=== PATIENT | female | born 1945 | race Caucasian/White ===

== ENCOUNTER 2022-09-15 21:44 | Inpatient (IN) | payer OTHER ==
--- OUTSIDE RECORDS SUMMARY | 2022-09-15 21:49 | XMS REPORT | Continuity of Care Document ---
:1945 Author Organization [facility] t Address [address] [place] [address] Care Team Providers Name Role Phone Kristi Watt DO Primary Care Physician Yuliana León Attending Clinician Unavailable Yeni Green Attending Clinician Unavailable Problems Condition Condition Condition Status Onset Resolution Last Treating Co mments Source Name Details Category Date Date Treatment Clinician Date Lupus Lupus Disease Active 2016-03 [facility] anticoagul anticoagul 2-11 st ant ant 00:00: Hospita positive positive 00 l Elevated Elevated Disease Active 2016-03 Metho di partial partial [address] thrombopla thrombopla 00:00: Ho spita stin time stin time 00 l (PTT) (PTT) S/P lumbar S/P lumbar Disease Active 2016-03 M ethodi spinal spinal 0-23 st fusion fusion 00:00: Hospita 00 l Right Right Disease Active 2016-03 [facility] lumbar lumbar 0-23 st radiculopa radiculopa 00:00: Ho spita thy thy 00 l Lumbar Lumbar Disease Active 2016-03 [facility] pseudoarth pseudoarth 0-23 st rosis rosis 00:00: Hospita 00 l Closed Closed Disease Active 2016-03 [facility] fracture fracture 0-23 st of fifth of fifth 00:00: Hospit a lumbar lumbar 00 l vertebra vertebra with with routine routine healing healing 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 00:00: Hosp yoseph 00 l Essential Essential Disease Active Met hodi hypertensi hypertensi 12-04 st on on 00:00: Hospita 00 l 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 10-16 st spine with spine with 00:00: Ho spita radiculopa radiculopa 00 l thy, thy, lumbar lumbar region region Preop Preop Disease Active Methodi cardiovasc cardiovasc 08-07 st ular exam ular exam 00:00: Hosp yoseph 00 l Essential Essential Disease Active Met hodi hypertensi hypertensi 08-07 st on on 00:00: Hospita 00 l HLD HLD Disease Active Methodi (hyperlipi (hyperlipi 08-07 demia) demia) 00:00: Hospita 00 l Smoking Smoking Disease Active Methodi 08-07 st 00:00: Hospita 00 l 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 [id number] Vitamin D Problem Comm on deficiency Spirit - [facility] [id number] PUD Problem Common (peptic Spirit ulcer - [facility] disease) 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 [id number] Mixed Problem Common hyperlipid Spirit emia - [facility] [id number] Chronic Problem Commo n GERD Spirit - [facility] Chronic Chronic Problem Common fatigue fatigue Spirit syndrome - [facility] [id number] Pressure Problem Com mon [id number] [facility] buttock, St stage 1 [facility] Cigarette Cigarette Disease Active Met hodi smoker smoker [facility] Chronic Chronic Disease Active Methodi bronchitis bronchitis [facility] Teeth Teeth Disease Active Methodi missing missing [facility] Wears Wears Disease Active Methodi glasses glasses [facility] History of History of Disease Active M ethodi bronchitis bronchitis [facility] Allergies, Adverse Reactions, Alerts This patient has no known allergies or adverse reactions. Family History Family Member Diagnosis Comments Start Date Stop Date Source Natural father Stroke [facility] Natural mother Cancer [facility] Natural mother Diabetes [facility] Natural mother Heart disease [facility] Social History Social Habit Start Date Stop Date Quantity Comments Source History of Tobacco [facility] Gender identity [facility] Sexual orientation [facility] Hospital History of Social 2018-01-30 2018-01-30 [facility] function 00:00:00 00:00:00 Hospital Alcohol intake 2017-07-04 2017-07-04 Current [facility] 00:00:00 00:00:00 non-drinker of Hospital alcohol (finding) Cigarette 2017-04-09 2017-04-09 [facility] pack-years 00:00:00 00:00:00 Hospital Tobacco use and 2017-04-09 2017-04-09 Former smokeless Met hodist exposure 00:00:00 00:00:00 tobacco user [facility] Tobacco Comment 2017-04-09 2017-04-09 quit then [facility] 00:00:00 00:00:00 restarted to Hospital about 1/2 pack/day Cigarettes smoked 2017-04-09 2017-04-09 [facility] current (pack per 00:00:00 00:00:00 Hospita l day) - Reported Sex Ass[birth year] At [birth year] [facility] 00:00:00 00:00:00 Hospital Smoking Status Start Date Stop Date Source Never Smoker Common [facility] Smokes tobacco daily 2017-04-09 00:00:00 [facility] Medications Ordered Filled Start Stop Current Ordering Indication Dosage Frequency Signature Comments Components Source Medication Medication Date Date Medication? Clinician (SIG) Name Name Keflex 500 Keflex 500 2021- No 1{capsu QID Keflex 500 MG MG 05-15 03-10 le} MG 00:00: 00:00 00 :00 Santyl 250 Santyl 250 2020-03- BID UNIT/GM UNIT/GM 04-05 00:00: 00:00 00 :00 Bactrim DS Bactrim DS 2020-03- No 1{table BID 800-160 MG 800-160 MG 03-26 t} 00:00: 00:00 00 :00 FOLIC Yes 1{tbl} QD Take 1 Methodi ACID/MULTIV 4-[address] IT-MIN/LUTE 14:26: mouth Hospi ta IN (CENTRUM 17 daily. l SILVER Centrum ORAL) Silver 50 + albuterol Yes 4{puff} Q4H Inhale 4 M ethodi sulfate 4-[address] (PROAIR 14:26: every 4 Hospita RESPICLICK) 17 (four) l 90 hours as mcg/actuati needed. on aerosol powdr breath activated UNABLE TO Yes 1{tbl} Q24H Take 1 Meth mandie FIND 4-[address] 14:26: mouth Hospita 17 daily as l needed (leg cramps). [facility] Leg Cramp bisacodyl Yes 10mg Q24H Take 10 mg Me thodi (DULCOLAX) 4-[address] 5 mg EC 14:26: daily as Hospit a tablet 17 needed for l constipati on. naproxen Yes TK 1 T PO Meth mandie (NAPROSYN) 3-[address] 500 MG 00:00: FOOD. Hospita tablet 00 l morPHINE 2016-03 Yes 60mg Q.5D Take 60 mg Met hodi (MS CONTIN) 0-[address] 60 MG 12 hr 00:00: (two) Hospi ta tablet 00 times a l day. traMADol 2016-03 Yes TAKE 2 Methodi (ULTRAM) 50 0-[address] mg tablet 00:00: MOUTH 3 Hospi ta 00 TIMES l DAILY (IN THE MORNING, NOON, AND AT BEDTIME) prn atorvastati Yes 40mg QD Take 40 mg Methodi n (LIPITOR) 4-[address] 40 MG 00:00: daily. Hospita tablet 00 l gabapentin 2017-0 Yes 600mg Q.5D Take 600 Me thodi (NEURONTIN) 4-[address] 300 mg 00:00: mouth 2 Hospita capsule 00 (two) l times a day. Takes 300 mg 2 caps. Orally in the morning, 2 at noon then 4 caps. At bedtime nortriptyli 2017-0 Yes 75mg QD Take 75 mg Methodi ne 4-[address] (PAMELOR) 00:00: nightly. Hosp yoseph 25 MG 00 Takes 25 l capsule mg 3 caps. Orally nightly Pregabalin Pregabalin No 1{capsu Pregabalin 100 MG 100 MG le} 100 MG Alendronate Alendronate No Alendronat Sodium 70 Sodium 70 e Sodium MG MG 70 MG traMADol traMADol No 2{table TID traMADol HCl 50 MG HCl 50 MG ts} HCl 50 MG DULoxetine DULoxetine No 1{capsu QD DULoxetine HCl 30 MG HCl 30 MG le} HCl 30 MG Atorvastati Atorvastati No Atorvastat n Calcium n Calcium in Calcium 20 MG 20 MG 20 MG Gabapentin Gabapentin No Gabapentin 300 MG 300 MG 300 MG Nortriptyli Nortriptyli No 3{capsu Nortriptyl ne HCl 25 ne HCl 25 les} ine HCl 25 MG MG MG Enalapril Enalapril No Enalapril Maleate 20 Maleate 20 Maleate 20 MG MG MG Morphine Morphine No Morphine Sulfate 60 Sulfate 60 Sulfate 60 MG MG MG DULoxetine DULoxetine No DULoxetine HCl 30 MG HCl 30 MG HCl 30 MG tiZANidine tiZANidine No 1{table tiZANidine HCl 4 MG HCl 4 MG t} HCl 4 MG Omeprazole Omeprazole No Omeprazole 40 MG 40 MG 40 MG Gabapentin Gabapentin No Gabapentin 300 MG 300 MG 300 MG Nortriptyli Nortriptyli No 3{capsu Nortriptyl ne HCl 25 ne HCl 25 les} ine HCl 25 MG MG MG traMADol traMADol No 2{table TID traMADol HCl 50 MG HCl 50 MG ts} HCl 50 MG Pregabalin Pregabalin No 1{capsu Pregabalin 100 MG 100 MG le} 100 MG Alendronate Alendronate No Alendronat Sodium 70 Sodium 70 e Sodium MG MG 70 MG DULoxetine DULoxetine No DULoxetine HCl 30 MG HCl 30 MG HCl 30 MG Atorvastati Atorvastati No Atorvastat n Calcium n Calcium in Calcium 20 MG 20 MG 20 MG tiZANidine tiZANidine No 1{table tiZANidine HCl 4 MG HCl 4 MG t} HCl 4 MG Omeprazole Omeprazole No Omeprazole 40 MG 40 MG 40 MG Naproxen Naproxen No BID Naproxen 500 MG 500 MG 500 MG Enalapril Enalapril No Enalapril Maleate 20 Maleate 20 Maleate 20 MG MG MG DULoxetine DULoxetine No 1{capsu QD DULoxetine HCl 30 MG HCl 30 MG le} HCl 30 MG Morphine Morphine No Morphine Sulfate 60 Sulfate 60 Sulfate 60 MG MG MG DULoxetine DULoxetine No DULoxetine HCl 30 MG HCl 30 MG HCl 30 MG Naproxen Naproxen No BID Naproxen 500 MG 500 MG 500 MG Gabapentin Gabapentin No Gabapentin 300 MG 300 MG 300 MG Atorvastati Atorvastati No Atorvastat n Calcium n Calcium in Calcium 20 MG 20 MG 20 MG Nortriptyli Nortriptyli No 3{capsu Nortriptyl ne HCl 25 ne HCl 25 les} ine HCl 25 MG MG MG Pregabalin Pregabalin No 1{capsu Pregabalin 100 MG 100 MG le} 100 MG Morphine Morphine No Morphine Sulfate 60 Sulfate 60 Sulfate 60 MG MG MG traMADol traMADol No 2{table TID traMADol HCl 50 MG HCl 50 MG ts} HCl 50 MG Enalapril Enalapril No Enalapril Maleate 20 Maleate 20 Maleate 20 MG MG MG Alendronate Alendronate No Alendronat Sodium 70 Sodium 70 e Sodium MG MG 70 MG Omeprazole Omeprazole No Omeprazole 40 MG 40 MG 40 MG tiZANidine tiZANidine No 1{table tiZANidine HCl 4 MG HCl 4 MG t} HCl 4 MG DULoxetine DULoxetine No DULoxetine HCl 30 MG HCl 30 MG HCl 30 MG Naproxen Naproxen No BID Naproxen 500 MG 500 MG 500 MG Gabapentin Gabapentin No Gabapentin 300 MG 300 MG 300 MG Atorvastati Atorvastati No Atorvastat n Calcium n Calcium in Calcium 20 MG 20 MG 20 MG Nortriptyli Nortriptyli No 3{capsu Nortriptyl ne HCl 25 ne HCl 25 les} ine HCl 25 MG MG MG Pregabalin Pregabalin No 1{capsu Pregabalin 100 MG 100 MG le} 100 MG Morphine Morphine No Morphine Sulfate 60 Sulfate 60 Sulfate 60 MG MG MG traMADol traMADol No 2{table TID traMADol HCl 50 MG HCl 50 MG ts} HCl 50 MG Enalapril Enalapril No Enalapril Maleate 20 Maleate 20 Maleate 20 MG MG MG Alendronate Alendronate No Alendronat Sodium 70 Sodium 70 e Sodium MG MG 70 MG Omeprazole Omeprazole No Omeprazole 40 MG 40 MG 40 MG tiZANidine tiZANidine No 1{table tiZANidine HCl 4 MG HCl 4 MG t} HCl 4 MG DULoxetine DULoxetine No 1{capsu QD DULoxetine HCl 30 MG HCl 30 MG le} HCl 30 MG DULoxetine DULoxetine No DULoxetine HCl 30 MG HCl 30 MG HCl 30 MG Alendronate Alendronate No Alendronat Sodium 70 Sodium 70 e Sodium MG MG 70 MG Omeprazole Omeprazole No Omeprazole 40 MG 40 MG 40 MG traMADol traMADol No 2{table TID traMADol HCl 50 MG HCl 50 MG ts} HCl 50 MG Atorvastati Atorvastati No 1{table QD Atorvastat n Calcium n Calcium t} in Calcium 20 MG 20 MG 20 MG Gabapentin Gabapentin No Gabapentin 300 MG 300 MG 300 MG Nortriptyli Nortriptyli No 3{capsu Nortriptyl ne HCl 25 ne HCl 25 les} ine HCl 25 MG MG MG Pregabalin Pregabalin No 1{capsu Pregabalin 100 MG 100 MG le} 100 MG Morphine Morphine No Morphine Sulfate 60 Sulfate 60 Sulfate 60 MG MG MG Enalapril Enalapril No 1{table QD Enalapril Maleate 20 Maleate 20 t} Maleate 20 MG MG MG tiZANidine tiZANidine No 1{table tiZANidine HCl 4 MG HCl 4 MG t} HCl 4 MG Enalapril Enalapril No Enalapril Maleate 20 Maleate 20 Maleate 20 MG MG MG Omeprazole Omeprazole No 1{capsu QD Omeprazole 40 MG 40 MG le} 40 MG Naproxen Naproxen No BID Naproxen 500 MG 500 MG 500 MG Atorvastati Atorvastati No Atorvastat n Calcium n Calcium in Calcium 20 MG 20 MG 20 MG Naproxen Naproxen No BID Naproxen 500 MG 500 MG 500 MG Morphine Morphine No Morphine Sulfate 60 Sulfate 60 Sulfate 60 MG MG MG Pregabalin Pregabalin No 1{capsu Pregabalin 100 MG 100 MG le} 100 MG Alendronate Alendronate No Alendronat Sodium 70 Sodium 70 e Sodium MG MG 70 MG Omeprazole Omeprazole No 1{capsu QD Omeprazole 40 MG 40 MG le} 40 MG DULoxetine DULoxetine No DULoxetine HCl 30 MG HCl 30 MG HCl 30 MG Atorvastati Atorvastati No Atorvastat n Calcium n Calcium in Calcium 20 MG 20 MG 20 MG Nortriptyli Nortriptyli No 3{capsu Nortriptyl ne HCl 25 ne HCl 25 les} ine HCl 25 MG MG MG Enalapril Enalapril No 1{table QD Enalapril Maleate 20 Maleate 20 t} Maleate 20 MG MG MG Enalapril Enalapril No Enalapril Maleate 20 Maleate 20 Maleate 20 MG MG MG traMADol traMADol No 2{table TID traMADol HCl 50 MG HCl 50 MG ts} HCl 50 MG Atorvastati Atorvastati No 1{table QD Atorvastat n Calcium n Calcium t} in Calcium 20 MG 20 MG 20 MG Gabapentin Gabapentin No Gabapentin 300 MG 300 MG 300 MG DULoxetine DULoxetine No 1{capsu QD DULoxetine HCl 30 MG HCl 30 MG le} HCl 30 MG tiZANidine tiZANidine No 1{table tiZANidine HCl 4 MG HCl 4 MG t} HCl 4 MG Omeprazole Omeprazole No Omeprazole 40 MG 40 MG 40 MG Atorvastati Atorvastati No n Calcium n Calcium 20 MG 20 MG Gabapentin Gabapentin No 300 MG 300 MG DULoxetine DULoxetine No HCl 30 MG HCl 30 MG Alendronate Alendronate No Sodium 70 Sodium 70 MG MG Omeprazole Omeprazole No 40 MG 40 MG Enalapril Enalapril No 1{table QD Maleate 20 Maleate 20 t} MG MG Atorvastati Atorvastati No 1{table QD n Calcium n Calcium t} 20 MG 20 MG Pregabalin Pregabalin No 1{capsu 100 MG 100 MG le} Omeprazole Omeprazole No 1{capsu QD 40 MG 40 MG le} DULoxetine DULoxetine No 1{capsu QD HCl 30 MG HCl 30 MG le} Nortriptyli Nortriptyli No 3{capsu ne HCl 25 ne HCl 25 les} MG MG traMADol traMADol No 2{table TID HCl 50 MG HCl 50 MG ts} Morphine Morphine No Sulfate 60 Sulfate 60 MG MG Enalapril Enalapril No Maleate 20 Maleate 20 MG MG tiZANidine tiZANidine No 1{table HCl 4 MG HCl 4 MG t} Naproxen Naproxen No BID 500 MG 500 MG DULoxetine DULoxetine No DULoxetine HCl 30 MG HCl 30 MG HCl 30 MG Omeprazole Omeprazole No Omeprazole 40 MG 40 MG 40 MG Omeprazole Omeprazole No 1{capsu QD Omeprazole 40 MG 40 MG le} 40 MG tiZANidine tiZANidine No 1{table tiZANidine HCl 4 MG HCl 4 MG t} HCl 4 MG Enalapril Enalapril No 1{table QD Enalapril Maleate 20 Maleate 20 t} Maleate 20 MG MG MG Nortriptyli Nortriptyli No 3{capsu Nortriptyl ne HCl 25 ne HCl 25 les} ine HCl 25 MG MG MG Pregabalin Pregabalin No 1{capsu Pregabalin 100 MG 100 MG le} 100 MG traMADol traMADol No 2{table TID traMADol HCl 50 MG HCl 50 MG ts} HCl 50 MG Enalapril Enalapril No Enalapril Maleate 20 Maleate 20 Maleate 20 MG MG MG Morphine Morphine No Morphine Sulfate 60 Sulfate 60 Sulfate 60 MG MG MG Gabapentin Gabapentin No Gabapentin 300 MG 300 MG 300 MG DULoxetine DULoxetine No 1{capsu QD DULoxetine HCl 30 MG HCl 30 MG le} HCl 30 MG Naproxen Naproxen No BID Naproxen 500 MG 500 MG 500 MG Atorvastati Atorvastati No 1{table QD Atorvastat n Calcium n Calcium t} in Calcium 20 MG 20 MG 20 MG Alendronate Alendronate No Alendronat Sodium 70 Sodium 70 e Sodium MG MG 70 MG Atorvastati Atorvastati No Atorvastat n Calcium n Calcium in Calcium 20 MG 20 MG 20 MG Tizanidine Tizanidine Yes Na Green 1 tablet Common HCl HCl [facility] Nortriptyli Nortriptyli Yes Na Green 3 capsules Common ne HCl ne HCl [facility] Omeprazole Omeprazole Yes Na Green 1 capsule Common [facility] Atorvastati Atorvastati Yes Na Green 1 tablet Common n Calcium n Calcium [facility] Naproxen Naproxen Yes Na Green 1 tablet Common with food Spirit or milk as - [facility]I needed [facility] Morphine Morphine Yes Na Green as Comm on Sulfate Sulfate directed [facility] Duloxetine Duloxetine Yes Na Green 1 capsule Common HCl HCl [facility] Pregabalin Pregabalin Yes Na Green 1 capsule Common [facility] Enalapril Enalapril Yes Na Green 1 tablet Common Maleate Maleate [facility] Gabapentin Gabapentin Yes Na Green 2 capsules Common in the morning, 2 - [facility] at noon [facility] and 4 at [facility] Tramadol Tramadol Yes Na Green 2 tablets Common HCl HCl [facility] Naproxen Naproxen No BID Naproxen 500 MG 500 MG 500 MG Immunizations Ordered Immunization Filled Immunization Date Status Commen ts Source Name Name FluAD FluAD 2019-12-21 Completed [facility] - 16:29:00 [facility] FluAD FluAD 2019-12-21 Completed [facility] - 16:29:00 [facility] FluAD FluAD 2019-12-21 Completed [facility] - 16:29:00 [facility] FluAD FluAD 2019-12-21 Completed [facility] - 16:29:00 [facility] FluAD FluAD 2019-12-21 Completed [facility] - 16:29:00 [facility] FluAD FluAD 2019-12-21 Completed [facility] - 16:29:00 [facility] FluAD FluAD 2019-12-21 Completed [facility] - 16:29:00 [facility] FluAD FluAD 2019-12-21 Completed [facility] - 16:29:00 [facility] FLUCELVAX QUAD PF 2017-04-[address] 00:00:00 Hospital Pneumococcal 2016-10-19 Completed [facility] Conjugate 13-Valent 00:00:00 Hospi emil Vital Signs Vital Name Observation Time Observation Value Comments Source height 2022-02-26 13:40:00 59.00 [in_i] [facility] 2022-02-26 13:40:00 147.4 [lb_av] Common [facility] temperature 2022-02-26 13:40:00 97.5 [degF] Common S [facility] bmi 2022-02-26 13:40:00 29.77 kg/m2 [facility] 2022-02-26 13:40:00 98 % Common S [facility] respiratory rate 2022-02-26 13:40:00 16 /min Comm on [facility] blood pressure 2022-02-26 13:40:00 120 mm[Hg] [facility] systolic [facility] blood pressure 2022-02-26 13:40:00 80 mm[Hg] Common [facility] - diastolic [facility] height 2021-11-24 15:00:00 59.00 [in_i] Common S [facility] weight 2021-11-24 15:00:00 147.2 [lb_av] [facility] temperature 2021-11-24 15:00:00 97.6 [degF] Common [facility] bmi 2021-11-24 15:00:00 29.73 kg/m2 Common S [facility] oximetry 2021-11-24 15:00:00 98 % Common S [facility] respiratory rate 2021-11-24 15:00:00 16 /min Comm on [facility] blood pressure 2021-11-24 15:00:00 130 mm[Hg] [facility] - systolic [facility] blood pressure 2021-11-24 15:00:00 62 mm[Hg] Common [facility] - diastolic [facility] height 2021-05-15 14:40:00 61.5 [in_i] Common S pirit [facility] weight 2021-05-15 14:40:00 146.2 [lb_av] Common [facility] temperature 2021-05-15 14:40:00 97.6 [degF] [facility] bmi 2021-05-15 14:40:00 27.17 kg/m2 [facility] oximetry 2021-05-15 14:40:00 97 % [facility] respiratory rate 2021-05-15 14:40:00 18 /min Comm on [facility] blood pressure 2021-05-15 14:40:00 138 mm[Hg] [facility] systolic [facility] blood pressure 2021-05-15 14:40:00 65 mm[Hg] [facility] diastolic [facility] Procedures This patient has no known procedures. Plan of Care Planned Activity Planned Date Details Comments Source Future Scheduled 2022-08-31 Screening for [facility] Test 11:57:42 malignant neoplasm of colon (procedure) [code = 110838577] Future Scheduled 2022-08-31 Screening for [facility] Test 11:57:42 malignant neoplasm of colon (procedure) [code = 919065016] Future Scheduled 2022-08-31 Screening for [facility] Test 11:57:42 malignant neoplasm of colon (procedure) [code = 058338169] Future Scheduled 2022-08-31 COVID-19 VACCINE (#1) Me [facility] Test 11:57:42 [code = COVID-19 VACCINE (#1)] Future Scheduled 2022-08-31 BREAST CANCER [facility] Test 11:57:42 SCREENING [code = BREAST CANCER SCREENING] Future Scheduled 2022-08-31 Screening for [facility] Test 11:57:42 malignant neoplasm of colon (procedure) [code = 299063917] Future Scheduled 2022-08-31 Screening for [facility] Test 11:57:42 malignant neoplasm of colon (procedure) [code = 518632397] Future Scheduled 2022-08-31 SHINGLES VACCINES (1 [facility] Test 11:57:42 of 2) [code = SHINGLES VACCINES (1 of 2)] Future Scheduled 2022-08-31 65+ [address] [facility] Test 11:57:42 VACCINE (2 - PPSV23 if available, else PCV20) [code = 65+ PNEUMOCOCCAL VACCINE (2 - PPSV23 if available, else PCV20)] Future Scheduled 2022-08-31 INFLUENZA VACCINE Method [facility] Test 11:57:42 [code = INFLUENZA VACCINE] Encounters Start End Encounter Admission Attending Care Care Encounter Source Date/Time Date/Time Type Type Clinicians Facility Department ID 2022-04-17 Outpatient León, STLMLC STLMLC [id number] Common 13:50:01 Yuliana [id number] [facility] 2022-02-22 Outpatient Green, Na STLMLC STLMLC [id number] 2 Common 10:26:02 [facility] 2021-11-22 Outpatient Green, Na STLMLC STLMLC [id number] 2 Common 09:34:01 [facility] 2021 Outpatient Green, Na STLMLC STLMLC [id number] 2 Common 14:55:01 [facility] 2021-07-26 Outpatient Green, Na STLMLC STLMLC [id number] 2 Common 14:08:01 [facility] 2021-04-12 Outpatient Green, Na STLMLC STLMLC [id number] 2 Common 14:28:54 [id number] [facility] 2021-04-12 Outpatient Green, Na STLMLC STLMLC [id number] 2 Common 13:46:16 [id number] [facility] 2021-04-12 Outpatient Green, Na STLMLC STLMLC [id number] 2 Common 13:42:16 [id number] [facility] 2021-04-12 Outpatient Green, Na STLMLC STLMLC [id number] 2 Common 12:45:34 [id number] [facility] 2021-04-12 Outpatient Green, Na STLMLC STLMLC [id number] 2 Common 12:44:53 [id number] [facility] 2021-04-12 Outpatient Geren, Na STLMLC STLMLC [id number] 2 Common 12:26:53 [id number] [facility] 2021-04-12 Outpatient Green, Na STLMLC STLMLC [id number] 2 Common 12:25:49 [id number] [facility] 2021-04-12 Outpatient Green, Na STLMLC STLMLC [id number] 2 Common 12:18:05 [id number] [facility] 2021-04-12 Outpatient Green, Na STLMLC STLMLC [id number] 2 Common 11:51:33 [id number] [facility] 2021-04-12 Outpatient Green, Na STLMLC STLMLC [id number] 2 Common 11:29:53 [id number] [facility] 2021-04-12 Outpatient Green, Na STLMLC STLMLC [id number] 2 Common 11:29:37 [id number] [facility] 2022-02-26 2022-02-26 OFFICE STLMLC STLMLC [id number] Co mmon 00:00:00 00:00:00 VISIT EST Spir it PT LEVEL 3 [facility] 2021-11-24 2021-11-24 OFFICE STLMLC STLMLC [id number] Co mmon 00:00:00 00:00:00 VISIT [facility] PT - [facility] LEVEL [address] [facility] 2021-09-07 2021-09-07 (TEL) STLMLC STLMLC [id number] Co mmon 00:00:00 00:00:00 [facility] 2021-09-04 2021-09-04 (TEL) STLMLC STLMLC [id number] Co mmon 00:00:00 00:00:00 [facility] 2021-06-12 2021-06-12 (TEL) STLMLC STLMLC [id number] Co mmon 00:00:00 00:00:00 [facility] 2021-05-15 2021-05-15 OFFICE STLMLC STLMLC [id number] Co mmon 00:00:00 00:00:00 VISIT EST Spir it PT LEVEL 3 [facility] 2021-04-18 2021-04-18 (TEL) STLMLC STLMLC [id number] Co mmon 00:00:00 00:00:00 [facility] 2021-03-16 2021-03-16 OL DIG E/M STLMLC STLMLC [id number] Common 00:00:00 00:00:00 [facility] 11-20 Spir it MIN [facility] 2020-11-08 2020-11-08 Outpatient STLMLC STLMLC [id number] Common 00:00:00 00:00:00 [facility] 2020-06-13 2020-06-13 Outpatient STLMLC STLMLC [id number] Common 00:00:00 00:00:00 [facility] 2020-06-13 2020-06-13 Outpatient [facility]LMLC STL[facility]C [id number] Common 00:00:00 00:00:00 [facility] 2020-05-25 2020-05-25 Outpatient STLMLC STLMLC [id number] Common 00:00:00 00:00:00 [facility] 2020-05-16 2020-05-16 Outpatient STLMLC STLMLC [id number] Common 00:00:00 00:00:00 [facility] 2020-04-15 2020-04-15 Outpatient STLMLC STLMLC [id number] Common 00:00:00 00:00:00 [facility] 2019-12-21 2019-12-21 Outpatient STLMLC STLMLC [id number] Common 00:00:00 00:00:00 [facility] 2019-10-04 2019-10-04 [facility] [id number] Common 21:56:00 21:56:[address] [facility] 2019-09-22 2019-09-22 [facility] [id number] Common 14:40:00 14:40:[address] [facility] 2019-09-21 2019-09-21 [facility] [id number] Common 13:40:00 13:40:00 t [facility] Results This patient has no known results.
[2022-09-15 22:37] LABS: Absolute Lymphocytes (CBC) 1.5 K/uL (0.7-4.9); Hematocrit 35.9 % (36.0-45.0); Lymphocytes % 7.1 % (15.3-44.8); MCV 84.8 fL (80-100); MPV 8.2 fL (7.6-11.3); RBC Red Blood Cell Count 4.23 M/uL (3.86-4.86)
[2022-09-15 23:04] LABS: SARS-CoV-2 Antigen Rapid Res Negative (Negative)
[2022-09-15 23:08] LABS: Albumin 2.7 g/dL (3.4-5.0); Bilirubin Total 0.4 mg/dL (0.2-1.0); Protein, Total 6.6 g/dL (6.4-8.2); Troponin High Sensitivity 14.1 pg/mL (<58.9)
[2022-09-15 23:17] LABS: Blood Morphology Comment NOT SEEN (NOT SEEN); Platelet Estimate ADEQ; White Blood Cell Scan OK (OK)
[2022-09-15] MEDS ORDERED: NA CHLORIDE 0.9% 1,000 ML ONE (23:22)
[2022-09-15] MEDS ORDERED: ONDANSETRON 4 MG/2 ML VIAL ONE (23:22)
[2022-09-15 23:23] LABS: Specific Gravity 1.021 (1.005-1.030); Urine Bacteria 20-50 /HPF (<20); Urine Bilirubin NEGATIVE (Negative); Urine Blood 3+ (OVER) (Negative); Urine Clarity Extremely Turbid (Clear); Urine Color Yellow (Yellow); Urine Glucose NEGATIVE (Negative); Urine Mucus 1+ /HPF (None Seen); Urine Protein 2+ (Negative); Urine Urobilinogen Normal (Normal); Urine WBC Clump Few /HPF (None Seen)
[2022-09-15 23:37] LABS: Barbiturates NEGATIVE (NEGATIVE); Benzodiazepines NEGATIVE (NEGATIVE); Cocaine NEGATIVE (NEGATIVE); METHAMPHETAM NEGATIVE (NEGATIVE); Methadone NEGATIVE (NEGATIVE); Opiates POSITIVE (NEGATIVE); Phencyclidine NEGATIVE (NEGATIVE); THC Cannibis NEGATIVE (NEGATIVE)
[2022-09-16] MEDS ORDERED: VANCOMYCIN 1 GM/VIAL ONE (00:18)
[2022-09-16] MEDS ORDERED: NS KCL 20MEQ 1,000 ML IV ONE (00:18)
[2022-09-16] MEDS ORDERED: NA CHLORIDE 0.9% 250 ML ONE (00:18)
[2022-09-16] MEDS ORDERED: NA CHLORIDE 0.9% 100 ML ONE (00:18)
[2022-09-16] MEDS ORDERED: PIPERACIL/TAZO 3.375 GM VIAL IV ONE (00:18)
--- NOTE | 2022-09-16 01:25 | ER ---
Nurse's Notes [facility] Name: Azalea Rdz Age: 76 yrs Sex: Female : 1945 Arrival Date: 09/15/2022 Time: 21:44 Bed 6 Private MD: Diagnosis: Metabolic encephalopathy;Acute renal failure, hyponatremia, hypokalemia, acute hypoactive delirium, opiate dependence, acute sepsis, altered mental status with somnolence, acute infectious colitis Presentation: 09/15 21:52 Chief complaint: EMS states: We were toned out by the patient's daughters who state kd3 that she has had N/V/D for 3 days but she also has a history of abusing oxy. She was taken off of OXY but her home medication list says that she has morphine 60 mg. The patient reported taking her medications around 6 pm and does not know how much she took. Pt arouses easily but falls back asleep quickly. Coronavirus screen: Vaccine status: unknown. Ebola Screen: No symptoms or risks identified at this time. Initial Sepsis Screen: Does the patient meet any 2 criteria? No. Patient's initial sepsis screen is negative. Does the patient have a suspected source of infection? No. Patient's initial sepsis screen is negative. Risk Assessment: Do you want to hurt yourself or someone else? Patient reports no desire to harm self or others. Onset of symptoms was September 15, 2022. 21:52 Method Of Arrival: [facility] 3 21:52 Acuity: ROSIO 2 kd3 Triage Assessment: 21:56 General: Appears in no apparent distress. Behavior is drowsy. Pain: Denies pain. GI: kd3 Reports diarrhea, nausea, vomiting. Historical: - Allergies: 21:56 No Known Allergies; kd3 - Immunization history:: Adult Immunizations up to date. - Social history:: Smoking status: unknown. - Family history:: not pertinent. Screenin:56 [facility] ED Fall Risk Assessment (Adult) History of falling in the last 3 months, kd3 including since admission No falls in past 3 months (0 pts) Confusion or Disorientation Yes (5 pts) Intoxicated or Sedated No (0 pts) Impaired Gait Yes (1 pt) Mobility Assist Device Used No (0 pt) Altered Elimination No (0 pt) Score/Fall Risk Level 3 or more points = High Risk Maintained a safe environment. Abuse screen: Denies threats or abuse. Denies injuries from another. Nutritional screening: No deficits noted. Tuberculosis screening: No symptoms or risk factors identified. Assessment: 22:09 General: Appears in no apparent distress. comfortable, Behavior is calm, cooperative. jb4 Pain: Unable to use pain scale. FLACC scale score is 0 out of 10. Neuro: Level of Consciousness is awake, lethargic, Oriented to person, time. Cardiovascular: Patient's skin is warm and dry. Respiratory: Airway is patent Respiratory effort is even, unlabored, Respiratory pattern is regular, symmetrical. GI: Abdomen is flat, non-distended. : No signs and/or symptoms were reported regarding the genitourinary system. EENT: No signs and/or symptoms were reported regarding the EENT system. Derm: Skin is intact, Skin is pink, warm \T\ dry. Musculoskeletal: Circulation, motion, and sensation intact. Range of motion: intact in all extremities. 23:00 Reassessment: Patient appears in no apparent distress at this time. No changes from jb4 previously documented assessment. Patient and/or family updated on plan of care and expected duration. Pain level reassessed. 09/16 00:00 Reassessment: Respirations remain even and unlabored, pt is now oriented to self. jb4 Remains lethargic. 01:34 Reassessment: Patient appears in no apparent distress at this time. No changes from jb4 previously documented assessment. Patient and/or family updated on plan of care and expected duration. Pain level reassessed. Lungs are CTA RODRIGUEZ. 02:45 Reassessment: Pt resting in bed with eyes closed, respirations remain even and jb4 unlabored. no s/s of pain or distress noted, family remains at bedside. Vital Signs: 09/15 21:52 BP 142 / 110; Pulse 99; Resp 15; Temp 98.2(O); Pulse Ox 96% on R/A; Weight 51.5 kg; kd3 22:52 BP 124 / 78 (man/); Pulse 111; Resp 20; Pulse Ox 98% on R/A; jb4 23:18 BP 126 / 66; Pulse 102; Resp 18; Pulse Ox 96% on R/A; kd3 09/16 00:00 BP 100 / 76; Pulse 106; Resp 19; Pulse Ox 96% on R/A; jb4 01:15 BP 122 / 86; Pulse 108; Resp 19; Pulse Ox 95% on R/A; jb4 02:00 BP 123 / 47; Pulse 114; Resp 23; Temp 98.1(TE); Pulse Ox 95% on R/A; jb4 02:26 BP 112 / 53; Pulse 112; Resp 19; Pulse Ox 96% on R/A; kd3 02:45 Temp 98.2(TE); jb4 ED Course: 09/15 21:51 Patient arrived in ED. ja2 21:52 Haylee Pelaez, RN is Primary Nurse. kd3 21:56 Triage completed. kd3 21:56 Arm band placed on right wrist. kd3 21:57 Patient has correct armband on for positive identification. kd3 21:58 Walter Peña MD is Attending Physician. sp4 22:43 CMP Sent. jb4 22:43 CBC with Diff Sent. jb4 22:43 Lipase Sent. jb4 22:43 Troponin HS Sent. jb4 22:43 Alcohol Level Sent. jb4 22:43 SARS RAPID Sent. jb4 22:43 Influenza Screen (a \T\ B) Sent. jb4 22:43 AMMONIA Sent. jb4 22:43 Acetaminophen Sent. jb4 22:43 Salicylate Sent. jb4 22:43 TSH Sent. jb4 22:43 T4 Free Sent. jb4 09/16 00:16 CT Head Brain wo Cont In Process Unspecified. EDMS 00:16 Chest Abd Pelvis Wo Con In Process Unspecified. EDMS 01:23 Cally Schneider MD is Hospitalizing Provider. sp4 02:00 Renner cath inserted, using sterile technique, 16 Fr., by ny, balloon inflated, to jb4 gravity drainage, returned clear yellow urine. Patient tolerated well. 02:09 No provider procedures requiring assistance completed. Patient admitted, IV remains in jb4 place. Administered Medications: 09/15 23:10 Drug: NS 0.9% IV 1000 ml Route: IV; Rate: 1 bolus; Site: right antecubital; jb4 23:10 Drug: Ondansetron IVP 4 mg Route: IVP; Site: right antecubital; jb4 09/16 00:25 Drug: NS 0.9% with KCl IV 20 mEq/L 1000 ml Route: IV; Rate: 125 ml/hr; Site: right jb4 antecubital; 00:27 Drug: Piperacillin-Tazobactam IVPB 3.375 grams Route: IVPB; Infused Over: 60 mins; jb4 Site: right hand; 01:30 Drug: vancoMYCIN IVPB 1 grams Route: IVPB; Infused Over: 2 hrs; Site: right hand; jb4 Medication: 09/15 21:57 VIS not applicable for this client. kd3 Outcome: 09/16 01:24 Decision to Hospitalize by Provider. sp4 02:50 Admitted to ICU accompanied by nurse, via stretcher, on monitor. kd3 02:50 Condition: stable 02:50 Discharge instructions given to patient, family, Instructed on the need for admit, Demonstrated understanding of instructions. 02:50 Patient left the ED. kd3 Signatures: Dispatcher [employer] EDMS Nir Ratliff RN RN jb4 Nica Varela Kyli, RN RN kd3 Walter Peña MD MD sp4 Corrections: (The following items were deleted from the chart) 09/15 22:53 22:52 BP 124 / 78; Pulse 111bpm; Resp 20bpm; Pulse Ox 98% RA; jb4 jb4 09/16 02:34 02:00 BP 123 / 47; Pulse 114bpm; Resp 23bpm; Pulse Ox 95% RA; jb4 jb4 03:17 01:34 Reassessment: Patient appears in no apparent distress at this time. No changes jb4 from previously documented assessment. Patient and/or family updated on plan of care and expected duration. Pain level reassessed. jb4
--- NOTE | 2022-09-16 01:25 | EDPHYS ---
Physician Documentation [facility] Name: Azalea Rdz Age: 76 yrs Sex: Female : 1945 Arrival Date: 09/15/2022 Time: 21:44 Bed 6 Private MD: ED Physician Walter Peña HPI: 09/15 21:59 This 76 yrs old White Female presents to ER via EMS with complaints of sp4 Nausea/Vomiting/Diarrhea. 22:12 Very pleasant 76-year-old female who generally goes to [facility], with sp4 persistent nausea vomiting diarrhea at home for the past several days, also somnolence, patient at home takes morphine sulfate for chronic pain and patient's relative suspect that she took too much for medicine at 6 PM. Patient on arrival is somnolent, confused, not able to provide any significant medical history or review of systems. Patient is able to say that she has persistent somnolence and she cannot manage to wake up. Patient is unsure how long she has been feeling unwell. Patient's medications include enalapril 20 mg daily, omeprazole 40 mg daily, duloxetine unknown dose daily, patient also takes nortriptyline daily morphine 60 mg as needed for of the list and also fish oil and vitamin D based on her list of medications. Historical: - Allergies: 21:56 No Known Allergies; kd3 - Immunization history:: Adult Immunizations up to date. - Social history:: Smoking status: unknown. - Family history:: not pertinent. ROS: 22:12 Constitutional: Negative for fever, chills, and weight loss, positive for excess sp4 somnolence, nausea vomiting and diarrhea 22:12 All other systems are negative. 22:12 All other systems are negative. 22:12 Unable to obtain ROS due to obtunded state, . Exam: 22:12 Constitutional: This is a well developed, well nourished patient, patient is somnolent sp4 appears intoxicated on sedating substance. Not able to wake up sufficiently to provide HPI or review of systems. Appears physically deconditioned Head/Face: Normocephalic, atraumatic. Eyes: Pupils equal round and reactive to light, extra-ocular motions intact. Lids and lashes normal. Conjunctiva and sclera are not injected. Cornea within normal limits. Periorbital areas with no swelling, redness, or edema. ENT: Nares patent. No nasal discharge, no septal abnormalities noted. Tympanic membranes are normal and external auditory canals are clear. Oropharynx with no redness, swelling, or masses, exudates, or evidence of obstruction, uvula midline. Mucous membranes moist. Neck: Trachea midline, no thyromegaly or masses palpated, and no cervical lymphadenopathy. Supple, full range of motion without nuchal rigidity, or vertebral point tenderness. Chest/axilla: Normal chest wall appearance and motion. Nontender with no deformity. No lesions are appreciated. Cardiovascular: Regular rate and rhythm with a normal S1 and S2. No gallops, murmurs, or rubs. Normal PMI, no JVD. No pulse deficits. Respiratory: Lungs have equal breath sounds bilaterally, clear to auscultation and percussion. No rales, rhonchi or wheezes noted. No increased work of breathing, no retractions or nasal flaring. Abdomen/GI: Soft, non-tender, with normal bowel sounds. No distension or tympany. No guarding or rebound. No evidence of tenderness throughout. Back: No spinal tenderness. No costovertebral tenderness. Skin: Warm, dry with normal turgor. Normal color with no rashes, no lesions, and no evidence of cellulitis. MS/ Extremity: Pulses equal, no cyanosis. Neurovascular intact. Full, normal range of motion. Neuro: Cranial nerves II-XII grossly intact. Motor strength 5/5 in all extremities. Sensory grossly intact. Patient is somnolent alert and oriented to self and others, nonambulatory. 09/16 00:57 ECG was reviewed by the Attending Physician. EKG time 2240, there is normal sinus sp4 rhythm at a rate of 97, no ST elevation or depression, no ectopy, normal EKG Vital Signs: 09/15 21:52 BP 142 / 110; Pulse 99; Resp 15; Temp 98.2(O); Pulse Ox 96% on R/A; Weight 51.5 kg; kd3 22:52 BP 124 / 78 (man/); Pulse 111; Resp 20; Pulse Ox 98% on R/A; jb4 23:18 BP 126 / 66; Pulse 102; Resp 18; Pulse Ox 96% on R/A; kd3 09/16 00:00 BP 100 / 76; Pulse 106; Resp 19; Pulse Ox 96% on R/A; jb4 01:15 BP 122 / 86; Pulse 108; Resp 19; Pulse Ox 95% on R/A; jb4 02:00 BP 123 / 47; Pulse 114; Resp 23; Temp 98.1(TE); Pulse Ox 95% on R/A; jb4 02:26 BP 112 / 53; Pulse 112; Resp 19; Pulse Ox 96% on R/A; kd3 02:45 Temp 98.2(TE); jb4 MDM: 09/15 22:11 Patient medically screened. sp4 09/16 00:51 ED course: EXAM DESCRIPTION: Head Brain Wo Cont CLINICAL HISTORY: 76 years Female sp4 CONFUSED TECHNIQUE: Axial noncontrast CT head with coronal and sagittal reformats. All CT scans at this facility use dose modulation, iterative reconstruction, and/or weight based dosing when appropriate to reduce radiation dose to as low as reasonably achievable. COMPARISON: None. FINDINGS: Brain: No intracranial hemorrhage, midline shift, mass or mass effect. Bilateral white matter hypodensities which are nonspecific. No obvious large acute territorial infarction. Ventricles: No hydrocephalus. Orbits: Unremarkable. Sinuses: Visualized portions are clear. Mastoid: Clear. Osseous: Unremarkable. Soft tissues: Unremarkable. IMPRESSION: 1. No acute CT abnormality. 2. Bilateral white matter hypodensities which are nonspecific but probably related to chronic small vessel disease. 3. Consider further evaluation with MRI as clinically warranted. . 00:53 ED course: A EXAM DESCRIPTION: Chest Abd Pelvis Wo Con CLINICAL HISTORY: 76 years sp4 Female persistent vomiting , diarrhea TECHNIQUE: Noncontrast CT chest, abdomen and pelvis with coronal and sagittal reformats. All CT scans at this facility use dose modulation, iterative reconstruction, and/or weight based dosing when appropriate to reduce radiation dose to as low as reasonably achievable. COMPARISON: None. FINDINGS: Chest: Lungs: Minimal dependent atelectasis in the left lung base. No consolidation. Pleura: No pneumothorax. No pleural effusion. Mediastinum: No mediastinal mass or adenopathy. No pericardial effusion. Mild distention of the esophagus containing ingested material. Vascular: Normal contour. Atherosclerosis of the aorta. Bones: Unremarkable. Soft tissues: Unremarkable. Abdomen/Pelvis: Liver: No focal lesion. Gallbladder: No calcified stone. Pancreas: Within normal limits. Spleen: Within normal limits. Kidney: No stone or hydronephrosis. Adrenal glands: Within normal limits. Vascular structures: Atherosclerosis of the aorta and its major branches. Bowel: Segmental bowel wall thickening of the ascending colon, transverse colon, descending colon and sigmoid. No bowel distention. Diverticulosis without inflammatory changes. Appendix: Normal. Peritoneum: No free fluid or free air. Lymph Nodes: No lymphadenopathy. Reproductive: Status post hysterectomy. Urinary bladder: Unremarkable. Osseous structures: Multilevel degenerative and postsurgical changes of the lumbar spine. Postsurgical changes in the pelvis also noted. Chronic deformity of the right femoral head and neck with severe degenerative changes of the hip joint. Soft tissues: Unremarkable. IMPRESSION: 1. Mild distention of the esophagus containing ingested material. 2. Segmental bowel wall thickening of the ascending colon, transverse colon, descending colon and sigmoid which could be due to under distention versus colitis. 3. Chronic findings as above. . 01:24 Differential diagnosis: Nonspecific abd pain, gastritis, cholecystitis, pancreatitis, sp4 appendicitis, diverticulitis, viral gastroenteritis, gastroenteritis. Data reviewed: vital signs, nurses notes, EMS record, lab test result(s), amylase and lipase, cardiac enzymes, CBC, electrolytes, hepatic panel, urinalysis, urine drug screen, EKG, radiologic studies, CT scan. Consideration of Admission/Observation Patient was admitted/placed on observation. Escalation of care including admission/observation considered. Management of patient was discussed with the following: Hospitalist: Discussed with admitting team,. Lithographed Plate Inspector: Discussed with binder cutter hand Dr. America Galindo . ED course: Patient is in acute renal failure and a is also having leukocytosis with WBC 20,000. Patient warrants admission for evaluation and management of acute renal failure, hypoactive delirium, metabolic encephalopathy, nephrology consult was obtained at this time binder cutter hand does not want emergent dialysis but will reevaluate patient in the morning. Patient warrants admission to ICU. Patient may warrant opiate replacement such as fentanyl patch or as needed morphine. 09/15 22:09 Order name: CBC with Diff; Complete Time: 23:23 sp4 09/15 22:09 Order name: CMP; Complete Time: 23:23 sp4 09/15 22:09 Order name: Lipase; Complete Time: 23:23 sp4 09/15 22:09 Order name: Urinalysis w/ reflexes; Complete Time: 00:57 sp4 09/15 22:09 Order name: Troponin HS; Complete Time: 23:23 sp4 09/15 22:10 Order name: Alcohol Level; Complete Time: 23:23 sp4 09/15 22:10 Order name: Urine Drug Screen; Complete Time: 00:57 sp4 09/15 22:10 Order name: SARS RAPID; Complete Time: 23:23 sp4 09/15 22:10 Order name: Influenza Screen (a \T\ B); Complete Time: 23:23 sp4 09/15 22:11 Order name: AMMONIA; Complete Time: 23:23 sp4 09/15 22:11 Order name: Acetaminophen; Complete Time: 23:23 sp4 09/15 22:11 Order name: Salicylate; Complete Time: 23:23 sp4 09/15 22:11 Order name: TSH; Complete Time: 23:23 sp4 09/15 22:11 Order name: T4 Free; Complete Time: 23:23 sp4 09/15 22:51 Order name: CBC Smear Scan; Complete Time: 23:23 EDMS 09/15 23:22 Order name: Lactate w/ 2H reflex if indic.; Complete Time: 00:57 sp4 09/15 23:22 Order name: Blood Culture Adult (2) 4 09/15 23:27 Order name: Urine Culture EDMS 09/16 01:22 Order name: CBC with Automated Diff EDMS / 01:22 Order name: CBC with Automated Diff EDMS / 01:22 Order name: CBC with Automated Diff EDMS / 01:22 Order name: CBC with Automated Diff EDMS 07/ 01:22 Order name: Comprehensive Metabolic Panel EDMS 07/ 01:22 Order name: Comprehensive Metabolic Panel EDMS 07/ 01:22 Order name: Comprehensive Metabolic Panel EDMS 07/ 01:22 Order name: Comprehensive Metabolic Panel EDMS 07/ 01:22 Order name: Magnesium EDMS 07/02 01:22 Order name: Magnesium EDMS 07/02 01:22 Order name: Magnesium EDMS 07/02 01:22 Order name: Magnesium EDMS 07/02 01:22 Order name: Phosphorus EDMS 07/02 01:22 Order name: Phosphorus EDMS 07/02 01:22 Order name: Phosphorus EDMS 07/02 01:22 Order name: Phosphorus EDMS 09/15 22:10 Order name: CT Head Brain wo Cont sp4 09/15 23:31 Order name: Chest Abd Pelvis Wo Con EDOR 09/15 22:09 Order name: EKG; Complete Time: 22:10 sp4 09/16 01:22 Order name: NPO EDOR 09/15 22:09 Order name: IV Saline Lock; Complete Time: 22:43 sp4 09/15 22:09 Order name: Labs collected and sent; Complete Time: 22:43 sp4 09/15 22:09 Order name: Cardiac monitoring; Complete Time: 22:43 sp4 09/15 22:09 Order name: EKG - Nurse/Tech; Complete Time: 22:43 sp4 09/16 01:23 Order name: Renner; Complete Time: 02:07 [facility] EC:57 Rate is 97 beats/min. Rhythm is regular, Normal Sinus Rhythm. QRS [place] is Normal. MO sp4 interval is normal. QRS interval is normal. QT interval is normal. T waves are Normal. Clinical impression: No evidence of ischemia. Interpreted by me. Administered Medications: 09/15 23:10 Drug: NS 0.9% IV 1000 ml Route: IV; Rate: 1 bolus; Site: right antecubital; [facility] 23:10 Drug: Ondansetron IVP 4 mg Route: IVP; Site: right antecubital; [facility] 09/16 00:25 Drug: NS 0.9% with KCl IV 20 mEq/L 1000 ml Route: IV; Rate: 125 ml/hr; Site: right jb4 antecubital; 00:27 Drug: Piperacillin-Tazobactam IVPB 3.375 grams Route: IVPB; Infused Over: 60 mins; 4 Site: right hand; 01:30 Drug: vancoMYCIN IVPB 1 grams Route: IVPB; Infused Over: 2 hrs; Site: right hand; jb4 Disposition Summary: 09/16/22 01:24 Hospitalization Ordered Hospitalization Status: Inpatient Admission sp4 Provider: Cally Schneider Location: Intensive Care Unit sp4 Condition: Serious sp4 Problem: new sp4 Symptoms: have improved sp4 Bed/Room Type: Standard sp4 Room Assignment: 3-(09/16/22 02:09) mw Diagnosis - Metabolic encephalopathy sp4 - Acute renal failure, hyponatremia, hypokalemia, acute hypoactive delirium, opiate sp4 dependence, acute sepsis, altered mental status with somnolence, acute infectious colitis Forms: - Medication Reconciliation Form sp4 - SBAR form sp4 Critical care time excluding procedures: 01:23 Critical care time: Bedside Care: 36 minutes, Consultation: 12 minutes, Family sp4 Intervention: 12 minutes. Total time: 60 minutes Signatures: Dispatcher [employer] EDOR Meena Villalta RN RN mw Nir Ratliff RN RN jb4 Haylee Pelaez RN RN kd3 Walter Peña MD MD sp4 Corrections: (The following items were deleted from the chart) 09/15 23:31 22:11 Chest Abdomen Pelvis W Con+CT.RAD.BRZ ordered. [facility] 09/16 02:09 01:24 sp4 danica
[2022-09-16] MEDS: NA CHLORIDE 0.9% 1,000 ML IV SCH ×4 (02:00→23:25)
--- NOTE | 2022-09-16 02:05 | P.HP ---
Certification for Inpatient With expected LOS: >2 Midnights Patient will require the following post-hospital care: Rehabilitation Practitioner: I am a practitioner with admitting privileges, knowledge of patient current condition, hospital course, and medical plan of care. Services: Services provided to patient in accordance with Admission requirements found in Title 42 Section 412.3 of the Code of Federal Regulations <Angelica Peralta - Last Filed: 09/16/22 06:37> Patient History Date of Service: 09/16/22 Reason for admission: acute renal failure History of Present Illness: 76 year old female with a past medical history of chronic pain, opioid dependance, DJD, Gerd, HTN, tobacco use presents to emergency room via EMS after falling at home. Daughter is at bedside is primary historian reports her mom has been more confused today and fall off of the commode this evening. She reports history of chronic pain is on oxycontin twice daily, and reports her mom will go into withdraws without her pain medication. She reports patient has had flu like symptoms over the past few days. Patient is somnolent, responds to verbal, but nods off to sleep. Patient does not answer any questions. Daughter has denied any recent chest pain, shortness of breath. Home medications list reviewed: Yes (family with provide ) - Past Medical/Surgical History Diabetic: No -: Chronic pain on Oxycontin BID -: DJD -: GERD -: HTN -: Lumbar back surg - Social History Smoking Status: Current every day smoker Alcohol use: No <Angelica Peralta - Last Filed: 09/16/22 06:37> Date of Service: 09/16/22 <Cally Schneider - Last Filed: 09/16/22 23:33> Allergies No Known Allergies Allergy (Unverified 09/16/22 02:21) Review of Systems is unable to be obtained General: As per HPI <Angelica Peralta - Last Filed: 09/16/22 06:37> Physical Examination - Physical Exam General: Confused, Other (responds to verbal) HEENT: Atraumatic Neck: Supple, JVD not distended Respiratory: Other (diminished in bases) Cardiovascular: Normal pulses, Regular rate/rhythm Capillary refill: <2 Seconds Gastrointestinal: Normal bowel sounds Musculoskeletal: No clubbing, No swelling Integumentary: No rashes Neurological: Other (Confused) Urinary: Renner catheter - Studies Laboratory Data (last 24 hrs) 09/15/22 22:22: Sodium 125 L, Potassium 3.0 L, BUN 44 H, Creatinine 6.10 H, Glucose 131 H, Total Bilirubin 0.4, AST 300 H, ALT 56, Alkaline Phosphatase 92, Lipase 68 09/15/22 22:22: WBC 20.90 H, Hgb 11.7 L, Hct 35.9 L, Plt Count 232 Microbiology Data (last 24 hrs): 09/15/22 22:29 Nasopharnyx Influenza Type A Antigen Screen - Final 09/15/22 22:29 Nasopharnyx Influenza Type B Antigen Screen - Final <Angelica Peralta - Last Filed: 09/16/22 06:37> - Studies Microbiology Data (last 24 hrs): 09/15/22 23:51 Blood - Blood Anaerobic Blood Culture - Final 09/15/22 23:38 Blood - Blood Anaerobic Blood Culture - Final 09/15/22 22:29 Nasopharnyx Influenza Type A Antigen Screen - Final 09/15/22 22:29 Nasopharnyx Influenza Type B Antigen Screen - Final <Cally Schneider - Last Filed: 09/16/22 23:33> Assessment and Plan - Problems (Diagnosis) (1) SIRS due to infectious process with acute organ dysfunction Current Visit: Yes Status: Acute Plan: cultures, IVF, IV ABX Qualifiers: Severe sepsis acute organ dysfunction type: encephalopathy (2) Metabolic encephalopathy Current Visit: Yes Status: Acute Plan: fall precautions, Trend electrolytes, replace PRN (3) Acute renal failure Current Visit: Yes Status: Acute Plan: Renal consult eval for dialysis in am Renal dose medications IVF for acute kidney failure (4) Hyponatremia Current Visit: Yes Status: Acute Plan: IVF trend electrolytes, replace prn (5) Chronic pain Current Visit: Yes Status: Chronic Plan: Resume opioids to prevent withdraw sx (6) Opioid dependence Current Visit: Yes Status: Chronic (7) Hypertension Current Visit: Yes Status: Chronic Plan: Monitor VS PRN antihypertensives (8) Hypokalemia Current Visit: Yes Status: Acute Plan: trend electrolytes, replace prn (9) Hypocalcemia Current Visit: Yes Status: Acute (10) Colitis Current Visit: Yes Status: Acute Plan: IV ABX stool sample - Advance Directives Does patient have a Living Will: No Does patient have a Durable POA for Healthcare: No - Code Status/Comfort Care Code Status Assessed: Yes (Full Code) Code Status: Full Code Critical Care: Yes (75 min) <Angelica Peralta - Last Filed: 09/16/22 06:37> Date of Service: 09/16/22 Continue monitoring renal function. Also evaluating CPK level as ALT and AST are elevated. Mental status improved we will engage with PT <Cally Schneider - Last Filed: 09/16/22 23:33>
[2022-09-16] MEDS: MORPHINE 2 MG/ML SYR IV SCH ×2 (06:08→12:00)
[2022-09-16] MEDS: HEPARIN 5000 UNIT/ML 1 ML VIAL SQ SCH ×2 (08:53→17:12)
[2022-09-16 09:32] LABS: Absolute Lymphocytes (CBC) 0.9 K/uL (0.7-4.9); Hematocrit 37.3 % (36.0-45.0); Lymphocytes % 4.6 % (15.3-44.8); MCV 85.5 fL (80-100); RBC Red Blood Cell Count 4.36 M/uL (3.86-4.86)
[2022-09-16 09:45] LABS: Albumin 2.4 g/dL (3.4-5.0); Bilirubin Total 0.5 mg/dL (0.2-1.0); Potassium 3.5 mEq/L (3.5-5.1); Protein, Total 5.7 g/dL (6.4-8.2)
--- NOTE | 2022-09-16 11:17 | EKG ---
Test Date: 2022-09-15 Test Time: 22:40:13 Flanging Machine Operator: LUCINDA MEASUREMENT RESULTS: Intervals: Rate: 97 NH: 202 QRSD: 104 QT: 368 QTc: 467 [place]: P: 81 NH: 202 QRS: -21 T: 66 INTERPRETIVE STATEMENTS: Normal sinus rhythm Indeterminate axis Borderline ECG No previous ECG available for comparison Electronically Signed On 09-16-22 11:16:19 CDT by Michael Tapia
[2022-09-16 12:11] LABS: Blood Morphology Comment NOT SEEN (NOT SEEN); Platelet Estimate ADEQ
[2022-09-16] MEDS: PIPER TAZO 3.375 GM in NA CHLORIDE 0.9% 100 ML IV SCH (13:10)
--- NOTE | 2022-09-16 14:21 | CON ---
Date of Consultation: 09/16/2022 Reason For Consultation: Acute renal failure. History Of Present Illness: Ms. Rdz is a 76-year-old female with past medical history significa nt for severe chronic pain from spinal neuropathy, on multiple pain medications including morphine kothari lfate 60 mg b.i.d., duloxetine, gabapentin and nortriptyline, presented to the emergency room last [facility] because of altered mental status and lethargy along with falls and hypotension. Her daughter bro ught her in along with her other family members. She was noted to have severe renal insufficiency, a cute renal failure with a creatinine of 6.1, sodium of 125 and potassium of 3, and has been admitted to the ICU. She has gotten a dose of vancomycin and Zosyn in the emergency room and started on IV fl uids with normal saline at 75 cc an hour. She is able to wake up and having some myoclonic jerks, bu t she is completely altered at this time. Past Medical History: Significant for history of chronic pain, hypertension, multiple medications wi th polypharmacy. Social History: She lives with her family. No history of smoking or alcohol use currently at this t [facility]. Family History: Noncontributory. Physical Examination: Vital Signs: At this time are showing temperature of 98.5, pulse rate of 115, blood pressure of 96/5 9, O2 saturation of 99% on room air. General: She appears lethargic, but is able to wake up and is able to verbalize, but she is confused and unable to give much history. HEENT: Shows atraumatic head. Lungs: Auscultation of lungs revealed bilateral equal air entry. Heart: Auscultation of the heart revealed regular rate and rhythm. Abdomen: Soft and nontender. Extremities: Showed no evidence of edema. Renner catheter in place with turbid urine noted. Laboratory Data: At this time showing sodium of 133, potassium of 3.5, chloride of 105, bicarb of 20 , BUN of 45, creatinine of 4.7, calcium was 7.3. LFTs showing AST of 267 and ALT of 61. Ammonia lev el was normal and albumin was 2.4. CBC showing leukocytosis with stable hemoglobin, hematocrit, and platelet count. WBC count was 19.5. Urinalysis is consistent with urinary tract infection with prot einuria, hematuria, and multiple bacteria as well as hyaline casts. U-tox was positive for opiates. She has had a CT abdomen and pelvis and head CT that is scheduled at this time. Current Medications: Have been reviewed. Impression: 1.Acute renal failure, likely secondary to multifactorial etiology including acute tubular necrosis and hypotension with hypovolemia. The patient is nonoliguric and creatinine is trending down. We wi ll continue with IV hydration and monitor closely. 2.Polypharmacy with altered mental status. The patient is on multiple medications including tizanid ine, duloxetine, nortriptyline, and morphine, which have been currently stopped. She possibly may ne ed consultation for maintenance for withdrawal treatment and cautious use of sedatives given altered mental status and acute renal failure. 3.Hyponatremia and hypokalemia, likely secondary to dehydration. Continue to correct with IV fluids and monitor closely. 4.Sepsis with possible urinary tract infection. The patient will be started on Zosyn. Dose adjuste d for renal function and urine cultures will be followed through and monitored. 5.Increased LFTs, likely secondary to hypotension and sepsis. Continue hydration and avoid hepatoto xic medications. Plan: Overall the patient's condition is guarded. Continue with IV hydration withholding all her ho me pain medications, monitoring her for withdrawal symptoms, and treating her for urinary tract infec tion. All questions have been answered and family has been updated. Spent about 45 minutes updating family. DIANA/JF Voice ID: [id number] Report ID: [id number]
[2022-09-16] MEDS: TIZANIDINE 4 MG TABLET PO SCH ×2 (16:00→21:00)
[2022-09-16 19:17] LABS: Potassium 3.3 mEq/L (3.5-5.1)
[2022-09-16] MEDS: FISH OIL PO SCH (21:00)
[2022-09-16] MEDS: ATORVASTATIN 20 MG TAB PO SCH (21:00)
[2022-09-16] MEDS: OMEGA PO SCH (21:00)
[2022-09-16] MEDS: DHA PO SCH (21:00)
[2022-09-16] MEDS: D3 PO SCH (21:00)
[2022-09-16] MEDS: EPA PO SCH (21:00)
--- NOTE | 2022-09-16 21:21 | RAD REPORT ---
EXAM DESCRIPTION: CT - Chest Abd Pelvis Wo Con - 09/16/2022 6:48 am CLINICAL HISTORY: 76 years Female persistent vomiting , diarrhea TECHNIQUE: Noncontrast CT chest, abdomen and pelvis with coronal and sagittal reformats. All CT scan s at this facility use dose modulation, iterative reconstruction, and/or weight based dosing when saima ropriate to reduce radiation dose to as low as reasonably achievable. COMPARISON: None. FINDINGS: Chest: Lungs: Minimal dependent atelectasis in the left lung base. No consolidation. Pleura: No pneumothorax. No pleural effusion. Mediastinum: No mediastinal mass or adenopathy. No pericardial effusion. Mild distention of the esoph sharmin containing ingested material. Vascular: Normal contour. Atherosclerosis of the aorta. Bones: Unremarkable. Soft tissues: Unremarkable. Abdomen/Pelvis: Liver: No focal lesion. Gallbladder: No calcified stone. Pancreas: Within normal limits. Spleen: Within normal limits. Kidney: No stone or hydronephrosis. Adrenal glands: Within normal limits. Vascular structures: Atherosclerosis of the aorta and its major branches. Bowel: Segmental bowel wall thickening of the ascending colon, transverse colon, descending colon and sigmoid. No bowel distention. Diverticulosis without inflammatory changes. Appendix: Normal. Peritoneum: No free fluid or free air. Lymph Nodes: No lymphadenopathy. Reproductive: Status post hysterectomy. Urinary bladder: Unremarkable. Osseous structures: Multilevel degenerative and postsurgical changes of the lumbar spine. Postsurgica l changes in the pelvis also noted. Chronic deformity of the right femoral head and neck with severe degenerative changes of the hip joint. Soft tissues: Unremarkable. IMPRESSION: 1. Mild distention of the esophagus containing ingested material. 2. Segmental bowel wall thickening of the ascending colon, transverse colon, descending colon and sig moid which could be due to under distention versus colitis. 3. Chronic findings as above. Electronically signed by: Red Justice MD 09/16/2022 12:46 AM CDT Due to temporary technical issues with the PACS/Fluency reporting system, reports are being signed by the in house radiologists without review as a courtesy to insure prompt reporting. The interpreting radiologist is fully responsible for the content of the report.
--- NOTE | 2022-09-16 21:23 | RAD REPORT ---
EXAM DESCRIPTION: CT - Head Brain Wo Cont - 09/16/2022 6:49 am CLINICAL HISTORY: 76 years Female CONFUSED TECHNIQUE: Axial noncontrast CT head with coronal and sagittal reformats. All CT scans at this [facility] use dose modulation, iterative reconstruction, and/or weight based dosing when appropriate to red uce radiation dose to as low as reasonably achievable. COMPARISON: None. FINDINGS: Brain: No intracranial hemorrhage, midline shift, mass or mass effect. Bilateral white mat ter hypodensities which are nonspecific. No obvious large acute territorial infarction. Ventricles: No hydrocephalus. Orbits: Unremarkable. Sinuses: Visualized portions are clear. Mastoid: Clear. Osseous: Unremarkable. Soft tissues: Unremarkable. IMPRESSION: 1. No acute CT abnormality. 2. Bilateral white matter hypodensities which are nonspecific but probably related to chronic small v essel disease. 3. Consider further evaluation with MRI as clinically warranted. Electronically signed by: Red Justice MD 09/16/2022 12:37 AM CDT Due to temporary technical issues with the PACS/Fluency reporting system, reports are being signed by the in house radiologists without review as a courtesy to insure prompt reporting. The interpreting radiologist is fully responsible for the content of the report.
[2022-09-16] MEDS ORDERED: METOPROLOL TARTRATE 5 MG/5 ML INJ IV STA (23:35)
[2022-09-17] MEDS: HEPARIN 5000 UNIT/ML 1 ML VIAL SQ SCH ×3 (00:06→17:12)
[2022-09-17] MEDS: PIPER TAZO 3.375 GM in NA CHLORIDE 0.9% 100 ML IV SCH (00:07)
[2022-09-17] MEDS: PANTOPRAZOLE 40MG TABLET PO SCH (00:19)
[2022-09-17 01:32] LABS: Albumin 2.2 g/dL (3.4-5.0); Bilirubin Direct 0.2 mg/dL (0-0.2); Bilirubin Indirect, Calculated 0.3 mg/dL (0.2-0.8); Bilirubin Total 0.5 mg/dL (0.2-1.0); Potassium 3.3 mEq/L (3.5-5.1); Protein, Total 5.6 g/dL (6.4-8.2)
[2022-09-17 04:56] LABS: Absolute Lymphocytes (CBC) 0.7 K/uL (0.7-4.9); Hematocrit 34.9 % (36.0-45.0); Lymphocytes % 2.8 % (15.3-44.8); MCV 85.1 fL (80-100); MPV 7.9 fL (7.6-11.3)
[2022-09-17 05:05] LABS: C.diff Antigen/Toxin Ag pos : Tox pos (NEG : NEG)
[2022-09-17] MEDS: MORPHINE 2 MG/ML SYR IV PRN ×3 (05:09→19:30)
[2022-09-17 05:41] LABS: Blood Morphology Comment NOT SEEN (NOT SEEN); Platelet Estimate ADEQ
[2022-09-17 06:14] LABS: Bilirubin Total 0.7 mg/dL (0.2-1.0); Magnesium 1.7 mg/dL (1.6-2.4); Phosphorus 2.4 mg/dL (2.5-4.9); Protein, Total 5.3 g/dL (6.4-8.2)
[2022-09-17] MEDS ORDERED: POTASSIUM PHOS IN 0.9 % NACL 15 MMOL/250 ML BAG IV ONE ×2 (08:28→23:28)
[2022-09-17] MEDS ORDERED: MAGNESIUM SULFATE 1 gm IVPB 1 GM/100 ML BAG IV ONE ×2 (08:29→23:27)
--- NOTE | 2022-09-17 08:29 | RAD REPORT ---
EXAM DESCRIPTION: RADChest Single View09/17/2022 6:58 am CLINICAL HISTORY: pneumonia COMPARISON: Chest Abd Pelvis Wo Con dated 09/16/2022 TECHNIQUE: Portable AP view of the chest. FINDINGS: The lungs are clear. Mild central interstitial prominence. No pneumothorax or effusion. Th e cardiomediastinal contours are unremarkable. IMPRESSION: Mild central interstitial prominence, may relate to mild central congestion.
[2022-09-17] MEDS: FISH OIL PO SCH ×2 (09:00→19:27)
[2022-09-17] MEDS: D3 PO SCH ×2 (09:00→19:27)
[2022-09-17] MEDS: EPA PO SCH ×2 (09:00→19:27)
[2022-09-17] MEDS ORDERED: KCL 20 MEQ/100 mL IVPB 20 MEQ/100 ML BAG IV SCH ×2 (09:00→23:45)
[2022-09-17] MEDS: DHA PO SCH ×2 (09:00→19:27)
[2022-09-17] MEDS: OMEGA PO SCH ×2 (09:00→19:27)
[2022-09-17] MEDS: VITAMIN D 1000 UNIT TAB PO SCH (09:14)
[2022-09-17] MEDS: DULOXETINE 30 MG CAP PO SCH (09:14)
--- NOTE | 2022-09-17 09:18 | P.CNS ---
Date of Consult: 09/17/22 Reason for Consult: C.difficile Chief Complaint: acute renal failure History of Present Illness: Patient is a 76 yo female with a history of chornic pain, opioid dependence, GERD and hypertension who presented to the ED via EMS after falling at home. Patient does not know how she ended up in the hospital. Information obtained via chart per patient's daughter. It is reported that the patient was having flu- like symptoms over the past few days prior to admission. ID consulted for c.difficile infection. Patient is seen and examined in the ICU. Allergies No Known Allergies Allergy (Unverified 09/16/22 02:21) Home medications list reviewed: Yes Home Medications: Atorvastatin Calcium [Lipitor*] 20 mg PO BEDTIME 09/16/22 Cholecalciferol (Vitamin D3) [Vitamin D3] 50 mcg PO DAILY 09/16/22 Duloxetine HCl 30 mg PO DAILY 09/16/22 Enalapril Maleate [Vasotec] 20 mg PO DAILY 09/16/22 Gabapentin 1,200 mg PO BEDTIME 09/16/22 Gabapentin 600 mg PO DAILY AT SUPPER 09/16/22 Gabapentin 900 mg PO DAILY WITH BREAKFAST 09/16/22 Morphine *Extended Release* [MS Contin] 60 mg PO BID 09/16/22 Nortriptyline HCl 75 mg PO BEDTIME 09/16/22 [place]ier-3S/Dha/Epa/Fish Oil/D3 [Fish Oil Gummies] 1 gum PO BID 09/16/22 Omeprazole [Prilosec] 40 mg PO DAILY 09/16/22 Tizanidine [Zanaflex*] 4 mg PO TID 09/16/22 Tizanidine [Zanaflex*] 12 mg PO BEDTIME 09/16/22 - Past Medical/Surgical History Diabetic: No -: Chronic pain on Oxycontin BID -: DJD -: GERD -: HTN -: Tobacco abuse -: Lumbar back surg -: skin cancer removal left elbow - Family History Mother Medical History: Heart disease - Social History Smoking Status: Unknown if ever smoked Alcohol use: No CD- Drugs: Yes Caffeine use: Yes Place of Residence: Home Review of Systems General: Weakness Gastrointestinal: Diarrhea Musculoskeletal: Back Pain Physical Examination Temp Pulse Resp BP Pulse Ox 98 F 113 H 16 120/55 L 96 09/17/22 04:00 09/17/22 06:00 09/17/22 06:00 09/17/22 06:00 09/17/22 06:00 General: In no apparent distress, Oriented x2 HEENT: Atraumatic, Normocephalic Neck: Supple, JVD not distended Respiratory: Clear to auscultation bilaterally, Normal air movement Cardiovascular: No edema, Normal pulses Gastrointestinal: Normal bowel sounds, Soft and benign Musculoskeletal: No clubbing, No swelling Integumentary: No rashes, No breakdown Neurological: Normal speech, Normal strength at 5/5 x4 extr Laboratory Data - Reviewed Microbiology Data - Reviewed Imagings Data: - CT Abdomen/Pelvis wo contrast 09/16: "IMPRESSION: 1. Mild distention of the esophagus containing ingested material. 2. Segmental bowel wall thickening of the ascending colon, transverse colon, descending colon and sigmoid which could be due to under distention versus colitis. 3. Chronic findings as above." Conclusions/Impression: Problem List Severe Sepsis C.difficile Infection DRISS III Chronic Pain Syndrome Hypertension Severe PCM Hypocalcemia Severe Sepsis C. difficile Infection - C.diff Ag and toxin positive - On Vancomycin PO (started 09/17) - Urine culture 09/15: no growth - Blood culture 09/15: No growth to date - Leukocytosis (WBC 24). Afebrile. DRISS: Nephrology on case Recommendations - Continue Vancomycin PO x 10 days. Day 1 of 10. - Will start on probiotic as well - Discontinue Zosyn - Monitor WBC and fever trends - Nutritional supplementation as tolerated ID will continue to follow patient as needed. Case discussed with Monique Ibanez
--- NOTE | 2022-09-17 09:22 | P.PN ---
Subjective Date of Service: 09/17/22 Chief Complaint: acute renal failure She reports persistent watery diarrhea. This was associated with abdominal pain. She denies any fevers, chills, chest pain, or shortness of breath. Review of Systems 10-point ROS is otherwise unremarkable Gastrointestinal: Abdominal Pain, Diarrhea Physical Examination - Vital Signs Temperature: 98 F Blood Pressure: 120/55 Pulse: 113 Respirations: 16 Pulse Ox (%): 96 - Physical Exam General: Alert, In no apparent distress, Oriented x3 HEENT: Atraumatic, Mucous membr. moist/pink, Sclerae nonicteric Neck: JVD not distended Respiratory: Clear to auscultation bilaterally, Normal air movement Cardiovascular: No edema, Regular rate/rhythm, Normal S1 S2, No gallops, No rubs, No murmurs Gastrointestinal: Normal bowel sounds, Soft and benign, Non-distended, No rebound, No guarding, Tenderness (generalized) Musculoskeletal: No clubbing Integumentary: No rashes Neurological: Normal speech, Normal affect - Studies Microbiology Data (last 24 hrs): 09/15/22 23:00 Clean Catch Urine [place] Count - Final No growth. 09/15/22 23:00 Clean Catch Urine - Final No growth. 09/15/22 23:51 Blood - Blood Anaerobic Blood Culture - Final 09/15/22 23:38 Blood - Blood Anaerobic Blood Culture - Final Assessment And Plan - Plan # Severe Sepsis secondary to Clostridioides Difficile Colitis # Acute Toxic Metabolic Encephalopathy suspect due to above with question of Unintentional Opioid Overdose - resolved She met SIRS criteria based on HR > 90 bpm and WBC > 12,000, and the suspected source is C. Difficile colitis. Severe sepsis is suspected due to concern for tissue hypoperfusion/organ dysfunction based on creatinine >2.0 mg/dL (without ESRD). - Consulted Infectious Diseases and spoke with SALES & SERVICE ASSOCIATE Sgarbi - recommendations appreciated - Sepsis order set was initiated - Initial Lactate was 1.0 - Blood cultures drawn x 2 - Broad spectrum antibiotics started: Piperacillin-Tazobactam. Added PO vancomycin on 09/17/2022 - In regards to fluids: - 30 mL/kg of IV fluids was not administered given SBP > 90, MAP > 65, lactic acid < 4 - Radiology: - Chest x-ray = "mild central interstitial prominence, may relate to mild central congestion." - CT chest/abdomen/pelvis = "1. Mild distention of the esophagus containing ingested material. 2. Segmental bowel wall thickening of the ascending colon, transverse colon, descending colon and sigmoid which could be due to under distention versus colitis. 3. Chronic findings as above." - CT head = "1. No acute CT abnormality. 2. Bilateral white matter hypodensities which are nonspecific but probably related to chronic small vessel disease." # KDIGO Stage III Acute Kidney Injury due to above # Mild Rhabdomyloysis # Microscopic Hematuria - Nephrology consulted and spoke with Dr. Hendrickson - recommendations appreciated - Creatinine = 6.10 -> 4.77 -> 3.38 -> 2.84 -> 2.23 (creatinine was 0.91 in November 2021) - Urinalysis = 5-10 RBCs, 10-20 WBCs, 20-50 bacteruria, >20 hyaline casts, 2+ p rotein - IV fluids per Nephrology - Monitor creatinine and urine output - If worsening, obtain renal ultrasound - Renally dose medications # Hypovolemic Hyponatremia - resolved - Sodium: 125 -> 133 -> 134 -> 135 -> 138 - IV fluids per Nephrology # Chronic Pain Syndrome - Continue home medications # Hypertension - Hold home anti-hypertensives # Hypocalcemia - When corrected for albumin, her calcium level is 8.4. - Monitor calcium/albumin levels Larry Martínez M.D.
[2022-09-17] MEDS: Ringers Lactate 1,000 ML IV SCH ×2 (10:04→19:29)
[2022-09-17] MEDS: TIZANIDINE 4 MG TABLET PO SCH ×3 (11:09→19:29)
[2022-09-17] MEDS: VANCOMYCIN ORAL SOLN 250 MG/5 ML OSYR PO SCH ×3 (12:00→23:58)
--- NOTE | 2022-09-17 13:55 | P.PN ---
(S) Pt remains in the ICU, renal function improving, positive for C diff, has had 3 BM since last night. Remains on IVF (O) Vitals reviewed in the EMR Gen: NAD HEENT: Head atraumatic, sclera anicteric, LFNC RespL b/l air entry, no rhonchi CVS: Mildly tachy, regular Abd: Soft, ND, NT, varela present Ext: No sig LE edema Neuro: Lethargic, but awake, responds briefly but appropriately 1. Stage III ARF 2nd to pre-renal azotemia, other -recovering post hydration, cont to trend. Unremarkable renal imaging on CT. 2. Can maintain varela until pt is more ambulatory. 3. Cont hydration as CPK sig elevated and > 1000, trend daily 4. Switched IVF to LR as more physiologically balanced 5. Cont to replete lytes with potassium, magnesium and other. Hypocalcemia 2nd to hypoalbuminemia, illness, possibly rhabdo, other. Phos is not elevated, corrected Ca higher, can check ionized Ca to guide any potential repletion. Yasir Hendrickson MD, JENNIFER
[2022-09-17] MEDS: ATORVASTATIN 20 MG TAB PO SCH (19:29)
[2022-09-17 21:35] LABS: Albumin 1.8 g/dL (3.4-5.0); Bilirubin Total 0.4 mg/dL (0.2-1.0); Magnesium 1.8 mg/dL (1.6-2.4); Potassium 3.1 mEq/L (3.5-5.1); Protein, Total 4.9 g/dL (6.4-8.2)
[2022-09-17 21:36] LABS: Phosphorus 1.2 mg/dL (2.5-4.9)
[2022-09-18] MEDS: HEPARIN 5000 UNIT/ML 1 ML VIAL SQ SCH ×3 (01:08→17:02)
[2022-09-18] MEDS: MORPHINE 2 MG/ML SYR IV PRN ×3 (02:43→17:26)
[2022-09-18] MEDS: VANCOMYCIN ORAL SOLN 250 MG/5 ML OSYR PO SCH ×3 (05:34→17:02)
[2022-09-18 05:38] LABS: Absolute Lymphocytes (CBC) 0.9 K/uL (0.7-4.9); Hematocrit 37.9 % (36.0-45.0); Lymphocytes % 2.9 % (15.3-44.8); MCV 84.8 fL (80-100); MPV 8.2 fL (7.6-11.3); RBC Red Blood Cell Count 4.46 M/uL (3.86-4.86)
[2022-09-18 05:48] LABS: Albumin 2.2 g/dL (3.4-5.0); Bilirubin Total 0.5 mg/dL (0.2-1.0); Magnesium 2.1 mg/dL (1.6-2.4); Phosphorus 1.7 mg/dL (2.5-4.9); Potassium 3.5 mEq/L (3.5-5.1); Protein, Total 5.8 g/dL (6.4-8.2)
[2022-09-18] MEDS ORDERED: POTASSIUM PHOS IN 0.9 % NACL 15 MMOL/250 ML BAG IV ONE (06:23)
[2022-09-18] MEDS: PANTOPRAZOLE 40MG TABLET PO SCH (06:30)
[2022-09-18] MEDS: Ringers Lactate 1,000 ML IV SCH (08:34)
[2022-09-18] MEDS: LACTOBACILLUS/ACIDOPHILUS TAB PO SCH (08:35)
[2022-09-18] MEDS: VITAMIN D 1000 UNIT TAB PO SCH (08:35)
[2022-09-18] MEDS: DULOXETINE 30 MG CAP PO SCH (08:35)
[2022-09-18] MEDS: TIZANIDINE 4 MG TABLET PO SCH ×3 (08:35→20:56)
[2022-09-18] MEDS: FISH OIL PO SCH ×2 (08:36→20:56)
[2022-09-18] MEDS: D3 PO SCH ×2 (08:36→20:56)
[2022-09-18] MEDS: OMEGA PO SCH ×2 (08:36→20:56)
[2022-09-18] MEDS: DHA PO SCH ×2 (08:36→20:56)
[2022-09-18] MEDS: EPA PO SCH ×2 (08:36→20:56)
--- NOTE | 2022-09-18 08:51 | P.PN ---
Subjective Date of Service: 09/18/22 Chief Complaint: acute renal failure No acute events overnight. She continues to have diarrhea, reporting about 3 bowel movements over the last 24 hours. She reports associated abdominal cramping. She denies any fevers, chills, chest pain, or shortness of breath. Review of Systems 10-point ROS is otherwise unremarkable Gastrointestinal: Abdominal Pain, Diarrhea Physical Examination - Vital Signs Temperature: 98.4 F Blood Pressure: 139/62 Pulse: 89 Respirations: 24 Pulse Ox (%): 97 - Studies Microbiology Data (last 24 hrs): 09/15/22 23:00 Clean Catch Urine [place] Count - Final No growth. 09/15/22 23:00 Clean Catch Urine - Final No growth. Assessment And Plan - Plan - Physical Exam General: Alert, In no apparent distress, Oriented x3 HEENT: Atraumatic, Mucous membr. moist/pink, Sclerae nonicteric Respiratory: Clear to auscultation bilaterally, Normal air movement Cardiovascular: No edema, Regular rate/rhythm, No murmurs Gastrointestinal: Normal bowel sounds, Soft, Non-distended, No rebound, No guarding, Tenderness (generalized) Musculoskeletal: No clubbing Integumentary: No rashes Neurological: Normal speech, Normal affect # Severe Sepsis secondary to Clostridioides Difficile Colitis - POA # Acute Toxic Metabolic Encephalopathy suspect due to above with question of Unintentional Opioid Overdose - resolved She met SIRS criteria based on HR > 90 bpm and WBC > 12,000, and the suspected source is C. Difficile colitis. Severe sepsis is suspected due to concern for tissue hypoperfusion/organ dysfunction based on creatinine >2.0 mg/dL (without ESRD). - Consulted Infectious Diseases and spoke with YARN MERCERIZER OPERATOR HELPER Sgarbi - recommendations appreciated - Sepsis order set was initiated - Initial Lactate was 1.0 - Blood cultures drawn x 2 - Broad spectrum antibiotics started: Piperacillin-Tazobactam (discontinued on 09/17/2022). - Continue PO vancomycin - day 2 of 10 - In regards to fluids: - 30 mL/kg of IV fluids was not administered given SBP > 90, MAP > 65, lactic acid < 4 - Radiology: - Chest x-ray = "mild central interstitial prominence, may relate to mild central congestion." - CT chest/abdomen/pelvis = "1. Mild distention of the esophagus containing ingested material. 2. Segmental bowel wall thickening of the ascending colon, transverse colon, descending colon and sigmoid which could be due to under distention versus colitis. 3. Chronic findings as above." - CT head = "1. No acute CT abnormality. 2. Bilateral white matter hypodensities which are nonspecific but probably related to chronic small vessel disease." # KDIGO Stage III Acute Kidney Injury due to above - resolved # Mild Rhabdomyloysis # Microscopic Hematuria - Nephrology consulted - recommendations appreciated - Creatinine = 6.10 -> 4.77 -> 3.38 -> 2.84 -> 2.23 -> 1.05 -> 0.88 (creatinine was 0.91 in November 2021) - Urinalysis = 5-10 RBCs, 10-20 WBCs, 20-50 bacteruria, >20 hyaline casts, 2+ protein - IV fluids per Nephrology - Monitor creatinine and urine output - If worsening, obtain renal ultrasound - Renally dose medications # Hypovolemic Hyponatremia - resolved - Sodium: 125 -> 133 -> 134 -> 135 -> 138 - IV fluids per Nephrology # Chronic Pain Syndrome - Continue home medications # Hypertension - Hold home anti-hypertensives # Hypocalcemia - When corrected for albumin, her calcium level is only slightly below reference range. - Monitor calcium/albumin levels Larry Martínez M.D.
--- NOTE | 2022-09-18 09:04 | P.PN ---
Date of Service: 09/18/22 Chief Complaint: acute renal failure Subjective: Improving. No acute events reported overnight. No new changes. Patient is in bed, not in distress, oriented x3. Reports abdominal pain, diarrhea and nausea. Physical Examination Temp Pulse Resp BP Pulse Ox 98.4 F 89 24 H 139/62 97 09/18/22 09:05 09/18/22 09:05 09/18/22 09:05 09/18/22 09:05 09/18/22 09:05 General: In no apparent distress, Oriented x3 HEENT: Atraumatic, Normocephalic Neck: Supple, JVD not distended Respiratory: Clear to auscultation bilaterally, Normal air movement Cardiovascular: No edema, Normal pulses Gastrointestinal: Normal bowel sounds, Soft and benign Musculoskeletal: No clubbing, No swelling Integumentary: No rashes, No breakdown Neurological: Normal speech, Normal strength at 5/5 x4 extr Laboratory Data - Reviewed Microbiology Data - Reviewed Imagings Data: - CT Abdomen/Pelvis wo contrast 09/16: "IMPRESSION: 1. Mild distention of the esophagus containing ingested material. 2. Segmental bowel wall thickening of the ascending colon, transverse colon, descending colon and sigmoid which could be due to under distention versus colitis. 3. Chronic findings as above." Medication List: Reviewed Assessment and Plan Problem List Severe Sepsis C.difficile Infection DRISS III Chronic Pain Syndrome Hypertension Severe PCM Hypocalcemia Severe Sepsis C. difficile Infection - C.difficile Ag and toxin positive - On Vancomycin PO (started 09/17) - On probiotic - Urine culture 09/15: no growth - Blood culture 09/15: No growth to date - Zosyn discontinued 09/17. - Leukocytosis (WBC 30.6) Afebrile. Diarrhea slightly improving, however still having multiple episodes of diarrhea per day. DRISS: Nephrology on case Recommendations - Continue Vancomycin PO x 10 days. Currently day 2 of 10. - Monitor WBC and fever trends - Nutritional supplementation as tolerated ID will continue to follow patient as needed. Case discussed with Monique Ibanez
[2022-09-18] MEDS: ONDANSETRON 4 MG/2 ML VIAL IV PRN ×2 (09:49→19:45)
[2022-09-18] MEDS ORDERED: Ringers Lactate 1,000 ML IV SCH (11:11)
--- NOTE | 2022-09-18 11:39 | P.PN ---
(S) Pt cont to have diarrhea, loose watery BM. Appetite low. (O) Vitals reviewed in the EMR Gen: NAD HEENT: Head atraumatic, sclera anicteric, LFNC RespL b/l air entry, no rhonchi CVS: Mildly tachy, regular Abd: Soft, ND, NT, varela present Ext: No sig LE edema Neuro: Lethargic, but awake, responds briefly but appropriately 1. Stage III ARF 2nd to pre-renal azotemia, other -resolved post hydration. Unremarkable renal imaging on CT. 2. D/c varela 3. F/u CPK levels, if level remains > 1000, will cont IVF at higher rate, otherwise will lower but cont while having profuse diarrhea and intake low 4. Switched IVF to LR as more physiologically balanced 5. Cont to replete lytes with potassium, magnesium and phosphorus. Hypocalcemia 2nd to hypoalbuminemia, illness, possibly rhabdo, other. Phos being repleted, corrected Ca higher, can check ionized Ca to guide any potential repletion. Yasir Hendrickson MD, JENNIFER
[2022-09-18] MEDS: ATORVASTATIN 20 MG TAB PO SCH (20:55)
[2022-09-19] MEDS: Ringers Lactate 1,000 ML IV SCH ×4 (00:24→20:42)
[2022-09-19] MEDS: VANCOMYCIN ORAL SOLN 250 MG/5 ML OSYR PO SCH ×5 (00:24→23:47)
[2022-09-19] MEDS: MORPHINE 2 MG/ML SYR IV PRN ×6 (00:25→23:48)
[2022-09-19] MEDS: HEPARIN 5000 UNIT/ML 1 ML VIAL SQ SCH ×3 (00:25→16:02)
[2022-09-19] MEDS: ACETAMINOPHEN 325 MG TABLET PO PRN ×2 (03:34→09:15)
[2022-09-19 03:36] LABS: Absolute Lymphocytes (CBC) 0.8 K/uL (0.7-4.9); MCV 84.5 fL (80-100); MPV 8.2 fL (7.6-11.3); RBC Red Blood Cell Count 4.14 M/uL (3.86-4.86)
[2022-09-19 03:57] LABS: Albumin 2.2 g/dL (3.4-5.0); Bilirubin Total 0.6 mg/dL (0.2-1.0); Magnesium 1.8 mg/dL (1.6-2.4); Potassium 3.1 mEq/L (3.5-5.1); Protein, Total 5.3 g/dL (6.4-8.2)
[2022-09-19] MEDS ORDERED: POTASSIUM PHOS IN 0.9 % NACL 15 MMOL/250 ML BAG IV ONE ×2 (04:05→08:00)
[2022-09-19] MEDS ORDERED: POTASSIUM 25 MEQ EFFERV TAB PO ONE (05:41)
[2022-09-19] MEDS ORDERED: MAGNESIUM SULFATE 1 gm IVPB 1 GM/100 ML BAG IV ONE (05:43)
[2022-09-19] MEDS: ONDANSETRON 4 MG/2 ML VIAL IV PRN (07:18)
[2022-09-19] MEDS: FISH OIL PO SCH ×2 (09:00→20:44)
[2022-09-19] MEDS: OMEGA PO SCH ×2 (09:00→20:44)
[2022-09-19] MEDS: EPA PO SCH ×2 (09:00→20:44)
[2022-09-19] MEDS: LACTOBACILLUS/ACIDOPHILUS TAB PO SCH (09:00)
[2022-09-19] MEDS: D3 PO SCH ×2 (09:00→20:44)
[2022-09-19] MEDS: DHA PO SCH ×2 (09:00→20:44)
[2022-09-19] MEDS: VITAMIN D 1000 UNIT TAB PO SCH (09:08)
[2022-09-19] MEDS: DULOXETINE 30 MG CAP PO SCH (09:09)
[2022-09-19] MEDS: TIZANIDINE 4 MG TABLET PO SCH ×3 (09:09→20:43)
--- NOTE | 2022-09-19 09:45 | P.PN ---
Date of Service: 09/19/22 Chief Complaint: acute renal failure Subjective: Diarrhea improving. Denies any new or worsening complaints at this time. No nausea vomiting or abdominal pain. No chest pain or shortness of breath. No acute events reported overnight. Physical Examination Temp Pulse Resp BP Pulse Ox 97 F 87 20 170/75 H 96 09/19/22 10:56 09/19/22 10:56 09/19/22 10:56 09/19/22 10:56 09/19/22 10:56 General: In no apparent distress, Oriented x3 HEENT: Atraumatic, Normocephalic Neck: Supple, JVD not distended Respiratory: Clear to auscultation bilaterally, Normal air movement Cardiovascular: No edema, Normal pulses Gastrointestinal: Normal bowel sounds, Soft and benign Musculoskeletal: No clubbing, No swelling Integumentary: No rashes, No breakdown Neurological: Normal speech. No focal deficits Laboratory Data - Reviewed Microbiology Data - Reviewed Imagings Data: - CT Abdomen/Pelvis wo contrast 09/16: "IMPRESSION: 1. Mild distention of the esophagus containing ingested material. 2. Segmental bowel wall thickening of the ascending colon, transverse colon, descending colon and sigmoid which could be due to under distention versus colitis. 3. Chronic findings as above." Medication List: Reviewed Assessment and Plan Problem List Severe Sepsis C.difficile Infection DRISS III Chronic Pain Syndrome Hypertension Severe PCM Hypocalcemia Severe Sepsis C. difficile Infection - C.difficile Ag and toxin positive - On Vancomycin PO (started 09/17) - On probiotic - Urine culture 09/15: no growth - Blood culture 09/15: No growth to date - Zosyn discontinued 09/17. - Leukocytosis slightly improving (WBC 30.6 -> 26.9 -on 09/19) Afebrile. DRISS: Nephrology on case Recommendations - Continue Vancomycin PO x 10 days. Currently day 3 of 10. - Monitor WBC and fever trends - Nutritional supplementation as tolerated ID will continue to follow patient as needed. Case discussed with Monique Ibanez
--- NOTE | 2022-09-19 10:57 | P.PN ---
Subjective Date of Service: 09/19/22 Chief Complaint: acute renal failure No acute events overnight. She states that her diarrhea is improving compared to yesterday. She states that her stools are more formed. She denies any abdominal cramping this morning. She denies any fevers, chills, chest pain, or shortness of breath. Review of Systems 10-point ROS is otherwise unremarkable Gastrointestinal: Diarrhea Physical Examination - Vital Signs Temperature: 97 F Blood Pressure: 170/75 Pulse: 87 Respirations: 20 Pulse Ox (%): 96 Assessment And Plan - Plan - Physical Exam General: Alert, In no apparent distress, Oriented x3 HEENT: Atraumatic, Mucous membr. moist/pink, Sclerae nonicteric Respiratory: Clear to auscultation bilaterally, Normal air movement Cardiovascular: No edema, Regular rate/rhythm, No murmurs Gastrointestinal: Normal bowel sounds, Soft, Non-distended, No rebound, No guarding, Tenderness (minimal generalized) Musculoskeletal: No clubbing Integumentary: No rashes Neurological: Normal speech, Normal affect # Severe Sepsis secondary to Clostridioides Difficile Colitis - POA # Acute Toxic Metabolic Encephalopathy suspect due to above with question of Unintentional Opioid Overdose - resolved She met SIRS criteria based on HR > 90 bpm and WBC > 12,000, and the suspected source is C. Difficile colitis. Severe sepsis is suspected due to concern for tissue hypoperfusion/organ dysfunction based on creatinine >2.0 mg/dL (without ESRD). - Consulted Infectious Diseases and spoke with MACHINE SETTER Sgarbi - recommendations appreciated - Sepsis order set was initiated - Initial Lactate was 1.0 - Blood cultures drawn x 2 - Broad spectrum antibiotics started: Piperacillin-Tazobactam (discontinued on 09/17/2022). - Continue PO vancomycin - day 3 of 10 - In regards to fluids: - 30 mL/kg of IV fluids was not administered given SBP > 90, MAP > 65, lactic acid < 4 - Radiology: - Chest x-ray = "mild central interstitial prominence, may relate to mild central congestion." - CT chest/abdomen/pelvis = "1. Mild distention of the esophagus containing ingested material. 2. Segmental bowel wall thickening of the ascending colon, transverse colon, descending colon and sigmoid which could be due to under distention versus colitis. 3. Chronic findings as above." - CT head = "1. No acute CT abnormality. 2. Bilateral white matter hypodens ities which are nonspecific but probably related to chronic small vessel disease." # KDIGO Stage III Acute Kidney Injury due to above - resolved # Mild Rhabdomyloysis - improving # Microscopic Hematuria - Nephrology consulted - recommendations appreciated - Creatinine = 6.10 -> 4.77 -> 3.38 -> 2.84 -> 2.23 -> 1.05 -> 0.88 (creatinine was 0.91 in November 2021) - Urinalysis = 5-10 RBCs, 10-20 WBCs, 20-50 bacteruria, >20 hyaline casts, 2+ protein - IV fluids per Nephrology - Monitor creatinine and urine output - If worsening, obtain renal ultrasound - Renally dose medications # Hypophosphatemia - Replace electrolytes as needed # Hypovolemic Hyponatremia - resolved - Sodium: 125 -> 133 -> 134 -> 135 -> 138 - IV fluids per Nephrology # Chronic Pain Syndrome - Continue home medications # Hypertension - Hold home anti-hypertensives # Hypocalcemia - When corrected for albumin, her calcium level is only slightly below reference range. - Monitor calcium/albumin levels Larry Martínez M.D.
--- NOTE | 2022-09-19 11:40 | P.PN ---
(S) Pt cont to have diarrhea, loose watery BM. Appetite low. Getting KPhos, remains on LR IVF (O) Vitals reviewed in the EMR Gen: NAD HEENT: Head atraumatic, sclera anicteric, LFNC RespL b/l air entry, no rhonchi CVS: Mildly tachy, regular Abd: Soft, ND, NT, varela present Ext: No sig LE edema Neuro: Lethargic, but awake, responds briefly but appropriately 1. Stage III ARF 2nd to pre-renal azotemia, other -resolved post hydration. Unremarkable renal imaging on CT. 2. D/c'ed varela 3. F/u CPK levels, since level yesterday remained > 1000, did cont IVF in addition pt still having diarrhea and intake low 4. Switched IVF to LR prev as more physiologically balanced 5. Cont to replete lytes with potassium, magnesium and phosphorus. Hypocalcemia 2nd to hypoalbuminemia, illness, possibly rhabdo, other. Phos being repleted, will place on neutraphos as well for a few days, corrected Ca higher. Yasir Hendrickson MD, JENNIFER
[2022-09-19] MEDS: ATORVASTATIN 20 MG TAB PO SCH (20:43)
[2022-09-20] MEDS: ONDANSETRON 4 MG/2 ML VIAL IV PRN (00:34)
[2022-09-20] MEDS: HEPARIN 5000 UNIT/ML 1 ML VIAL SQ SCH ×3 (00:40→16:57)
[2022-09-20] MEDS: VANCOMYCIN ORAL SOLN 250 MG/5 ML OSYR PO SCH ×3 (05:26→16:56)
[2022-09-20 06:06] LABS: Absolute Lymphocytes (CBC) 1.1 K/uL (0.7-4.9); Lymphocytes % 5.5 % (15.3-44.8); MCV 85.6 fL (80-100); MPV 8.4 fL (7.6-11.3); RBC Red Blood Cell Count 4.55 M/uL (3.86-4.86)
[2022-09-20 06:10] LABS: Albumin 2.7 g/dL (3.4-5.0); Bilirubin Total 0.9 mg/dL (0.2-1.0); Potassium 3.3 mEq/L (3.5-5.1)
[2022-09-20 06:12] LABS: Phosphorus 1.4 mg/dL (2.5-4.9)
[2022-09-20] MEDS: D3 PO SCH ×2 (09:00→21:00)
[2022-09-20] MEDS: DHA PO SCH ×2 (09:00→21:00)
[2022-09-20] MEDS: LACTOBACILLUS/ACIDOPHILUS TAB PO SCH (09:00)
[2022-09-20] MEDS: FISH OIL PO SCH ×2 (09:00→21:00)
[2022-09-20] MEDS: OMEGA PO SCH ×2 (09:00→21:00)
[2022-09-20] MEDS: EPA PO SCH ×2 (09:00→21:00)
[2022-09-20] MEDS: POTASS/SODIUM PHOSPHATE 1 PKT POWD.PACK PO SCH ×2 (10:17→11:22)
[2022-09-20] MEDS: DULOXETINE 30 MG CAP PO SCH (10:18)
[2022-09-20] MEDS: TIZANIDINE 4 MG TABLET PO SCH ×3 (10:19→20:23)
[2022-09-20] MEDS: VITAMIN D 1000 UNIT TAB PO SCH (10:19)
[2022-09-20] MEDS: MORPHINE 2 MG/ML SYR IV PRN ×2 (10:22→20:24)
--- NOTE | 2022-09-20 15:25 | P.PN ---
Date of Service: 09/20/22 Chief Complaint: acute renal failure Subjective: Patient seen and examined at bedside. Sitting on side of bed breathing comfortably on room air. Oriented x2. NAD. + abdominal pain, +nausea, + decreased appetite No acute events reported overnight. Physical Examination Temp Pulse Resp BP Pulse Ox 97.5 F 85 16 167/74 H 98 09/20/22 08:00 09/20/22 08:00 09/20/22 08:00 09/20/22 08:00 09/20/22 08:00 General: In no apparent distress, Oriented x2 HEENT: Atraumatic, Normocephalic Neck: Supple, JVD not distended Respiratory: Clear to auscultation bilaterally, Normal air movement Cardiovascular: No edema, Normal pulses Gastrointestinal: Normal bowel sounds, Soft and benign Musculoskeletal: No clubbing, No swelling Integumentary: No rashes, No breakdown Neurological: Normal speech. No focal deficits Laboratory Data - Reviewed Microbiology Data - Reviewed Imagings Data: - CT Abdomen/Pelvis wo contrast 09/16: "IMPRESSION: 1. Mild distention of the esophagus containing ingested material. 2. Segmental bowel wall thickening of the ascending colon, transverse colon, descending colon and sigmoid which could be due to under distention versus colitis. 3. Chronic findings as above." Medication List: Reviewed Assessment and Plan Problem List Severe Sepsis C.difficile Infection DRISS III Chronic Pain Syndrome Hypertension Severe PCM Hypocalcemia Severe Sepsis C. difficile Infection - C.difficile Ag and toxin positive - On Vancomycin PO (started 09/17) - On probiotic - Urine culture 09/15: no growth - Blood culture 09/15: No growth to date - Zosyn discontinued 09/17. - Leukocytosis slightly improving (WBC 26.9 -> 19.6 -on 09/20) Afebrile. DRISS: Nephrology on case Recommendations - Continue Vancomycin PO x 10 days. Currently day 4 of 10. - Monitor WBC and fever trends - Nutritional supplementation as tolerated ID will continue to follow patient as needed. Case discussed with Monique Ibanez
--- NOTE | 2022-09-20 18:58 | P.PN ---
Subjective Date of Service: 09/20/22 Chief Complaint: acute renal failure No acute events overnight. She reports that her diarrhea is improving in frequency, reporting 2 bowel movements in the last 24 hours. She states that her abdominal cramping has returned, and is mild. She denies any fevers, chills, chest pain, or shortness of breath. Review of Systems 10-point ROS is otherwise unremarkable Gastrointestinal: Abdominal Pain, Diarrhea Physical Examination - Vital Signs Temperature: 97.9 F Blood Pressure: 157/70 Pulse: 92 Respirations: 16 Pulse Ox (%): 97 Assessment And Plan - Plan - Physical Exam General: Alert, In no apparent distress, Oriented x3 HEENT: Atraumatic, Mucous membr. moist/pink, Sclerae nonicteric Respiratory: Clear to auscultation bilaterally, Normal air movement Cardiovascular: No edema, Regular rate/rhythm, No murmurs Gastrointestinal: Normal bowel sounds, Soft, Non-distended, No rebound, No guarding, Tenderness (minimal generalized) Musculoskeletal: No clubbing Integumentary: No rashes Neurological: Normal speech, Normal affect # Severe Sepsis secondary to Clostridioides Difficile Colitis - POA # Acute Toxic Metabolic Encephalopathy suspect due to above with question of Unintentional Opioid Overdose - resolved She met SIRS criteria based on HR > 90 bpm and WBC > 12,000, and the suspected source is C. Difficile colitis. Severe sepsis is suspected due to concern for tissue hypoperfusion/organ dysfunction based on creatinine >2.0 mg/dL (without ESRD). - Consulted Infectious Diseases and spoke with DOG DAYCARE PROVIDER Sgarbi - recommendations appreciated - Sepsis order set was initiated - Initial Lactate was 1.0 - Blood cultures drawn x 2 - Broad spectrum antibiotics started: Piperacillin-Tazobactam (discontinued on 09/17/2022). - Continue PO vancomycin - day 4 of 10 - In regards to fluids: - 30 mL/kg of IV fluids was not administered given SBP > 90, MAP > 65, lactic acid < 4 - Radiology: - Chest x-ray = "mild central interstitial prominence, may relate to mild central congestion." - CT chest/abdomen/pelvis = "1. Mild distention of the esophagus containing ingested material. 2. Segmental bowel wall thickening of the ascending colon, transverse colon, descending colon and sigmoid which could be due to under distention versus colitis. 3. Chronic findings as above." - CT head = "1. No acute CT abnormality. 2. Bilateral white matter hypodensities which are nonspecific but probably related to chronic small vessel disease." # KDIGO Stage III Acute Kidney Injury due to above - resolved # Mild Rhabdomyloysis - improving # Microscopic Hematuria - Nephrology consulted - recommendations appreciated - Creatinine = 6.10 -> 4.77 -> 3.38 -> 2.84 -> 2.23 -> 1.05 -> 0.88 (creatinine was 0.91 in November 2021) - Urinalysis = 5-10 RBCs, 10-20 WBCs, 20-50 bacteruria, >20 hyaline casts, 2+ protein - IV fluids per Nephrology - Monitor creatinine and urine output - If worsening, obtain renal ultrasound - Renally dose medications # Hypophosphatemia - Replace electrolytes as needed # Hypovolemic Hyponatremia - resolved - Sodium: 125 -> 133 -> 134 -> 135 -> 138 - IV fluids per Nephrology # Chronic Pain Syndrome - Continue home medications # Hypertension - Hold home anti-hypertensives # Hypocalcemia - When corrected for albumin, her calcium level is only slightly below reference range. - Monitor calcium/albumin levels # Deconditioning - PT consulted - CM consulted for possible SNF placement Larry Martínez M.D.
[2022-09-20] MEDS: ATORVASTATIN 20 MG TAB PO SCH (20:23)
--- NOTE | 2022-09-20 21:14 | P.PN ---
Date of Service: 09/20/22 Vital Signs Temp Pulse Resp BP Pulse Ox 97.3 F 91 H 17 184/90 H 98 09/20/22 20:00 09/20/22 20:00 09/20/22 20:24 09/20/22 20:00 09/20/22 20:24 Medications Acetaminophen (Acetaminophen 325 Mg Tablet) 650 mg PO Q4H PRN PRN Reason: Pain scale 2-4 (Mild) Last Admin: 09/19/22 09:15 Dose: 650 mg Atorvastatin Calcium (Atorvastatin 20 Mg Tab) 20 mg PO BEDTIME [facility] Last Admin: 09/20/22 20:23 Dose: 20 mg Cholecalciferol (Vitamin D 1000 Unit Tab) 2,000 unit PO DAILY [facility] Last Admin: 09/20/22 10:19 Dose: 2,000 unit Duloxetine HCl (Duloxetine 30 Mg Cap) 30 mg PO DAILY [facility] Last Admin: 09/20/22 10:18 Dose: 30 mg Heparin Sodium (Porcine) (Heparin 5000 Unit/Ml 1 Ml Vial) 5,000 unit SQ Q8HR [facility] Last Admin: 09/20/22 16:57 Dose: 5,000 unit Home Med ([place]-3s/Dha/Epa/Fish Oil/D3 [Fish Oil Gummies]) 1 gum PO BID [facility] Last Admin: 09/20/22 09:00 Dose: Not Given Lactobacillus Acidoph/[place]icus (Lactobacillus/Acidophilus Tab) 1 tab PO DAILY [facility] Last Admin: 09/20/22 09:00 Dose: 1 tab Morphine Sulfate (Morphine 2 Mg/Ml Syr) 1 mg IV Q4H PRN PRN Reason: Pain scale 8-10 (Severe) Last Admin: 09/20/22 20:24 Dose: 1 mg Ondansetron HCl (Ondansetron 4 Mg/2 Ml Vial) 4 mg IV Q6HP PRN PRN Reason: NAUSEA / VOMITING Last Admin: 09/20/22 00:34 Dose: 4 mg Potassium Phos/Sodium Phos (Potass/Sodium Phosphate 1 Pkt Powd.Pack) 1 pkt PO 0900,1100 [facility] Last Admin: 09/20/22 11:22 Dose: 1 pkt Sodium Chloride (Flush Normal Saline 10 Ml) 10 ml IV BID [facility] Last Admin: 09/20/22 10:19 Dose: 10 ml Tizanidine HCl (Tizanidine 4 Mg Tablet) 4 mg PO TID ANUSHA Last Admin: 09/20/22 20:23 Dose: 4 mg Vancomycin HCl (Vancomycin Oral Soln 250 Mg/5 Ml [place]) 125 mg PO Q6HR [facility]; Protocol Last Admin: 09/20/22 16:56 Dose: 125 mg Microbiology Results 09/15/22 23:00 Clean Catch Urine [place] Count - Final No growth. 09/15/22 23:00 Clean Catch Urine - Final No growth. 09/15/22 23:51 Blood - Blood Aerobic Blood Culture - Preliminary No growth in 24 hours. 09/15/22 23:51 Blood - Blood Anaerobic Blood Culture - Final 09/15/22 23:38 Blood - Blood Aerobic Blood Culture - Preliminary No growth in 24 hours. 09/15/22 23:38 Blood - Blood Anaerobic Blood Culture - Final 09/15/22 22:29 Nasopharnyx Influenza Type A Antigen Screen - Final 09/15/22 22:29 Nasopharnyx Influenza Type B Antigen Screen - Final Assessment/ Plan: Nephrology No dyspnea No chest pain Weakness and fatigue No acute events overnight Vitals, medications, blood work and imaging reviewed in the chart. NAD. NCAT. MMM. Neck supple. Normal respiratory effort. RRR. Abd ND. No C/C. LE Edema 1+. No rash. AAO. Normal speech. Stage III DRISS resolved with IVF -DC IVF today due to swelling Hyponatremia, resolved Hypokalemia -Replete as ordered Hypophosphatemia -Replete as ordered HTN -Start Metoprolol BID Severe protein malnutrition in the setting of C.diff colitis Hypoalbuminemia Decreased functional ability -Recommend protein supplementation -PT as tolerated
[2022-09-21] MEDS: ONDANSETRON 4 MG/2 ML VIAL IV PRN (00:26)
[2022-09-21] MEDS: MORPHINE 2 MG/ML SYR IV PRN (00:26)
[2022-09-21] MEDS: VANCOMYCIN ORAL SOLN 250 MG/5 ML OSYR PO SCH ×4 (00:26→17:23)
[2022-09-21 00:31] VITALS: O2SAT 98
[2022-09-21] MEDS: METOPROLOL TAR 25 MG TAB PO SCH ×2 (00:40→07:56)
[2022-09-21] MEDS: HEPARIN 5000 UNIT/ML 1 ML VIAL SQ SCH ×3 (00:50→17:23)
[2022-09-21 05:20] LABS: Absolute Lymphocytes (CBC) 1.2 K/uL (0.7-4.9); Hematocrit 34.6 % (36.0-45.0); Lymphocytes % 10.1 % (15.3-44.8); MCV 84.9 fL (80-100); MPV 8.2 fL (7.6-11.3); RBC Red Blood Cell Count 4.08 M/uL (3.86-4.86)
[2022-09-21 05:48] LABS: Magnesium 1.4 mg/dL (1.6-2.4); Phosphorus 1.7 mg/dL (2.5-4.9); Potassium 3.1 mEq/L (3.5-5.1)
[2022-09-21 06:04] VITALS: BMI 17.9
[2022-09-21 07:55] VITALS: TEMP 97.2
[2022-09-21] MEDS: VITAMIN D 1000 UNIT TAB PO SCH (07:55)
[2022-09-21] MEDS: LACTOBACILLUS/ACIDOPHILUS TAB PO SCH (07:56)
[2022-09-21] MEDS: POTASS/SODIUM PHOSPHATE 1 PKT POWD.PACK PO SCH ×2 (07:56→11:28)
[2022-09-21] MEDS: FISH OIL PO SCH (07:56)
[2022-09-21] MEDS: DHA PO SCH (07:56)
[2022-09-21] MEDS: EPA PO SCH (07:56)
[2022-09-21] MEDS: DULOXETINE 30 MG CAP PO SCH (07:56)
[2022-09-21] MEDS: TIZANIDINE 4 MG TABLET PO SCH ×2 (07:56→14:21)
[2022-09-21] MEDS: D3 PO SCH (07:56)
[2022-09-21] MEDS: OMEGA PO SCH (07:56)
--- NOTE | 2022-09-21 08:56 | P.PN ---
Date of Service: 09/21/22 Chief Complaint: acute renal failure Subjective: Patient sitting in chair. A&Ox3. NAD. Reports improvement in diarrhea. Decreased appetite. No acute events reported overnight. Physical Examination Temp Pulse Resp BP Pulse Ox 97.2 F 70 17 169/77 H 100 09/21/22 07:54 09/21/22 07:54 09/21/22 07:54 09/21/22 07:54 09/21/22 07:54 General: In no apparent distress, Oriented x3 HEENT: Atraumatic, Normocephalic Neck: Supple, JVD not distended Respiratory: Clear to auscultation bilaterally, Normal air movement Cardiovascular: No edema, Normal pulses Gastrointestinal: Normal bowel sounds, Soft and benign Musculoskeletal: No clubbing, No swelling Integumentary: No rashes, No breakdown Neurological: Normal speech. No focal deficits Laboratory Data - Reviewed Microbiology Data - Reviewed Imagings Data: - CT Abdomen/Pelvis wo contrast 09/16: "IMPRESSION: 1. Mild distention of the esophagus containing ingested material. 2. Segmental bowel wall thickening of the ascending colon, transverse colon, descending colon and sigmoid which could be due to under distention versus colitis. 3. Chronic findings as above." Medication List: Reviewed Assessment and Plan Problem List Severe Sepsis C.difficile Infection DRISS III Chronic Pain Syndrome Hypertension Severe PCM Hypocalcemia Severe Sepsis C. difficile Infection - C.difficile Ag and toxin positive - On Vancomycin PO (started 09/17) - On probiotic - Urine culture 09/15: no growth - Blood culture 09/15: No growth to date - Zosyn discontinued 09/17. - Leukocytosis slightly improving (WBC 19.6 -> 12.3 on 09/21) - Afebrile. DRISS: Nephrology on case Recommendations - C.diff: Continue Vancomycin PO x 10 days - Currently day 5 of 10. - Monitor WBC and fever trends - Nutritional supplementation as needed ID will continue to follow patient as needed. Case discussed with Monique Ibanez
[2022-09-21] MEDS ORDERED: Magnesium Sulfate 2gm IVPB 2 G/50 ML BAG IV ONE (10:42)
[2022-09-21] MEDS ORDERED: POTASSIUM PHOS 20 MM in NA CHLORIDE 0.9% 500 ML IV ONE (10:42)
[2022-09-21] MEDS ORDERED: CALCIUM GLUCONATE 1 GM IVPB 1 GM/50 ML BAG IV ONE (10:52)
[2022-09-21] MEDS ORDERED: CALCIUM CARBONATE 500 MG TAB PO SCH (11:00)
[2022-09-21] MEDS ORDERED: POTASSIUM 25 MEQ EFFERV TAB PO SCH ×2 (11:00)
[2022-09-21] MEDS ORDERED: POTASS/SODIUM PHOSPHATE 1 PKT POWD.PACK PO SCH (11:00)
[2022-09-21] MEDS ORDERED: MAGNESIUM OXIDE 400 MG TAB PO SCH (11:00)
[2022-09-21 11:56] LABS: Albumin 2.5 g/dL (3.4-5.0); Bilirubin Direct 0.3 mg/dL (0-0.2); Bilirubin Indirect, Calculated 0.6 mg/dL (0.2-0.8); Bilirubin Total 0.9 mg/dL (0.2-1.0); Protein, Total 5.5 g/dL (6.4-8.2)
[2022-09-21 13:56] LABS: SARS-CoV-2 Antigen Rapid Res Negative (Negative)
[2022-09-21 13:59] LABS: Magnesium 2.3 mg/dL (1.6-2.4); Phosphorus 1.8 mg/dL (2.5-4.9); Potassium 3.3 mEq/L (3.5-5.1)
[2022-09-21] MEDS ORDERED: POTASSIUM PHOS 10 MM in NA CHLORIDE 0.9% 250 ML IV ONE (15:00)
[2022-09-21] MEDS ORDERED: NICOTINE 7 MG/PAT TD ONE (15:31)
--- NOTE | 2022-09-21 16:17 | P.DS ---
Admission Date: 09/16/22 Discharge Date: 09/21/22 Disposition: TRANSFER TO [facility] Discharge Condition: GOOD Reason for Admission: acute renal failure Consultations: 1. Nephrology 2. Infectious Diseases Hospital Course: DIAGNOSES: # Severe Sepsis secondary to Clostridioides Difficile Colitis - POA # Acute Toxic Metabolic Encephalopathy suspect due to above with question of Unintentional Opioid Overdose - resolved # KDIGO Stage III Acute Kidney Injury due to above - resolved # Mild Rhabdomyloysis - improving # Elevated Liver Enzymes - suspect due to Rhabdomyolysis # Microscopic Hematuria # Hypophosphatemia # Hypovolemic Hyponatremia - resolved # Chronic Pain Syndrome # Hypertension # Hypocalcemia # Deconditioning HOSPITAL COURSE: Ms. Azalea Rdz is a pleasant 76 year old female with a past medical history significant for chronic pain syndrome and hypertension who was admitted to the [facility] on 09/16/2022 for altered mental status and diarrhea. She was admitted to the Medicine service. Upon further evaluation, she was found to have a stage III acute kidney injury due to severe diarrhea. Further infectious evaluation would reveal that she was positive for Clostridioides Difficile Colitis. Nephrology was consulted for her severe acute kidney injury and she was evaluated by Dr. Hendrickson. She was treated with aggressive IV hydration and, over the course of her hospitalization, her renal function returned to normal. In regards to her colitis, Infectious Diseases was consulted and she was evaluated by Dr. Dickey. She was started on oral vancomycin, with improvement in her symptoms. PT was consulted due to her generalized weakness and it was thought that she would benefit from continued PT services. With the assistance of case management, she was accepted to [facility]. On 09/21/2022, she was seen on rounds and deemed medically stable for discharge. She was discharged with instructions to schedule follow-up appointments with her PCP and with Nephrology (Dr. Hendrickson). She and her family members were given the opportunity to ask questions and reported no further questions. Furthermore, all questions were answered to the best of my ability. A copy of this discharge summary will be sent to the above providers to facilitate continuity of care. Today, I personally spent 35 minutes on her case, of which greater than 50% of the time was spent in patient education, counseling, and coordination of care as described above. - Physical Exam General: Alert, In no apparent distress, Oriented x3 HEENT: Atraumatic, Mucous membr. moist/pink, Sclerae nonicteric Respiratory: Clear to auscultation bilaterally, Normal air movement Cardiovascular: No edema, Regular rate/rhythm, No murmurs Gastrointestinal: Normal bowel sounds, Soft, Non-distended, No tenderness Musculoskeletal: No clubbing Integumentary: No rashes Neurological: Normal speech, Normal affect Vital Signs/Physical Exam: Temp Pulse Resp BP Pulse Ox 97.2 F 70 16 168/75 H 99 09/21/22 16:00 09/21/22 18:20 09/21/22 16:00 09/21/22 18:20 09/21/22 16:00 Laboratory Data at Discharge: WBC 12.30 thou/uL (4.3-10.9) H 09/21/22 04:00 Hgb 11.4 g/dL (12.0-15.0) L D 09/21/22 04:00 Hct 34.6 % (36.0-45.0) L 09/21/22 04:00 Plt Count 195 thou/uL (152-406) 09/21/22 04:00 Sodium 139 mEq/L (136-145) 09/21/22 04:00 Potassium Cancelled 09/21/22 15:00 BUN 12 mg/dL (7-18) 09/21/22 04:00 Creatinine 0.44 mg/dL (0.55-1.02) L 09/21/22 04:00 Glucose 100 mg/dL (74-106) 09/21/22 04:00 Phosphorus Cancelled 09/21/22 15:00 Magnesium Cancelled 09/21/22 15:00 Total Bilirubin 0.9 mg/dL (0.2-1.0) 09/21/22 11:26 AST 92 U/L (15-37) H 09/21/22 11:26 ALT 73 U/L (13-56) H 09/21/22 11:26 Alkaline Phosphatase 80 U/L (45-117) 09/21/22 11:26 Lipase 68 U/L (13-75) 09/15/22 22:22 Home Medications: Atorvastatin Calcium [Lipitor*] 20 mg PO BEDTIME 09/16/22 Cholecalciferol (Vitamin D3) [Vitamin D3] 50 mcg PO DAILY 09/16/22 Duloxetine HCl 30 mg PO DAILY 09/16/22 Enalapril Maleate [Vasotec] 20 mg PO DAILY 09/16/22 Gabapentin 1,200 mg PO BEDTIME 09/16/22 Gabapentin 600 mg PO DAILY AT SUPPER 09/16/22 Gabapentin 900 mg PO DAILY WITH BREAKFAST 09/16/22 Morphine *Extended Release* [MS Contin*] 60 mg PO BID 09/16/22 Nortriptyline HCl 75 mg PO BEDTIME 09/16/22 [place]-3S/Dha/Epa/Fish Oil/D3 [Fish Oil Gummies] 1 gum PO BID 09/16/22 Omeprazole [Prilosec] 40 mg PO DAILY 09/16/22 Tizanidine [Zanaflex*] 4 mg PO TID 09/16/22 Metoprolol Tartrate [Lopressor*] 25 mg PO BID tab 09/21/22 Vancomycin Oral Soln [Vancocin HCl*] 2.5 ml PO Q6HR 5 Days osyr 09/21/22 Physician Discharge Instructions: - Continue care at [place] - Please have them repeat your potassium and phosphorus levels in 2-3 days - There was a small amount of blood in your urine, and bladder/kidney cancer must be excluded. Please have your PCP further evaluate this Diet: AHA Activity: Fall precautions Followup: Unknown,U [Primary Care Provider] - Yasir Hendrickson [ACTIVE - CAN ADMIT] - Time spent managing pt's care (in minutes): 35
[2022-09-21] MEDS ORDERED: HYDRALAZINE HCL 20 MG/ML VIAL IV ONE (16:20)
[2022-09-21 18:21] VITALS: BP 168/75
[2022-09-21] MEDS ORDERED: ENSURE HIGH PROTEIN 237 ML CAN PO SCH (21:00)
[2022-09-21] MEDS ORDERED: Banana Flakes/T-Galactooligos 1 Dose Packet PO SCH (21:00)
[2022-09-22] MEDS ORDERED: MAGNESIUM OXIDE 400 MG TAB PO SCH (11:00)
[2022-09-22] MEDS ORDERED: NICOTINE 7 MG/PAT TD ONE (15:22)
== END 2022-09-21 18:39 | DRG 871 ==
LOC: ER 21:44 → ERHOLD 09-16 01:13 → 3RD-ICU 09-16 02:14 → 2ND 09-18 20:05
PROVIDERS: ADMIT Hospitalist; ATTEND Internal Medicine
DX: A41.9 Sepsis, unspecified organism (principal); E43 Unspecified severe protein-calorie malnutrition; G92.8 Other toxic encephalopathy; N17.9 Acute kidney failure, unspecified; E87.1 Hypo-osmolality and hyponatremia; F05 Delirium due to known physiological condition; F11.20 Opioid dependence, uncomplicated; A04.72 Enterocolitis due to Clostridium difficile, not specified as recurrent; M62.82 Rhabdomyolysis; T40.2X1A Poisoning by other opioids, accidental (unintentional), initial encounter; R65.20 Severe sepsis without septic shock; E87.6 Hypokalemia; E83.51 Hypocalcemia; K21.9 Gastro-esophageal reflux disease without esophagitis; G89.4 Chronic pain syndrome; G62.9 Polyneuropathy, unspecified; I12.9 Hypertensive chronic kidney disease with stage 1 through stage 4 chronic kidney disease, or unspecified chronic kidney disease; N18.30 Chronic kidney disease, stage 3 unspecified; E78.9 Disorder of lipoprotein metabolism, unspecified; E88.09 Other disorders of plasma-protein metabolism, not elsewhere classified; E83.39 Other disorders of phosphorus metabolism; F17.200 Nicotine dependence, unspecified, uncomplicated; R31.29 Other microscopic hematuria; T42.8X5A Adverse effect of antiparkinsonism drugs and other central muscle-tone depressants, initial encounter; T43.215A Adverse effect of selective serotonin and norepinephrine reuptake inhibitors, initial encounter; T43.015A Adverse effect of tricyclic antidepressants, initial encounter; T40.2X5A Adverse effect of other opioids, initial encounter; Z79.899 Other long term (current) drug therapy; Z85.828 Personal history of other malignant neoplasm of skin; W18.11XA Fall from or off toilet without subsequent striking against object, initial encounter; Y92.019 Unspecified place in single-family (private) house as the place of occurrence of the external cause; Y93.9 Activity, unspecified
CPT/HCPCS: 36415; 51702; 70450; 71045; 71250; 74176; 80048; 80053; 80076; 80143; 80179; 80307; 81001; 82077; 82140; 82310; 82330; 82550; 82947; 83605; 83690; 83735; 84100; 84132; 84439; 84443; 84484; 85025; 87040; 87086; 87088; 87324; 87804; 87811; 92526; 92610; 93005; 97110; 97116; 97161; 97530; 99285; J0360; J0612; J1644; J2270; J2405; J2543; J3475; J3480; J7030; J7040; J7050; J7120

== ENCOUNTER 2022-10-21 23:53 | Inpatient (IN) | payer OTHER ==
--- OUTSIDE RECORDS SUMMARY | 2022-10-21 23:57 | XMS REPORT | Continuity of Care Document ---
:1945 Author Organization [facility] t Address [address] [place] [address] Care Team Providers Name Role Phone Kristi [...] Disease Active 2016-03 Metho di plane plane 023 st imbalance imbalance 00:00: Hosp yoseph 00 l Essential Essential Disease Active Met hodi hypertensi hypertensi 12-04 st on on 00:00: Hospita 00 l Osteoarthr Osteoarthr Disease Active 2017 M ethodi itis of itis of 10-16 [...] HLD Disease Active Methodi (hyperlipi (hyperlipi 08-07 st demia) demia) 00:00: Hospita 00 l Smoking [...] L5-S1 00:00: Hospita level level 00 l [id number] Acute Problem Common hearing Spirit loss of - CHI right ear [facility] [id number] Vitamin D Problem Comm on deficiency Spirit - [facility] [id number] PUD Problem Common (peptic [facility] ulcer - [facility] disease) [facility] [id number] Age-relate Problem Com mon d Spirit osteoporos - [facility] is without [facility] pathologic [facility] Center fracture [id number] Unsteady Problem Commo n gait Spirit - [facility] [id number] Mixed Problem Common hyperlipid Spirit emia - CHI [facility] [id number] Chronic Problem Commo n GERD Spirit - [facility] Chronic Chronic Problem Common fatigue fatigue Spirit syndrome - [facility] [id number] Pressure Problem Com mon [id number] injury of [facility] left - [facility] buttock, St stage 1 [facility] Cigarette Cigarette Disease Active Met hodi smoker smoker [facility] Chronic Chronic Disease Active Method[facility] bronchitis bronchitis [facility] Teeth Teeth Disease Active Methodi missing missing [facility] Wears Wears Disease Active Method[facility] glasses glasses [facility] History of History of Disease Active M ethodi bronchitis bronchitis [facility] Allergies, Adverse Reactions, Alerts This patient has no known allergies or adverse reactions. Family History Family Member Diagnosis Comments Start Date Stop Date Source Natural father Stroke [facility] Natural mother Cancer [facility] Natural mother Diabetes [facility] Natural mother Heart disease [facility] Social History Social Habit Start Date Stop Date Quantity Comments Source History of Tobacco Common [facility] - Use [facility] Gender identity [facility] Sexual orientation [facility] History of Social 2018-01-30 2018-01-30 [facility] function 00:00:00 00:00:00 Hospital Alcohol intake 2017-07-04 2017-07-04 Current [facility] 00:00:00 00:00:00 non-drinker of Hospital alcohol (finding) Cigarette 2017-04-09 2017-04-09 [facility] pack-years 00:00:00 00:00:00 Hospital Tobacco Comment 2017-04-09 2017-04-09 quit then Church 00:00:00 00:00:00 restarted to Hospital about 1/2 pack/day Cigarettes smoked 2017-04-09 2017-04-09 [facility] current (pack per 00:00:00 00:00:00 Hospita l day) - Reported Tobacco use and 2017-04-09 2017-04-09 Former smokeless [facility] exposure 00:00:00 00:00:00 tobacco user Hospital Sex Assigned At [birth year] [facility] 00:00:00 00:00:00 Hospital Smoking Status Start Date Stop Date Source Never Smoker Common [facility] Smokes tobacco daily 2017-04-09 00:00:00 [facility] Medications Ordered Filled Start Stop Current Ordering Indication Dosage Frequency Signature Comments Components Source Medication Medication Date Date Medication? Clinician (SIG) Name Name Keflex 500 Keflex 500 2021- No 1{capsu QID Keflex 500 MG MG 05-15 03-10 le} MG 00:00: 00:00 00 :00 Santyl 250 Santyl 250 2020-03- No BID UNIT/GM UNIT/GM 04-05 00:00: 00:00 00 [...] 17 daily as l needed (leg cramps). [facility] Leg Cramp bisacodyl Yes 10mg Q24H Take 10 mg Me thodi (DULCOLAX) 4-[address] 5 mg EC 14:26: daily as Hospit a tablet 17 needed for l constipati on. FOLIC Yes 1{tbl} QD Take 1 Methodi [...] 17 daily as l needed (leg cramps). [facility] Leg Cramp bisacodyl Yes 10mg Q24H Take 10 mg [facility] (DULCOLAX) 4-[address] 5 mg EC 14:26: daily as Hospit a tablet 17 needed for l constipati on. naproxen Yes TK 1 T PO Meth mandie (NAPROSYN) 3-[address] 500 MG 00:00: FOOD. Hospita tablet 00 l naproxen Yes TK 1 T PO Meth mandie (NAPROSYN) 3-[address] 500 MG 00:00: FOOD. Hospita tablet 00 l morPHINE 2016-03 Yes 60mg Q.5D Take 60 mg Met hodi (MS CONTIN) 0-[address] 60 MG 12 hr 00:00: (two) Hospi ta tablet 00 times a l day. morPHINE 2016-03 Yes 60mg Q.5D Take 60 mg Met hodi (MS CONTIN) 0-[address] 60 MG 12 hr 00:00: (two) Hospi ta tablet 00 times a l day. traMADol 2016-03 Yes TAKE 2 Methodi (ULTRAM) 50 0-[address] mg tablet 00:00: MOUTH 3 Hospi ta 00 TIMES l DAILY (IN THE MORNING, NOON, AND AT BEDTIME) prn traMADol 2016-03 Yes TAKE 2 Methodi (ULTRAM) 50 0-[address] mg tablet 00:00: MOUTH 3 Hospi ta 00 TIMES l DAILY (IN THE MORNING, NOON, AND AT BEDTIME) prn atorvastati Yes 40mg QD Take 40 mg Methodi n (LIPITOR) 4-[address] 40 MG 00:00: daily. Hospita tablet 00 l atorvastati Yes 40mg QD Take 40 mg Methodi n (LIPITOR) 4-[address] 40 MG 00:00: daily. Hospita tablet 00 l gabapentin Yes 600mg Q.5D Take 600 [facility] (NEURONTIN) 4-[address] 300 mg 00:00: mouth 2 Hospita capsule 00 (two) l times a day. Takes 300 mg 2 caps. Orally in the morning, 2 at noon then 4 caps. At bedtime nortriptyli Yes 75mg QD Take 75 mg Methodi ne 4-[address] (PAMELOR) 00:00: nightly. Hosp yoseph 25 MG 00 Takes 25 l capsule mg 3 caps. Orally nightly gabapentin 2016-0 Yes 600mg Q.5D Take 600 [facility] (NEURONTIN) 4-[address] 300 mg 00:00: mouth 2 Hospita capsule 00 (two) l times a day. Takes 300 mg 2 caps. Orally in the morning, 2 at noon then 4 caps. At bedtime nortriptyli Yes 75mg QD Take 75 mg Methodi ne 4-[address] (PAMELOR) 00:00: nightly. Hosp yoseph 25 MG 00 Takes 25 l capsule mg 3 caps. Orally nightly Tizanidine Tizanidine Yes Na Green 1 tablet Common HCl HCl [facility] Nortriptyli Nortriptyli Yes Na Green 3 capsules Common ne HCl ne HCl [facility] Omeprazole Omeprazole Yes Na Green 1 capsule Common [facility] Atorvastati Atorvastati Yes Na Green 1 tablet Common n Calcium n Calcium [facility] Naproxen Naproxen Yes Na Green 1 tablet Common with food Spirit or milk as - CHI needed [facility] Morphine Morphine Yes Na Green as Comm on Sulfate Sulfate directed [facility] Duloxetine Duloxetine Yes Na Green 1 capsule Common HCl HCl [facility] Pregabalin Pregabalin Yes Na Green 1 capsule Common [facility] Enalapril Enalapril Yes Na Green 1 tablet Common Maleate Maleate [facility] Gabapentin Gabapentin Yes Na Green 2 capsules Common in the [facility] morning, 2 - CHI at noon St and 4 at [facility] bedtime [facility] Tramadol Tramadol Yes Na Green 2 tablets Common HCl HCl [facility] Naproxen Naproxen No BID Naproxen 500 MG 500 MG 500 MG Pregabalin Pregabalin No 1{capsu Pregabalin 100 [...] Calcium 20 MG 20 MG 20 MG Immunizations Ordered Immunization Filled Immunization Date Status Commen ts Source Name Name FluAD FluAD 2019-12-21 Completed [facility] - 16:29:00 [facility] FluAD FluAD 2019-12-21 Completed [facility] - 16:29:00 [facility] FluAD FluAD 2019-12-21 Completed [facility] - 16:29:00 [facility] FluAD FluAD 2019-12-21 Completed [facility] - 16:29:00 [facility] FluAD FluAD 2019-12-21 Completed [facility] - 16:29:00 [facility] FluAD FluAD 2019-12-21 Completed [facility] - 16:29:00 [facility] FluAD FluAD 2019-12-21 Completed [facility] - 16:29:00 [facility] FluAD FluAD 2019-12-21 Completed [facility] - 16:29:00 [facility] FLUCELVAX QUAD PF 2017-04-[address] 00:00:00 Hospital FLUCELVAX QUAD PF 2017-04-[address] 00:00:00 Hospital Pneumococcal 2016-10-19 Completed [facility] Conjugate [facility] 00:00:00 Hospi emil Pneumococcal 2016-10-19 Completed [facility] Conjugate [facility] 00:00:00 Romi stein Vital Signs Vital Name Observation Time Observation Value Comments Source height 2022-02-26 13:40:00 59.00 [in_i] [facility] weight 2022-02-26 13:40:00 147.4 [lb_av] [facility] temperature 2022-02-26 13:40:00 97.5 [degF] [facility] bmi 2022-02-26 13:40:00 29.77 kg/m2 [facility] oximetry 2022-02-26 13:40:00 98 % [facility] respiratory rate 2022-02-26 13:40:00 16 /min Comm on [facility] blood pressure 2022-02-26 13:40:00 120 mm[Hg] Common [facility] - systolic [facility] blood pressure 2022-02-26 13:40:00 80 mm[Hg] Common [facility] - diastolic [facility] height 2021-11-24 15:00:00 59.00 [in_i] [facility] weight 2021-11-24 15:00:00 147.2 [lb_av] [facility] temperature 2021-11-24 15:00:00 97.6 [degF] [facility] bmi 2021-11-24 15:00:00 29.73 kg/m2 [facility] oximetry 2021-11-24 15:00:00 98 % [facility] respiratory rate 2021-11-24 15:00:00 16 /min Comm on [facility] blood pressure 2021-11-24 15:00:00 130 mm[Hg] Common [facility] - systolic [facility] blood pressure 2021-11-24 15:00:00 62 mm[Hg] Common [facility] diastolic [facility] height 2021-05-15 14:40:00 61.5 [in_i] [facility] weight 2021-05-15 14:40:00 146.2 [lb_av] [facility] temperature 2021-05-15 14:40:00 97.6 [degF] [facility] bmi 2021-05-15 14:40:00 27.17 kg/m2 [facility] oximetry 2021-05-15 14:40:00 97 % [facility] respiratory rate 2021-05-15 14:40:00 18 /min Comm on [facility] blood pressure 2021-05-15 14:40:00 138 mm[Hg] [facility] - systolic [facility] blood pressure 2021-05-15 14:40:00 65 mm[Hg] [facility] diastolic [facility] Procedures This patient has no known procedures. Plan of Care Planned Activity Planned Date Details Comments Source Future Scheduled 2022-10-19 COVID-19 VACCINE (#1) [facility] Test 10:20:37 [code = COVID-19 VACCINE (#1)] Future Scheduled 2022-10-19 SHINGLES VACCINES (1 Met [facility] Test 10:20:37 of 2) [code = SHINGLES VACCINES (1 of 2)] Future Scheduled 2022-10-19 65+ PNEUMOCOCCAL [facility] Test 10:20:37 VACCINE (2 - PPSV23 if available, else PCV20) [code = 65+ PNEUMOCOCCAL VACCINE (2 - PPSV23 if available, else PCV20)] Future Scheduled 2022-10-19 INFLUENZA VACCINE [facility] Test 10:20:37 [code = INFLUENZA VACCINE] Future Scheduled 2022-08-31 [facility] 11:57:42 malignant neoplasm of colon (procedure) [code = 704925585] Future Scheduled 2022-08-31 [facility] Test 11:57:42 malignant neoplasm of colon (procedure) [code = 162584525] Future Scheduled 2022-08-31 [facility] Test 11:57:42 malignant neoplasm of colon (procedure) [code = 492704918] Future Scheduled 2022-08-31 COVID-19 VACCINE (#1) [facility] Test 11:57:42 [code = COVID-19 VACCINE (#1)] Future Scheduled 2022-08-31 BREAST CANCER [facility] Test 11:57:42 SCREENING [code = BREAST CANCER SCREENING] Future Scheduled 2022-08-31 Screening for [facility] Test 11:57:42 malignant neoplasm of colon (procedure) [code = 840527537] Future Scheduled 2022-08-31 Screening for [facility] Test 11:57:42 malignant neoplasm of colon (procedure) [code = 261301317] Future Scheduled 2022-08-31 SHINGLES VACCINES ([facility] Test 11:57:42 of 2) [code = SHINGLES VACCINES (1 of 2)] Future Scheduled 2022-08-31 65+ PNEUMOCOCCAL [facility] Test 11:57:42 VACCINE (2 - PPSV23 if available, else PCV20) [code = 65+ PNEUMOCOCCAL VACCINE (2 - PPSV23 if available, else PCV20)] Future Scheduled 2022-08-31 INFLUENZA VACCINE [facility] Test 11:57:42 [code = INFLUENZA VACCINE] Encounters Start End Encounter Admission Attending Care Care Encounter Source Date/Time Date/Time Type Type Clinicians Facility Department ID 2022-10-18 Outpatient León, [facility] [id number] Common 14:27:00 Yuliana [id number] [facility] 2022-10-09 Outpatient León, [facility] [id number] Common 09:33:00 Yuliana [id number] [facility] 2022-04-17 Outpatient Le[facility], [facility] [id number] Common 13:50:01 Yuliana [id number] [facility] 2022-02-22 Outpatient Yeni Green [facility] [id number] 2 Common 10:26:02 [facility] 2021-11-22 Outpatient Yeni Green [facility] [id number] 2 Common 09:34:01 [facility] 2021 Outpatient Green, Na STLMLC ST[facility] [id number] 2 Common 14:55:01 [facility] 2021-07-26 Outpatient Green, Na STLMLC STLMLC [id number] 2 Common 14:08:01 [facility] 2021-04-12 Outpatient Green, Na STLMLC STLMLC [id number] 2 Common 14:28:54 [id number] [facility] 2021-04-12 Outpatient Green, Na STLMLC STLMLC [id number] 2 Common 13:46:16 [id number] [facility] 2021-04-12 Outpatient Green, Na STLMLC STLMLC [id number] 2 Common 13:42:16 [id number] [facility] 2021-04-12 Outpatient Green, Na STLMLC STLMLC [id number] 2 Common 12:45:34 [id number] [facility] 2021-04-12 Outpatient Green, Na STLMLC STLMLC [id number] 2 Common 12:44:53 [id number] [facility] 2021-04-12 Outpatient Green, Na STLMLC STLMLC [id number] 2 Common 12:26:53 [id number] [facility] 2021-04-12 Outpatient Green, Na STLMLC STLMLC [id number] 2 Common 12:25:49 [id number] [facility] 2021-04-12 Outpatient Green, Na STLMLC STLMLC [id number] 2 Common 12:18:05 [id number] [facility] 2021-04-12 Outpatient Green, Na STLMLC STLMLC [id number] 2 Common 11:51:33 [id number] [facility] 2021-04-12 Outpatient Green, Na STLMLC STLMLC [id number] 2 Common 11:29:53 [id number] [facility] 2021-04-12 Outpatient Green, Na STLMLC STLMLC [id number] 2 Common 11:29:37 [id number] [facility] 2022-02-26 2022-02-26 OFFICE STLMLC STLMLC [id number] Co mmon 00:00:00 00:00:00 VISIT EST Spir it PT LEVEL 3 [facility] 2021-11-24 2021-11-24 OFFICE STLMLC STLMLC [id number] Co mmon 00:00:00 00:00:00 VISIT [facility] ESTAB PT - [facility] LEVEL 4 [facility] 2021-09-07 2021-09-07 (TEL) STLMLC STLMLC [id number] Co mmon 00:00:00 00:00:00 [facility] 2021-09-04 2021-09-04 (TEL) STLMLC STLMLC [id number] Co mmon 00:00:00 00:00:00 [facility] 2021-06-12 2021-06-12 (TEL) STLMLC STLMLC [id number] Co mmon 00:00:00 00:00:00 [facility] 2021-05-15 2021-05-15 OFFICE STLMLC STLMLC [id number] Co mmon 00:00:00 00:00:00 VISIT EST Spir it PT LEVEL 3 [facility] 2021-04-18 2021-04-18 (TEL) STLMLC STLMLC [id number] Co mmon 00:00:00 00:00:00 [facility] 2021-03-16 2021-03-16 OL DIG E/M STLMLC STLMLC [id number] Common 00:00:00 00:00:00 [facility] 11-20 Spir it MIN [facility] 2020-11-08 2020-11-08 Outpatient STLMLC STLMLC [id number] Common 00:00:00 00:00:00 [facility] 2020-06-13 2020-06-13 Outpatient STLMLC STLMLC [id number] Common 00:00:00 00:00:00 [facility] 2020-06-13 2020-06-13 Outpatient STLMLC STLMLC [id number] Common 00:00:00 00:00:00 [facility] 2020-05-25 2020-05-25 Outpatient STLMLC STLMLC [id number] Common 00:00:00 00:00:00 [facility] 2020-05-16 2020-05-16 Outpatient STLMLC STLMLC [id number] Common 00:00:00 00:00:00 [facility] 2020-04-15 2020-04-15 Outpatient STLMLC STLMLC [id number] Common 00:00:00 00:00:00 [facility] 2019-12-21 2019-12-21 Outpatient STLMLC STLMLC [id number] Common 00:00:00 00:00:00 [facility] 2019-10-04 2019-10-04 [facility] [id number] Common 21:56:00 21:56:[address] [facility] 2019-09-22 2019-09-22 [facility] [id number] Common 14:40:00 14:40:[address] [facility] 2019-09-21 2019-09-21 [facility] [id number] Common 13:40:00 13:40:[address] [facility] Results This patient has no known results.
[2022-10-22 01:32] LABS: Absolute Lymphocytes (CBC) 0.8 K/uL (0.7-4.9); Hematocrit 33.3 % (36.0-45.0); Lymphocytes % 3.4 % (15.3-44.8); MCV 84.9 fL (80-100); MPV 8.1 fL (7.6-11.3); Platelets 358 thou/uL (152-406); RBC Red Blood Cell Count 3.92 M/uL (3.86-4.86)
[2022-10-22 01:38] LABS: Protime INR 1.15
[2022-10-22] MEDS ORDERED: NA CHLORIDE 0.9% 100 ML ONE (01:41)
[2022-10-22] MEDS ORDERED: NA CHLORIDE 0.9% 250 ML ONE (01:41)
[2022-10-22] MEDS ORDERED: VANCOMYCIN 1 GM/VIAL ONE (01:41)
[2022-10-22] MEDS ORDERED: PIPERACIL/TAZO 3.375 GM VIAL IV ONE (01:42)
[2022-10-22] MEDS ORDERED: NA CHLORIDE 0.9% 1,000 ML ONE ×3 (01:42→05:40)
[2022-10-22 01:47] LABS: SARS-CoV-2 Antigen Rapid Res Negative (Negative)
[2022-10-22 01:54] LABS: Albumin 2.4 g/dL (3.4-5.0); Bilirubin Direct 0.2 mg/dL (0-0.2); Bilirubin Indirect, Calculated 0.3 mg/dL (0.2-0.8); Bilirubin Total 0.5 mg/dL (0.2-1.0); Magnesium 2.1 mg/dL (1.6-2.4); Potassium 2.9 mEq/L (3.5-5.1); Troponin High Sensitivity 11.2 pg/mL (<58.9)
[2022-10-22 02:29] LABS: Specific Gravity 1.016 (1.005-1.030); Urine Bacteria <20 /HPF (<20); Urine Bilirubin NEGATIVE (Negative); Urine Blood 2+ (Negative); Urine Clarity Extremely Turbid (Clear); Urine Color Yellow (Yellow); Urine Glucose NEGATIVE (Negative); Urine Granular Casts 0-5 /LPF (None Seen); Urine Mucus Slight /HPF (None Seen); Urine Protein 1+ (Negative); Urine RBC <5 /HPF (None Seen); Urine Urobilinogen Normal (Normal)
[2022-10-22] MEDS ORDERED: D5 0.9 NS 1,000 ML IV ONE (02:47)
[2022-10-22 02:51] LABS: Anisocytosis 1+; Blood Morphology Comment NOTED (NOT SEEN); Hypochromasia 1+; Platelet Estimate ADEQ; White Blood Cell Scan OK (OK)
[2022-10-22] MEDS ORDERED: METRONIDAZOLE 500mg IVPB 500 MG/100 ML BAG IV ONE (03:59)
[2022-10-22] MEDS ORDERED: KCL 20 MEQ/100 mL IVPB 200 ML IV ONE (03:59)
--- NOTE | 2022-10-22 04:36 | P.HP ---
Certification for Inpatient Patient admitted to: Inpatient With expected LOS: >2 Midnights Patient will require the following post-hospital care: None Practitioner: I am a practitioner with admitting privileges, knowledge of patient current condition, hospital course, and medical plan of care. Services: Services provided to patient in accordance with Admission requirements found in Title 42 Section 412.3 of the Code of Federal Regulations <Emil Barros - Last Filed: 10/22/22 04:31> Patient History Date of Service: 10/22/22 Reason for admission: Severe sepsis, acute renal failure History of Present Illness: 77-year-old female with history of CHF, hypertension, chronic pain syndrome presents emergency department with chief complaint of confusion, diarrhea. She was seen and admitted here on 09/16/2022 with diagnosis of acute renal failure, metabolic encephalopathy, C. difficile infection. She was treated with advice including oral vancomycin and subsequently discharged to senior living facility would like on 09/21/2022. She was discharged on either 10/12 or 10/13 back home where she lives alone, her family frequently checks on her. She has had persistent diarrhea ever since she left the hospital, family reports negative C. difficile test approximately a week ago at [facility]. She was evaluated in the emergency department today and found to have acute renal failure, rhabdomyolysis, hyponatremia, hypokalemia, marked leukocytosis and a CT scan showing patchy infiltrate of the right lung and nonspecific colitis pattern. She was given broad-spectrum antibiotics in the emergency department, will need to be admitted for severe sepsis, acute renal failure. - Past Medical/Surgical History Diabetic: No -: Chronic pain on Oxycontin BID -: DJD -: GERD -: HTN -: Tobacco abuse -: C. difficile -: Lumbar back surg -: skin cancer removal left elbow Psychosocial/ Personal History: Patient currently lives at home, alone. - Family History Mother -: Heart disease - Social History Smoking Status: Former smoker Alcohol use: No CD- Drugs: Yes Caffeine use: Yes Place of Residence: Home <Emil Barros - Last Filed: 10/22/22 04:31> Date of Service: 10/22/22 <Larry Martínez - Last Filed: 10/22/22 16:52> Allergies No Known Allergies Allergy (Unverified 09/16/22 02:21) Home Medications: Atorvastatin Calcium [Lipitor*] 20 mg PO BEDTIME 09/16/22 Duloxetine HCl 30 mg PO DAILY 09/16/22 Enalapril Maleate [Vasotec] 20 mg PO DAILY 09/16/22 Gabapentin 1,200 mg PO BEDTIME 09/16/22 Gabapentin 600 mg PO DAILY AT SUPPER 09/16/22 Gabapentin 900 mg PO DAILY WITH BREAKFAST 09/16/22 Morphine *Extended Release* [MS Contin*] 60 mg PO BID 09/16/22 Nortriptyline HCl 25 mg PO BEDTIME 09/16/22 Tizanidine [Zanaflex*] 4 mg PO TID 09/16/22 Tizanidine [Zanaflex] 12 mg PO BEDTIME 10/22/22 Review of Systems 10-point ROS is otherwise unremarkable General: Chills, Weakness, Malaise Gastrointestinal: Nausea, Diarrhea Neurological: Confusion <Emil Barros - Last Filed: 10/22/22 04:31> Physical Examination - Physical Exam General: Alert, In no apparent distress, Oriented x3 HEENT: Atraumatic, PERRLA, Other (Mucous membranes dry), EOMI, Sclerae nonicteric Neck: Supple, 2+ carotid pulse no bruit, No LAD, Without JVD or thyroid abnormality Respiratory: Clear to auscultation bilaterally, Normal air movement Cardiovascular: Regular rate/rhythm, Normal S1 S2 Capillary refill: <2 Seconds Gastrointestinal: Normal bowel sounds, No tenderness Musculoskeletal: No tenderness Integumentary: No rashes Neurological: Normal speech, Normal strength at 5/5 x4 extr, Normal tone, Normal affect Lymphatics: No axilla or inguinal lymphadenopathy - Studies Laboratory Data (last 24 hrs) 10/22/22 10/22/22 10/22/22 00:35 00:35 00:35 WBC 22.80 H Hgb 10.9 L Hct 33.3 L Plt Count 358 PT 12.6 H INR 1.15 Sodium 126 L Potassium 2.9 L BUN 40 H Creatinine 2.74 H Glucose 65 L Magnesium 2.1 Total Bilirubin 0.5 AST 146 H ALT 43 Alkaline Phosphatase 144 H Microbiology Data (last 24 hrs): 10/22/22 01:00 Nasopharnyx Influenza Type A Antigen Screen - Final 10/22/22 01:00 Nasopharnyx Influenza Type B Antigen Screen - Final <Emil Barros - Last Filed: 10/22/22 04:31> - Studies Laboratory Data (last 24 hrs) 10/22/22 10/22/22 10/22/22 00:35 00:35 00:35 WBC 22.80 H Hgb 10.9 L Hct 33.3 L Plt Count 358 PT 12.6 H INR 1.15 Sodium 126 L Potassium 2.9 L BUN 40 H Creatinine 2.74 H Glucose 65 L Magnesium 2.1 Total Bilirubin 0.5 AST 146 H ALT 43 Alkaline Phosphatase 144 H Microbiology Data (last 24 hrs): 10/21/22 23:58 Stool Fecal Leukocyte Stain - Final 10/21/22 23:58 Stool Rotavirus Antigen - Final 10/22/22 01:00 Nasopharnyx Influenza Type A Antigen Screen - Final 10/22/22 01:00 Nasopharnyx Influenza Type B Antigen Screen - Final <Larry Martínez - Last Filed: 10/22/22 16:52> Assessment and Plan - Plan Assessment: Severe sepsis secondary to pneumonia, colitis-recent history of C. difficile Acute renal failure Rhabdomyolysis Hyponatremia, hypokalemia Metabolic encephalopathy Hypertension Chronic pain Plan: Severe sepsis secondary to pneumonia, colitis-recent history of C. difficile SIRS criteria present including leukocytosis, tachycardia. Source of infection confirmed on CT with pneumonia, colitis. Lactate less than 2 but acute renal failure present. No septic shock currently. Continue broad-spectrum antibiotics with Flagyl, Levaquin. Infectious disease consult in place. Blood cultures obtained as well as stool studies including C. difficile. Acute renal failure Rhabdomyolysis Hyponatremia, hypokalemia Likely multifactorial from sepsis, persistent diarrhea. Continue aggressive IV fluids, nephrology consult, electrolyte monitoring. Urine studies ordered. Metabolic encephalopathy Improving, continue supportive care. Hypertension Hold oral antihypertensive medications in setting of sepsis, continue appropriate. Chronic pain Obtaining continue medications as appropriate to avoid withdrawal symptoms. DVT PPX: Heparin subcu Code status: Full Discharge Plan: Home Plan to discharge in: Greater than 2 days - Advance Directives Does patient have a Living Will: No Does patient have a Durable POA for Healthcare: No - Code Status/Comfort Care Code Status Assessed: Yes (Full code) Critical Care: No Time Spent Managing Pts Care (In Minutes): 70 <Emil Barros - Last Filed: 10/22/22 04:31> Physician Review: Patient Assessed, Agree with Above Assessment and Plan Physician Review Additional Text: She is fairly somnolent on rounds. She was seen alongside the Infectious Diseases team. Per Dr. Dickey, discontinue vancomycin and metronidazole. He recommends continuing levofloxacin for the potential pulmonary infection. He recommends starting fidoxamicin for Clostridioides Difficile colitis. Renal function seems to be improving with hydration - appreciate Nephrology recom mendations. She is in critical condition at this time. Will continue to monitor closely in the intensive care unit. Larry Martínez M.D. <Larry Martínez - Last Filed: 10/22/22 16:52>
--- NOTE | 2022-10-22 04:42 | ER ---
Nurse's Notes [facility] Name: Azalea Rdz Age: 77 yrs Sex: Female : 1945 Arrival Date: 10/21/2022 Time: 23:53 Bed 5 Private MD: Diagnosis: Severe sepsis without septic shock;Enterocolitis due to Clostridium difficile;Hyponatremia, hypokalemia, moderate dehydration, acute renal failure, Presentation: 10/22 00:18 Chief complaint: EMS states: Pt family called due to pt being more confused. Family is jb4 worried her kidney failure is getting worse and that her C-Diff has returned. Coronavirus screen: At this time, the client does not indicate any symptoms associated with coronavirus-19. Ebola Screen: No symptoms or risks identified at this time. Initial Sepsis Screen: Does the patient meet any 2 criteria? Altered Mental Status. HR > 90 bpm. Yes Does the patient have a suspected source of infection? No. Patient's initial sepsis screen is negative. Risk Assessment: Do you want to hurt yourself or someone else? Patient reports no desire to harm self or others. Onset of symptoms was October 22, 2022. Transition of care: patient was not received from another setting of care. 00:18 Method Of Arrival: [facility] jb4 00:18 Acuity: ROSIO 3 jb4 Historical: - Allergies: 03:47 No Known Allergies; jb4 - PMHx: 03:47 Kidney failure; jb4 - Immunization history:: Adult Immunizations up to date. - Social history:: Smoking status: Patient denies any tobacco usage or history of. - Family history:: not pertinent. Screenin:51 [facility] ED Fall Risk Assessment (Adult) History of falling in the last 3 months, jb4 including since admission No falls in past 3 months (0 pts) Confusion or Disorientation Yes (5 pts) Score/Fall Risk Level 3 or more points = High Risk Oriented to surroundings, Maintained a safe environment. Abuse screen: Denies threats or abuse. Nutritional screening: No deficits noted. Tuberculosis screening: No symptoms or risk factors identified. Assessment: 00:25 General: Appears in no apparent distress. comfortable, ill, Behavior is calm, jb4 cooperative. Pain: Denies pain. Neuro: Level of Consciousness is awake, alert, obeys commands, Oriented to person. Cardiovascular: Patient's skin is warm and dry. Respiratory: Airway is patent Respiratory effort is even, unlabored, Respiratory pattern is regular, symmetrical. GI: No signs and/or symptoms were reported involving the gastrointestinal system. : No signs and/or symptoms were reported regarding the genitourinary system. EENT: No signs and/or symptoms were reported regarding the EENT system. Derm: Skin is intact, Skin is pink, warm \T\ dry. Reddened area noted to the sacrum. is still blanchable. Musculoskeletal: Circulation, motion, and sensation intact. 01:30 Reassessment: Patient appears in no apparent distress at this time. No changes from jb4 previously documented assessment. Patient and/or family updated on plan of care and expected duration. Pain level reassessed. 02:30 Reassessment: Patient appears in no apparent distress at this time. No changes from jb4 previously documented assessment. Patient and/or family updated on plan of care and expected duration. Pain level reassessed. 03:30 Reassessment: Pt resting in bed with family at the bedside. Respirations are even and jb4 unlabored with no s/s of pain or distress noted. 04:30 Reassessment: Patient appears in no apparent distress at this time. No changes from jb4 previously documented assessment. Patient and/or family updated on plan of care and expected duration. Pain level reassessed. 04:30 Reassessment: Patient appears in no apparent distress at this time. Patient and/or jb4 family updated on plan of care and expected duration. Pain level reassessed. Pt now A\T\Ox2 to person and place. Respirations remain even and unlabored with no s/s of pain or distress noted. 05:25 Reassessment: ER physician notified of drop in pressure, set up for central line jb4 placement. 06:30 Reassessment: Patient appears in no apparent distress at this time. No changes from jb4 previously documented assessment. Patient and/or family updated on plan of care and expected duration. Pain level reassessed. 07:30 General: Appears comfortable, Behavior is calm, cooperative, Right jugular central line aa5 noted, 20G R AC noted, 20G L AC noted. . Pain: Denies pain. Neuro: Level of Consciousness is awake, alert, obeys commands, Oriented to person, place, time. Cardiovascular: Heart tones S1 S2 present Rhythm is sinus tachycardia. Respiratory: Airway is patent Respiratory effort is even, unlabored, Respiratory pattern is regular, symmetrical. GI: Abdomen is round non-distended, Abd is soft and non tender X 4 quads. : Renner in place to gravity drainage Urine is angel colored. EENT: No signs and/or symptoms were reported regarding the EENT system. Derm: Skin is pink, warm \T\ dry. 07:41 Reassessment: Report given to STEPHEN Churchill (ICU nurse), awaiting Dr. Martínez to round on aa5 patient before transfer to ICU. . 08:10 Reassessment: Dr. Martínez rounded on patient. aa5 08:15 Reassessment: Pt cleaned of stool, diarrhea noted, clean brief applied, buttocks is aa5 red. . Vital Signs: 00:18 BP 98 / 47; Pulse 111; Resp 18 S; Temp 98.7(O); Pulse Ox 93% on R/A; Weight 61.5 kg (M);jb4 01:15 BP 91 / 77; Pulse 103; Resp 20; Pulse Ox 97% on R/A; jb4 02:14 BP 120 / 50; Pulse 104; Resp 20; Pulse Ox 98% on 2 lpm NC; jb4 03:00 BP 102 / 47; Pulse 98; Resp 18; Pulse Ox 99% on 2 lpm NC; jb4 04:15 BP 94 / 69; Pulse 87; Resp 19; Pulse Ox 99% on 2 lpm NC; jb4 05:15 BP 85 / 50; Pulse 103; Resp 12; Pulse Ox 99% on 2 lpm NC; jb4 05:53 BP 106 / 63; Pulse 96; Resp 16; Pulse Ox 98% on 2 lpm NC; jb4 06:45 BP 128 / 58; Pulse 110; Resp 15; Pulse Ox 96% on 2 lpm NC; jb4 07:30 BP 113 / 54; Pulse 107; Resp 18; Temp 98.6(O); Pulse Ox 97% on 2 lpm NC; aa5 08:10 BP 115 / 62; Pulse 110; Resp 18 S; Pulse Ox 97% on 2 lpm NC; aa5 ED Course: 10/21 23:56 Patient arrived in ED. sb4 23:56 Walter Peña MD is Attending Physician. sp4 10/22 00:18 Nir Ratliff, RN is Primary Nurse. jb4 00:18 Arm band placed on right wrist. jb4 00:20 Patient has correct armband on for positive identification. Bed in low position. Call jb4 light in reach. Side rails up X 1. Client placed on continuous cardiac and pulse oximetry monitoring. NIBP monitoring applied. revenue cycle manager on. 00:21 Triage completed. jb4 00:22 XRAY Chest (1 view) In Process Unspecified. EDMS 00:35 Initial lab(s) drawn, by me, sent to lab. Inserted saline lock: 20 gauge in right jb4 antecubital area, using aseptic technique. Blood collected. 03:37 CT Chest Abdomen Pelvis W/O Contrast In Process Unspecified. EDMS 04:41 Larry Martínez MD is Hospitalizing Provider. sp4 05:52 Assisted provider with central line placement. Set up central line tray. Triple lumen jb4 line placed in right internal jugular. Line placed by Walter Peña MD Placement verified by blood return, Dressed with Tegaderm, Patient tolerated well. Before procedure, did Practitioner(s) obtain informed consent? Yes. Patient \T\ family education about procedure, CLABSI prevention and S/S of infection? Yes. 08:20 Patient admitted, IV remains in place. aa5 Administered Medications: 05:18 Discontinued: NS 0.9% IV 1000 ml IV at 125 ml/hr continuous jb4 02:14 Drug: NS 0.9% IV 1000 ml Route: IV; Rate: 125 ml/hr; Site: right antecubital; jb4 02:37 Follow up: IV Status: Order to discontinue infusion jb4 02:14 Drug: vancoMYCIN IVPB 1 grams Route: IVPB; Infused Over: 2 hrs; Site: right antecubital;jb4 02:14 Drug: Piperacillin-Tazobactam IVPB 3.375 grams Route: IVPB; Infused Over: 60 mins; jb4 Site: left antecubital; 02:37 Drug: D5-NS IV 1000 ml Route: IV; Rate: 125 ml/hr; Site: right antecubital; jb4 07:54 Follow up: IV Status: Infusion continued upon admission aa5 04:26 Drug: metroNIDAZOLE IVPB 500 mg Volume: 100 ml; Route: IVPB; Rate: 200 ml/hr; Infused jb4 Over: 30 mins; Site: left antecubital; 04:53 Drug: Potassium Chloride IV 20 mEq {Note: Going over 4 hours with second bag piggy jb4 backed in..} Route: IV; Rate: calculated rate; Site: right antecubital; 07:54 Follow up: IV Status: Infusion continued upon admission aa5 08:20 Follow up: IV Status: Completed infusion aa5 04:53 Drug: Potassium Chloride IV 20 mEq {Note: Piggy backed to other IV potassium bag, jb4 Infusion going over 4 hours..} Route: IV; Rate: calculated rate; Site: right antecubital; 07:54 Follow up: IV Status: Infusion continued upon admission aa5 08:20 Follow up: IV Status: Completed infusion aa5 05:15 Drug: Calcium Gluconate IVPB 1 grams Route: IVPB; Infused Over: 60 mins; Site: left jb4 antecubital; 05:26 Drug: NS 0.9% IV 1000 ml Route: IV; Rate: 1 bolus; Site: left antecubital; jb4 07:30 Follow up: IV Status: Completed infusion aa5 05:50 Drug: NS 0.9% IV (30 ml/kg) 30 ml/kg {Note: Finished from initial bolus.} Route: IV; jb4 Rate: bolus; Site: right jugular; 07:30 Follow up: IV Status: Completed infusion aa5 05:51 Drug: Norepinephrine IV 0.1 mcg/kg/min Route: IV; Rate: calculated rate; Site: right jb4 jugular; 07:53 Follow up: IV Status: Infusion continued upon admission aa5 06:39 Drug: Albumin IVPB 25 grams Volume: 100 ml; Route: IVPB; Site: right jugular; jb4 07:30 Follow up: IV Status: Completed infusion aa5 07:30 Drug: Albumin IVPB 12.5 grams Volume: 50 ml; Route: IVPB; Site: right jugular; aa5 08:00 Follow up: IV Status: Completed infusion aa5 Medication: 08:15 VIS not applicable for this client. aa5 Point of Care Testing: Blood Glucose: 07:30 Blood Glucose: 137 mg/dL; aa5 Ranges: Output: 07:30 Urine: 800ml (Renner); Total: 800ml. aa5 Outcome: 04:41 Decision to Hospitalize by Provider. sp4 08:15 Admitted to ICU accompanied by nurse, via stretcher, with oxygen, on monitor, with aa5 chart, Report called to STEPHEN Churchill 08:15 Condition: stable 08:15 Instructed on the need for admit, Demonstrated understanding of instructions. 08:20 Patient left the ED. aa5 Signatures: Dispatcher [employer] EDKaycee Loza RN RN aa5 Nir Ratliff RN RN jb4 Blank Hensley PA-C PARoberto [email or web address] Walter Peña MD MD sp4 Corrections: (The following items were deleted from the chart) 05:54 02:14 BP 120 / 50; Pulse 104bpm; Resp 20bpm; Pulse Ox 98%; jb4 jb4 05:54 03:00 BP 102 / 47; Pulse 98bpm; Resp 18bpm; Pulse Ox 99% RA; jb4 jb4 05:54 04:15 BP 94 / 69; Pulse 87bpm; Resp 19bpm; Pulse Ox 99% RA; jb4 jb4 05:54 05:15 BP 85 / 50; Pulse 103bpm; Resp 12bpm; Pulse Ox 99% RA; jb4 jb4 08:46 08:43 Patient left the ED. aa5 aa5
--- NOTE | 2022-10-22 04:42 | EDPHYS ---
Physician Documentation [facility] Name: Azalea Rdz Age: 77 yrs Sex: Female : 1945 Arrival Date: 10/21/2022 Time: 23:53 Bed 5 Private MD: ED Physician Walter Peña HPI: 10/21 23:59 This 77 yrs old Female presents to ER via Unassigned with complaints of sp4 altered mental status, dehydration . 10/22 03:17 This very pleasant 77-year-old female presents from home with a worsening dehydration sp4 and mental status changes decreased alertness. Patient herself is not able to provide any history. But she states that she is feeling unwell. Patient appears dehydrated with dry mouth. Patient has history of recent admission here on 09/16/2022 with discharge at 09/21/2022. Patient was admitted for severe sepsis secondary to C. difficile colitis, acute toxic metabolic encephalopathy suspected unintentional opiate overdose, stage III acute kidney injury, rhabdomyolysis, elevated liver enzymes, microscopic hematuria, hypophosphatemia, hypovolemic hyponatremia, chronic pain syndrome, hypertension, hypocalcemia, and deconditioning. Patient was managed for C. difficile colitis. Nephrology managed acute kidney injury, patient was treated with aggressive hydration and there was improvement in renal function. Patient was evaluated by Dr. Rosenberg with infectious disease and was started on p.o. vancomycin. Generalized weakness was managed with physical therapy. Patient's last creatinine was measured at 0.44.. Medications include atorvastatin, cholecalciferol, duloxetine, enalapril, gabapentin, extended release morphine MS Contin 60 mg p.o. twice daily, nortriptyline 75 mg at bedtime omeprazole 40 mg p.o. daily tizanidine 4 mg 3 times daily, metoprolol tartrate 25 mg p.o. twice daily and vancomycin 2.5 mL every 6 hours. Patient was then discharged to [facility].. Historical: - Allergies: 03:47 No Known Allergies; jb4 - PMHx: 03:47 Kidney failure; jb4 - Immunization history:: Adult Immunizations up to date. - Social history:: Smoking status: Patient denies any tobacco usage or history of. - Family history:: not pertinent. ROS: 03:17 Constitutional: Negative for fever, chills, and weight loss, positive generalized sp4 weakness, positive dehydration, positive mental status changes, full ROS not available secondary to acute illness 03:17 All other systems are negative. 03:17 Unable to obtain ROS due to altered mental status. sp4 Exam: 03:17 Constitutional: This is a well developed, patient presents with somnolence, sp4 generalized weakness, diffuse pallor, not ambulatory on arrival, ill-appearing, toxic appearing, with signs of significant dehydration dry mucous membranes Head/Face: Normocephalic, atraumatic. Eyes: Pupils equal round and reactive to light, extra-ocular motions intact. Lids and lashes normal. Conjunctiva and sclera are not injected. Cornea within normal limits. Periorbital areas with no swelling, redness, or edema. ENT: Nares patent. No nasal discharge, no septal abnormalities noted. Tympanic membranes are normal and external auditory canals are clear. Oropharynx with no redness, swelling, or masses, exudates, or evidence of obstruction, uvula midline. Positive for poor dentition and dry mucous membranes Neck: Trachea midline, no thyromegaly or masses palpated, and no cervical lymphadenopathy. Supple, full range of motion without nuchal rigidity, or vertebral point tenderness. Chest/axilla: Normal chest wall appearance and motion. Nontender with no deformity. No lesions are appreciated. Cardiovascular: Positive regular tachycardia with a normal S1 and S2. No gallops, murmurs, or rubs. Normal PMI, no JVD. No pulse deficits. Respiratory: Lungs have equal breath sounds bilaterally, clear to auscultation and percussion. No rales, rhonchi or wheezes noted. No increased work of breathing, no retractions or nasal flaring. Abdomen/GI: Soft, non-tender, with normal bowel sounds. No distension or tympany. No guarding or rebound. No evidence of tenderness throughout. Back: No spinal tenderness. No costovertebral tenderness. Female : Normal external genitalia. Skin: Warm, dry with normal turgor. Normal color with no rashes, no lesions, and no evidence of cellulitis. MS/ Extremity: Pulses equal, no cyanosis. Neurovascular intact. Full, normal range of motion. Neuro: Awake and alert, GCS 14, oriented to person, place, patient appears to be mildly confused, is arousable and cooperative 03:39 ECG was reviewed by the Attending Physician. EKG revealed sinus tachycardia at 113, EKG sp4 time 0038, otherwise normal Vital Signs: 00:18 BP 98 / 47; Pulse 111; Resp 18 S; Temp 98.7(O); Pulse Ox 93% on R/A; Weight 61.5 kg (M);jb4 01:15 BP 91 / 77; Pulse 103; Resp 20; Pulse Ox 97% on R/A; jb4 02:14 BP 120 / 50; Pulse 104; Resp 20; Pulse Ox 98% on 2 lpm NC; jb4 03:00 BP 102 / 47; Pulse 98; Resp 18; Pulse Ox 99% on 2 lpm NC; jb4 04:15 BP 94 / 69; Pulse 87; Resp 19; Pulse Ox 99% on 2 lpm NC; jb4 05:15 BP 85 / 50; Pulse 103; Resp 12; Pulse Ox 99% on 2 lpm NC; jb4 05:53 BP 106 / 63; Pulse 96; Resp 16; Pulse Ox 98% on 2 lpm NC; jb4 06:45 BP 128 / 58; Pulse 110; Resp 15; Pulse Ox 96% on 2 lpm NC; jb4 07:30 BP 113 / 54; Pulse 107; Resp 18; Temp 98.6(O); Pulse Ox 97% on 2 lpm NC; aa5 08:10 BP 115 / 62; Pulse 110; Resp 18 S; Pulse Ox 97% on 2 lpm NC; aa5 Procedures: 05:48 Central Line: the site was prepped with Betadine, in sterile fashion, a triple lumen sp4 catheter was inserted, in the right internal jugular vein, in 1 attempts. placement was verified, by CXR, by blood return, Ultrasound-guided central line, the site was dressed with Tegaderm, using sterile technique, the patient tolerated the procedure, well, Right internal jugular triple-lumen central line was placed with IV ultrasound guidance. MDM: 10/21 23:59 Patient medically screened. sp4 10/22 02:04 ED course: EXAM DESCRIPTION: Chest Single View 10/22/2022 12:36 AM CDT CLINICAL HISTORY: sp4 77 years, Female, ABDOMINAL DISTENTION COMPARISON: None. FINDINGS: Single view of the chest was obtained portable. No prior films are available for comparison. The cardiomediastinal silhouette demonstrate to be unremarkable. The heart is in the upper normal size. The thoracic aorta is demonstrate intimal aortic arch calcification. The pulmonary vasculature is normal distribution. Costophrenic angles are sharp. No areas of consolidation or masses are seen. The rest of the soft tissue and bony structures demonstrate to be unremarkable. IMPRESSION: No acute cardiopulmonary disease seen.. 03:39 Differential Diagnosis altered mental status, sepsis, flu. Data reviewed: vital signs, sp4 nurses notes, EMS record, old medical records, lab test result(s), EKG, radiologic studies, CT scan. Consideration of Admission/Observation Patient was admitted/placed on observation. Escalation of care including admission/observation considered. Management of patient was discussed with the following: Hospitalist: Discussed with admission team. 04:40 ED course: COMPARISON: CT Chest Abdomen Pelvis dated 09/16/2022 FINDINGS: CHEST: Lungs: sp4 Patchy groundglass opacities within the right lung. Right basilar subsegmental atelectasis/pleural parenchymal scar. Pleural space: Unremarkable. No significant effusion. No pneumothorax. Heart: Coronary artery calcification. No significant pericardial effusion. ABDOMEN: Liver: Unremarkable. Gallbladder and bile ducts: Unremarkable. No calcified stones. No ductal dilation. Pancreas: Moderate pancreatic parenchymal atrophy. No ductal dilation. Spleen: Unremarkable. No splenomegaly. Adrenals: Unremarkable. No mass. Kidneys and ureters: Unremarkable. No obstructing stones. No hydronephrosis. Stomach and bowel: The large bowel is diffusely thickened. Mild infiltrative changes in the pericolonic fat. No obstruction. PELVIS: Appendix: Normal caliber appendix. No findings to suggest acute appendicitis. Bladder: The urinary bladder is decompressed around a Renner. No stones. Reproductive: There has been a hysterectomy. No adnexal cysts or masses are identified. CHEST, ABDOMEN and PELVIS: Intraperitoneal space: Small amount of free fluid in the abdomen and pelvis. No free air. Bones/joints: Remote right-sided rib fractures. Multilevel spondylosis. Prior bilateral posterior fusion and decompression extending from L3 through S1. Remote deformity of the right femoral head and neck which may in part be posttraumatic. Severe degenerative changes at the right hip articulation. No dislocation. Soft tissues: Unremarkable. Vasculature: Moderate to severe atherosclerotic disease. Lymph nodes: Unremarkable. No enlarged lymph nodes. IMPRESSION: 1. Patchy infiltrates within the right lung. 2. Findings compatible with nonspecific colitis. 3. Other findings as above.. 10/21 23:56 Order name: Basic Metabolic Panel; Complete Time: 02:01 sp4 10/21 23:56 Order name: CBC with Diff; Complete Time: 03:06 sp4 10/21 23:56 Order name: LFT's; Complete Time: 02:01 sp4 10/21 23:56 Order name: Magnesium; Complete Time: 02:01 sp4 10/21 23:56 Order name: NT PRO-BNP; Complete Time: 02:01 sp4 10/21 23:56 Order name: PT-INR; Complete Time: 02:01 sp4 10/21 23:56 Order name: Troponin HS; Complete Time: 02:01 sp4 10/21 23:56 Order name: Blood Culture Adult (2) 4 10/21 23:56 Order name: Lactate w/ 2H reflex if indic.; Complete Time: 02:01 sp4 10/21 23:56 Order name: Procalcitonin; Complete Time: 02:32 sp4 10/21 23:57 Order name: Urinalysis W/Microscopic; Complete Time: 02:32 sp4 10/21 23:57 Order name: SARS RAPID; Complete Time: 02:01 sp4 10/21 23:57 Order name: Influenza Screen (a \T\ B); Complete Time: 02:01 sp4 10/21 23:58 Order name: Fecal Leukocyte Stain 4 10/21 23:58 Order name: Ova And Parasites 4 10/21 23:58 Order name: Rotavirus Antigen; Complete Time: 06:57 sp4 10/21 23:58 Order name: Stool Culture 4 10/22 00:05 Order name: CPK; Complete Time: 02:31 la1 10/22 01:36 Order name: CBC Smear Scan; Complete Time: 03:06 EDMS 10/22 02:33 Order name: Urine Culture EDMS 10/22 03:40 Order name: CDIFF la1 10/22 07:42 Order name: Glucose, Ancillary Testing EDNJ 10/21 23:56 Order name: XRAY Chest (1 view) sp4 10/22 02:03 Order name: CT Chest Abdomen Pelvis W/O Contrast sp4 10/22 05:41 Order name: Chest Single View XRAY kd3 10/21 23:56 Order name: EKG; Complete Time: 23:57 sp4 10/21 23:56 Order name: Cardiac monitoring; Complete Time: : sp4 10/21 23:56 Order name: EKG - Nurse/Tech; Complete Time: : sp4 10/21 23:56 Order name: IV Saline Lock; Complete Time: : sp4 10/21 23:56 Order name: Labs collected and sent; Complete Time: : sp4 10/21 23:56 Order name: O2 Per Protocol; Complete Time: : sp4 10/21 23:56 Order name: O2 Sat Monitoring; Complete Time: : sp4 10/21 23:57 Order name: Renner; Complete Time: : sp4 10/22 05:18 Order name: Central Line Kit; Complete Time: 05:26 sp4 EC:39 Rate is 113 beats/min. Rhythm is regular, Sinus tachycardia. QRS [place] is Normal. DC sp4 interval is normal. QRS interval is normal. T waves are Normal. No ST changes noted. Clinical impression: No evidence of ischemia. Interpreted by me. Administered Medications: 05:18 Discontinued: NS 0.9% IV 1000 ml IV at 125 ml/hr continuous jb4 02:14 Drug: NS 0.9% IV 1000 ml Route: IV; Rate: 125 ml/hr; Site: right antecubital; jb4 02:37 Follow up: IV Status: Order to discontinue infusion jb4 02:14 Drug: vancoMYCIN IVPB 1 grams Route: IVPB; Infused Over: 2 hrs; Site: right antecubital;jb4 02:14 Drug: Piperacillin-Tazobactam IVPB 3.375 grams Route: IVPB; Infused Over: 60 mins; jb4 Site: left antecubital; 02:37 Drug: D5-NS IV 1000 ml Route: IV; Rate: 125 ml/hr; Site: right antecubital; jb4 07:54 Follow up: IV Status: Infusion continued upon admission aa5 04:26 Drug: metroNIDAZOLE IVPB 500 mg Volume: 100 ml; Route: IVPB; Rate: 200 ml/hr; Infused jb4 Over: 30 mins; Site: left antecubital; 04:53 Drug: Potassium Chloride IV 20 mEq {Note: Going over 4 hours with second bag piggy jb4 backed in..} Route: IV; Rate: calculated rate; Site: right antecubital; 07:54 Follow up: IV Status: Infusion continued upon admission aa5 08:20 Follow up: IV Status: Completed infusion aa5 04:53 Drug: Potassium Chloride IV 20 mEq {Note: Piggy backed to other IV potassium bag, jb4 Infusion going over 4 hours..} Route: IV; Rate: calculated rate; Site: right antecubital; 07:54 Follow up: IV Status: Infusion continued upon admission aa5 08:20 Follow up: IV Status: Completed infusion aa5 05:15 Drug: Calcium Gluconate IVPB 1 grams Route: IVPB; Infused Over: 60 mins; Site: left jb4 antecubital; 05:26 Drug: NS 0.9% IV 1000 ml Route: IV; Rate: 1 bolus; Site: left antecubital; 4 07:30 Follow up: IV Status: Completed infusion aa5 05:50 Drug: NS 0.9% IV (30 ml/kg) 30 ml/kg {Note: Finished from initial bolus.} Route: IV; 4 Rate: bolus; Site: right jugular; 07:30 Follow up: IV Status: Completed infusion aa5 05:51 Drug: Norepinephrine IV 0.1 mcg/kg/min Route: IV; Rate: calculated rate; Site: right jb4 jugular; 07:53 Follow up: IV Status: Infusion continued upon admission aa5 06:39 Drug: Albumin IVPB 25 grams Volume: 100 ml; Route: IVPB; Site: right jugular; 4 07:30 Follow up: IV Status: Completed infusion aa5 07:30 Drug: Albumin IVPB 12.5 grams Volume: 50 ml; Route: IVPB; Site: right jugular; aa5 08:00 Follow up: IV Status: Completed infusion aa5 Point of Care Testing: Blood Glucose: 07:30 Blood Glucose: 137 mg/dL; aa5 Ranges: Critical Glucose Levels:Adult <50 mg/dl or >400 mg/dl <40 mg/dl or >180 mg/dl Disposition Summary: 10/22/22 04:41 Hospitalization Ordered Hospitalization Status: Inpatient Admission sp4 Provider: Larry Martínez Condition: Stable sp4 Problem: new sp4 Symptoms: have improved sp4 Bed/Room Type: Standard sp4 Location: Intensive Care Unit(10/22/22 05:20) la1 Room Assignment: 3-(10/22/22 05:29) cg Diagnosis - Severe sepsis without septic shock sp4 - Enterocolitis due to Clostridium difficile sp4 - Hyponatremia, hypokalemia, moderate dehydration, acute renal failure, sp4 Forms: - Medication Reconciliation Form sp4 - SBAR form sp4 Critical care time excluding procedures: 05:48 Critical care time: Bedside Care: 36 minutes, Consultation: 12 minutes, Family sp4 Intervention: 12 minutes. Total time: 60 minutes Signatures: Dispatcher [employer] EDMS Kaycee Suárez RN RN aa5 Emil Barros, BRYCE-C LIAISON ENGINEER-Cla1 Renetta Humphrey RN RN cg Bryson, James, RN RN jb4 Walter Peña MD MD sp4 Corrections: (The following items were deleted from the chart) 03:40 03:17 Constitutional: This is a well developed, patient presents with somnolence, sp4 generalized weakness, diffuse pallor, not ambulatory on arrival, ill-appearing, toxic appearing, with signs of significant dehydration dry mucous membranes Head/Face: Normocephalic, atraumatic. Eyes: Pupils equal round and reactive to light, extra-ocular motions intact. Lids and lashes normal. Conjunctiva and sclera are not injected. Cornea within normal limits. Periorbital areas with no swelling, redness, or edema. ENT: Nares patent. No nasal discharge, no septal abnormalities noted. Tympanic membranes are normal and external auditory canals are clear. Oropharynx with no redness, swelling, or masses, exudates, or evidence of obstruction, uvula midline. Positive for poor dentition and dry mucous membranes Neck: Trachea midline, no thyromegaly or masses palpated, and no cervical lymphadenopathy. Supple, full range of motion without nuchal rigidity, or vertebral point tenderness. Chest/axilla: Normal chest wall appearance and motion. Nontender with no deformity. No lesions are appreciated. Cardiovascular: Positive regular tachycardia with a normal S1 and S2. No gallops, murmurs, or rubs. Normal PMI, no JVD. No pulse deficits. Respiratory: Lungs have equal breath sounds bilaterally, clear to auscultation and percussion. No rales, rhonchi or wheezes noted. No increased work of breathing, no retractions or nasal flaring. Abdomen/GI: Soft, non-tender, with normal bowel sounds. No distension or tympany. No guarding or rebound. No evidence of tenderness throughout. Back: No spinal tenderness. No costovertebral tenderness. Female : Normal external genitalia. Skin: Warm, dry with normal turgor. Normal color with no rashes, no lesions, and no evidence of cellulitis. sp4 04:47 04:41 sp4 cg 05:20 04:41 Telemetry/MedSurg (observation) sp4 la1 05:20 04:47 216 cg la1 05:29 05:20 la1 cg
[2022-10-22] MEDS ORDERED: CALCIUM GLUCONATE 1 GM IVPB 1 GM/50 ML BAG IV ONE (05:07)
--- NOTE | 2022-10-22 05:23 | P.PN ---
Date of Service: 10/22/22 Patient has now had two BP less than 90 systolic meeting criteria for septic shock. Will repeat lactate level. Patient to receive 30cc/kg IVF bolus and ED attending planning on assisting with central access. Patient may require pressors if BP is refractory to IVF bolus. Upgrade to ICU level of care.
[2022-10-22] MEDS ORDERED: NOREPINEPHRINE BITARTRATE/D5W 4 MG/250 ML BAG IV ONE (05:30)
[2022-10-22] MEDS ORDERED: ALBUMIN HUMAN 25% 150 ML IV ONE (06:33)
[2022-10-22 06:59] LABS: C.diff Antigen/Toxin Ag pos : Tox pos (NEG : NEG)
[2022-10-22] MEDS ORDERED: ONDANSETRON 4 MG/2 ML VIAL IV PRN (08:42)
[2022-10-22] MEDS ORDERED: VANCOMYCIN 1.25 GM in NA CHLORIDE 0.9% 250 ML IVPB ONE (09:00)
[2022-10-22] MEDS ORDERED: Levofloxacin 750mg IV 750 MG/150 ML BAG IV ONE (09:00)
[2022-10-22] MEDS ORDERED: METRONIDAZOLE 500mg IVPB 500 MG/100 ML BAG IV SCH (09:00)
[2022-10-22] MEDS ORDERED: POTASSIUM PHOS 10 MM in NA CHLORIDE 0.9% 250 ML IV ONE (09:09)
--- NOTE | 2022-10-22 10:10 | P.CNS ---
Date of Consult: 10/22/22 Chief Complaint: Severe sepsis, acute renal failure History of Present Illness: Patient is a 77 yo female with a medical history of hypertension, GERD and chronic pain who presented to the ED with complaints of altered mental status and diarrhea. Of note, patient was recently hospitalized 09/16 for c.difficile infection for which she was treated with oral Vancomycin for 10 days. She was discharged to a SNF where she reportedly tested negative for c.diff about 1 week ago. C.diff antigen and toxin positive, ID consulted. Allergies No Known Allergies Allergy (Unverified 09/16/22 02:21) Home medications list reviewed: Yes Home Medications: Atorvastatin Calcium [Lipitor*] 20 mg PO BEDTIME 09/16/22 Duloxetine HCl 30 mg PO DAILY 09/16/22 Enalapril Maleate [Vasotec] 20 mg PO DAILY 09/16/22 Gabapentin 1,200 mg PO BEDTIME 09/16/22 Gabapentin 600 mg PO DAILY AT SUPPER 09/16/22 Gabapentin 900 mg PO DAILY WITH BREAKFAST 09/16/22 Morphine *Extended Release* [MS Contin*] 60 mg PO BID 09/16/22 Nortriptyline HCl 25 mg PO BEDTIME 09/16/22 Tizanidine [Zanaflex*] 4 mg PO TID 09/16/22 Tizanidine [Zanaflex] 12 mg PO BEDTIME 10/22/22 - Past Medical/Surgical History Diabetic: No -: Chronic pain on Oxycontin BID -: DJD -: GERD -: HTN -: Tobacco abuse -: C. difficile -: Lumbar back surg -: skin cancer removal left elbow Psychosocial/ Personal History: Patient currently lives at home, alone. - Family History Mother Medical History: Heart disease - Social History Smoking Status: Unknown if ever smoked Alcohol use: No CD- Drugs: Yes Caffeine use: Yes Place of Residence: Home Review of Systems is unable to be obtained (altered mental status) Physical Examination Temp Pulse Resp BP Pulse Ox 98.6 F 107 H 18 113/54 L 10/22/22 07:30 10/22/22 07:30 10/22/22 07:30 10/22/22 07:30 General: In no apparent distress, Oriented x1, Confused HEENT: Atraumatic, Normocephalic Neck: JVD not distended Respiratory: Normal air movement, Diminished, Other (on 2L NC) Cardiovascular: Irregular heart rate/rhythm Gastrointestinal: Hyperactive Musculoskeletal: No clubbing Integumentary: No rashes, No tenderness/swelling Laboratory Data - Reviewed Microbiology Data - Reviewed Imagings Data: - CT Chest abdomen pelvis 10/22: "1. Patchy infiltrates within the right lung. 2. Findings compatible with nonspecific colitis. " - Renal ultrasound 10/22: "Unremarkable renal ultrasound. " Conclusions/Impression: Problem List Severe Sepsis Pneumonia, unspecified organism C.diff Colitis, Recurrent Episode Severe PCM Acute Renal Failure Hyponatremia Chronic pain Severe Sepsis secondary to Pneumonia / C.diff Colitis - CT Chest abdomen pelvis 10/22: "1. Patchy infiltrates within the right lung. 2. Findings compatible with nonspecific colitis. " - Fecal leukocyte stain 10/21: Many WBC - Stool culture 10/22: Pending - C.diff antigen & toxin = positive - Influenza A and B: Negative - Blood cultures 10/22: Pending - Leukocytosis (WBC 22.8). Afebrile. Patient was started on empiric antibiotics Flagyl, Vancomycin and Levofloxacin for findings of pneumonia and colitis. Flagyl and Vancomycin IV discontinued 10/22 and started on Fidaxomicin PO. Acute renal failure: nephrology consulted Recommendations - C.diff, recurrent episode: Started on Fidaxomicin 200mg PO BID x 10 days. Discontinue Flagyl and Vancomycin. - Pneumonia: Continue Levaquin for now. - Follow up with blood culture results. - Monitor WBC and fever trends - Supplemental nutrition and hydration as needed Case discussed with Monique Ibanez
[2022-10-22] MEDS: HEPARIN 5000 UNIT/ML 1 ML VIAL SQ SCH ×2 (10:33→20:51)
[2022-10-22] MEDS: NA CHLORIDE 0.9% 1,000 ML IV SCH ×2 (10:33→20:58)
--- NOTE | 2022-10-22 13:00 | EKG ---
Test Date: 2022-10-22 Test Time: 00:38:05 [employer] Driver: YOEL MEASUREMENT RESULTS: Intervals: Rate: 113 MA: 184 QRSD: 78 QT: 344 QTc: 471 [place]: P: 93 MA: 184 QRS: -23 T: 66 INTERPRETIVE STATEMENTS: Sinus tachycardia Cannot rule out Anterior infarct, age undetermined Abnormal ECG Compared to ECG 09/15/2022 22:40:13 Myocardial infarct finding now present Sinus rhythm no longer present Indeterminate axis no longer present Electronically Signed On 10-22-22 12:58:39 CDT by Michael Tapia
--- NOTE | 2022-10-22 13:05 | RAD REPORT ---
EXAM DESCRIPTION: RAD - Chest Single View - 10/22/2022 12:20 am CLINICAL HISTORY: 77 years, Female, ABDOMINAL DISTENTION COMPARISON: None. FINDINGS: Single view of the chest was obtained portable. No prior films are available for compariso n. The cardiomediastinal silhouette demonstrate to be unremarkable. The heart is in the upper normal size. The thoracic aorta is demonstrate intimal aortic arch calcification. The pulmonary vasculature is normal distribution. Costophrenic angles are sharp. No areas of consolidation or masses are seen . The rest of the soft tissue and bony structures demonstrate to be unremarkable. IMPRESSION: No acute cardiopulmonary disease seen. Electronically signed by: Romario Scott MD 10/22/2022 12:36 AM CDT Due to temporary technical issues with the PACS/Fluency reporting system, reports are being signed by the in house radiologist without review as a courtesy to ensure prompt reporting. The interpreting r adiologist is fully responsible for the content of the report.
--- NOTE | 2022-10-22 13:16 | RAD REPORT ---
EXAM DESCRIPTION: RAD - Chest Single View - 10/22/2022 5:58 am CLINICAL HISTORY: Central line placement TECHNIQUE: AP chest COMPARISON: October 22 FINDINGS: CHEST: Right IJ line with the distal tip in the SVC. No pneumothorax. No new airspace consolidation or pleural effusions. Patient rotated to the left. IMPRESSION: Right IJ line with the distal tip in the SVC. No pneumothorax. Electronically signed by: Jhonathan Winchester MD 10/22/2022 6:21 AM CDT Due to temporary technical issues with the PACS/Fluency reporting system, reports are being signed by the in house radiologist without review as a courtesy to ensure prompt reporting. The interpreting r adiologist is fully responsible for the content of the report.
--- NOTE | 2022-10-22 13:18 | RAD REPORT ---
EXAM DESCRIPTION: CT - Chest Abd Pelvis Wo Con - 10/22/2022 3:35 am CLINICAL HISTORY: ABDOMINAL DISTENTION TECHNIQUE: Axial computed tomography images of the chest, abdomen and pelvis without intravenous con trast. Sagittal and coronal reformatted images were created and reviewed. This CT exam was perfor med using one or more of the following dose reduction techniques: automated exposure control, adjus tment of the mA and/or kV according to patient size, and/or use of iterative reconstruction technique . COMPARISON: CT Chest Abdomen Pelvis dated 09/16/2022 FINDINGS: CHEST: Lungs: Patchy groundglass opacities within the right lung. Right basilar subsegmental atelectasis /pleural parenchymal scar. Pleural space: Unremarkable. No significant effusion. No pneumothorax. Heart: Coronary artery calcification. No significant pericardial effusion. ABDOMEN: Liver: Unremarkable. Gallbladder and bile ducts: Unremarkable. No calcified stones. No ductal dilation. Pancreas: Moderate pancreatic parenchymal atrophy. No ductal dilation. Spleen: Unremarkable. No splenomegaly. Adrenals: Unremarkable. No mass. Kidneys and ureters: Unremarkable. No obstructing stones. No hydronephrosis. Stomach and bowel: The large bowel is diffusely thickened. Mild infiltrative changes in the peric olonic fat. No obstruction. PELVIS: Appendix: Normal caliber appendix. No findings to suggest acute appendicitis. Bladder: The urinary bladder is decompressed around a Renner. No stones. Reproductive: There has been a hysterectomy. No adnexal cysts or masses are identified. CHEST, ABDOMEN and PELVIS: Intraperitoneal space: Small amount of free fluid in the abdomen and pelvis. No free air. Bones/joints: Remote right-sided rib fractures. Multilevel spondylosis. Prior bilateral posteri or fusion and decompression extending from L3 through S1. Remote deformity of the right femoral hea d and neck which may in part be posttraumatic. Severe degenerative changes at the right hip articul ation. No dislocation. Soft tissues: Unremarkable. Vasculature: Moderate to severe atherosclerotic disease. Lymph nodes: Unremarkable. No enlarged lymph nodes. IMPRESSION: 1. Patchy infiltrates within the right lung. 2. Findings compatible with nonspecific colitis. 3. Other findings as above. Electronically signed by: Tamela Pitts MD 10/22/2022 4:06 AM CDT Due to temporary technical issues with the PACS/Fluency reporting system, reports are being signed by the in house radiologist without review as a courtesy to ensure prompt reporting. The interpreting r adiologist is fully responsible for the content of the report.
--- NOTE | 2022-10-22 13:42 | P.CNS ---
Date of Consult: 10/22/22 Reason for Consult: DRISS Requesting Physician: Larry Martínez Chief Complaint: Severe sepsis, acute renal failure History of Present Illness: 77-year-old female with history of CHF, hypertension, chronic pain syndrome presents emergency department with chief complaint of confusion, diarrhea. She was seen and admitted here on 09/16/2022 with diagnosis of acute renal failure, metabolic encephalopathy, C. difficile infection. She was treated with advice including oral vancomycin and subsequently discharged to [facility] facility would like on 09/21/2022. She was discharged on either 10/12 or 10/13 back home where she lives alone, her family frequently checks on her. She has had persistent diarrhea ever since she left the hospital, family reports negative C. difficile test approximately a week ago at [facility]. She was evaluated in the emergency department today and found to have acute renal failure, rhabdomyolysis, hyponatremia, hypokalemia, marked leukocytosis and a CT scan showing patchy infiltrate of the right lung and nonspecific colitis pattern. She was given broad-spectrum antibiotics in the emergency department, will need to be admitted for severe sepsis, acute renal failure. 23:59 This 77 yrs old Female presents to ER via Unassigned with complaints of sp4 altered mental status, dehydration . 10/22 03:17 This very pleasant 77-year-old female presents from home with a worsening dehydration sp4 and mental status changes decreased alertness. Patient herself is not able to provide any history. But she states that she is feeling unwell. Patient appears dehydrated with dry mouth. Patient has history of recent admission here on 09/16/2022 with discharge at 09/21/2022. Patient was admitted for severe sepsis secondary to C. difficile colitis, acute toxic metabolic encephalopathy suspected unintentional opiate overdose, stage III acute kidney injury, rhabdomyolysis, elevated liver enzymes, microscopic hematuria, hypophosphatemia, hypovolemic hyponatremia, chronic pain syndrome, hypertension, hypocalcemia, and deconditioning. Patient was managed for C. difficile colitis. Nephrology managed acute kidney injury, patient was treated with aggressive hydration and there was improvement in renal function. Patient was evaluated by Dr. Rosenberg with infectious disease and was started on p.o. vancomycin. Generalized weakness was managed with physical therapy. Patient's last creatinine was measured at 0.44.. Medications include atorvastatin, cholecalciferol, duloxetine, enalapril, gabapentin, extended release morphine MS Contin 60 mg p.o. twice daily, nortriptyline 75 mg at bedtime omeprazole 40 mg p.o. daily tizanidine 4 mg 3 times daily, metoprolol tartrate 25 mg p.o. twice daily and vancomycin 2.5 mL every 6 hours. Patient was then discha rged to [facility]. Limited IH/ ROS due to AMS Allergies No Known Allergies Allergy (Unverified 09/16/22 02:21) Home medications list reviewed: Yes Home Medications: Atorvastatin Calcium [Lipitor*] 20 mg PO BEDTIME 09/16/22 Duloxetine HCl 30 mg PO DAILY 09/16/22 Enalapril Maleate [Vasotec] 20 mg PO DAILY 09/16/22 Gabapentin 1,200 mg PO BEDTIME 09/16/22 Gabapentin 600 mg PO DAILY AT SUPPER 09/16/22 Gabapentin 900 mg PO DAILY WITH BREAKFAST 09/16/22 Morphine *Extended Release* [MS Contin*] 60 mg PO BID 09/16/22 Nortriptyline HCl 25 mg PO BEDTIME 09/16/22 Tizanidine [Zanaflex*] 4 mg PO TID 09/16/22 Tizanidine [Zanaflex] 12 mg PO BEDTIME 10/22/22 - Past Medical/Surgical History Diabetic: No -: Chronic pain on Oxycontin BID -: DJD -: GERD -: HTN -: Tobacco abuse -: C. difficile -: Lumbar back surg -: skin cancer removal left elbow Psychosocial/ Personal History: Patient currently lives at home, alone. - Family History Mother Medical History: Heart disease - Social History Smoking Status: Unknown if ever smoked Alcohol use: No CD- Drugs: Yes Caffeine use: Yes Place of Residence: Home Review of Systems 10-point ROS is otherwise unremarkable Neurological: Confusion Physical Examination Temp Pulse Resp BP Pulse Ox 98.3 F 109 H 20 120/52 L 100 10/22/22 12:00 10/22/22 12:30 10/22/22 12:30 10/22/22 12:30 10/22/22 11:00 General: In no apparent distress, Cooperative, Confused HEENT: Atraumatic Neck: Supple Respiratory: Normal air movement Cardiovascular: Regular rate/rhythm, Edema Gastrointestinal: Soft and benign, Non-distended Musculoskeletal: No clubbing, No contractures Integumentary: No rashes, No cyanosis Neurological: Normal speech Laboratory Data (last 24 hrs) 10/22/22 10/22/22 10/22/22 00:35 00:35 00:35 WBC 22.80 H Hgb 10.9 L Hct 33.3 L Plt Count 358 PT 12.6 H INR 1.15 Sodium 126 L Potassium 2.9 L BUN 40 H Creatinine 2.74 H Glucose 65 L Magnesium 2.1 Total Bilirubin 0.5 AST 146 H ALT 43 Alkaline Phosphatase 144 H Imagings Data: EXAM DESCRIPTION: RAD - Chest Single View - 10/22/2022 5:58 am CLINICAL HISTORY: Central line placement TECHNIQUE: AP chest COMPARISON: October 22 FINDINGS: CHEST: Right IJ line with the distal tip in the SVC. No pneumothorax. No new airspace consolidation or pleural effusions. Patient rotated to the left. IMPRESSION: Right IJ line with the distal tip in the SVC. No pneumothorax. EXAM DESCRIPTION: CT - Chest Abd Pelvis Wo Con - 10/22/2022 3:35 am CLINICAL HISTORY: ABDOMINAL DISTENTION TECHNIQUE: Axial computed tomography images of the chest, abdomen and pelvis without intravenous contrast. Sagittal and coronal reformatted images were created and reviewed. This CT exam was performed using one or more of the following dose reduction techniques: automated exposure control, adjustment of the mA and/or kV according to patient size, and/or use of iterative reconstruction technique. COMPARISON: CT Chest Abdomen Pelvis dated 09/16/2022 FINDINGS: CHEST: Lungs: Patchy groundglass opacities within the right lung. Right basilar subsegmental atelectasis/pleural parenchymal scar. Pleural space: Unremarkable. No significant effusion. No pneumothorax. Heart: Coronary artery calcification. No significant pericardial effusion. ABDOMEN: Liver: Unremarkable. Gallbladder and bile ducts: Unremarkable. No calcified stones. No ductal dilation. Pancreas: Moderate pancreatic parenchymal atrophy. No ductal dilation. Spleen: Unremarkable. No splenomegaly. Adrenals: Unremarkable. No mass. Kidneys and ureters: Unremarkable. No obstructing stones. No hydronephrosis. Stomach and bowel: The large bowel is diffusely thickened. Mild infiltrative changes in the pericolonic fat. No obstruction. PELVIS: Appendix: Normal caliber appendix. No findings to suggest acute appendicitis. Bladder: The urinary bladder is decompressed around a Renner. No stones. Reproductive: There has been a hysterectomy. No adnexal cysts or masses are identified. CHEST, ABDOMEN and PELVIS: Intraperitoneal space: Small amount of free fluid in the abdomen and pelvis. No free air. Bones/joints: Remote right-sided rib fractures. Multilevel spondylosis. Prior bilateral posterior fusion and decompression extending from L3 through S1. Remote deformity of the right femoral head and neck which may in part be posttraumatic. Severe degenerative changes at the right hip articulation. No dislocation. Soft tissues: Unremarkable. Vasculature: Moderate to severe atherosclerotic disease. Lymph nodes: Unremarkable. No enlarged lymph nodes. IMPRESSION: 1. Patchy infiltrates within the right lung. 2. Findings compatible with nonspecific colitis. 3. Other findings as above. EXAM DESCRIPTION: RAD - Chest Single View - 10/22/2022 12:20 am CLINICAL HISTORY: 77 years, Female, ABDOMINAL DISTENTION COMPARISON: None. FINDINGS: Single view of the chest was obtained portable. No prior films are available for comparison. The cardiomediastinal silhouette demonstrate to be unremarkable. The heart is in the upper normal size. The thoracic aorta is demonstrate intimal aortic arch calcification. The pulmonary vasculature is normal distribution. Costophrenic angles are sharp. No areas of consolidation or masses are seen. The rest of the soft tissue and bony structures demonstrate to be unremarkable. IMPRESSION: No acute cardiopulmonary disease seen Conclusions/Impression: Stage III DRISS likely due to hypovolemia -No NSAIDs -Continue IVF Hyponatremia -Repeat CMP today -Continue IVF with NS Hypokalemia -Replete potassium as ordered Rhabdomyolysis, mild -Continue IVF HTN complicated by hypotension -Hold antihypertensives at this time Anemia in chronic illness -Monitor H&H Case reviewed with Dr. Martínez; note reviewed Thank you kindly for the consultation
--- NOTE | 2022-10-22 14:02 | P.PN ---
Date of Service: 10/23/22 Subjective: Continues to have some pain and weakness. We will start working with physical therapy. Diarrhea is still continuing. We will go ahead and give her antidiarrheal medicine x1 dose only. She may need anti-inflammatories. Need to get her strength improved. ROS: 10 point ROS as noted above, otherwise negative Physical Exam: GEN: Alert, oriented, NAD, HEENT: Normal conjunctiva, sclera anicteric CV: Regular rate & rhythm, no edema Pulm: Nonlabored respiraitons on 2L NC, diminished at bases b/l ABD: Soft, nontender, nondistended MSK: Muscle tenderness Integumentary: No rashes Neuro: No focal deficits; patient with generalized weakness vitals reviewed Problem List: 1. Septic shock secondary to pneumonia, C. difficile colitis 2. DRISS 3. Rhabdomyolysis 4. Hyponatremia, Hypokalemia 5. Metabolic Encephalopathy 6. Hypertension 7. Chronic pain PLAN 1. Continue with Dificid 2. Continue with IV fluids 3. Monitor muscle enzymes 4. Physical therapy evaluation 5. Out of bed and ambulate in out of bed to a chair 6. Monitor electrolytes 7. Pain control 8. GI DVT prophylaxis
--- NOTE | 2022-10-22 14:34 | RAD REPORT ---
EXAM DESCRIPTION: US - Renal Ultrasound-Complete - 10/22/2022 1:27 pm CLINICAL HISTORY: Acute renal insufficiency COMPARISON: None FINDINGS: The right kidney measures 9 cm with a normal echotexture. The left kidney measures 9 cm with a normal echotexture. Hydronephrosis is not seen. A Renner catheter is present within a collapsed bladder IMPRESSION: Unremarkable renal ultrasound.
[2022-10-22] MEDS: NOREPINEPHRINE BITARTRATE/D5W 4 MG/250 ML BAG IV SCH (15:54)
[2022-10-22 16:09] LABS: Albumin 2.2 g/dL (3.4-5.0); Bilirubin Total 0.5 mg/dL (0.2-1.0); Potassium 2.7 mEq/L (3.5-5.1)
[2022-10-22] MEDS ORDERED: KCL 20 MEQ/100 mL IVPB 20 MEQ/100 ML BAG IV SCH ×2 (17:00→23:00)
[2022-10-22] MEDS ORDERED: POTASSIUM CL SA 10 MEQ TAB PO ONE ×2 (17:11→17:23)
[2022-10-22] MEDS: FIDAXOMICIN 200 MG TABLET PO SCH (20:53)
[2022-10-23] MEDS: NOREPINEPHRINE BITARTRATE/D5W 4 MG/250 ML BAG IV SCH (02:14)
[2022-10-23 05:05] LABS: Absolute Lymphocytes (CBC) 0.7 K/uL (0.7-4.9); Hematocrit 33.5 % (36.0-45.0); Lymphocytes % 3.2 % (15.3-44.8); MCV 84.7 fL (80-100); MPV 7.8 fL (7.6-11.3); Platelets 328 thou/uL (152-406); RBC Red Blood Cell Count 3.95 M/uL (3.86-4.86)
[2022-10-23 05:43] LABS: Magnesium 1.6 mg/dL (1.6-2.4); Phosphorus 1.6 mg/dL (2.5-4.9); Potassium 4.2 mEq/L (3.5-5.1); Thyroid Stimulating Hormone 0.673 uIU/mL (0.358-3.740)
[2022-10-23] MEDS: NA CHLORIDE 0.9% 1,000 ML IV SCH ×2 (05:48→16:56)
[2022-10-23] MEDS ORDERED: MAGNESIUM SULFATE 1 gm IVPB 1 GM/100 ML BAG IV ONE (06:38)
[2022-10-23] MEDS: POTASS/SODIUM PHOSPHATE 1 PKT POWD.PACK PO SCH ×3 (08:08→09:20)
[2022-10-23] MEDS: LACTOBACILLUS/ACIDOPHILUS TAB PO SCH (08:09)
[2022-10-23] MEDS: FIDAXOMICIN 200 MG TABLET PO SCH ×2 (08:09→20:29)
[2022-10-23] MEDS: HEPARIN 5000 UNIT/ML 1 ML VIAL SQ SCH ×2 (08:09→20:29)
[2022-10-23] MEDS ORDERED: DOCUSATE NA 100 MG CAP PO SCH (09:00)
[2022-10-23] MEDS ORDERED: DRISDOL (VITAMIN D=ERGOCALCIFEROL) 50000 UNIT CAP PO SCH (09:00)
--- NOTE | 2022-10-23 09:29 | P.PN ---
Date of Service: 10/23/22 Chief Complaint: Severe sepsis, acute renal failure Subjective: Patient seen and examined at bedside. More alert and responsive today. She reports liquid diarrhea and decreased appetite. No acute events reported overnight. Physical Examination Temp Pulse Resp BP Pulse Ox 97.7 F 105 H 14 130/51 L 100 10/23/22 04:00 10/23/22 05:45 10/23/22 05:45 10/23/22 05:45 10/23/22 05:45 General: In no apparent distress, Oriented x3 HEENT: Atraumatic, Normocephalic Neck: JVD not distended Respiratory: Normal air movement. on 2L nasal cannula. Cardiovascular: Irregular heart rate/rhythm. normal pulses. Gastrointestinal: Hyperactive. non-distended. Musculoskeletal: No clubbing Integumentary: No rashes, No tenderness/swelling Laboratory Data - Reviewed Microbiology Data - Reviewed Imagings Data: - CT Chest abdomen pelvis 10/22: "1. Patchy infiltrates within the right lung. 2. Findings compatible with nonspecific colitis. " - Renal ultrasound 10/22: "Unremarkable renal ultrasound. " Medication List: Reviewed Assessment and Plan Problem List Severe Sepsis Pneumonia, unspecified organism C.diff Colitis, Recurrent Episode Severe PCM Acute Renal Failure Hyponatremia Chronic pain Severe Sepsis secondary to Pneumonia / C.diff Colitis - CT Chest abdomen pelvis 10/22: "1. Patchy infiltrates within the right lung. 2. Findings compatible with nonspecific colitis. " - Fecal leukocyte stain 10/21: Many WBC - Stool culture 10/22: Pending - C.diff antigen & toxin = positive - Influenza A and B: Negative - Blood cultures 10/22: Pending - Leukocytosis. Afebrile. Patient was started on empiric antibiotics Flagyl, Vancomycin and Levofloxacin for findings of pneumonia and colitis. Flagyl and Vancomycin IV discontinued 10/22 and started on Fidaxomicin PO. Acute renal failure: nephrology consulted Recommendations - C.diff, recurrent episode: Continue Fidaxomicin 200mg PO BID x 10 days (started 10/22) - Pneumonia: Continue Levaquin for now. - Follow up with blood culture results. - Monitor WBC and fever trends - Supplemental nutrition and hydration as needed Case discussed with Monique Ibanez
[2022-10-23] MEDS ORDERED: Magnesium Sulfate 2gm IVPB 2 G/50 ML BAG IV ONE ×2 (12:41→12:43)
[2022-10-23] MEDS ORDERED: MAGNES/ALUMIN/SIMET 30ML UCUP PO PRN (20:05)
[2022-10-23] MEDS ORDERED: SODIUM CHLORIDE 0.9% 10ML INJ IV PRN (20:05)
[2022-10-23] MEDS: PANTOPRAZOLE 40 MG INJ IVP SCH (20:29)
--- NOTE | 2022-10-23 20:47 | P.PN ---
Date of Service: 10/23/22 Vital Signs Temp Pulse Resp BP Pulse Ox 97.1 F 99 H 15 124/46 L 100 10/23/22 19:00 10/23/22 20:00 10/23/22 20:00 10/23/22 20:00 10/23/22 20:00 Medications Al Hydrox/Mg Hydrox/Simethicone (Magnes/Alumin/Simet 30ml Ucup) 30 ml PO Q6H PRN PRN Reason: INDIGESTION Last Admin: 10/23/22 20:29 Dose: 30 ml Ergocalciferol (Drisdol (Vitamin D=Ergocalciferol) 96676 Unit Cap) 50,000 unit PO Q7D ANUSHA Last Admin: 10/23/22 08:09 Dose: 50,000 unit Heparin Sodium (Porcine) (Heparin 5000 Unit/Ml 1 Ml Vial) 5,000 unit SQ Q12HR ANUSHA Last Admin: 10/23/22 20:29 Dose: 5,000 unit Sodium Chloride (Ns 1000 Ml Ivbag) 1,000 mls @ 100 mls/hr IV .Q10H ANUSHA Last Admin: 10/23/22 16:56 Dose: 1,000 mls Levofloxacin/Dextrose (Levaquin 500 Mg/100 Ml Ivpb) 500 mg in 100 mls @ 100 mls/hr IV Q48H ANUSHA; Protocol Norepinephrine/Dextrose (Levophed 4 Mg/250 Ml-D5w) 4 mg in 250 mls @ 23.063 mls/hr IV TITR ANUSHA; Protocol Last Titration: 10/23/22 09:18 Dose: 0.05 mcg/kg/min, 11.5 mls/hr Lactobacillus Acidoph/Bulgaricus (Lactobacillus/Acidophilus Tab) 1 tab PO DAILY WITH BREAKFAST [facility] Last Admin: 10/23/22 08:09 Dose: 1 tab Ondansetron HCl (Ondansetron 4 Mg/2 Ml Vial) 4 mg IV Q6HP PRN PRN Reason: NAUSEA / VOMITING Pantoprazole Sodium (Pantoprazole 40 Mg Inj) 40 mg IVP Q12HR ANUSHA; Protocol Last Admin: 10/23/22 20:29 Dose: 40 mg Sodium Chloride (Flush Normal Saline 10 Ml) 10 ml IV BID ANUSHA Last Admin: 10/23/22 20:29 Dose: 10 ml Sodium Chloride (Sodium Chloride 0.9% 10ml Inj) 10 ml IV UD PRN PRN Reason: Diluant Microbiology Results 10/22/22 00:35 Stool Culture & Sensitivity - Preliminary 10/22/22 01:58 Clean Catch Urine Blanchard Count - Preliminary No growth. 10/22/22 01:58 Clean Catch Urine - Preliminary No growth. 10/22/22 00:50 Blood - Blood Aerobic Blood Culture - Preliminary No growth in 24 hours. 10/22/22 00:50 Blood - Blood Anaerobic Blood Culture - Preliminary No growth in 24 hours. 10/22/22 00:35 Blood - Blood Aerobic Blood Culture - Preliminary No growth in 24 hours. 10/22/22 00:35 Blood - Blood Anaerobic Blood Culture - Preliminary No growth in 24 hours. 10/21/22 23:58 Stool Fecal Leukocyte Stain - Final 10/21/22 23:58 Stool Rotavirus Antigen - Final 10/22/22 01:00 Nasopharnyx Influenza Type A Antigen Screen - Final 10/22/22 01:00 Nasopharnyx Influenza Type B Antigen Screen - Final Assessment/ Plan: Nephrology No dyspnea No chest pain Mental status improving Improving appetite No acute events overnight Vitals, medications, blood work and imaging reviewed in the chart. General: In no apparent distress, Cooperative, Confused HEENT: Atraumatic Neck: Supple Respiratory: Normal air movement Cardiovascular: Regular rate/rhythm, Edema Gastrointestinal: Soft and benign, Non-distended Musculoskeletal: No clubbing, No contractures Integumentary: No rashes, No cyanosis Neurological: Normal speech Renner [facility] Laboratory Data (last 24 hrs) 10/22/22 10/22/22 10/22/22 00:35 00:35 00:35 WBC 22.80 H Hgb 10.9 L Hct 33.3 L Plt Count 358 PT 12.6 H INR 1.15 Sodium 126 L Potassium 2.9 L BUN 40 H Creatinine 2.74 H Glucose 65 L Magnesium 2.1 Total Bilirubin 0.5 AST 146 H ALT 43 Alkaline Phosphatase 144 H Imagings Data: EXAM DESCRIPTION: RAD - Chest Single View - 10/22/2022 5:58 am CLINICAL HISTORY: Central line placement TECHNIQUE: AP chest COMPARISON: October 22 FINDINGS: CHEST: Right IJ line with the distal tip in the SVC. No pneumothorax. No new airspace consolidation or pleural effusions. Patient rotated to the left. IMPRESSION: Right IJ line with the distal tip in the SVC. No pneumothorax. EXAM DESCRIPTION: CT - Chest Abd Pelvis Wo Con - 10/22/2022 3:35 am CLINICAL HISTORY: ABDOMINAL DISTENTION TECHNIQUE: Axial computed tomography images of the chest, abdomen and pelvis without intravenous contrast. Sagittal and coronal reformatted images were created and reviewed. This CT exam was performed using one or more of the following dose reduction techniques: automated exposure control, adjustment of the mA and/or kV according to patient size, and/or use of iterative reconstruction technique. COMPARISON: CT Chest Abdomen Pelvis dated 09/16/2022 FINDINGS: CHEST: Lungs: Patchy groundglass opacities within the right lung. Right basilar subsegmental atelectasis/pleural parenchymal scar. Pleural space: Unremarkable. No significant effusion. No pneumothorax. Heart: Coronary artery calcification. No significant pericardial effusion. ABDOMEN: Liver: Unremarkable. Gallbladder and bile ducts: Unremarkable. No calcified stones. No ductal dilation. Pancreas: Moderate pancreatic parenchymal atrophy. No ductal dilation. Spleen: Unremarkable. No splenomegaly. Adrenals: Unremarkable. No mass. Kidneys and ureters: Unremarkable. No obstructing stones. No hydronephrosis. Stomach and bowel: The large bowel is diffusely thickened. Mild infiltrative changes in the pericolonic fat. No obstruction. PELVIS: Appendix: Normal caliber appendix. No findings to suggest acute appendicitis. Bladder: The urinary bladder is decompressed around a Renner. No stones. Reproductive: There has been a hysterectomy. No adnexal cysts or masses are identified. CHEST, ABDOMEN and PELVIS: Intraperitoneal space: Small amount of free fluid in the abdomen and pelvis. No free air. Bones/joints: Remote right-sided rib fractures. Multilevel spondylosis. Prior bilateral posterior fusion and decompression extending from L3 through S1. Remote deformity of the right femoral head and neck which may in part be posttraumatic. Severe degenerative changes at the right hip articulation. No dislocation. Soft tissues: Unremarkable. Vasculature: Moderate to severe atherosclerotic disease. Lymph nodes: Unremarkable. No enlarged lymph nodes. IMPRESSION: 1. Patchy infiltrates within the right lung. 2. Findings compatible with nonspecific colitis. 3. Other findings as above. EXAM DESCRIPTION: RAD - Chest Single View - 10/22/2022 12:20 am CLINICAL HISTORY: 77 years, Female, ABDOMINAL DISTENTION COMPARISON: None. FINDINGS: Single view of the chest was obtained portable. No prior films are available for comparison. The cardiomediastinal silhouette demonstrate to be unremarkable. The heart is in the upper normal size. The thoracic aorta is demonstrate intimal aortic arch calcification. The pulmonary vasculature is normal distribution. Costophrenic angles are sharp. No areas of consolidation or masses are seen. The rest of the soft tissue and bony structures demonstrate to be unremarkable. IMPRESSION: No acute cardiopulmonary disease seen Conclusions/Impression: Stage III DRISS likely due to hypovolemia -No NSAIDs -Continue IVF Rhabdomyolysis, mild -Continue IVF Hyponatremia -Continue IVF with NS Hypokalemia -Replete potassium as ordered Hypophosphatemia -Replete as ordered HTN complicated by hypotension -Hold antihypertensives at this time Anemia in chronic illness -Monitor H&H Hospitalist note reviewed
[2022-10-23] MEDS ORDERED: VANCOMYCIN 750 MG in NA CHLORIDE 0.9% 150 ML IVPB SCH (21:00)
[2022-10-24] MEDS: TIZANIDINE 4 MG TABLET PO SCH ×2 (01:07→21:41)
[2022-10-24] MEDS: NA CHLORIDE 0.9% 1,000 ML IV SCH ×3 (03:02→23:28)
[2022-10-24 06:01] VITALS: BMI 23.9
[2022-10-24 06:25] LABS: Absolute Lymphocytes (CBC) 0.7 K/uL (0.7-4.9); Hematocrit 27.7 % (36.0-45.0); Lymphocytes % 7.9 % (15.3-44.8); MCV 83.5 fL (80-100); MPV 7.1 fL (7.6-11.3); Platelets 261 thou/uL (152-406); RBC Red Blood Cell Count 3.32 M/uL (3.86-4.86)
[2022-10-24 07:30] LABS: Albumin 1.6 g/dL (3.4-5.0); Bilirubin Total 0.4 mg/dL (0.2-1.0); Magnesium 1.4 mg/dL (1.6-2.4); Potassium 2.9 mEq/L (3.5-5.1); Protein, Total 4.2 g/dL (6.4-8.2); Thyroid Stimulating Hormone 2.16 uIU/mL (0.358-3.740)
[2022-10-24] MEDS: DULOXETINE 30 MG CAP PO SCH (08:48)
[2022-10-24] MEDS: LACTOBACILLUS/ACIDOPHILUS TAB PO SCH (08:48)
[2022-10-24] MEDS: Levofloxacin500mg IV 500 MG/100 ML BAG IV SCH (08:48)
[2022-10-24] MEDS: HEPARIN 5000 UNIT/ML 1 ML VIAL SQ SCH ×2 (08:48→21:39)
[2022-10-24] MEDS: PANTOPRAZOLE 40 MG INJ IVP SCH ×2 (08:49→21:39)
--- NOTE | 2022-10-24 08:58 | P.PN ---
Date of Service: 10/24/22 Chief Complaint: Severe sepsis, acute renal failure Subjective: Patient seen and examined at bedside. Nonlabored respirations on room air. + diarrhea. No acute events reported overnight. Physical Examination Temp Pulse Resp BP Pulse Ox 97.8 F 87 18 90/49 L 100 10/24/22 04:00 10/24/22 06:00 10/24/22 06:00 10/24/22 06:00 10/24/22 06:00 General: In no apparent distress, Oriented x3 HEENT: Atraumatic, Normocephalic Neck: JVD not distended Respiratory: Normal air movement. On room air. Cardiovascular: Irregular heart rate/rhythm. normal pulses. Gastrointestinal: Hyperactive. non-distended. Musculoskeletal: No clubbing Integumentary: No rashes, No tenderness/swelling Laboratory Data - Reviewed Microbiology Data - Reviewed Imagings Data: - CT Chest abdomen pelvis 10/22: "1. Patchy infiltrates within the right lung. 2. Findings compatible with nonspecific colitis. " - Renal ultrasound 10/22: "Unremarkable renal ultrasound. " Medication List: Reviewed Assessment and Plan Problem List Severe Sepsis Pneumonia, unspecified organism C.diff Colitis, Recurrent Episode Severe PCM Acute Renal Failure Hyponatremia Chronic pain Severe Sepsis secondary to Pneumonia / C.diff Colitis - CT Chest abdomen pelvis 10/22: "1. Patchy infiltrates within the right lung. 2. Findings compatible with nonspecific colitis. " - Fecal leukocyte stain 10/21: Many WBC - Stool culture 10/22: Pending - C.diff antigen & toxin = positive - Influenza A and B: Negative - Blood cultures 10/22: no growth to date - Leukocytosis resolved. Afebrile. Patient was started on empiric antibiotics Flagyl, Vancomycin and Levofloxacin for findings of pneumonia and colitis. Flagyl and Vancomycin IV discontinued 10/22 and started on Fidaxomicin PO. Acute renal failure: nephrology consulted Recommendations - C.diff, recurrent episode: Continue Fidaxomicin 200mg PO BID x 10 days (started 10/22) - Pneumonia: Continue Levaquin for 5 days (started 10/22). - Monitor WBC and fever trends - Supplemental nutrition and hydration as needed - Give other PO medications 1 hour before or 4 hours after Questran administration. Case discussed with Monique Ibanez
[2022-10-24] MEDS ORDERED: MORPHINE *EXTENDED RELEASE* 15 MG TAB PO SCH (09:00)
[2022-10-24] MEDS ORDERED: TIZANIDINE 4 MG TABLET PO SCH (09:00)
[2022-10-24] MEDS ORDERED: POTASSIUM CL SA 10 MEQ TAB PO ONE ×2 (09:14→15:49)
[2022-10-24] MEDS: FIDAXOMICIN 200 MG TABLET PO SCH ×2 (09:34→21:00)
[2022-10-24] MEDS ORDERED: dexAMETHasone 4 MG/ML VIAL IV ONE (09:56)
[2022-10-24] MEDS ORDERED: ALBUMIN HUMAN 25% 100 ML IV ONE (09:56)
[2022-10-24] MEDS ORDERED: GABAPENTIN 300 MG CAP PO SCH (10:00)
[2022-10-24] MEDS: POTASSIUM CL 40 MEQ in NA CHLORIDE 0.9% 500 ML IV SCH (10:00)
[2022-10-24] MEDS: Magnesium Sulfate 2gm IVPB 2 G/50 ML BAG IV SCH ×2 (10:20→11:00)
[2022-10-24 13:34] LABS: Magnesium 2.8 mg/dL (1.6-2.4); Potassium 3.5 mEq/L (3.5-5.1)
[2022-10-24] MEDS: ENSURE HIGH PROTEIN 237 ML CAN PO SCH ×2 (14:00→21:41)
[2022-10-24] MEDS: CHOLESTYRAMINE/ASP 4 GM/PKT PO SCH (16:35)
[2022-10-24] MEDS: MORPHINE *EXTENDED RELEASE* 60 MG TAB PO SCH (19:13)
[2022-10-24] MEDS: NORTRIPTYLINE HCL 25 MG CAP PO SCH (21:40)
[2022-10-24] MEDS: GABAPENTIN 400 MG CAP PO SCH (21:40)
--- NOTE | 2022-10-24 21:43 | P.PN ---
Date of Service: 10/24/22 Vital Signs Temp Pulse Resp BP Pulse Ox 98.4 F 109 H 14 140/67 98 10/24/22 20:00 10/24/22 21:00 10/24/22 21:00 10/24/22 21:00 10/24/22 21:00 Medications Al Hydrox/Mg Hydrox/Simethicone (Magnes/Alumin/Simet 30ml Ucup) 30 ml PO Q6H PRN PRN Reason: INDIGESTION Last Admin: 10/23/22 20:29 Dose: 30 ml Cholestyramine Resin (Cholestyramine/Asp 4 Gm/Pkt) 4 gm PO BIDWM [facility] Last Admin: 10/24/22 16:35 Dose: 4 gm Duloxetine HCl (Duloxetine 30 Mg Cap) 30 mg PO DAILY [facility] Last Admin: 10/24/22 08:48 Dose: 30 mg Ergocalciferol (Drisdol (Vitamin D=Ergocalciferol) 53307 Unit Cap) 50,000 unit PO Q7D [facility] Gabapentin (Gabapentin 400 Mg Cap) 1,200 mg PO BEDTIME [facility] Gabapentin (Gabapentin 300 Mg Cap) 600 mg PO 0800 [facility] Gabapentin (Gabapentin 300 Mg Cap) 600 mg PO 1200 [facility] Heparin Sodium (Porcine) (Heparin 5000 Unit/Ml 1 Ml Vial) 5,000 unit SQ Q12HR [facility] Last Admin: 10/24/22 08:48 Dose: 5,000 unit Sodium Chloride (Ns 1000 Ml Ivbag) 1,000 mls @ 100 mls/hr IV .Q10H [facility] Last Admin: 10/24/22 10:22 Dose: 1,000 mls Levofloxacin/Dextrose (Levaquin 500 Mg/100 Ml Ivpb) 500 mg in 100 mls @ 100 mls/hr IV Q48H [facility]; Protocol Last Admin: 10/24/22 08:48 Dose: 100 mls Norepinephrine/Dextrose (Levophed 4 Mg/250 Ml-D5w) 4 mg in 250 mls @ 23.063 mls/hr IV TITR [facility]; Protocol Last Titration: 10/23/22 09:18 Dose: 0.05 mcg/kg/min, 11.5 mls/hr Potassium Chloride 40 meq/ (Sodium Chloride) 500 mls @ 125 mls/hr IV 1X [facility]; Protocol Stop: 10/25/22 13:59 Last Admin: 10/24/22 10:00 Dose: Not Given Lactobacillus Acidoph/Bulgaricus (Lactobacillus/Acidophilus Tab) 1 tab PO DAILY WITH BREAKFAST [facility] Last Admin: 10/24/22 08:48 Dose: 1 tab Morphine Sulfate (Morphine *Extended Release* 60 Mg Tab) 60 mg PO BID [facility] Last Admin: 10/24/22 19:13 Dose: 60 mg Nortriptyline HCl (Nortriptyline Hcl 25 Mg Cap) 25 mg PO BEDTIME [facility] Nutritional Formula (Ensure High Protein 237 Ml Can) 273 ml PO TID [facility] Last Admin: 10/24/22 14:00 Dose: 273 ml Ondansetron HCl (Ondansetron 4 Mg/2 Ml Vial) 4 mg IV Q6HP PRN PRN Reason: NAUSEA / VOMITING Pantoprazole Sodium (Pantoprazole 40 Mg Inj) 40 mg IVP Q12HR [facility]; Protocol Last Admin: 10/24/22 08:49 Dose: 40 mg Sodium Chloride (Flush Normal Saline 10 Ml) 10 ml IV BID [facility] Last Admin: 10/24/22 08:49 Dose: 10 ml Sodium Chloride (Sodium Chloride 0.9% 10ml Inj) 10 ml IV UD PRN PRN Reason: Diluant Tizanidine HCl (Tizanidine 4 Mg Tablet) 12 mg PO BEDTIME [facility] Last Admin: 10/24/22 01:07 Dose: 12 mg Microbiology Results 10/22/22 00:35 Stool Culture & Sensitivity - Final 10/22/22 01:58 Clean Catch Urine [place] Count - Final No growth. 10/22/22 01:58 Clean Catch Urine - Final No growth. 10/22/22 00:50 Blood - Blood Aerobic Blood Culture - Preliminary No growth in 24 hours. 10/22/22 00:50 Blood - Blood Anaerobic Blood Culture - Preliminary No growth in 24 hours. 10/22/22 00:35 Blood - Blood Aerobic Blood Culture - Preliminary No growth in 24 hours. 10/22/22 00:35 Blood - Blood Anaerobic Blood Culture - Preliminary No growth in 24 hours. 10/21/22 23:58 Stool Fecal Leukocyte Stain - Final 10/21/22 23:58 Stool Rotavirus Antigen - Final 10/22/22 01:00 Nasopharnyx Influenza Type A Antigen Screen - Final 10/22/22 01:00 Nasopharnyx Influenza Type B Antigen Screen - Final Assessment/ Plan: Nephrology No dyspnea No chest pain No acute events overnight Vitals, medications, blood work and imaging reviewed in the chart. General: In no apparent distress, Cooperative, Confused HEENT: Atraumatic Neck: Supple Respiratory: Normal air movement Cardiovascular: Regular rate/rhythm, Edema Gastrointestinal: Soft and benign, Non-distended Musculoskeletal: No clubbing, No contractures Integumentary: No rashes, No cyanosis Neurological: Normal speech [facility] Laboratory Data (last 24 hrs) 10/22/22 10/22/22 10/22/22 00:35 00:35 00:35 WBC 22.80 H Hgb 10.9 L Hct 33.3 L Plt Count 358 PT 12.6 H INR 1.15 Sodium 126 L Potassium 2.9 L BUN 40 H Creatinine 2.74 H Glucose 65 L Magnesium 2.1 Total Bilirubin 0.5 AST 146 H ALT 43 Alkaline Phosphatase 144 H Imagings Data: EXAM DESCRIPTION: RAD - Chest Single View - 10/22/2022 5:58 am CLINICAL HISTORY: Central line placement TECHNIQUE: AP chest COMPARISON: October 22 FINDINGS: CHEST: Right IJ line with the distal tip in the SVC. No pneumothorax. No new airspace consolidation or pleural effusions. Patient rotated to the left. IMPRESSION: Right IJ line with the distal tip in the SVC. No pneumothorax. EXAM DESCRIPTION: CT - Chest Abd Pelvis Wo Con - 10/22/2022 3:35 am CLINICAL HISTORY: ABDOMINAL DISTENTION TECHNIQUE: Axial computed tomography images of the chest, abdomen and pelvis without intravenous contrast. Sagittal and coronal reformatted images were created and reviewed. This CT exam was performed using one or more of the following dose reduction techniques: automated exposure control, adjustment of the mA and/or kV according to patient size, and/or use of iterative reconstruction technique. COMPARISON: CT Chest Abdomen Pelvis dated 09/16/2022 FINDINGS: CHEST: Lungs: Patchy groundglass opacities within the right lung. Right basilar subsegmental atelectasis/pleural parenchymal scar. Pleural space: Unremarkable. No significant effusion. No pneumothorax. Heart: Coronary artery calcification. No significant pericardial effusion. ABDOMEN: Liver: Unremarkable. Gallbladder and bile ducts: Unremarkable. No calcified stones. No ductal dilation. Pancreas: Moderate pancreatic parenchymal atrophy. No ductal dilation. Spleen: Unremarkable. No splenomegaly. Adrenals: Unremarkable. No mass. Kidneys and ureters: Unremarkable. No obstructing stones. No hydronephrosis. Stomach and bowel: The large bowel is diffusely thickened. Mild infiltrative changes in the pericolonic fat. No obstruction. PELVIS: Appendix: Normal caliber appendix. No findings to suggest acute appendicitis. Bladder: The urinary bladder is decompressed around a Renner. No stones. Reproductive: There has been a hysterectomy. No adnexal cysts or masses are identified. CHEST, ABDOMEN and PELVIS: Intraperitoneal space: Small amount of free fluid in the abdomen and pelvis. No free air. Bones/joints: Remote right-sided rib fractures. Multilevel spondylosis. Prior bilateral posterior fusion and decompression extending from L3 through S1. Remote deformity of the right femoral head and neck which may in part be posttraumatic. Severe degenerative changes at the right hip articulation. No dislocation. Soft tissues: Unremarkable. Vasculature: Moderate to severe atherosclerotic disease. Lymph nodes: Unremarkable. No enlarged lymph nodes. IMPRESSION: 1. Patchy infiltrates within the right lung. 2. Findings compatible with nonspecific colitis. 3. Other findings as above. EXAM DESCRIPTION: RAD - Chest Single View - 10/22/2022 12:20 am CLINICAL HISTORY: 77 years, Female, ABDOMINAL DISTENTION COMPARISON: None. FINDINGS: Single view of the chest was obtained portable. No prior films are available for comparison. The cardiomediastinal silhouette demonstrate to be unremarkable. The heart is in the upper normal size. The thoracic aorta is demonstrate intimal aortic arch calcification. The pulmonary vasculature is normal distribution. Costophrenic angles are sharp. No areas of consolidation or masses are seen. The rest of the soft tissue and bony structures demonstrate to be unremarkable. IMPRESSION: No acute cardiopulmonary disease seen Conclusions/Impression: Stage III DRISS likely due to hypovolemia -No NSAIDs -Continue IVF Rhabdomyolysis, mild -Continue IVF Hyponatremia -Continue IVF with NS Hypokalemia -Replete potassium as ordered Hypophosphatemia -Replete as ordered HTN complicated by hypotension -Hold antihypertensives at this time Anemia in chronic illness -Monitor H&H Hospitalist note reviewed
[2022-10-25 05:15] LABS: Absolute Lymphocytes (CBC) 0.8 K/uL (0.7-4.9); Hematocrit 28.5 % (36.0-45.0); Lymphocytes % 12.5 % (15.3-44.8); MPV 7.1 fL (7.6-11.3); Platelets 277 thou/uL (152-406); RBC Red Blood Cell Count 3.39 M/uL (3.86-4.86)
[2022-10-25 05:46] LABS: Magnesium 1.7 mg/dL (1.6-2.4); Potassium 3.8 mEq/L (3.5-5.1)
[2022-10-25 05:48] LABS: Phosphorus 1.4 mg/dL (2.5-4.9)
[2022-10-25] MEDS ORDERED: MAGNESIUM SULFATE 1 gm IVPB 1 GM/100 ML BAG IV ONE (05:56)
[2022-10-25] MEDS ORDERED: POTASSIUM PHOS IN 0.9 % NACL 15 MMOL/250 ML BAG IV ONE (05:59)
[2022-10-25] MEDS ORDERED: KCL 20 MEQ/100 mL IVPB 20 MEQ/100 ML BAG IV ONE (06:00)
[2022-10-25] MEDS ORDERED: HYDROMORPHONE HCL 0.5 MG/0.5 ML INJ IV ONE (06:10)
[2022-10-25] MEDS: LACTOBACILLUS/ACIDOPHILUS TAB PO SCH (08:00)
[2022-10-25] MEDS: CHOLESTYRAMINE/ASP 4 GM/PKT PO SCH ×2 (08:00→17:17)
--- NOTE | 2022-10-25 08:04 | ECHO ---
HEIGHT: 5 ft 4 in WEIGHT: 139 lb 9.6 oz DATE OF STUDY: 10/24/[address]: Cally Schneider MD 2-DIMENSIONAL: YES M.MODE: YES DOPPLER: YES COLOR FLOW: YES TDS: PORTABLE: YES DEFINITY: BUBBLE STUDY: DIAGNOSIS: CONGESTIVE HEART FAILURE CARDIAC HISTORY: CATHERIZATION: NO SURGERY: NO PROSTHETIC VALVE: NO PACEMAKER: NO MEASUREMENTS (cm) DIASTOLIC (NORMALS) SYSTOLIC (NORMALS) IVSd 0.7 (0.6-1.2) LA Diam 2.6 (1.9-4.0) LVEF GREATER THAN 60% LVIDd 4.5 (3.5-5.7) LVIDs 3.1 (2.0-3.5) %FS 31% LVPWd 0.8 (0.6-1.2) Ao Diam 2.8 (2.0-3.7) 2 DIMENSIONAL ASSESSMENT: RIGHT ATRIUM: NORMAL LEFT ATRIUM: NORMAL RIGHT VENTRICLE: NORMAL LEFT VENTRICLE: HYPERDYNAMIC TRICUSPID VALVE: MILD TRICUSPID REGURGITATION MITRAL VALVE: MILD MITRAL REGURGITATION PULMONIC VALVE: NORMAL AORTIC VALVE: NORMAL PERICARDIAL EFFUSION: NONE AORTIC ROOT: NORMAL LEFT VENTRICULAR WALL MOTION: NORMAL DOPPLER/COLOR FLOW: 1. MILD TRICUSPID REGURGITATION 2. MILD MITRAL REGURGITATION 3. MILD AORTIC INSUFFICIENCY COMMENTS: 1. NORMAL LEFT VENTRICULAR EJECTION FRACTION GREATER THAN 60% (HYPERDYNAMIC) 2. GRADE I DIASTOLIC DYSFUNCTION (MILD) 3. MILD TRICUSPID REGURGITATION 4. MILD MITRAL REGURGITATION 5. MILD AORTIC INSUFFICIENCY 6. RIGHT VENTRICULAR SYSTOLIC PRESSURE IS 40-45 mmHg TECHNOLOGIST: CHUY MENJIVAR
--- NOTE | 2022-10-25 08:45 | P.PN ---
Date of Service: 10/25/22 Chief Complaint: Severe sepsis, acute renal failure Subjective: Patient remains in ICU. Nonlabored respirations on room air. +abdominal pain +diarrhea Physical Examination Temp Pulse Resp BP Pulse Ox 98.4 F 99 H 11 L 139/59 L 97 10/25/22 04:00 10/25/22 06:00 10/25/22 06:46 10/25/22 06:00 10/25/22 06:46 General: In no apparent distress, Oriented x3 HEENT: Atraumatic, Normocephalic Neck: JVD not distended Respiratory: Normal air movement. On room air. Diminished at bases. Cardiovascular: RRR. Weak DP and PT pulses Gastrointestinal: Hyperactive. non-distended. Musculoskeletal: No clubbing Integumentary: No rashes, No tenderness/swelling Laboratory Data - Reviewed Microbiology Data - Reviewed Imagings Data: - CT Chest abdomen pelvis 10/22: "1. Patchy infiltrates within the right lung. 2. Findings compatible with nonspecific colitis. " - Renal ultrasound 10/22: "Unremarkable renal ultrasound. " Medication List: Reviewed Assessment and Plan Problem List Severe Sepsis Pneumonia, unspecified organism C.diff Colitis, Recurrent Episode Severe PCM Acute Renal Failure Hyponatremia Chronic pain Severe Sepsis secondary to Pneumonia / C.diff Colitis - CT Chest abdomen pelvis 10/22: "1. Patchy infiltrates within the right lung. 2. Findings compatible with nonspecific colitis. " - Fecal leukocyte stain 10/21: Many WBC - Stool culture 10/22: Pending - C.diff antigen & toxin = positive - Influenza A and B: Negative - Blood cultures 10/22: no growth to date - Leukocytosis resolved. Afebrile. - Patient was started on empiric antibiotics Flagyl, Vancomycin and Levofloxacin for findings of pneumonia and colitis. Flagyl and Vancomycin IV discontinued 10/22 and started on Fidaxomicin PO. - Questran added 10/24 - XR Chest 10/25: Pending Recommendations - C.diff, recurrent episode: Continue Fidaxomicin 200mg PO BID x 10 days (started 10/22) - Pneumonia: Continue Levaquin for 5 days (started 10/22). currently day 4 of 5 - Supplemental nutrition and hydration as needed - Give other PO medications 1 hour before or 4 hours after Questran administration. Case discussed with Monique Ibanez
[2022-10-25] MEDS: FIDAXOMICIN 200 MG TABLET PO SCH ×2 (09:00→21:53)
[2022-10-25] MEDS: ENSURE HIGH PROTEIN 237 ML CAN PO SCH ×3 (09:00→21:53)
[2022-10-25] MEDS: POTASSIUM CL 40 MEQ in NA CHLORIDE 0.9% 500 ML IV SCH (10:00)
[2022-10-25] MEDS: PANTOPRAZOLE 40 MG INJ IVP SCH ×2 (11:53→21:58)
[2022-10-25] MEDS: NA CHLORIDE 0.9% 1,000 ML IV SCH ×2 (11:53→21:58)
[2022-10-25] MEDS: MORPHINE *EXTENDED RELEASE* 60 MG TAB PO SCH ×2 (11:54→21:54)
[2022-10-25] MEDS: GABAPENTIN 300 MG CAP PO SCH ×2 (11:54→12:00)
[2022-10-25] MEDS: HEPARIN 5000 UNIT/ML 1 ML VIAL SQ SCH ×2 (11:55→21:53)
[2022-10-25] MEDS: DULOXETINE 30 MG CAP PO SCH (11:55)
--- NOTE | 2022-10-25 17:02 | RAD REPORT ---
EXAM DESCRIPTION: RADChest Single View10/25/2022 4:31 pm CLINICAL HISTORY: pneumonia COMPARISON: Chest Single View dated 10/22/2022; Chest Single View dated 10/22/2022; Chest Single View da roxy 09/17/2022 TECHNIQUE: Portable AP view of the chest. FINDINGS: Right IJ CVC again in satisfactory position. The lungs are clear. No pneumothorax or effus ion. The cardiomediastinal contours are unremarkable. IMPRESSION: No acute cardiopulmonary process.
[2022-10-25] MEDS ORDERED: POTASS/SODIUM PHOSPHATE 1 PKT POWD.PACK PO ONE (21:00)
--- NOTE | 2022-10-25 21:05 | P.PN ---
Date of Service: 10/25/22 Vital Signs Temp Pulse Resp BP Pulse Ox 97.4 F 95 H 12 129/43 L 98 10/25/22 16:00 10/25/22 20:00 10/25/22 20:00 10/25/22 20:00 10/25/22 20:00 Medications Al Hydrox/Mg Hydrox/Simethicone (Magnes/Alumin/Simet 30ml Ucup) 30 ml PO Q6H PRN PRN Reason: INDIGESTION Last Admin: 10/23/22 20:29 Dose: 30 ml Cholestyramine Resin (Cholestyramine/Asp 4 Gm/Pkt) 4 gm PO BIDWM [facility] Last Admin: 10/25/22 17:17 Dose: 4 gm Duloxetine HCl (Duloxetine 30 Mg Cap) 30 mg PO DAILY [facility] Last Admin: 10/25/22 11:55 Dose: 30 mg Ergocalciferol (Drisdol (Vitamin D=Ergocalciferol) 77727 Unit Cap) 50,000 unit PO Q7D [facility] Gabapentin (Gabapentin 400 Mg Cap) 1,200 mg PO BEDTIME [facility] Last Admin: 10/24/22 21:40 Dose: 1,200 mg Gabapentin (Gabapentin 300 Mg Cap) 600 mg PO 0800 [facility] Last Admin: 10/25/22 11:54 Dose: 600 mg Gabapentin (Gabapentin 300 Mg Cap) 600 mg PO 1200 [facility] Last Admin: 10/25/22 12:00 Dose: Not Given Heparin Sodium (Porcine) (Heparin 5000 Unit/Ml 1 Ml Vial) 5,000 unit SQ Q12HR [facility] Last Admin: 10/25/22 11:55 Dose: 5,000 unit Sodium Chloride (Ns 1000 Ml Ivbag) 1,000 mls @ 100 mls/hr IV .Q10H [facility] Last Admin: 10/25/22 11:53 Dose: 1,000 mls Levofloxacin/Dextrose (Levaquin 500 Mg/100 Ml Ivpb) 500 mg in 100 mls @ 100 mls/hr IV Q48H [facility]; Protocol Last Admin: 10/24/22 08:48 Dose: 100 mls Norepinephrine/Dextrose (Levophed 4 Mg/250 Ml-D5w) 4 mg in 250 mls @ 23.063 mls/hr IV TITR [facility]; Protocol Last Titration: 10/23/22 09:18 Dose: 0.05 mcg/kg/min, 11.5 mls/hr Lactobacillus Acidoph/Bulgaricus (Lactobacillus/Acidophilus Tab) 1 tab PO DAILY WITH BREAKFAST [facility] Last Admin: 10/25/22 08:00 Dose: 1 tab Morphine Sulfate (Morphine *Extended Release* 60 Mg Tab) 60 mg PO BID [facility] Last Admin: 10/25/22 11:54 Dose: 60 mg Nortriptyline HCl (Nortriptyline Hcl 25 Mg Cap) 25 mg PO BEDTIME [facility] Last Admin: 10/24/22 21:40 Dose: 25 mg Nutritional Formula (Ensure High Protein 237 Ml Can) 273 ml PO TID [facility] Last Admin: 10/25/22 14:00 Dose: Not Given Ondansetron HCl (Ondansetron 4 Mg/2 Ml Vial) 4 mg IV Q6HP PRN PRN Reason: NAUSEA / VOMITING Pantoprazole Sodium (Pantoprazole 40 Mg Inj) 40 mg IVP Q12HR [facility]; Protocol Last Admin: 10/25/22 11:53 Dose: 40 mg Sodium Chloride (Flush Normal Saline 10 Ml) 10 ml IV BID [facility] Last Admin: 10/25/22 12:01 Dose: 10 ml Sodium Chloride (Sodium Chloride 0.9% 10ml Inj) 10 ml IV UD PRN PRN Reason: Diluant Tizanidine HCl (Tizanidine 4 Mg Tablet) 12 mg PO BEDTIME [facility] Last Admin: 10/24/22 21:41 Dose: 12 mg Microbiology Results 10/22/22 00:35 Stool Culture & Sensitivity - Final 10/22/22 01:58 Clean Catch Urine [place] Count - Final No growth. 10/22/22 01:58 Clean Catch Urine - Final No growth. 10/22/22 00:50 Blood - Blood Aerobic Blood Culture - Preliminary No growth in 24 hours. 10/22/22 00:50 Blood - Blood Anaerobic Blood Culture - Preliminary No growth in 24 hours. 10/22/22 00:35 Blood - Blood Aerobic Blood Culture - Preliminary No growth in 24 hours. 10/22/22 00:35 Blood - Blood Anaerobic Blood Culture - Preliminary No growth in 24 hours. 10/21/22 23:58 Stool Fecal Leukocyte Stain - Final 10/21/22 23:58 Stool Rotavirus Antigen - Final 10/22/22 01:00 Nasopharnyx Influenza Type A Antigen Screen - Final 10/22/22 01:00 Nasopharnyx Influenza Type B Antigen Screen - Final Assessment/ Plan: Nephrology No dyspnea No chest pain No acute events overnight Vitals, medications, blood work and imaging reviewed in the chart. General: In no apparent distress, Cooperative HEENT: Atraumatic Neck: Supple Respiratory: Normal air movement Cardiovascular: Regular rate/rhythm, Edema Gastrointestinal: Soft and benign, Non-distended Musculoskeletal: No clubbing, No contractures Integumentary: No rashes, No cyanosis Neurological: Normal speech Laboratory Data (last 24 hrs) 10/22/22 10/22/22 10/22/22 00:35 00:35 00:35 WBC 22.80 H Hgb 10.9 L Hct 33.3 L Plt Count 358 PT 12.6 H INR 1.15 Sodium 126 L Potassium 2.9 L BUN 40 H Creatinine 2.74 H Glucose 65 L Magnesium 2.1 Total Bilirubin 0.5 AST 146 H ALT 43 Alkaline Phosphatase 144 H Imagings Data: EXAM DESCRIPTION: RAD - Chest Single View - 10/22/2022 5:58 am CLINICAL HISTORY: Central line placement TECHNIQUE: AP chest COMPARISON: October 22 FINDINGS: CHEST: Right IJ line with the distal tip in the SVC. No pneumothorax. No new airspace consolidation or pleural effusions. Patient rotated to the left. IMPRESSION: Right IJ line with the distal tip in the SVC. No pneumothorax. EXAM DESCRIPTION: CT - Chest Abd Pelvis Wo Con - 10/22/2022 3:35 am CLINICAL HISTORY: ABDOMINAL DISTENTION TECHNIQUE: Axial computed tomography images of the chest, abdomen and pelvis without intravenous contrast. Sagittal and coronal reformatted images were created and reviewed. This CT exam was performed using one or more of the following dose reduction techniques: automated exposure control, adjustment of the mA and/or kV according to patient size, and/or use of iterative reconstruction technique. COMPARISON: CT Chest Abdomen Pelvis dated 09/16/2022 FINDINGS: CHEST: Lungs: Patchy groundglass opacities within the right lung. Right basilar subsegmental atelectasis/pleural parenchymal scar. Pleural space: Unremarkable. No significant effusion. No pneumothorax. Heart: Coronary artery calcification. No significant pericardial effusion. ABDOMEN: Liver: Unremarkable. Gallbladder and bile ducts: Unremarkable. No calcified stones. No ductal dilation. Pancreas: Moderate pancreatic parenchymal atrophy. No ductal dilation. Spleen: Unremarkable. No splenomegaly. Adrenals: Unremarkable. No mass. Kidneys and ureters: Unremarkable. No obstructing stones. No hydronephrosis. Stomach and bowel: The large bowel is diffusely thickened. Mild infiltrative changes in the pericolonic fat. No obstruction. PELVIS: Appendix: Normal caliber appendix. No findings to suggest acute appendicitis. Bladder: The urinary bladder is decompressed around a Renner. No stones. Reproductive: There has been a hysterectomy. No adnexal cysts or masses are identified. CHEST, ABDOMEN and PELVIS: Intraperitoneal space: Small amount of free fluid in the abdomen and pelvis. No free air. Bones/joints: Remote right-sided rib fractures. Multilevel spondylosis. Prior bilateral posterior fusion and decompression extending from L3 through S1. Remote deformity of the right femoral head and neck which may in part be posttraumatic. Severe degenerative changes at the right hip articulation. No dislocation. Soft tissues: Unremarkable. Vasculature: Moderate to severe atherosclerotic disease. Lymph nodes: Unremarkable. No enlarged lymph nodes. IMPRESSION: 1. Patchy infiltrates within the right lung. 2. Findings compatible with nonspecific colitis. 3. Other findings as above. EXAM DESCRIPTION: RAD - Chest Single View - 10/22/2022 12:20 am CLINICAL HISTORY: 77 years, Female, ABDOMINAL DISTENTION COMPARISON: None. FINDINGS: Single view of the chest was obtained portable. No prior films are available for comparison. The cardiomediastinal silhouette demonstrate to be unremarkable. The heart is in the upper normal size. The thoracic aorta is demonstrate intimal aortic arch calcification. The pulmonary vasculature is normal distribution. Costophrenic angles are sharp. No areas of consolidation or masses are seen. The rest of the soft tissue and bony structures demonstrate to be unremarkable. IMPRESSION: No acute cardiopulmonary disease seen Conclusions/Impression: Stage III DRISS likely due to hypovolemia -No NSAIDs -Continue IVF Rhabdomyolysis, mild -Continue IVF Hyponatremia -Continue IVF with NS Hypokalemia -Replete potassium as ordered Primary HyperParathyroidism Hypophosphatemia -Replete as ordered -Will need ENT follow up HTN complicated by hypotension -Hold antihypertensives at this time Anemia in chronic illness -Monitor H&H Hospitalist & ID note reviewed
[2022-10-25] MEDS: GABAPENTIN 400 MG CAP PO SCH (21:56)
[2022-10-25] MEDS: NORTRIPTYLINE HCL 25 MG CAP PO SCH (21:58)
[2022-10-25] MEDS: TIZANIDINE 4 MG TABLET PO SCH (21:58)
[2022-10-26 05:23] LABS: Albumin 2.1 g/dL (3.4-5.0); Bilirubin Total 0.5 mg/dL (0.2-1.0); Phosphorus 2.1 mg/dL (2.5-4.9); Protein, Total 4.8 g/dL (6.4-8.2); Uric Acid 2.8 mg/dL (2.6-6.0)
[2022-10-26] MEDS ORDERED: CALCIUM GLUCONATE 1 GM IVPB 1 GM/50 ML BAG IV ONE (08:34)
[2022-10-26] MEDS: CHOLESTYRAMINE/ASP 4 GM/PKT PO SCH ×2 (08:45→17:16)
[2022-10-26] MEDS: NA CHLORIDE 0.9% 1,000 ML IV SCH (08:45)
[2022-10-26] MEDS: LACTOBACILLUS/ACIDOPHILUS TAB PO SCH (08:45)
[2022-10-26] MEDS: MORPHINE *EXTENDED RELEASE* 60 MG TAB PO SCH ×2 (08:45→21:13)
[2022-10-26] MEDS: FIDAXOMICIN 200 MG TABLET PO SCH ×2 (08:45→21:14)
[2022-10-26] MEDS: GABAPENTIN 300 MG CAP PO SCH ×2 (08:46→12:39)
[2022-10-26] MEDS: DULOXETINE 30 MG CAP PO SCH (08:46)
[2022-10-26] MEDS: ENSURE HIGH PROTEIN 237 ML CAN PO SCH ×3 (08:47→21:14)
[2022-10-26] MEDS: HEPARIN 5000 UNIT/ML 1 ML VIAL SQ SCH ×2 (08:47→21:14)
[2022-10-26] MEDS: PANTOPRAZOLE 40 MG INJ IVP SCH ×2 (08:48→21:15)
[2022-10-26] MEDS: Levofloxacin500mg IV 500 MG/100 ML BAG IV SCH (08:58)
[2022-10-26] MEDS ORDERED: DRISDOL (VITAMIN D=ERGOCALCIFEROL) 50000 UNIT CAP PO SCH (09:00)
--- NOTE | 2022-10-26 09:10 | P.PN ---
Date of Service: 10/26/22 Chief Complaint: Severe sepsis, acute renal failure Subjective: Continues to improve. No acute events reported overnight. No new or worsening complaints. Physical Examination Temp Pulse Resp BP Pulse Ox 97.9 F 96 H 18 126/65 98 10/26/22 04:00 10/26/22 06:00 10/26/22 06:00 10/26/22 06:00 10/26/22 06:00 General: In no apparent distress, Oriented x3 HEENT: Atraumatic, Normocephalic Neck: JVD not distended Respiratory: Normal air movement. On room air. Cardiovascular: RRR. Weak DP and PT pulses Gastrointestinal: Hyperactive. non-distended. Musculoskeletal: No clubbing Integumentary: No rashes, No tenderness/swelling Laboratory Data - Reviewed Microbiology Data - Reviewed Imagings Data: - CT Chest abdomen pelvis 10/22: "1. Patchy infiltrates within the right lung. 2. Findings compatible with nonspecific colitis. " - Renal ultrasound 10/22: "Unremarkable renal ultrasound. " Medication List: Reviewed Assessment and Plan Problem List Severe Sepsis Pneumonia, unspecified organism C.diff Colitis, Recurrent Episode Severe PCM Acute Renal Failure Hyponatremia Chronic pain Severe Sepsis secondary to Pneumonia / C.diff Colitis - CT Chest abdomen pelvis 10/22: "1. Patchy infiltrates within the right lung. 2. Findings compatible with nonspecific colitis. " - Fecal leukocyte stain 10/21: Many WBC - Stool culture 10/22: Pending - C.diff antigen & toxin = positive - Influenza A and B: Negative - Blood cultures 10/22: no growth to date - Leukocytosis resolved. Afebrile. - Patient was started on empiric antibiotics Flagyl, Vancomycin and Levofloxacin for findings of pneumonia and colitis. Flagyl and Vancomycin IV discontinued 10/22 and started on Fidaxomicin PO. - Questran added 10/24 - XR Chest 10/25: ": No acute cardiopulmonary process." Recommendations - C.diff, recurrent episode: Continue Fidaxomicin 200mg PO BID x 10 days (started 10/22) - Pneumonia: On day 5 of 5 on Levaquin (10/22-). Discontinue - Supplemental nutrition and hydration as needed Case discussed with Monique Ibanez
[2022-10-26] MEDS ORDERED: POTASS/SODIUM PHOSPHATE 1 PKT POWD.PACK PO ONE (10:30)
[2022-10-26] MEDS: MAGNESIUM OXIDE 400 MG TAB PO SCH (12:39)
[2022-10-26] MEDS: CALCIUM CARBONATE 500 MG TAB PO SCH ×2 (12:39→21:15)
--- NOTE | 2022-10-26 12:52 | P.PN ---
Date of Service: 10/24/22 Subjective: Pt is having some pain but otherwise she states that her diarrhea has improved. We will continue with working with physical therapy. ROS: 10 point ROS as noted above, otherwise negative Physical Exam: GEN: Alert, oriented, NAD, CV: Regular rate & rhythm, no edema Pulm: Nonlabored respiraitons on 2L NC, diminished at bases b/l ABD: Soft, nontender, nondistended MSK: Muscle tenderness Integumentary: No rashes Neuro: No focal deficits; patient with generalized weakness vitals reviewed Problem List: 1. Septic shock secondary to pneumonia, C. difficile colitis 2. DRISS 3. Rhabdomyolysis 4. Hyponatremia, Hypokalemia 5. Metabolic Encephalopathy 6. Hypertension 7. Chronic pain PLAN Continue with plan of care as mentioned below: 1. Continue with Dificid 2. Continue with IV fluids; advance diet as tolerated 3. CPK has trended downward 4. Physical therapy evaluation 5. Out of bed and ambulate in out of bed to a chair; continue with improving strength 6. Monitor electrolytes 7. Pain control; IV medicines as needed 8. GI DVT prophylaxis
--- NOTE | 2022-10-26 12:54 | P.PN ---
Date of Service: 10/25/22 Subjective: Continues to improve. Clinical symptoms are much better. She states her pain is improved as well. Continue with physical therapy and try to work on shelter facility placement [place] ROS: 10 point ROS as noted above, otherwise negative Physical Exam: Vitals: Reviewed GEN: Alert, oriented, NAD, CV: Regular rate & rhythm, no edema Pulm: Nonlabored respiraitons on 2L NC, diminished at bases b/l ABD: Soft, nontender, nondistended MSK: Muscle tenderness Neuro: No focal deficits; patient with generalized weakness Problem List: 1. Septic shock secondary to pneumonia, C. difficile colitis 2. DRISS 3. Rhabdomyolysis 4. Hyponatremia, Hypokalemia 5. Metabolic Encephalopathy 6. Hypertension 7. Chronic pain PLAN Continue with plan of care as mentioned below: 1. Continue with Dificid and diarrhea has improved. Continue with hydration and monitor electrolytes 2. Hep-Lock IV 3. Strict blood pressure control 4. Physical therapy appreciated 5. Out of bed and ambulate in out of bed to a chair; continue with improving strength 6. Monitor electrolytes 7. Pain control; IV medicines as needed 8. GI DVT prophylaxis
--- NOTE | 2022-10-26 12:54 | P.PN ---
Date of Service: 10/26/22 Subjective: Patient is doing well no new complaints. Patient states she is feeling better throughout the day. Heart rate had improved last night and we will add a beta- karen to her regimen. ROS: 10 point ROS as noted above, otherwise negative Physical Exam: Vitals: Reviewed GEN: Alert, oriented, NAD, CV: Regular rate & rhythm, no edema Pulm: Clear bilaterally ABD: Soft, nontender, nondistended MSK: Muscle tenderness Neuro: Generalized weakness but no apparent distress Problem List: 1. Septic shock secondary to pneumonia, C. difficile colitis 2. DRISS 3. Rhabdomyolysis 4. Hyponatremia, Hypokalemia 5. Metabolic Encephalopathy 6. Hypertension 7. Chronic pain PLAN Continue with plan of care as mentioned below: 1. Continue with Dificid and diarrhea has improved. Continue with hydration and monitor electrolytes 2. Hep-Lock IV 3. Strict blood pressure control 4. Physical therapy appreciated 5. Out of bed and ambulate in out of bed to a chair; continue with improving strength 6. Monitor electrolytes 7. Pain control; IV medicines as needed 8. GI DVT prophylaxis
[2022-10-26] MEDS ORDERED: HYDROMORPHONE HCL 1 MG/ML INJ IV ONE (15:25)
--- NOTE | 2022-10-26 16:58 | P.PN ---
Nephrology note (S) Delayed entry note, pt seen this AM, reports diarrhea better, no abd pain, renal function better, discussed stopping IVF and removing varela (O) Vitals, medications, blood work and imaging reviewed in the chart. General: In no apparent distress HEENT: Atraumatic, sclera anicteric Neck: Supple Respiratory: Normal air movement Cardiovascular: Regular rate/rhythm, Mild Rt > Lt distal edema Gastrointestinal: Soft and benign, Non-distended Musculoskeletal: No clubbing, No contractures Integumentary: No rashes, No cyanosis Neurological: Normal speech, awake, alert, oriented Labs reviewed in the EMR Conclusions/Impression: Stage II DRISS 2nd to pre-renal azotemia, other -resolved, Cr level has normalized, d/c IVF Hyponatremia, hypovolemia -Resolved Hypokalemia -Replete as needed, ordered scheduled MgOx supplementation Hypocalcemia 2nd to hypoalbuminemia, illness, other. 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 Hyposphatemia -Corrected Ca higher, placed on calcium supplementation and Vitamin D2, f/u on PTH levels in a few weeks Yasir Hendrickson MD, JENNIFER
[2022-10-26] MEDS: GABAPENTIN 400 MG CAP PO SCH (21:14)
[2022-10-26] MEDS: NORTRIPTYLINE HCL 25 MG CAP PO SCH (21:17)
[2022-10-26] MEDS: TIZANIDINE 4 MG TABLET PO SCH (21:17)
[2022-10-27] MEDS: LACTOBACILLUS/ACIDOPHILUS TAB PO SCH (08:00)
[2022-10-27] MEDS: POTASS/SODIUM PHOSPHATE 1 PKT POWD.PACK PO SCH ×3 (08:00→10:03)
[2022-10-27] MEDS ORDERED: CALCIUM GLUCONATE 1 GM IVPB 1 GM/50 ML BAG IV ONE (08:13)
[2022-10-27] MEDS: PANTOPRAZOLE 40 MG INJ IVP SCH ×2 (08:29→21:18)
[2022-10-27] MEDS: FIDAXOMICIN 200 MG TABLET PO SCH ×2 (08:29→21:17)
[2022-10-27] MEDS: DULOXETINE 30 MG CAP PO SCH (08:29)
[2022-10-27] MEDS: GABAPENTIN 300 MG CAP PO SCH ×2 (08:29→12:14)
[2022-10-27] MEDS: HEPARIN 5000 UNIT/ML 1 ML VIAL SQ SCH ×2 (08:29→21:17)
[2022-10-27] MEDS: CALCIUM CARBONATE 500 MG TAB PO SCH ×2 (08:29→21:18)
[2022-10-27] MEDS: ENSURE HIGH PROTEIN 237 ML CAN PO SCH ×4 (08:30→21:17)
[2022-10-27] MEDS: MAGNESIUM OXIDE 400 MG TAB PO SCH (08:30)
[2022-10-27] MEDS: MORPHINE *EXTENDED RELEASE* 60 MG TAB PO SCH ×2 (08:31→21:17)
[2022-10-27] MEDS: CHOLESTYRAMINE/ASP 4 GM/PKT PO SCH ×2 (08:31→16:53)
[2022-10-27] MEDS: CALCITROL 0.25 MCG CAP PO SCH (08:55)
[2022-10-27 12:28] LABS: Absolute Lymphocytes (CBC) 1.3 K/uL (0.7-4.9); Hematocrit 31.3 % (36.0-45.0); Lymphocytes % 21.4 % (15.3-44.8); MCV 84.9 fL (80-100); MPV 6.8 fL (7.6-11.3); Platelets 186 thou/uL (152-406); RBC Red Blood Cell Count 3.68 M/uL (3.86-4.86)
[2022-10-27 12:46] LABS: Albumin 2.3 g/dL (3.4-5.0); Bilirubin Total 0.5 mg/dL (0.2-1.0)
[2022-10-27] MEDS ORDERED: METOPROLOL TAR 25 MG TAB PO ONE (15:19)
--- NOTE | 2022-10-27 16:17 | P.PN ---
Date of Service: 10/27/22 Subjective: Continues to do well. Patient denies any new complaints. She is sitting up in a chair. Patient's heart rate is elevated while she is up in a chair. She states she is feeling better every day. Plan to get patient out of bed to ambulate. ROS: 10 point ROS as noted above, otherwise negative Physical Exam: Vitals: Reviewed GEN: Alert, oriented, NAD, CV: Regular rate & rhythm, no edema Pulm: Clear bilaterally ABD: Soft, nontender, nondistended MSK: Muscle tenderness Neuro: Generalized weakness but no apparent distress Problem List: 1. Septic shock secondary to pneumonia, C. difficile colitis 2. DRISS 3. Rhabdomyolysis 4. Hyponatremia, Hypokalemia 5. Metabolic Encephalopathy 6. Hypertension 7. Chronic pain PLAN Continue with plan of care as mentioned below: 1. Continue with Dificid; continue with hydration and monitor electrolytes 2. Hep-Lock IV 3. Strict blood pressure control 4. Physical therapy appreciated 5. Low-dose beta-karen therapy 6. Monitor electrolytes 7. Pain control; IV medicines as needed 8. GI DVT prophylaxis Working on [facility] facility placement at this time.
[2022-10-27] MEDS: METOPROLOL TAR 25 MG TAB PO SCH (16:53)
--- NOTE | 2022-10-27 21:04 | P.PN ---
Date of Service: 10/27/22 Vital Signs Temp Pulse Resp BP Pulse Ox 97.7 F 104 H 14 130/76 96 10/27/22 20:00 10/27/22 20:00 10/27/22 20:00 10/27/22 20:00 10/27/22 20:00 Medications Al Hydrox/Mg Hydrox/Simethicone (Magnes/Alumin/Simet 30ml Ucup) 30 ml PO Q6H PRN PRN Reason: INDIGESTION Last Admin: 10/23/22 20:29 Dose: 30 ml Calcitriol (Calcitrol 0.25 Mcg Cap) 0.5 mcg PO DAILY [facility] Last Admin: 10/27/22 08:55 Dose: 0.5 mcg Calcium Carbonate/Glycine (Calcium Carbonate 500 Mg Tab) 500 mg PO BID [facility] Last Admin: 10/27/22 08:29 Dose: 500 mg Cholestyramine Resin (Cholestyramine/Asp 4 Gm/Pkt) 4 gm PO BIDWM [facility] Last Admin: 10/27/22 16:53 Dose: 4 gm Duloxetine HCl (Duloxetine 30 Mg Cap) 30 mg PO DAILY [facility] Last Admin: 10/27/22 08:29 Dose: 30 mg Ergocalciferol (Drisdol (Vitamin D=Ergocalciferol) 21165 Unit Cap) 50,000 unit PO Q7D [facility] Last Admin: 10/26/22 08:46 Dose: 50,000 unit Gabapentin (Gabapentin 400 Mg Cap) 1,200 mg PO BEDTIME [facility] Last Admin: 10/26/22 21:14 Dose: 1,200 mg Gabapentin (Gabapentin 300 Mg Cap) 600 mg PO 0800 [facility] Last Admin: 10/27/22 08:29 Dose: 600 mg Gabapentin (Gabapentin 300 Mg Cap) 600 mg PO 1200 [facility] Last Admin: 10/27/22 12:14 Dose: 600 mg Heparin Sodium (Porcine) (Heparin 5000 Unit/Ml 1 Ml Vial) 5,000 unit SQ Q12HR S Last Admin: 10/27/22 08:29 Dose: 5,000 unit Norepinephrine/Dextrose (Levophed 4 Mg/250 Ml-D5w) 4 mg in 250 mls @ 23.063 mls/hr IV TITR [facility]; Protocol Last Titration: 10/23/22 09:18 Dose: 0.05 mcg/kg/min, 11.5 mls/hr Lactobacillus Acidoph/Bulgaricus (Lactobacillus/Acidophilus Tab) 1 tab PO DAILY WITH BREAKFAST [facility] Last Admin: 10/27/22 08:00 Dose: 1 tab Magnesium Oxide (Magnesium Oxide 400 Mg Tab) 400 mg PO DAILY [facility] Last Admin: 10/27/22 08:30 Dose: 400 mg Metoprolol Tartrate (Metoprolol Tar 25 Mg Tab) 25 mg PO BID 6AM 6PM [facility] Last Admin: 10/27/22 16:53 Dose: 25 mg Morphine Sulfate (Morphine *Extended Release* 60 Mg Tab) 60 mg PO BID [facility] Last Admin: 10/27/22 08:31 Dose: 60 mg Nortriptyline HCl (Nortriptyline Hcl 25 Mg Cap) 25 mg PO BEDTIME [facility] Last Admin: 10/26/22 21:17 Dose: 25 mg Nutritional Formula (Ensure High Protein 237 Ml Can) 273 ml PO TID [facility] Last Admin: 10/27/22 12:14 Dose: 273 ml Ondansetron HCl (Ondansetron 4 Mg/2 Ml Vial) 4 mg IV Q6HP PRN PRN Reason: NAUSEA / VOMITING Pantoprazole Sodium (Pantoprazole 40 Mg Inj) 40 mg IVP Q12HR [facility]; Protocol Last Admin: 10/27/22 08:29 Dose: 40 mg Sodium Chloride (Flush Normal Saline 10 Ml) 10 ml IV BID [facility] Last Admin: 10/27/22 08:31 Dose: 10 ml Sodium Chloride (Sodium Chloride 0.9% 10ml Inj) 10 ml IV UD PRN PRN Reason: Diluant Tizanidine HCl (Tizanidine 4 Mg Tablet) 12 mg PO BEDTIME [facility] Last Admin: 10/26/22 21:17 Dose: 12 mg Microbiology Results 10/22/22 00:50 Blood - Blood Aerobic Blood Culture - Final No growth in 5 days. 10/22/22 00:50 Blood - Blood Anaerobic Blood Culture - Final No growth in 5 days. 10/22/22 00:35 Blood - Blood Aerobic Blood Culture - Final No growth in 5 days. 10/22/22 00:35 Blood - Blood Anaerobic Blood Culture - Final No growth in 5 days. 10/22/22 00:35 Stool Culture & Sensitivity - Final 10/22/22 01:58 Clean Catch Urine [place] Count - Final No growth. 10/22/22 01:58 Clean Catch Urine - Final No growth. 10/21/22 23:58 Stool Fecal Leukocyte Stain - Final 10/21/22 23:58 Stool Rotavirus Antigen - Final 10/22/22 01:00 Nasopharnyx Influenza Type A Antigen Screen - Final 10/22/22 01:00 Nasopharnyx Influenza Type B Antigen Screen - Final Assessment/ Plan: Nephrology No dyspnea No chest pain Feeling better with improved appetite No acute events overnight Vitals, medications, blood work and imaging reviewed in the chart. General: In no apparent distress, Cooperative HEENT: Atraumatic Neck: Supple Respiratory: Normal air movement Cardiovascular: Regular rate/rhythm, Edema Gastrointestinal: Soft and benign, Non-distended Musculoskeletal: No clubbing, No contractures Integumentary: No rashes, No cyanosis Neurological: Normal speech Laboratory Data (last 24 hrs) 10/22/22 10/22/22 10/22/22 00:35 00:35 00:35 WBC 22.80 H Hgb 10.9 L Hct 33.3 L Plt Count 358 PT 12.6 H INR 1.15 Sodium 126 L Potassium 2.9 L BUN 40 H Creatinine 2.74 H Glucose 65 L Magnesium 2.1 Total Bilirubin 0.5 AST 146 H ALT 43 Alkaline Phosphatase 144 H Imagings Data: EXAM DESCRIPTION: RAD - Chest Single View - 10/22/2022 5:58 am CLINICAL HISTORY: Central line placement TECHNIQUE: AP chest COMPARISON: October 22 FINDINGS: CHEST: Right IJ line with the distal tip in the SVC. No pneumothorax. No new airspace consolidation or pleural effusions. Patient rotated to the left. IMPRESSION: Right IJ line with the distal tip in the SVC. No pneumothorax. EXAM DESCRIPTION: CT - Chest Abd Pelvis Wo Con - 10/22/2022 3:35 am CLINICAL HISTORY: ABDOMINAL DISTENTION TECHNIQUE: Axial computed tomography images of the chest, abdomen and pelvis without intravenous contrast. Sagittal and coronal reformatted images were created and reviewed. This CT exam was performed using one or more of the following dose reduction techniques: automated exposure control, adjustment of the mA and/or kV according to patient size, and/or use of iterative reconstruction technique. COMPARISON: CT Chest Abdomen Pelvis dated 09/16/2022 FINDINGS: CHEST: Lungs: Patchy groundglass opacities within the right lung. Right basilar subsegmental atelectasis/pleural parenchymal scar. Pleural space: Unremarkable. No significant effusion. No pneumothorax. Heart: Coronary artery calcification. No significant pericardial effusion. ABDOMEN: Liver: Unremarkable. Gallbladder and bile ducts: Unremarkable. No calcified stones. No ductal dilation. Pancreas: Moderate pancreatic parenchymal atrophy. No ductal dilation. Spleen: Unremarkable. No splenomegaly. Adrenals: Unremarkable. No mass. Kidneys and ureters: Unremarkable. No obstructing stones. No hydronephrosis. Stomach and bowel: The large bowel is diffusely thickened. Mild infiltrative changes in the pericolonic fat. No obstruction. PELVIS: Appendix: Normal caliber appendix. No findings to suggest acute appendicitis. Bladder: The urinary bladder is decompressed around a Renner. No stones. Reproductive: There has been a hysterectomy. No adnexal cysts or masses are identified. CHEST, ABDOMEN and PELVIS: Intraperitoneal space: Small amount of free fluid in the abdomen and pelvis. No free air. Bones/joints: Remote right-sided rib fractures. Multilevel spondylosis. Prior bilateral posterior fusion and decompression extending from L3 through S1. Remote deformity of the right femoral head and neck which may in part be posttraumatic. Severe degenerative changes at the right hip articulation. No dislocation. Soft tissues: Unremarkable. Vasculature: Moderate to severe atherosclerotic disease. Lymph nodes: Unremarkable. No enlarged lymph nodes. IMPRESSION: 1. Patchy infiltrates within the right lung. 2. Findings compatible with nonspecific colitis. 3. Other findings as above. EXAM DESCRIPTION: RAD - Chest Single View - 10/22/2022 12:20 am CLINICAL HISTORY: 77 years, Female, ABDOMINAL DISTENTION COMPARISON: None. FINDINGS: Single view of the chest was obtained portable. No prior films are available for comparison. The cardiomediastinal silhouette demonstrate to be unremarkable. The heart is in the upper normal size. The thoracic aorta is demonstrate intimal aortic arch calcification. The pulmonary vasculature is normal distribution. Costophrenic angles are sharp. No areas of consolidation or masses are seen. The rest of the soft tissue and bony structures demonstrate to be unremarkable. IMPRESSION: No acute cardiopulmonary disease seen Conclusions/Impression: Stage III DRISS likely due to hypovolemia -No NSAIDs -Continue IVF Rhabdomyolysis, mild -Continue IVF Hyponatremia -Continue IVF with NS Hypokalemia -Replete potassium as ordered Primary HyperParathyroidism Hypophosphatemia -Replete as ordered -Start Calcitriol -Will need ENT follow up HTN complicated by hypotension -Hold antihypertensives at this time Anemia in chronic illness -Monitor H&H Hospitalist note reviewed
[2022-10-27] MEDS: NORTRIPTYLINE HCL 25 MG CAP PO SCH (21:18)
[2022-10-27] MEDS: GABAPENTIN 400 MG CAP PO SCH (21:18)
[2022-10-27] MEDS: TIZANIDINE 4 MG TABLET PO SCH (21:19)
[2022-10-28] MEDS: METOPROLOL TAR 25 MG TAB PO SCH ×2 (06:57→17:45)
[2022-10-28] MEDS: CHOLESTYRAMINE/ASP 4 GM/PKT PO SCH ×2 (07:31→10:56)
[2022-10-28] MEDS: MORPHINE *EXTENDED RELEASE* 60 MG TAB PO SCH ×2 (08:33→20:18)
[2022-10-28] MEDS: FIDAXOMICIN 200 MG TABLET PO SCH ×2 (08:33→20:18)
[2022-10-28] MEDS: CALCIUM CARBONATE 500 MG TAB PO SCH ×2 (08:33→20:19)
[2022-10-28] MEDS: LACTOBACILLUS/ACIDOPHILUS TAB PO SCH (08:33)
[2022-10-28] MEDS: GABAPENTIN 300 MG CAP PO SCH ×2 (08:34→11:49)
[2022-10-28] MEDS: MAGNESIUM OXIDE 400 MG TAB PO SCH (08:34)
[2022-10-28] MEDS: ENSURE HIGH PROTEIN 237 ML CAN PO SCH ×3 (08:34→20:20)
[2022-10-28] MEDS: PANTOPRAZOLE 40 MG INJ IVP SCH ×2 (08:34→20:18)
[2022-10-28] MEDS: HEPARIN 5000 UNIT/ML 1 ML VIAL SQ SCH ×2 (08:34→20:29)
[2022-10-28] MEDS: CALCITROL 0.25 MCG CAP PO SCH (08:34)
[2022-10-28] MEDS: DULOXETINE 30 MG CAP PO SCH (08:35)
[2022-10-28 09:16] LABS: Absolute Lymphocytes (CBC) 1.4 K/uL (0.7-4.9); Hematocrit 28.4 % (36.0-45.0); Lymphocytes % 22.2 % (15.3-44.8); MCV 84.7 fL (80-100); MPV 7.2 fL (7.6-11.3); Platelets 151 thou/uL (152-406); RBC Red Blood Cell Count 3.35 M/uL (3.86-4.86)
[2022-10-28 09:37] LABS: Bilirubin Total 0.4 mg/dL (0.2-1.0); Magnesium 1.1 mg/dL (1.6-2.4); Phosphorus 4.2 mg/dL (2.5-4.9); Potassium 3.9 mEq/L (3.5-5.1); Protein, Total 4.6 g/dL (6.4-8.2)
[2022-10-28] MEDS ORDERED: Magnesium Sulfate 2gm IVPB 2 G/50 ML BAG IV ONE ×2 (11:11→14:04)
--- NOTE | 2022-10-28 13:50 | P.PN ---
Date of Service: 10/28/22 Subjective: Pt doing well; no new complaints; transfer to floor. Awaiting for acceptance to SNF. Some lower extremity edema. Patient strength is improving. Physical Exam: Vitals: Reviewed GEN: Alert, oriented, NAD, CV: Regular rate & rhythm, no edema Pulm: Clear bilaterally ABD: Soft, nontender, nondistended MSK: lower extremity edema Neuro: Generalized weakness Problem List: 1. Septic shock secondary to pneumonia, C. difficile colitis 2. DRISS; resolved 3. Rhabdomyolysis; stable 4. Hyponatremia, Hypokalemia; stable 5. Metabolic Encephalopathy; improved 6. Hypertension 7. Chronic pain PLAN Continue with plan of care as mentioned below: 1. Continue with Dificid-day 08/25; continue with hydration and monitor electrolytes 2. Hep-Lock IV 3. Monitor hemodynamics; added beta-karen therapy 4. Physical therapy appreciated; improved. 5. Monitor electrolytes 6. Pain control; IV medicines as needed 7. GI DVT prophylaxis Working on [facility] facility placement at this time.
[2022-10-28] MEDS ORDERED: ALBUMIN HUMAN 25% 100 ML IV ONE (14:05)
[2022-10-28] MEDS ORDERED: FUROSEMIDE 20 MG/ 2ML VIAL IV ONE (15:15)
[2022-10-28] MEDS: GABAPENTIN 400 MG CAP PO SCH (20:19)
[2022-10-28] MEDS: TIZANIDINE 4 MG TABLET PO SCH (20:19)
[2022-10-28] MEDS: NORTRIPTYLINE HCL 25 MG CAP PO SCH (20:20)
[2022-10-29] MEDS: CHOLESTYRAMINE/ASP 4 GM/PKT PO SCH ×2 (06:23→11:11)
[2022-10-29] MEDS: METOPROLOL TAR 25 MG TAB PO SCH ×2 (06:23→17:02)
[2022-10-29] MEDS: CALCIUM CARBONATE 500 MG TAB PO SCH ×2 (08:20→21:41)
[2022-10-29] MEDS: HEPARIN 5000 UNIT/ML 1 ML VIAL SQ SCH ×2 (08:20→21:41)
[2022-10-29] MEDS: CALCITROL 0.25 MCG CAP PO SCH (08:20)
[2022-10-29] MEDS: DULOXETINE 30 MG CAP PO SCH (08:21)
[2022-10-29] MEDS: MAGNESIUM OXIDE 400 MG TAB PO SCH (08:21)
[2022-10-29] MEDS: GABAPENTIN 300 MG CAP PO SCH ×2 (08:21→11:11)
[2022-10-29] MEDS: LACTOBACILLUS/ACIDOPHILUS TAB PO SCH (08:21)
[2022-10-29] MEDS: PANTOPRAZOLE 40 MG INJ IVP SCH ×2 (08:22→21:41)
[2022-10-29] MEDS: MORPHINE *EXTENDED RELEASE* 60 MG TAB PO SCH ×2 (08:22→21:42)
[2022-10-29] MEDS: ENSURE HIGH PROTEIN 237 ML CAN PO SCH ×3 (08:23→21:39)
[2022-10-29] MEDS: FIDAXOMICIN 200 MG TABLET PO SCH ×2 (09:32→21:40)
--- NOTE | 2022-10-29 09:53 | P.PN ---
Date of Service: 10/29/22 Chief Complaint: Severe sepsis, acute renal failure Subjective: Diarrhea improving. Patient denies any new or worsening complaints. No acute events reported overnight. Physical Examination Temp Pulse Resp BP Pulse Ox 98.1 F 87 18 136/68 93 10/29/22 08:00 10/29/22 08:00 10/29/22 08:22 10/29/22 08:00 10/29/22 08:22 General: In no apparent distress, Oriented x3 HEENT: Atraumatic, Normocephalic Neck: JVD not distended Respiratory: Normal air movement. On room air. Cardiovascular: RRR. Weak DP and PT pulses Gastrointestinal: Hyperactive. non-distended. Musculoskeletal: No clubbing Integumentary: No rashes, No tenderness/swelling Laboratory Data - Reviewed Microbiology Data - Reviewed Imagings Data: - CT Chest abdomen pelvis 10/22: "1. Patchy infiltrates within the right lung. 2. Findings compatible with nonspecific colitis. " - Renal ultrasound 10/22: "Unremarkable renal ultrasound. " Medication List: Reviewed Assessment and Plan Problem List Severe Sepsis Pneumonia, unspecified organism C.diff Colitis, Recurrent Episode Severe PCM Acute Renal Failure Hyponatremia Chronic pain Severe Sepsis secondary to Pneumonia / C.diff Colitis - CT Chest abdomen pelvis 10/22: "1. Patchy infiltrates within the right lung. 2. Findings compatible with nonspecific colitis. " - Fecal leukocyte stain 10/21: Many WBC - Stool culture 10/22: Pending - C.diff antigen & toxin = positive - Influenza A and B: Negative - Blood cultures 10/22: no growth to date - Leukocytosis resolved. Afebrile. - Patient was started on empiric antibiotics Flagyl, Vancomycin and Levofloxacin for findings of pneumonia and colitis. Flagyl and Vancomycin IV discontinued 10/22 and started on Fidaxomicin PO. - XR Chest 10/25: ": No acute cardiopulmonary process." - Completed 5 day course of Levaquin for pneumonia (10/22-10/26) Recommendations - C.diff: Continue Fidaxomicin 200mg PO BID x 10 days (started 10/22) - Supplemental nutrition and hydration as needed Case discussed with Monique Ibanez
--- NOTE | 2022-10-29 11:31 | P.PN ---
Date of Service: 10/29/22 Vital Signs Temp Pulse Resp BP Pulse Ox 98.1 F 87 18 136/68 93 10/29/22 08:00 10/29/22 08:00 10/29/22 08:22 10/29/22 08:00 10/29/22 08:22 Medications Al Hydrox/Mg Hydrox/Simethicone (Magnes/Alumin/Simet 30ml Ucup) 30 ml PO Q6H PRN PRN Reason: INDIGESTION Last Admin: 10/23/22 20:29 Dose: 30 ml Calcitriol (Calcitrol 0.25 Mcg Cap) 0.5 mcg PO DAILY [facility] Last Admin: 10/29/22 08:20 Dose: 0.5 mcg Calcium Carbonate/Glycine (Calcium Carbonate 500 Mg Tab) 500 mg PO BID [facility] Last Admin: 10/29/22 08:20 Dose: 500 mg Cholestyramine Resin (Cholestyramine/Asp 4 Gm/Pkt) 4 gm PO 0700,1100 [facility] Last Admin: 10/29/22 11:11 Dose: 4 gm Duloxetine HCl (Duloxetine 30 Mg Cap) 30 mg PO DAILY [facility] Last Admin: 10/29/22 08:21 Dose: 30 mg Ergocalciferol (Drisdol (Vitamin D=Ergocalciferol) 98027 Unit Cap) 50,000 unit PO Q7D [facility] Last Admin: 10/26/22 08:46 Dose: 50,000 unit Gabapentin (Gabapentin 400 Mg Cap) 1,200 mg PO BEDTIME [facility] Last Admin: 10/28/22 20:19 Dose: 1,200 mg Gabapentin (Gabapentin 300 Mg Cap) 600 mg PO 0800 [facility] Last Admin: 10/29/22 08:21 Dose: 600 mg Gabapentin (Gabapentin 300 Mg Cap) 600 mg PO 1200 [facility] Last Admin: 10/29/22 11:11 Dose: 600 mg Heparin Sodium (Porcine) (Heparin 5000 Unit/Ml 1 Ml Vial) 5,000 unit SQ Q12HR [facility] Last Admin: 10/29/22 08:20 Dose: 5,000 unit Norepinephrine/Dextrose (Levophed 4 Mg/250 Ml-D5w) 4 mg in 250 mls @ 23.063 mls/hr IV TITR [facility]; Protocol Last Titration: 10/23/22 09:18 Dose: 0.05 mcg/kg/min, 11.5 mls/hr Lactobacillus Acidoph/Bulgaricus (Lactobacillus/Acidophilus Tab) 1 tab PO DAILY WITH BREAKFAST [facility] Last Admin: 10/29/22 08:21 Dose: 1 tab Magnesium Chloride (Magnesium Chloride 64 Mg Tab) 64 mg PO BID [facility] Metoprolol Tartrate (Metoprolol Tar 25 Mg Tab) 25 mg PO BID 6AM 6PM [facility] Last Admin: 10/29/22 06:23 Dose: 25 mg Morphine Sulfate (Morphine *Extended Release* 60 Mg Tab) 60 mg PO BID [facility] Last Admin: 10/29/22 08:22 Dose: 60 mg Nortriptyline HCl (Nortriptyline Hcl 25 Mg Cap) 25 mg PO BEDTIME [facility] Last Admin: 10/28/22 20:20 Dose: 25 mg Nutritional Formula (Ensure High Protein 237 Ml Can) 273 ml PO TID [facility] Last Admin: 10/29/22 08:23 Dose: 273 ml Ondansetron HCl (Ondansetron 4 Mg/2 Ml Vial) 4 mg IV Q6HP PRN PRN Reason: NAUSEA / VOMITING Pantoprazole Sodium (Pantoprazole 40 Mg Inj) 40 mg IVP Q12HR [facility]; Protocol Last Admin: 10/29/22 08:22 Dose: 40 mg Sodium Chloride (Flush Normal Saline 10 Ml) 10 ml IV BID [facility] Last Admin: 10/29/22 08:22 Dose: 10 ml Sodium Chloride (Sodium Chloride 0.9% 10ml Inj) 10 ml IV UD PRN PRN Reason: Diluant Tizanidine HCl (Tizanidine 4 Mg Tablet) 12 mg PO BEDTIME [facility] Last Admin: 10/28/22 20:19 Dose: 12 mg Microbiology Results 10/22/22 00:50 Blood - Blood Aerobic Blood Culture - Final No growth in 5 days. 10/22/22 00:50 Blood - Blood Anaerobic Blood Culture - Final No growth in 5 days. 10/22/22 00:35 Blood - Blood Aerobic Blood Culture - Final No growth in 5 days. 10/22/22 00:35 Blood - Blood Anaerobic Blood Culture - Final No growth in 5 days. 10/22/22 00:35 Stool Culture & Sensitivity - Final 10/22/22 01:58 Clean Catch Urine Malo Count - Final No growth. 10/22/22 01:58 Clean Catch Urine - Final No growth. 10/21/22 23:58 Stool Fecal Leukocyte Stain - Final 10/21/22 23:58 Stool Rotavirus Antigen - Final 10/22/22 01:00 Nasopharnyx Influenza Type A Antigen Screen - Final 10/22/22 01:00 Nasopharnyx Influenza Type B Antigen Screen - Final Assessment/ Plan: Nephrology No dyspnea No chest pain Feeling better with improved appetite No acute events overnight Vitals, medications, blood work and imaging reviewed in the chart. General: In no apparent distress, Cooperative HEENT: Atraumatic Neck: Supple Respiratory: Normal air movement Cardiovascular: Regular rate/rhythm, Edema Gastrointestinal: Soft and benign, Non-distended Musculoskeletal: No clubbing, No contractures Integumentary: No rashes, No cyanosis Neurological: Normal speech Laboratory Data (last 24 hrs) 10/22/22 10/22/22 10/22/22 00:35 00:35 00:35 WBC 22.80 H Hgb 10.9 L Hct 33.3 L Plt Count 358 PT 12.6 H INR 1.15 Sodium 126 L Potassium 2.9 L BUN 40 H Creatinine 2.74 H Glucose 65 L Magnesium 2.1 Total Bilirubin 0.5 AST 146 H ALT 43 Alkaline Phosphatase 144 H Imagings Data: EXAM DESCRIPTION: RAD - Chest Single View - 10/22/2022 5:58 am CLINICAL HISTORY: Central line placement TECHNIQUE: AP chest COMPARISON: October 22 FINDINGS: CHEST: Right IJ line with the distal tip in the SVC. No pneumothorax. No new airspace consolidation or pleural effusions. Patient rotated to the left. IMPRESSION: Right IJ line with the distal tip in the SVC. No pneumothorax. EXAM DESCRIPTION: CT - Chest Abd Pelvis Wo Con - 10/22/2022 3:35 am CLINICAL HISTORY: ABDOMINAL DISTENTION TECHNIQUE: Axial computed tomography images of the chest, abdomen and pelvis without intravenous contrast. Sagittal and coronal reformatted images were created and reviewed. This CT exam was performed using one or more of the following dose reduction techniques: automated exposure control, adjustment of the mA and/or kV according to patient size, and/or use of iterative reconstruction technique. COMPARISON: CT Chest Abdomen Pelvis dated 09/16/2022 FINDINGS: CHEST: Lungs: Patchy groundglass opacities within the right lung. Right basilar subsegmental atelectasis/pleural parenchymal scar. Pleural space: Unremarkable. No significant effusion. No pneumothorax. Heart: Coronary artery calcification. No significant pericardial effusion. ABDOMEN: Liver: Unremarkable. Gallbladder and bile ducts: Unremarkable. No calcified stones. No ductal dilation. Pancreas: Moderate pancreatic parenchymal atrophy. No ductal dilation. Spleen: Unremarkable. No splenomegaly. Adrenals: Unremarkable. No mass. Kidneys and ureters: Unremarkable. No obstructing stones. No hydronephrosis. Stomach and bowel: The large bowel is diffusely thickened. Mild infiltrative changes in the pericolonic fat. No obstruction. PELVIS: Appendix: Normal caliber appendix. No findings to suggest acute appendicitis. Bladder: The urinary bladder is decompressed around a Renner. No stones. Reproductive: There has been a hysterectomy. No adnexal cysts or masses are identified. CHEST, ABDOMEN and PELVIS: Intraperitoneal space: Small amount of free fluid in the abdomen and pelvis. No free air. Bones/joints: Remote right-sided rib fractures. Multilevel spondylosis. Prior bilateral posterior fusion and decompression extending from L3 through S1. Remote deformity of the right femoral head and neck which may in part be posttraumatic. Severe degenerative changes at the right hip articulation. No dislocation. Soft tissues: Unremarkable. Vasculature: Moderate to severe atherosclerotic disease. Lymph nodes: Unremarkable. No enlarged lymph nodes. IMPRESSION: 1. Patchy infiltrates within the right lung. 2. Findings compatible with nonspecific colitis. 3. Other findings as above. EXAM DESCRIPTION: RAD - Chest Single View - 10/22/2022 12:20 am CLINICAL HISTORY: 77 years, Female, ABDOMINAL DISTENTION COMPARISON: None. FINDINGS: Single view of the chest was obtained portable. No prior films are available for comparison. The cardiomediastinal silhouette demonstrate to be unremarkable. The heart is in the upper normal size. The thoracic aorta is demonstrate intimal aortic arch calcification. The pulmonary vasculature is normal distribution. Costophrenic angles are sharp. No areas of consolidation or masses are seen. The rest of the soft tissue and bony structures demonstrate to be unremarkable. IMPRESSION: No acute cardiopulmonary disease seen Conclusions/Impression: Stage III RDISS likely due to hypovolemia -No NSAIDs Rhabdomyolysis, mild Hyponatremia -Encourage nutrition Hypokalemia -Replete potassium prn Hypomagnesemia -DC MagOx -Start SloMag BID Primary HyperParathyroidism Hypophosphatemia -Replete as ordered -Continue Calcitriol -Will need ENT follow up HTN complicated by hypotension -Hold antihypertensives at this time Anemia in chronic illness -Monitor H&H Hospitalist note reviewed
--- NOTE | 2022-10-29 15:07 | P.PN ---
Subjective Date of Service: 10/29/22 Chief Complaint: Severe sepsis, acute renal failure No acute events overnight. She has improved significantly since I saw her last week. She denies any concerns this morning. She is pending placement to SNF. Review of Systems 10-point ROS is otherwise unremarkable General: Weakness (generalized) Physical Examination - Vital Signs Temperature: 97.7 F Blood Pressure: 127/59 Pulse: 84 Respirations: 18 Pulse Ox (%): 95 - Physical Exam General: Alert, In no apparent distress, Oriented x3 HEENT: Atraumatic, Mucous membr. moist/pink, Sclerae nonicteric Neck: JVD not distended Respiratory: Clear to auscultation bilaterally, Normal air movement Cardiovascular: No edema, Regular rate/rhythm, Normal S1 S2, No gallops, No rubs, No murmurs Gastrointestinal: Normal bowel sounds, Soft and benign, Non-distended, No tenderness, No rebound, No guarding Musculoskeletal: No clubbing Integumentary: No rashes Neurological: Normal speech, Normal affect Assessment And Plan - Plan # Septic Shock secondary to Pneumonia and Clostridioides Difficile Colitis - POA # Acute Toxic Metabolic Encephalopathy suspect due to above - resolved She met SIRS criteria based on HR > 90 bpm and WBC > 12,000, and the suspected source is C. Difficile colitis. Severe sepsis is suspected due to concern for tissue hypoperfusion/organ dysfunction based on creatinine >2.0 mg/dL (without ESRD). Septic shock was suspected due to systolic blood pressures < 90 mmHg. - Consulted Infectious Diseases - recommendations appreciated - Sepsis order set was initiated - Initial Lactate was 0.9 -> 1.3 -> 0.6 - Blood cultures drawn x 2 - Antibiotics started: - Continue PO fidoxamicin - day 7 of 10 - In regards to fluids: - 30 mL/kg of IV fluids was administered - Radiology: - CT chest/abdomen/pelvis = "1. Patchy infiltrates within the right lung. 2. Findings compatible with nonspecific colitis." # KDIGO Stage III Acute Kidney Injury due to above - resolved # Mild Rhabdomyloysis - resolved - Nephrology consulted and spoke with Dr. Davidson - recommendations appreciated - Creatinine = 2.74 -> 1.83 -> 1.33 -> 0.62 -> 0.53 -> 0.47 -> 0.54 -> 0.59 - Urinalysis = 10-20 WBCs, 5-10 hyaline casts, 1+ protein - IV fluids per Nephrology - Renally dose medications # Hypovolemic Hyponatremia - resolved - Sodium: 126 -> 135 - IV fluids per Nephrology # Chronic Pain Syndrome - Continue home medications # Hypertension - Hold home anti-hypertensives # Deconditioning - PT consulted - CM consulted for assistance with SNF placement Larry Martínez M.D.
[2022-10-29] MEDS: Banana Flakes/T-Galactooligos 1 Dose Packet PO SCH (21:38)
[2022-10-29] MEDS: NORTRIPTYLINE HCL 25 MG CAP PO SCH (21:42)
[2022-10-29] MEDS: TIZANIDINE 4 MG TABLET PO SCH (21:42)
[2022-10-29] MEDS: GABAPENTIN 400 MG CAP PO SCH (21:42)
[2022-10-29] MEDS: MAGNESIUM CHLORIDE 64 MG TAB PO SCH (21:42)
[2022-10-30] MEDS: METOPROLOL TAR 25 MG TAB PO SCH (05:37)
[2022-10-30 06:03] LABS: Absolute Lymphocytes (CBC) 1.6 K/uL (0.7-4.9); Hematocrit 26.8 % (36.0-45.0); Lymphocytes % 30.3 % (15.3-44.8); MPV 8.5 fL (7.6-11.3); Platelets 157 thou/uL (152-406)
[2022-10-30 06:17] LABS: Albumin 2.3 g/dL (3.4-5.0); Bilirubin Total 0.3 mg/dL (0.2-1.0); Magnesium 1.7 mg/dL (1.6-2.4); Phosphorus 4.8 mg/dL (2.5-4.9); Protein, Total 4.9 g/dL (6.4-8.2)
[2022-10-30] MEDS: LACTOBACILLUS/ACIDOPHILUS TAB PO SCH (08:00)
[2022-10-30] MEDS: Banana Flakes/T-Galactooligos 1 Dose Packet PO SCH (08:48)
[2022-10-30] MEDS: ENSURE HIGH PROTEIN 237 ML CAN PO SCH ×2 (08:48→13:15)
[2022-10-30] MEDS: DULOXETINE 30 MG CAP PO SCH (08:49)
[2022-10-30] MEDS: CALCITROL 0.25 MCG CAP PO SCH (08:49)
[2022-10-30] MEDS: CALCIUM CARBONATE 500 MG TAB PO SCH (08:49)
[2022-10-30] MEDS: CHOLESTYRAMINE/ASP 4 GM/PKT PO SCH ×2 (08:49→11:50)
[2022-10-30] MEDS: MORPHINE *EXTENDED RELEASE* 60 MG TAB PO SCH (08:49)
[2022-10-30] MEDS: GABAPENTIN 300 MG CAP PO SCH ×2 (08:50→11:50)
[2022-10-30] MEDS: MAGNESIUM CHLORIDE 64 MG TAB PO SCH (08:50)
[2022-10-30] MEDS: FIDAXOMICIN 200 MG TABLET PO SCH (08:51)
[2022-10-30] MEDS: HEPARIN 5000 UNIT/ML 1 ML VIAL SQ SCH (08:51)
[2022-10-30] MEDS: PANTOPRAZOLE 40 MG INJ IVP SCH (08:51)
[2022-10-30] MEDS ORDERED: MAGNESIUM SULFATE 1 gm IVPB 1 GM/100 ML BAG IV ONE (09:00)
[2022-10-30] MEDS ORDERED: DRISDOL (VITAMIN D=ERGOCALCIFEROL) 50000 UNIT CAP PO SCH (09:00)
[2022-10-30 09:43] VITALS: O2SAT 94
--- NOTE | 2022-10-30 09:56 | P.PN ---
Date of Service: 10/30/22 Chief Complaint: Severe sepsis, acute renal failure Subjective: Patient seen and examined at bedside. Clinically improving. Denies any new or worsening complaints. Physical Examination Temp Pulse Resp BP Pulse Ox 97.6 F 74 16 123/57 L 94 10/30/22 08:00 10/30/22 08:00 10/30/22 08:49 10/30/22 08:00 10/30/22 08:49 General: In no apparent distress, Oriented x3 HEENT: Atraumatic, Normocephalic Neck: JVD not distended Respiratory: Normal air movement. On room air. Cardiovascular: Regular rate and rhythm. Weak DP and PT pulses Gastrointestinal: Normoactive bowel sounds. non-distended. non-tender Musculoskeletal: No clubbing Integumentary: No rashes, No tenderness/swelling Laboratory Data - Reviewed Microbiology Data - Reviewed Imagings Data: - CT Chest abdomen pelvis 10/22: "1. Patchy infiltrates within the right lung. 2. Findings compatible with nonspecific colitis. " - Renal ultrasound 10/22: "Unremarkable renal ultrasound. " Medication List: Reviewed Assessment and Plan Problem List Severe Sepsis Pneumonia, unspecified organism C.diff Colitis, Recurrent Episode Severe PCM Acute Renal Failure, resolved Chronic pain Severe Sepsis secondary to Pneumonia / C.diff Colitis - CT Chest abdomen pelvis 10/22: "1. Patchy infiltrates within the right lung. 2. Findings compatible with nonspecific colitis. " - Fecal leukocyte stain 10/21: Many WBC - Stool culture 10/22: Pending - C.diff antigen & toxin = positive - Influenza A and B: Negative - Blood cultures 10/22: no growth to date - Leukocytosis resolved. Afebrile. - Patient was started on empiric antibiotics Flagyl, Vancomycin and Levofloxacin for findings of pneumonia and colitis. Flagyl and Vancomycin IV discontinued 10/22 and started on Fidaxomicin PO. - XR Chest 10/25: ": No acute cardiopulmonary process." - Completed 5 day course of Levaquin for pneumonia (10/22-10/26) Recommendations Continue current plan of care. - C.diff: Continue Fidaxomicin 200mg PO BID x 10 days (start 10/22 ; end 11/01) - Supplemental nutrition and hydration as needed - Follow up with PCP 1-2 weeks after discharge Case discussed with Monique Ibanez
--- NOTE | 2022-10-30 12:33 | P.DS ---
Admission Date: 10/22/22 Discharge Date: 10/30/22 Primary Care Provider: Dr. León Disposition: DC HOME/HOME HEALTH CARE Reason for Admission: Severe sepsis, acute renal failure Consultations: 1. Infectious Diseases 2. Nephrology Hospital Course: DIAGNOSES: # Septic Shock secondary to Pneumonia and Clostridioides Difficile Colitis - POA # Acute Toxic Metabolic Encephalopathy suspect due to above - resolved # KDIGO Stage III Acute Kidney Injury due to above - resolved # Mild Rhabdomyloysis - resolved # Hypovolemic Hyponatremia - resolved # Chronic Pain Syndrome # Hypertension # Deconditioning HOSPITAL COURSE: Ms. Azalea Rdz is a pleasant 77 year old female with a past medical history significant for chronic pain syndrome and hypertension who was admitted to the [facility] on 10/22/2022 for altered mental status and diarrhea. She was admitted to the Medicine service. Upon further evaluation, she was found to have a stage III acute kidney injury due to severe diarrhea. Further infectious evaluation would reveal that she was positive for Clostridioides Difficile colitis. Additionally, her radiographic findings were suggestive for pneumonia. Nephrology was consulted for her severe acute kidney injury and she was evaluated by Dr. Davidson. She was treated with aggressive IV hydration and, over the course of her hospitalization, her renal function returned to normal. In regards to her colitis, Infectious Diseases was consulted and she was evaluated by Dr. Dickey. She was started on oral fidoxamicin, with improvement in her symptoms. PT was consulted due to her generalized weakness and it was thought that she would benefit from continued PT services. Initially, case management was waiting for insurance authorization for fci facility placement. However, over the course of her hospitalization, her symptoms improved significantly and she was able to be discharged home with home health services. Incidentally, she was noted to have primary hyperparathyroidism. She was advised to follow-up with Otorhinolaryngology as an outpatient. On 10/30/2022, she was seen on rounds and deemed medically stable for discharge. She was discharged with instructions to schedule follow-up appointments with her PCP (Dr. León), with Otorhinolaryngology (Dr. Velasquez), and with Nephrology (Dr. Davidson). She was given a prescription for fidoxamicin. She was given the opportunity to ask questions and reported no further questions. Furthermore, all questions were answered to the best of my ability. A copy of this discharge summary will be sent to the above providers to facilitate continuity of care. Today, I personally spent 25 minutes on her case, of which greater than 50% of the time was spent in patient education, counseling, and coordination of care as described above. - Physical Exam General: Alert, In no apparent distress, Oriented x3 HEENT: Atraumatic, Mucous membr. moist/pink, Sclerae nonicteric Respiratory: Clear to auscultation bilaterally, Normal air movement Cardiovascular: No edema, Regular rate/rhythm, No murmurs Gastrointestinal: Normal bowel sounds, Soft, Non-distended, No tenderness Musculoskeletal: No clubbing Integumentary: No rashes Neurological: Normal speech, Normal affect Vital Signs/Physical Exam: Temp Pulse Resp BP Pulse Ox 97.6 F 74 16 123/57 L 94 10/30/22 08:00 10/30/22 08:00 10/30/22 08:49 10/30/22 08:00 10/30/22 08:49 Laboratory Data at Discharge: WBC 5.10 thou/uL (4.3-10.9) 10/30/22 05:20 Hgb 8.8 g/dL (12.0-15.0) L 10/30/22 05:20 Hct 26.8 % (36.0-45.0) L 10/30/22 05:20 Plt Count 157 thou/uL (152-406) 10/30/22 05:20 PT 12.6 SECONDS (9.5-12.5) H 10/22/22 00:35 INR 1.15 10/22/22 00:35 Sodium 135 mEq/L (136-145) L 10/30/22 05:20 Potassium 4.0 mEq/L (3.5-5.1) 10/30/22 05:20 BUN 8 mg/dL (7-18) 10/30/22 05:20 Creatinine 0.68 mg/dL (0.55-1.02) 10/30/22 05:20 Glucose 99 mg/dL (74-106) 10/30/22 05:20 Uric Acid 2.8 mg/dL (2.6-6.0) 10/26/22 04:30 Phosphorus 4.8 mg/dL (2.5-4.9) 10/30/22 05:20 Magnesium 1.7 mg/dL (1.6-2.4) 10/30/22 05:20 Total Bilirubin 0.3 mg/dL (0.2-1.0) 10/30/22 05:20 AST 28 U/L (15-37) 10/30/22 05:20 ALT 25 U/L (13-56) 10/30/22 05:20 Alkaline Phosphatase 78 U/L (45-117) 10/30/22 05:20 Home Medications: Atorvastatin Calcium [Lipitor*] 20 mg PO BEDTIME 09/16/22 Duloxetine HCl 30 mg PO DAILY 09/16/22 Enalapril Maleate [Vasotec] 20 mg PO DAILY 09/16/22 Gabapentin 1,200 mg PO BEDTIME 09/16/22 Gabapentin 600 mg PO DAILY AT SUPPER 09/16/22 Gabapentin 900 mg PO DAILY WITH BREAKFAST 09/16/22 Morphine *Extended Release* [MS Contin*] 60 mg PO BID 09/16/22 Nortriptyline HCl 25 mg PO BEDTIME 09/16/22 Tizanidine [Zanaflex*] 4 mg PO TID 09/16/22 Tizanidine [Zanaflex*] 12 mg PO BEDTIME 10/22/22 Fidaxomicin [Dificid] 200 mg PO BID 2 Days #4 tab 10/30/22 New Medications: Fidaxomicin [Dificid] 200 mg PO BID 2 Days #4 tab Physician Discharge Instructions: 1. Please call and schedule a follow-up appointment with your PCP (Dr. León) in 3-5 days - Your blood work showed a mild anemia. Please discuss with your PCP for further evaluation - you may need to schedule a colonoscopy to further evaluate this. - Please have your PCP repeat a chest x-ray in 2-3 weeks to make sure your pneumonia has fully healed 2. Please call and schedule a follow-up appointment with ENT (Dr. Velasquez) in 5-7 days - Your parathyroid levels were elevated. Please discuss this with ENT. 3. Please call and schedule a follow-up appointment with Nephrology (Dr. Davidson) in 5-7 days Diet: AHA Activity: Ad jahaira Followup: Yuliana León MD [Primary Care Provider] - Krystal Velasquez DO [ACTIVE - CAN ADMIT] - Damion Davidson DO [ACTIVE - CAN ADMIT] - Time spent managing pt's care (in minutes): 25
[2022-10-30 12:53] VITALS: BP 155/61; TEMP 97
--- NOTE | 2022-10-30 21:15 | P.PN ---
Date of Service: 10/30/22 Vital Signs Temp Pulse Resp BP Pulse Ox 97 F 77 18 155/61 H 96 10/30/22 12:00 10/30/22 12:00 10/30/22 12:00 10/30/22 12:00 10/30/22 12:00 Microbiology Results 10/22/22 00:50 Blood - Blood Aerobic Blood Culture - Final No growth in 5 days. 10/22/22 00:50 Blood - Blood Anaerobic Blood Culture - Final No growth in 5 days. 10/22/22 00:35 Blood - Blood Aerobic Blood Culture - Final No growth in 5 days. 10/22/22 00:35 Blood - Blood Anaerobic Blood Culture - Final No growth in 5 days. 10/22/22 00:35 Stool Culture & Sensitivity - Final 10/22/22 01:58 Clean Catch Urine [place] Count - Final No growth. 10/22/22 01:58 Clean Catch Urine - Final No growth. 10/21/22 23:58 Stool Fecal Leukocyte Stain - Final 10/21/22 23:58 Stool Rotavirus Antigen - Final 10/22/22 01:00 Nasopharnyx Influenza Type A Antigen Screen - Final 10/22/22 01:00 Nasopharnyx Influenza Type B Antigen Screen - Final Assessment/ Plan: Nephrology No dyspnea No chest pain Feeling better with improved appetite. Soft stool. No acute events overnight Vitals, medications, blood work and imaging reviewed in the chart. General: In no apparent distress, Cooperative HEENT: Atraumatic Neck: Supple Respiratory: Normal air movement Cardiovascular: Regular rate/rhythm, Edema Gastrointestinal: Soft and benign, Non-distended Musculoskeletal: No clubbing, No contractures Integumentary: No rashes, No cyanosis Neurological: Normal speech Laboratory Data (last 24 hrs) 10/22/22 10/22/22 10/22/22 00:35 00:35 00:35 WBC 22.80 H Hgb 10.9 L Hct 33.3 L Plt Count 358 PT 12.6 H INR 1.15 Sodium 126 L Potassium 2.9 L BUN 40 H Creatinine 2.74 H Glucose 65 L Magnesium 2.1 Total Bilirubin 0.5 AST 146 H ALT 43 Alkaline Phosphatase 144 H Imagings Data: EXAM DESCRIPTION: RAD - Chest Single View - 10/22/2022 5:58 am CLINICAL HISTORY: Central line placement TECHNIQUE: AP chest COMPARISON: October 22 FINDINGS: CHEST: Right IJ line with the distal tip in the SVC. No pneumothorax. No new airspace consolidation or pleural effusions. Patient rotated to the left. IMPRESSION: Right IJ line with the distal tip in the SVC. No pneumothorax. EXAM DESCRIPTION: CT - Chest Abd Pelvis Wo Con - 10/22/2022 3:35 am CLINICAL HISTORY: ABDOMINAL DISTENTION TECHNIQUE: Axial computed tomography images of the chest, abdomen and pelvis without intravenous contrast. Sagittal and coronal reformatted images were created and reviewed. This CT exam was performed using one or more of the following dose reduction techniques: automated exposure control, adjustment of the mA and/or kV according to patient size, and/or use of iterative reconstruction technique. COMPARISON: CT Chest Abdomen Pelvis dated 09/16/2022 FINDINGS: CHEST: Lungs: Patchy groundglass opacities within the right lung. Right basilar subsegmental atelectasis/pleural parenchymal scar. Pleural space: Unremarkable. No significant effusion. No pneumothorax. Heart: Coronary artery calcification. No significant pericardial effusion. ABDOMEN: Liver: Unremarkable. Gallbladder and bile ducts: Unremarkable. No calcified stones. No ductal dilation. Pancreas: Moderate pancreatic parenchymal atrophy. No ductal dilation. Spleen: Unremarkable. No splenomegaly. Adrenals: Unremarkable. No mass. Kidneys and ureters: Unremarkable. No obstructing stones. No hydronephrosis. Stomach and bowel: The large bowel is diffusely thickened. Mild infiltrative changes in the pericolonic fat. No obstruction. PELVIS: Appendix: Normal caliber appendix. No findings to suggest acute appendicitis. Bladder: The urinary bladder is decompressed around a Renner. No stones. Reproductive: There has been a hysterectomy. No adnexal cysts or masses are identified. CHEST, ABDOMEN and PELVIS: Intraperitoneal space: Small amount of free fluid in the abdomen and pelvis. No free air. Bones/joints: Remote right-sided rib fractures. Multilevel spondylosis. Prior bilateral posterior fusion and decompression extending from L3 through S1. Remote deformity of the right femoral head and neck which may in part be posttraumatic. Severe degenerative changes at the right hip articulation. No dislocation. Soft tissues: Unremarkable. Vasculature: Moderate to severe atherosclerotic disease. Lymph nodes: Unremarkable. No enlarged lymph nodes. IMPRESSION: 1. Patchy infiltrates within the right lung. 2. Findings compatible with nonspecific colitis. 3. Other findings as above. EXAM DESCRIPTION: RAD - Chest Single View - 10/22/2022 12:20 am CLINICAL HISTORY: 77 years, Female, ABDOMINAL DISTENTION COMPARISON: None. FINDINGS: Single view of the chest was obtained portable. No prior films are available for comparison. The cardiomediastinal silhouette demonstrate to be unremarkable. The heart is in the upper normal size. The thoracic aorta is demonstrate intimal aortic arch calcification. The pulmonary vasculature is normal distribution. Costophrenic angles are sharp. No areas of consolidation or masses are seen. The rest of the soft tissue and bony structures demonstrate to be unremarkable. IMPRESSION: No acute cardiopulmonary disease seen Conclusions/Impression: Stage III DRISS likely due to hypovolemia -No NSAIDs Rhabdomyolysis, mild Hyponatremia -Encourage nutrition Hypokalemia -Replete potassium prn Hypomagnesemia -Continue SloMag BID Primary HyperParathyroidism Hypophosphatemia -Replete as ordered -Continue Calcitriol -Will need ENT follow up HTN complicated by hypotension -Hold antihypertensives at this time Anemia in chronic illness -Monitor H&H Hospitalist note reviewed
== END 2022-10-30 15:40 | disposition home health service (06) | DRG 871 ==
LOC: ER 23:53 → 2ND 10-22 04:19 → 3RD-ICU 10-22 05:34 → 2ND 10-28 14:20
PROVIDERS: ADMIT Internal Medicine; ATTEND Internal Medicine
PROC: 02HV33Z Insertion of Infusion Device into Superior Vena Cava, Percutaneous Approach (ICD-10-PCS; principal; 2022-10-22)
PROC: 3E043XZ Introduction of Vasopressor into Central Vein, Percutaneous Approach (ICD-10-PCS; 2022-10-22)
DX: A41.9 Sepsis, unspecified organism (principal); E43 Unspecified severe protein-calorie malnutrition; J18.9 Pneumonia, unspecified organism; R65.21 Severe sepsis with septic shock; G92.8 Other toxic encephalopathy; N17.9 Acute kidney failure, unspecified; M62.82 Rhabdomyolysis; E87.1 Hypo-osmolality and hyponatremia; A04.71 Enterocolitis due to Clostridium difficile, recurrent; G89.4 Chronic pain syndrome; D63.8 Anemia in other chronic diseases classified elsewhere; I10 Essential (primary) hypertension; E21.0 Primary hyperparathyroidism; E87.6 Hypokalemia; L89.151 Pressure ulcer of sacral region, stage 1; K21.9 Gastro-esophageal reflux disease without esophagitis; Z60.2 Problems related to living alone; Z68.23 Body mass index [BMI] 23.0-23.9, adult; Z85.828 Personal history of other malignant neoplasm of skin; Z79.899 Other long term (current) drug therapy
CPT/HCPCS: 36415; 71045; 71250; 74176; 76770; 80048; 80053; 80076; 81001; 82533; 82550; 82570; 82607; 82947; 83605; 83735; 83880; 83930; 83935; 83970; 84100; 84132; 84145; 84300; 84439; 84443; 84484; 84550; 85025; 85610; 87040; 87045; 87046; 87086; 87088; 87177; 87209; 87324; 87425; 87804; 87811; 89055; 93005; 93306; 97116; 97161; 97530; 99285; C9113; J0612; J1100; J1170; J1644; J1940; J2543; J3475; J3480; J7030; J7040; J7042; J7050; J8499; P9047

== ENCOUNTER 2022-11-12 15:15 | Emergency (ER) | payer OTHER ==
--- OUTSIDE RECORDS SUMMARY | 2022-11-12 15:18 | XMS REPORT | Continuity of Care Document ---
:1945 Author Organization [facility] t Address 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 - [facility] is without [facility] pathologic [facility] fracture [id number] Unsteady Problem Commo n gait Spirit - [facility] [id number] Mixed Problem Common hyperlipid Spirit emia - CH[facility] [id number] Chronic Problem Commo n GERD Spirit - [facility] Chronic Chronic Problem Common fatigue fatigue Spirit syndrome - [facility] [id number] Pressure Problem Com mon [id number] injury of [facility] left - [facility] buttock, St stage 1 [facility] Cigarette Cigarette Disease Active Met hodi smoker smoker [facility] Chronic Chronic Disease Active [facility] bronchitis bronchitis [facility] Teeth Teeth Disease Active Methodi missing missing [facility] Wears Wears Disease Active [facility] glasses glasses [facility] History of History of Disease Active M ethodi bronchitis bronchitis [facility] Allergies, Adverse Reactions, Alerts This patient has no known allergies or adverse reactions. Family History Family Member Diagnosis Comments Start Date Stop Date Source Natural father Stroke [facility] Natural mother Cancer [facility] Natural mother Diabetes [facility] Natural mother Heart disease [facility] Social History Social Habit Start Date Stop Date Quantity Comments Source History of Tobacco Common Spirit - Use [facility] Gender identity [facility] History of Social 2018-01-30 2018-01-30 [facility] function 00:00:00 00:00:00 Hospital Alcohol intake 2017-07-04 2017-07-04 Current [facility] 00:00:00 00:00:00 non-drinker of Hospital alcohol (finding) Cigarette 2017-04-09 2017-04-09 [facility] pack-years 00:00:00 00:00:00 Hospital Tobacco Comment 2017-04-09 2017-04-09 quit then [facility] 00:00:00 00:00:00 restarted to Hospital about 1/2 pack/day Cigarettes smoked 2017-04-09 2017-04-09 [facility] current (pack per 00:00:00 00:00:00 Hospita l day) - Reported Tobacco use and 2017-04-09 2017-04-09 Former smokeless [facility] exposure 00:00:00 00:00:00 tobacco user Hospital Sex Assigned At [birth year] [facility] 00:00:00 00:00:00 Hospital Smoking Status Start Date Stop Date Source Never Smoker Common [facility] Smokes tobacco daily 2017-04-09 00:00:00 [facility] Medications Ordered Filled Start Stop Current [...] 17 daily as l needed (leg cramps). [facility] Leg Cramp bisacodyl Yes 10mg Q24H [...] 17 daily as l needed (leg cramps). [facility] Leg Cramp bisacodyl Yes 10mg Q24H [...] 17 daily as l needed (leg cramps). [facility] Leg Cramp bisacodyl Yes 10mg Q24H Take 10 mg Me thodi (DULCOLAX) 4-[address] 5 mg EC 14:26: daily as Hospit a tablet 17 needed for l constipati on. naproxen Yes TK 1 T PO Meth mandie (NAPROSYN) 3-[address] 500 MG 00:00: FOOD. Hospita tablet 00 l naproxen 0 Yes TK 1 T PO Meth mandie (NAPROSYN) 3-[address] 500 MG 00:00: FOOD. Hospita tablet 00 l naproxen 0 Yes TK 1 T PO Meth mandie [...] MORNING, NOON, AND AT BEDTIME) prn atorvastati 0 Yes 40mg QD Take 40 mg [facility] n (LIPITOR) 4-[address] 40 MG 00:00: daily. Hospita tablet 00 l atorvastati 0 Yes 40mg QD Take 40 mg [facility] (LIPITOR) 4-[address] 40 MG 00:00: daily. Hospita tablet 00 l atorvastati 0 Yes 40mg QD Take 40 mg Methodi [...] capsule mg 3 caps. Orally nightly gabapentin 0 Yes 600mg Q.5D Take 600 Me thodi [...] capsule mg 3 caps. Orally nightly gabapentin Yes 600mg Q.5D Take 600 Me [...] Na Green 1 tablet Common HCl HCl [facility] Nortriptyli Nortriptyli Yes Na Green 3 capsules Common ne HCl ne HCl [facility] Omeprazole Omeprazole Yes Na Green 1 capsule Common [facility] Atorvastati Atorvastati Yes Na Green 1 tablet Common n Calcium n Calcium [facility] Naproxen Naproxen Yes Na Green 1 tablet Common with food Spirit or milk as - [facility] needed [facility] Morphine Morphine Yes Na Green as Comm on Sulfate Sulfate directed [facility] Duloxetine Duloxetine Yes Na Green 1 capsule Common HCl HCl [facility] Pregabalin Pregabalin Yes Na Green 1 capsule Common [facility] Enalapril Enalapril Yes Na Green 1 tablet Common Maleate Maleate [facility] Gabapentin Gabapentin Yes Na Green 2 capsules Common in the [facility] morning, 2 - CHI at noon St and [facility] Tramadol Tramadol Yes Na Green 2 tablets Common HCl HCl [facility] Naproxen Naproxen No BID Naproxen 500 MG [...] FluAD 2019-12-21 Completed [facility] - 16:29:00 [facility] FluAD FluAD 2019-12-21 Completed [facility] - 16:29:00 [facility] FluAD FluAD 2019-12-21 Completed [facility] - 16:29:00 [facility] FluAD FluAD 2019-12-21 Completed [facility] - 16:29:00 [facility] FluAD FluAD 2019-12-21 Completed [facility] - 16:29:00 [facility] FluAD FluAD 2019-12-21 Completed [facility] - 16:29:00 [facility] FluAD FluAD 2019-12-21 Completed [facility] - 16:29:00 [facility] FluAD FluAD 2019-12-21 Completed [facility] - 16:29:00 [facility] FLUCELVAX QUAD PF 2017-04-[address] 00:00:00 [facility] FLUCELVAX QUAD PF 2017-04-[address] 00:00:00 [facility] FLUCELVAX QUAD PF 2017-04-[address] 00:00:00 [facility] Pneumococcal 2016-10-19 Completed [facility] Conjugate [facility] 00:00:00 [facility] Pneumococcal 2016-10-19 Completed [facility] 00:00:00 [facility] Pneumococcal 2016-10-19 Completed [facility] 00:00:00 [facility] Vital Signs Vital Name Observation Time Observation Value Comments Source height 2022-02-26 13:40:00 59.00 [in_i] [facility] weight 2022-02-26 13:40:00 147.4 [lb_av] [facility] temperature 2022-02-26 13:40:00 97.5 [degF] [facility] bmi 2022-02-26 13:40:00 29.77 kg/m2 [facility] oximetry 2022-02-26 13:40:00 98 % [facility] respiratory rate 2022-02-26 13:40:00 16 /min Comm on [facility] blood pressure 2022-02-26 13:40:00 120 mm[Hg] [facility] systolic [facility] blood pressure 2022-02-26 13:40:00 80 mm[Hg] [facility] diastolic [facility] height 2021-11-24 15:00:00 59.00 [in_i] [facility] weight 2021-11-24 15:00:00 147.2 [lb_av] [facility] temperature 2021-11-24 15:00:00 97.6 [degF] [facility] bmi 2021-11-24 15:00:00 29.73 kg/m2 [facility] oximetry 2021-11-24 15:00:00 98 % [facility] respiratory rate 2021-11-24 15:00:00 16 /min Comm on [facility] blood pressure 2021-11-24 15:00:00 130 mm[Hg] Common [facility] - systolic [facility] blood pressure 2021-11-24 15:00:00 62 mm[Hg] [facility] - diastolic [facility] height 2021-05-15 14:40:00 61.5 [in_i] [facility] weight 2021-05-15 14:40:00 146.2 [lb_av] [facility] temperature 2021-05-15 14:40:00 97.6 [degF] [facility] bmi 2021-05-15 14:40:00 27.17 kg/m2 [facility] oximetry 2021-05-15 14:40:00 97 % [facility] respiratory rate 2021-05-15 14:40:00 18 /min Comm on [facility] blood pressure 2021-05-15 14:40:00 138 mm[Hg] [facility] - systolic [facility] blood pressure 2021-05-15 14:40:00 65 mm[Hg] [facility] diastolic [facility] Procedures This patient has no known procedures. Plan of Care Planned Activity Planned Date Details Comments Source Future Scheduled 2022-11-09 COVID-19 [facility]ACC[facility] 14:06:39 [code = COVID-19 VACCINE (#1)] Future Scheduled 2022-11-09 SHINGLES VACCINES (1 Met [facility] Test 14:06:39 of 2) [code = SHINGLES VACCINES (1 of 2)] Future Scheduled 2022-11-09 65+ [facility]AL [facility] 14:06:39 VACCINE (2 - PPSV23 if available, else PCV20) [code = 65+ PNEUMOCOCCAL VACCINE (2 - PPSV23 if available, else PCV20)] Future Scheduled 2022-11-09 INFLUENZA VACCINE (#1) [facility] Test 14:06:39 [code = INFLUENZA VACCINE (#1)] Future Scheduled 2022-10-19 COVID-19 VACCINE (#1) [facility] Test 10:20:37 [code = COVID-19 VACCINE (#1)] Future Scheduled 2022-10-19 SHINGLES VACCINES (1 Met [facility] Test 10:20:37 of 2) [code = SHINGLES VACCINES (1 of 2)] Future Scheduled 2022-10-19 65+ [facility]OCOCCAL [facility] Test 10:20:37 VACCINE (2 - PPSV23 if available, else PCV20) [code = 65+ PNEUMOCOCCAL VACCINE (2 - PPSV23 if available, else PCV20)] Future Scheduled 2022-10-19 INFLUENZA VACCINE [facility] Test 10:20:37 [code = INFLUENZA VACCINE] Future Scheduled 2022-08-31 [facility] 11:57:42 malignant neoplasm of colon (procedure) [code = 799049290] Future Scheduled 2022-08-31 [facility] Test 11:57:42 malignant neoplasm of colon (procedure) [code = 157431028] Future Scheduled 2022-08-31 [facility] Test 11:57:42 malignant neoplasm of colon (procedure) [code = 950737817] Future Scheduled 2022-08-31 COVID-19 VACCINE (#1) [facility] Test 11:57:42 [code = COVID-19 VACCINE (#1)] Future Scheduled 2022-08-31 [facility]ER [facility] Test 11:57:42 SCREENING [code = BREAST CANCER SCREENING] Future Scheduled 2022-08-31 [facility] Test 11:57:42 malignant neoplasm of colon (procedure) [code = 742282348] Future Scheduled 2022-08-31 [facility] Test 11:57:42 malignant neoplasm of colon (procedure) [code = 384468256] Future Scheduled 2022-08-31 SHINGLES VACCINES (1 Met [facility] Test 11:57:42 of 2) [code = SHINGLES VACCINES (1 of 2)] Future Scheduled 2022-08-31 65+ P[facility]UMOCOCCAL [facility] Test 11:57:42 VACCINE (2 - PPSV23 if available, else PCV20) [code = 65+ PNEUMOCOCCAL VACCINE (2 - PPSV23 if available, else PCV20)] Future Scheduled 2022-08-31 INFLUENZA VACCINE [facility] Test 11:57:42 [code = INFLUENZA VACCINE] Encounters Start End Encounter Admission Attending Care Care Encounter Source Date/Time Date/Time Type Type Clinicians Facility Department ID 2022-10-18 Outpatient Mau STOKSANA STLMLC [id number] Common 14:27:00 Yuliana [id number] [facility] 2022-10-09 Outpatient Mau, STPEPPERLC STLMLC [id number] Common 09:33:00 Yuliana [id number] [facility] 2022-04-17 Outpatient León, STPEPPERLC STLMLC [id number] Common 13:50:01 Yuliana [id number] [facility] 2022-02-22 Outpatient Green, Na STLMLC STLMLC [id number] Common 10:26:02 [facility] 2021-11-22 Outpatient Green, Na STLMLC STLMLC [id number] Common 09:34:01 [facility] 2021 Outpatient Green, Na STLMLC STLMLC [id number] Common 14:55:01 [facility] 2021-07-26 Outpatient Green, Na STLMLC STLMLC [id number] Common 14:08:01 [facility] 2021-04-12 Outpatient Green, Na STLMLC STLMLC [id number] Common 14:28:54 [id number] [facility] 2021-04-12 Outpatient Green, Na STLMLC STLMLC [id number] Common 13:46:16 [id number] [facility] 2021-04-12 Outpatient Green, Na STLMLC STLMLC [id number] Common 13:42:16 [id number] [facility] 2021-04-12 Outpatient Green, Na STLMLC STLMLC [id number] Common 12:45:34 [id number] [facility] 2021-04-12 Outpatient Green, Na STLMLC STLMLC [id number] Common 12:44:53 [id number] [facility] 2021-04-12 Outpatient Green, Na STLMLC STLMLC [id number] 2 Common 12:26:53 [id number] [facility] 2021-04-12 Outpatient Green, Na STLMLC STLMLC [id number] Common 12:25:49 [id number] [facility] 2021-04-12 Outpatient Green, Na STLMLC STLMLC [id number] Common 12:18:05 [id number] [facility] 2021-04-12 Outpatient Green, Na STLMLC STLMLC [id number] Common 11:51:33 [id number] [facility] 2021-04-12 Outpatient Green, Na STLMLC STLMLC [id number] 2 Common 11:29:53 [id number] [facility] 2021-04-12 Outpatient Green, Na STLMLC STLMLC [id number] Common 11:29:37 [id number] [facility] 2022-02-26 2022-02-26 OFFICE STLMLC STLMLC [id number] Co mmon 00:00:00 00:00:00 VISIT EST Spir it PT LEVEL 3 [facility] 2021-11-24 2021-11-24 OFFICE STLMLC STLMLC [id number] Co mmon 00:00:00 00:00:00 VISIT [facility] ESTAB PT - CHI LEVEL 4 [facility] 2021-09-07 2021-09-07 (TEL) STLMLC STLMLC [id number] Co mmon 00:00:00 00:00:00 [facility] 2021-09-04 2021-09-04 (TEL) STLMLC STLMLC [id number] Co mmon 00:00:00 00:00:00 [facility] 2021-06-12 2021-06-12 (TEL) STLMLC STLMLC [id number] Co mmon 00:00:00 00:00:00 [facility] 2021-05-15 2021-05-15 OFFICE STLMLC STLMLC [id number] Co mmon 00:00:00 00:00:00 VISIT EST Spir it PT LEVEL 3 [facility] 2021-04-18 2021-04-18 (TEL) STLMLC STLMLC [id number] Co mmon 00:00:00 00:00:00 [facility] 2021-03-16 2021-03-16 OL DIG E/M STLMLC STLMLC [id number] Common 00:00:00 00:00:00 C 11-20 Spir it MIN [facility] 2020-11-08 2020-11-08 Outpatient STLMLC STLMLC [id number] Common 00:00:00 00:00:00 [facility] 2020-06-13 2020-06-13 Outpatient STLMLC STLMLC [id number] Common 00:00:00 00:00:00 [facility] 2020-06-13 2020-06-13 Outpatient STLMLC STLMLC [id number] Common 00:00:00 00:00:00 [facility] 2020-05-25 2020-05-25 Outpatient STLMLC STLMLC [id number] Common 00:00:00 00:00:00 [facility] 2020-05-16 2020-05-16 Outpatient STLMLC STLMLC [id number] Common 00:00:00 00:00:00 [facility] 2020-04-15 2020-04-15 Outpatient STLMLC STLMLC [id number] Common 00:00:00 00:00:00 [facility] 2019-12-21 2019-12-21 Outpatient STLMLC STLMLC [id number] Common 00:00:00 00:00:00 [facility] 2019-10-04 2019-10-04 [facility] [id number] Common 21:56:00 21:56:[address] [place] [address] [facility] 2019-09-22 2019-09-22 [facility]patient [facility] [id number] Common 14:40:00 14:40:[address] [place] [address] [facility] 2019-09-21 2019-09-21 Outpatient Zafar Siegel [id number] Common 13:40:00 13:40:00 t [employer] [facility] [employer] [facility] Results This patient has no known results.
[2022-11-12 16:45] LABS: Protime INR 0.95
[2022-11-12 16:49] LABS: Hematocrit 30.9 % (36.0-45.0); Lymphocytes % 39.8 % (15.3-44.8); MCV 86.7 fL (80-100); MPV 7.4 fL (7.6-11.3); Platelets 331 thou/uL (152-406); RBC Red Blood Cell Count 3.56 M/uL (3.86-4.86)
[2022-11-12 17:00] LABS: Albumin 3.3 g/dL (3.4-5.0); Bilirubin Direct 0.1 mg/dL (0-0.2); Bilirubin Indirect, Calculated 0.2 mg/dL (0.2-0.8); Bilirubin Total 0.3 mg/dL (0.2-1.0); Ferritin 64.4 ng/mL (8-388); Potassium 3.6 mEq/L (3.5-5.1); Protein, Total 6.7 g/dL (6.4-8.2)
--- NOTE | 2022-11-12 17:15 | EDPHYS ---
Physician Documentation [facility] Name: Azalea Rdz Age: 77 yrs Sex: Female : 1945 Arrival Date: 11/12/2022 Time: 15:15 Bed DIS2 Private MD: ED Physician Sandeep Castro HPI: 11/12 17:10 This 77 yrs old Female presents to ER via Ambulatory with complaints of Abnormal e learning manager Results. 17:10 Pt sent in by PCP for "Low blood count". Patient has been in hospital recently, rn prolonged admission for cdiff/pneumonia/sepsis, feels fine, but told to come after outpt hemoglobin was low. Denies dark stool or vomiting blood. Has never needed a blood transfusion. Denies chest pain/sob. . Onset: The symptoms/episode began/occurred at an unknown time. Severity of symptoms:. The patient has not experienced similar symptoms in the past. The patient has been recently been admitted at [facility]. Historical: - Allergies: 16:00 No Known Allergies; iw - PMHx: 16:00 kidney failure; iw - Immunization history:: Adult Immunizations unknown. - Family history:: not pertinent. - Social history:: Smoking status: unknown. - Hospitalizations: : The patient was recently seen at [facility]. ROS: 17:10 Constitutional: Negative for fever, chills, and weight loss, Eyes: Negative for injury, rn pain, redness, and discharge, Neck: Negative for injury, pain, and swelling, Cardiovascular: Negative for chest pain, palpitations, and edema, Respiratory: Negative for shortness of breath, cough, wheezing, and pleuritic chest pain, Abdomen/GI: Negative for abdominal pain, nausea, vomiting, diarrhea, and constipation, Back: Negative for injury and pain, MS/Extremity: Negative for injury and deformity, Skin: Negative for injury, rash, and discoloration, Neuro: Negative for headache, weakness, numbness, tingling, and seizure. Exam: 17:10 Constitutional: This is a well developed, well nourished patient who is awake, alert, rn and in no acute distress. Head/Face: Normocephalic, atraumatic. Cardiovascular: Regular rate and rhythm. No pulse deficits. Respiratory: No increased work of breathing, no retractions or nasal flaring. Abdomen/GI: Soft, non-tender Skin: Warm, dry MS/ Extremity: Pulses equal, no cyanosis Neuro: Awake and alert, GCS 15, oriented to person, place, time, and situation. Cranial nerves II-XII grossly intact. Motor strength 5/5 in all extremities. Sensory grossly intact. Cerebellar exam normal. Normal gait. Vital Signs: 15:59 BP 129 / 74; Pulse 99; Resp 16; Temp 97.4; Pulse Ox 99% on R/A; iw 17:29 BP 157 / 70; Pulse 73; Resp 16; Pulse Ox 99% ; cm10 MDM: 15:45 Patient medically screened. rn 17:10 Differential Diagnosis anemia, dehydration, incorrect lab values. Data reviewed: vital rn signs, nurses notes, old medical records, lab test result(s), and as a result, I will discharge patient. Counseling: I had a detailed discussion with the patient and/or guardian regarding the historical points, exam findings, and any diagnostic results supporting the discharge/admit diagnosis, lab results, the need for outpatient follow up, to return to the emergency department if symptoms worsen or persist or if there are any questions or concerns that arise at home. Special discussion: I discussed with the patient/guardian in detail that at this point there is no indication for admission to the hospital. It is understood, however, that if the symptoms persist or worsen the patient needs to return immediately for re-evaluation. Based on the history and exam findings, there is no indication for further emergent testing or inpatient evaluation. I discussed with the patient/guardian the need to see the primary care provider for further evaluation of the symptoms. ED course: Hemoglobin 10.3 today, was 10.9 a few weeks ago. Got a call from PCP office, they were looking at hemoglobin from June that was 13.1, but patient with recent prolonged hospitalization and no active bleeding. Will dc home with return precautions. . 11/12 16:05 Order name: CBC with Diff; Complete Time: 17: rn 11/12 16:05 Order name: Basic Metabolic Panel; Complete Time: 17: rn 11/12 16:05 Order name: Protime (+inr); Complete Time: 17: rn 11/12 16:05 Order name: Ptt, Activated; Complete Time: 17: rn 11/12 16:05 Order name: LFT's; Complete Time: 17:05 rn 11/12 16:05 Order name: Ferritin; Complete Time: 17:05 rn 11/12 16:05 Order name: Iron Level rn 11/12 16:05 Order name: IV Start; Complete Time: 16:45 rn Administered Medications: No medications were administered Disposition Summary: 11/12/22 17:15 Discharge Ordered Location: Home rn Problem: an ongoing problem rn Symptoms: are unchanged rn Condition: Stable rn Diagnosis - Anemia, unspecified rn Followup: rn - With: Private Physician - When: As needed - Reason: Recheck today's complaints, Re-evaluation by your physician Forms: - Medication Reconciliation Form rn - Thank You Letter rn - Antibiotic intern architect - Prescription Opioid Use rn - Patient Portal Instructions rn - Leadership Thank You Letter rn Signatures: Dispatcher [employer] Serena Mendosa, RN Sandeep Palacio MD MD rn Martinez, Clarissa RN RN cm10
--- NOTE | 2022-11-12 17:15 | ER ---
Nurse's Notes [facility] Name: Azalea Rdz Age: 77 yrs Sex: Female : 1945 Arrival Date: 11/12/2022 Time: 15:15 Bed DIS2 Private MD: Diagnosis: Anemia, unspecified Presentation: 11/12 15:59 Chief complaint: Patient states: got a call that her blood levels were low and to come iw to ER. Coronavirus screen: At this time, the client does not indicate any symptoms associated with coronavirus-19. Ebola Screen: Patient negative for fever greater than or equal to 101.5 degrees Fahrenheit, and additional compatible Ebola Virus Disease symptoms Patient denies exposure to infectious person. Patient denies travel to an Ebola-affected area in the 21 days before illness onset. No symptoms or risks identified at this time. Initial Sepsis Screen: Does the patient meet any 2 criteria? No. Patient's initial sepsis screen is negative. Does the patient have a suspected source of infection? No. Patient's initial sepsis screen is negative. Risk Assessment: Do you want to hurt yourself or someone else? Patient reports no desire to harm self or others. Onset of symptoms was November 12, 2022. 15:59 Method Of Arrival: Ambulatory iw 15:59 Acuity: ROSIO 3 iw Triage Assessment: 17:30 General: Appears in no apparent distress. comfortable, Behavior is calm, cooperative. cm10 Pain: Denies pain. Neuro: No deficits noted. Level of Consciousness is awake, alert, obeys commands, Oriented to person, place, time, situation. Cardiovascular: No deficits noted. Respiratory: No deficits noted. Airway is patent Respiratory effort is even, unlabored, Respiratory pattern is regular, symmetrical. Derm: No deficits noted. Skin is intact, Skin is pink, warm \T\ dry. Historical: - Allergies: 16:00 No Known Allergies; iw - PMHx: 16:00 kidney failure; iw - Immunization history:: Adult Immunizations unknown. - Family history:: not pertinent. - Social history:: Smoking status: unknown. - Hospitalizations: : The patient was recently seen at [facility]. Screenin:30 [facility] ED Fall Risk Assessment (Adult) History of falling in the last 3 months, cm10 including since admission No falls in past 3 months (0 pts) Confusion or Disorientation No (0 pts) Intoxicated or Sedated No (0 pts) Impaired Gait Yes (1 pt) Mobility Assist Device Used Yes (1 pt) Altered Elimination No (0 pt) Score/Fall Risk Level 0 - 2 = Low Risk Oriented to surroundings, Maintained a safe environment, Hourly rounding (assess needs \T\ fall precautionary measures) done. Abuse screen: Denies threats or abuse. Denies injuries from another. Nutritional screening: No deficits noted. Tuberculosis screening: No symptoms or risk factors identified. Vital Signs: 15:59 BP 129 / 74; Pulse 99; Resp 16; Temp 97.4; Pulse Ox 99% on R/A; iw 17:29 BP 157 / 70; Pulse 73; Resp 16; Pulse Ox 99% ; cm10 ED Course: 15:18 Patient arrived in ED. im 15:45 Sandeep Castro MD is Attending Physician. rn 16:00 Triage completed. iw 16:15 Missed attempt(s): 22 gauge in right antecubital area. bc6 16:34 CBC with Diff Sent. bc6 16:34 Basic Metabolic Panel Sent. bc6 16:34 Ptt, Activated Sent. bc6 16:34 Protime (+inr) Sent. bc6 16:34 LFT's Sent. bc6 16:34 Ferritin Sent. bc6 16:34 Iron Level Sent. bc6 16:34 Missed attempt(s): 22 gauge in right antecubital area. bc6 16:46 Inserted saline lock: 22 gauge in left hand, using aseptic technique. bc6 17:30 Arm band placed on. cm10 17:30 Patient has correct armband on for positive identification. Provided Education on: N/A. cm10 17:31 No provider procedures requiring assistance completed. IV discontinued, intact, cm10 bleeding controlled, No redness/swelling at site. Pressure dressing applied. Administered Medications: No medications were administered Medication: 17:30 VIS not applicable for this client. cm10 Outcome: 17:15 Discharge ordered by . rn 17:31 Discharged to home ambulatory, with family. cm10 17:31 Condition: good 17:31 Discharge instructions given to patient, Instructed on discharge instructions, follow up and referral plans. Demonstrated understanding of instructions, follow-up care. 17:31 Patient left the ED. cm10 Signatures: Serena Avina Sandeep Palacio RN, MD MD rn Carowatson, Breana bc6 Tracee Ortiz Clarissa, RN RN cm10 Corrections: (The following items were deleted from the chart) 16:00 15:59 BP 129 / 74; Pulse 99bpm; Resp 16bpm; Pulse Ox 99% RA; Temp 97.4F; iw emerald
[2022-11-12 17:37] VITALS: TEMP 97.4; O2SAT 99
[2022-11-12 17:38] VITALS: BP 157/70
== END 2022-11-12 17:31 | disposition home or self-care (01) ==
LOC: ER 15:15
DX: D64.9 Anemia, unspecified (principal)
CPT/HCPCS: 36415; 80048; 80076; 82728; 85025; 85610; 85730; 99283

== ENCOUNTER 2023-06-20 06:51 | Day surgery (SDC) | payer OTHER ==
[2023-06-18 14:19] LABS: Absolute Basophils 0.1 K/uL (0-0.5); Absolute Eosinophils 0.1 K/uL (0-0.5); Absolute Lymphocytes (CBC) 2.3 K/uL (0.7-4.9); Absolute Monocytes 0.3 K/uL (0.1-1.3); Absolute Neutrophil 4.3 K/uL (1.8-8.0); Hematocrit 41.5 % (36.0-45.0); Hemoglobin 14.1 g/dL (12.0-15.0); Lymphocytes % 31.8 % (15.3-44.8); MCH 31.8 pg (27.0-35.0); MCHC 34.1 g/dL (32.0-36.0); MCV 93.1 fL (80-100); Monocytes % 4.8 % (3.3-12.3); Neutrophils % 60.4 % (41.7-73.7); Nucleated Red Blood Cells % 0.2 % (0-0); Platelets 241 thou/uL (152-406); RBC Red Blood Cell Count 4.45 M/uL (3.86-4.86); Red Cell Distribution Width 13.6 % (12.1-15.2)
[2023-06-18 14:31] LABS: Anion Gap 7.3 mEq/L (5.0-15.0); Potassium 4.3 mEq/L (3.5-5.1)
[2023-06-20] MEDS ORDERED: ONDANSETRON 4 MG/2 ML VIAL ONE (07:08)
[2023-06-20] MEDS ORDERED: LIDOCAINE 2% MPF 5 ML VIAL ONE (07:08)
[2023-06-20] MEDS ORDERED: propofoL 200 MG/20 ML VIAL IV ONE (07:08)
[2023-06-20] MEDS ORDERED: dexAMETHasone 10 MG/ML VIAL ONE (07:08)
[2023-06-20] MEDS ORDERED: FENTANYL CITR 100 MCG/2 ML ONE (07:09)
[2023-06-20] MEDS ORDERED: ROCURONIUM 50 MG/5 ML VIAL IV ONE (07:09)
[2023-06-20] MEDS: Ringers Lactate 1,000 ML IV ONE (07:20)
[2023-06-20] MEDS ORDERED: LIDOCAINE HCL/EPINEPHRINE 20 ML MDV ONE (07:26)
[2023-06-20] MEDS ORDERED: EPINEPHRINE 1 MG/ML VIAL ONE (07:26)
[2023-06-20] MEDS ORDERED: SUCCINYLCHOLINE 20 MG/ML (10 ML) IV ONE (07:41)
[2023-06-20] MEDS ORDERED: SUGAMMADEX SODIUM 200 MG/2 ML VIAL IV ONE (09:16)
[2023-06-20 10:09] VITALS: O2SAT 100
[2023-06-20] MEDS: LIDOCAINE 4% TOP SOLUTION ONE (10:10)
[2023-06-20] MEDS: OFLOXACIN OPH 0.3%-5 ML BTL ONE (10:15)
[2023-06-20] MEDS: OXYMETAZOLINE HCL 0.05% 15ML NAS ONE (11:27)
[2023-06-20 11:31] VITALS: BP 151/60; TEMP 97
--- NOTE | 2023-06-20 15:45 | EKG ---
Test Date: 2023-06-18 Test Time: 13:56:25 Neurology Professor: MADELINE MEASUREMENT RESULTS: Intervals: Rate: 68 HI: 186 QRSD: 72 QT: 388 QTc: 412 [place]: P: 79 HI: 186 QRS: 5 T: 65 INTERPRETIVE STATEMENTS: Normal sinus rhythm Low voltage QRS Cannot rule out Anterior infarct, age undetermined Abnormal ECG Compared to ECG 10/22/2022 00:38:05 Low QRS voltage now present Sinus tachycardia no longer present Myocardial infarct finding still present Electronically Signed On 06-20-23 15:40:26 CDT by Michael Tapia
--- NOTE | 2023-06-23 16:03 | OP ---
Date of Procedure: 06/20/2023 Surgeon: NIRALI SIFUENTES Primary Care Physician: Unknown. Preoperative Diagnoses: 1.Right ear hemotympanum. 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 4.Active smoker. 5.Right medial ear canal inflammation, possible neoplasm, uncertain behavior. Postoperative Diagnoses: 1.Right ear hemotympanum. 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 4.Active smoker. 5.Distal esophageal inflammation/esophagitis. 6.Gastritis. 7.Right medial ear canal inflammation, possible neoplasm, uncertain behavior. Procedures: 1.Flexible bronchoscopy under general sedation. 2.Flexible esophagogastroduodenoscopy with biopsies of distal esophagus/gastroesophageal junction. 3.Biopsies of gastric mucosa. 4.Microscopic direct laryngoscopy. 5.Nasopharyngeal endoscopy with biopsies of right nasopharynx and torus tubarius. 6.Biopsy of right base of tongue. 7.Right ear exam under general anesthesia with ear wash and biopsies of medial ear canal. Anesthesia: General endotracheal anesthesia was administered. Estimated Blood Loss: Less than 10 mL. Specimens: Obtained from right medial ear canal, gastric mucosa, GE junction mucosa, right base of t ongue, right nasopharynx. Findings: Cystic lesion noted in the right nasopharynx with inflammation of the right torus tubarius blocking the right eustachian tube lumen, diffuse inflammation involving the distal esophagus extend ing into the stomach and duodenum, indurated right base of tongue, suspected for neoplasm, friable ex ternal auditory canal skin just adjacent to the right tympanic annulus in which the skin was heaped u p, possible neoplasm and the patient had dried blood covering the right tympanic membrane. 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 Complications: None. Disposition: Stable. The patient tolerated the procedure well. Indications For Procedure: Patient is a pleasant 77-year-old female who presented to my outpatient c natalia with chronic dysphonia. Patient presented with hoarseness and dysphonia and acute suppurative otitis media with spontaneous rupture of the right eardrum and nasopharyngeal neoplasm of uncertain b ehavior involving the right nasopharynx when I scoped her in the office. Due to the fact that mejia oliveira is an active smoker, I felt that a triple endoscopy was needed. We also agreed that we would perfo rm any biopsies that were necessary and she agreed. These were indications to bring the patient to o perative suite for the above-mentioned procedure. She understood. All questions were answered. Ris ks versus benefits and complications were explained in detail and a consent form was signed which was placed in the chart. Description Of Procedure: Patient was transferred from the preoperative holding area to the operativ e suite by Department of Anesthesia, placed on the operating room table supine, sedated and intubated in normal fashion. Table was rotated 90 degrees and head rest was placed. Our attention was placed to the bronchoscope, which was lubricated and then inserted through the patient's newly placed #8 Sh iley tracheostomy tube. This was advanced to the level of the walter and then distally into the righ t and then left mainstem bronchi. The bronchoscope was advanced first into the right mainstem bronch i and down to the lower segmental orifices. Patient had moderate mucus, but no evidence of mucosal l esions. Thus, I withdrew the scope and advanced it to the left lower lobe and down to the lower segm ent bronchioles. There was no evidence of obvious mucosal lesions. Thus, the bronchoscope completel y was removed through its endotracheal tube. The tube was then switched out to a #6 size. Once tape d in place, my attention was then placed to the esophagoscope which was introduced into the cricophar yngeus while insufflating and then I advanced it all the way to the stomach mucosa. Patient had sign ificant inflammation of the mucosa and I took multiple biopsies and these were submitted to Pathology . I then advanced to the duodenum. The patient had just general inflammation, but there were no sig nificant findings of mucosal lesions. Thus I retroflexed the scope and looked at all areas of the st omach mucosa. I did not detect any masses or lesions. The scope was then withdrawn to the GE juncti on, which demonstrated moderate inflammation and several biopsies were taken at this area and then wh ile suctioning air, I then withdrew the scope completely through from distal and mid to proximal esop hagus. Besides mild inflammation, I did not detect any obvious masses or lesions to biopsy. The sco pe was completely withdrawn. Next, a rigid laryngoscope was introduced into the right oral commissure and directed along the endot samia tube and suspended from the Bacon stand. We protected her remaining upper teeth with a bite g uard. The patient had moderate bilateral Ron's edema of the true vocal folds, but no obvious kiah ngeal masses. The patient was then de-suspended and the rest of the laryngeal complex and hypopharyn geal areas were visualized and free of masses or lesions. The scope was then withdrawn to the area o f the epiglottis and vallecular base of tongue. Palpation of the right base of tongue revealed an in durated mucosa. Thus, multiple biopsies were taken from the right base of tongue. Left base of tong ue was normal. The scope was then removed. Next, utilizing a 0-degree rigid nasal endoscope, I inserted the scope to the level of the nasopharyn x and there was a cystic lesion noted abutting the right torus tubarius. The torus tubarius itself w as inflamed and it had a mottled appearance. Thus, I took biopsies from the right torus tubarius as well as from the right nasopharynx. Mucoid secretions were removed from what appeared to be a cystic lesion of the nasopharynx and I took Gram stain, culture and sensitivity from the cystic cavity. Th e scope was completely withdrawn. Next, a Zeiss microscope was introduced into the field and I place d a 5 mm ear speculum into the right ear canal and under direct visualization, I performed an ear was h of the right ear and then suctioned the saline with a #5 Martinez suction. The right tympanic membran e was covered in dried blood and this was removed with a suction and ear wash. The mucosa was severe ly friable at the medial external auditory canal adjacent to the tympanic annulus. Thus, I took antonia ral biopsies of this area and handed this off the field. Ofloxacin antibiotic drops were instilled i nto the right ear canal and a cotton ball was placed. She tolerated the procedure well, was extubated and transferred to postoperative care unit in stable condition. She will be discharged home on to use drni-its-ekovese analgesia medication and she will follow up in 1 week for results and for further recommendations. She will also use ofloxacin antibio tic drops for the right ear for 1 week. CONNER/JF Voice ID: [id number] Report ID: [id number]
== END 2023-06-20 11:06 | disposition home or self-care (01) ==
LOC: OR 06:51
PROVIDERS: ATTEND Otolaryngology Facial Plastic Surgery
PROC: 0CBM8ZX Excision of Pharynx, Via Natural or Artificial Opening Endoscopic, Diagnostic (ICD-10-PCS; 2023-06-20)
PROC: 09JK8ZZ Inspection of Nasal Mucosa and Soft Tissue, Via Natural or Artificial Opening Endoscopic (ICD-10-PCS; 2023-06-20)
PROC: 09B Ear, Nose, Sinus, Excision (ICD-10-PCS; 2023-06-20)
PROC: 0CJS8ZZ Inspection of Larynx, Via Natural or Artificial Opening Endoscopic (ICD-10-PCS; principal; 2023-06-20 08:00)
PROC: 0DB38ZX Excision of Lower Esophagus, Via Natural or Artificial Opening Endoscopic, Diagnostic (ICD-10-PCS; 2023-06-20 08:00)
PROC: 0DB68ZX Excision of Stomach, Via Natural or Artificial Opening Endoscopic, Diagnostic (ICD-10-PCS; 2023-06-20 08:00)
DX: D37.05 Neoplasm of uncertain behavior of pharynx (principal); H60.321 Hemorrhagic otitis externa, right ear; K29.50 Unspecified chronic gastritis without bleeding; R49.0 Dysphonia; F17.210 Nicotine dependence, cigarettes, uncomplicated; H93.13 Tinnitus, bilateral; R42 Dizziness and giddiness; H91.90 Unspecified hearing loss, unspecified ear
CPT/HCPCS: 31622; 43239; 31536; 31237; 69105; 93005; 85025; 80048; 36415; 87205 ×2; 88312; 88304; 88305; J2704; J2001; J3010; J1100; J2405; J7120; J0171

== ENCOUNTER 2023-10-07 20:52 | Emergency (ER) | payer OTHER ==
[2023-10-07] MEDS ORDERED: HYDROMORPHONE HCL 0.5 MG/0.5 ML INJ ONE (22:32)
[2023-10-07] MEDS ORDERED: ONDANSETRON 4 MG/2 ML VIAL ONE (22:32)
[2023-10-07 22:37] LABS: Specific Gravity 1.012 (1.005-1.030); Sqamous Epithelial <5 /HPF (None Seen); Urine Bacteria <20 /HPF (<20); Urine Bilirubin NEGATIVE (Negative); Urine Blood Negative (Negative); Urine Clarity Clear (Clear); Urine Color Light-Yellow (Yellow); Urine Culture Reflex Order NOT NEEDED; Urine Glucose NEGATIVE (Negative); Urine Ketones TRACE (Negative); Urine Microscopic Reflex YN ORDER UMIC; Urine Nitrite NEGATIVE (Negative); Urine Protein NEGATIVE (Negative); Urine RBC <5 /HPF (None Seen); Urine Urobilinogen Normal (Normal)
[2023-10-07 22:55] LABS: Absolute Basophils 0.1 K/uL (0-0.5); Absolute Lymphocytes (CBC) 1.6 K/uL (0.7-4.9); Absolute Monocytes 0.4 K/uL (0.1-1.3); Absolute Neutrophil 6.1 K/uL (1.8-8.0); Basophils % 0.8 % (0-1.3); Eosinophils % 0.4 % (0-4.4); Hematocrit 44.2 % (36.0-45.0); Hemoglobin 15.4 g/dL (12.0-15.0); Lymphocytes % 20.1 % (15.3-44.8); MCH 31.7 pg (27.0-35.0); MCHC 34.8 g/dL (32.0-36.0); MCV 91.1 fL (80-100); MPV 7.9 fL (7.6-11.3); Monocytes % 4.8 % (3.3-12.3); Neutrophils % 73.9 % (41.7-73.7); Nucleated Red Blood Cells % 0.2 % (0-0); Platelets 240 thou/uL (152-406); RBC Red Blood Cell Count 4.85 M/uL (3.86-4.86); Red Cell Distribution Width 13.4 % (12.1-15.2)
[2023-10-07 23:01] LABS: Albumin 4.5 g/dL (3.4-5.0); Albumin/Globulin Ratio 1.2 (1.1-1.8); Anion Gap 8.8 mEq/L (5.0-15.0); Bilirubin Total 0.5 mg/dL (0.2-1.0); Globulin 3.7 g/dL (2.3-3.5); Potassium 3.8 mEq/L (3.5-5.1); Protein, Total 8.2 g/dL (6.4-8.2)
[2023-10-08] MEDS ORDERED: HYDROMORPHONE ORAL 2 MG TAB ONE (02:51)
--- NOTE | 2023-10-08 02:53 | ER ---
Nurse's Notes [facility] Name: Azalea Rdz Age: 78 yrs Sex: Female : 1945 Arrival Date: 10/07/2023 Time: 20:52 Bed 18 Private MD: Diagnosis: Acute exacerbation of chronic spinal pain, acute pelvic pain Presentation: 10/06 20:59 Chief complaint: Patient states: c/o pelvic pain x1 month, cant get in with pain al5 management doctor. Coronavirus screen: At this time, the client does not indicate any symptoms associated with coronavirus-19. Ebola Screen: No symptoms or risks identified at this time. Initial Sepsis Screen: Does the patient meet any 2 criteria? No. Patient's initial sepsis screen is negative. Does the patient have a suspected source of infection? No. Patient's initial sepsis screen is negative. Risk Assessment: Do you want to hurt yourself or someone else? Patient reports no desire to harm self or others. Onset of symptoms was August 2023. 20:59 Method Of Arrival: Ambulatory al5 20:59 Acuity: ROSIO 3 al5 Triage Assessment: 21:00 General: Appears uncomfortable, Behavior is cooperative, crying. Pain: Complains of al5 pain in pelvis. EENT: No signs and/or symptoms were reported regarding the EENT system. Neuro: Level of Consciousness is awake, alert, obeys commands, Oriented to person, place, time, situation, Speech is normal. Cardiovascular: Patient's skin is warm and dry. Respiratory: Airway is patent Respiratory effort is even, unlabored, Respiratory pattern is regular, symmetrical. GI: Reports pelvic pain. : Reports pain with urination. Derm: Skin is intact, Skin is pink, warm \T\ dry. normal. Musculoskeletal: WNL Reports back pain, pelvic pain. Historical: - Allergies: 21:00 No Known Allergies; al5 - PMHx: 21:00 Hypertensive disorder; kidney failure; neuropathy; al5 - PSHx: 21:00 None; al5 - Immunization history:: Adult Immunizations up to date. - Infectious Disease History:: Denies. - Social history:: Smoking status: Patient denies any tobacco usage or history of. - Family history:: not pertinent. Screenin:13 [facility] ED Fall Risk Assessment (Adult) History of falling in the last 3 months, cp4 including since admission No falls in past 3 months (0 pts) Confusion or Disorientation No (0 pts) Intoxicated or Sedated No (0 pts) Impaired Gait Yes (1 pt) Mobility Assist Device Used Yes (1 pt) Altered Elimination No (0 pt) Score/Fall Risk Level 0 - 2 = Low Risk Oriented to surroundings, Maintained a safe environment, Assessed \T\ reinforced patient's understanding of fall precautions, Hourly rounding (assess needs \T\ fall precautionary measures) done. Abuse screen: Denies threats or abuse. Nutritional screening: No deficits noted. Tuberculosis screening: No symptoms or risk factors identified. Assessment: 22:13 General: Appears uncomfortable, Behavior is calm, cooperative, appropriate for age. cp4 Pain: Complains of pain in pelvis Pain currently is 10 out of 10 on a pain scale. Neuro: Level of Consciousness is awake, alert, obeys commands, Oriented to person, place, time, situation. Cardiovascular: No deficits noted. Respiratory: No deficits noted. GI: No deficits noted. : No deficits noted. EENT: No deficits noted. Derm: No deficits noted. Musculoskeletal: Reports pain in pelvis. 23:00 Reassessment: No changes from previously documented assessment. Patient and/or family cp4 updated on plan of care and expected duration. Pain level reassessed. Patient is alert, oriented x 3, equal unlabored respirations, skin warm/dry/pink. Vital Signs: 20:59 BP 134 / 82; Pulse 18; Resp 100; Temp 97.4; Pulse Ox 100% ; Weight 57.15 kg; Height 5 al5 ft. 3 in. ; Pain 10/10; 23:00 BP 149 / 69; Pulse 74; Resp 18; Pulse Ox 94% ; cp4 10/07 00:00 BP 140 / 68; Pulse 68; Resp 18; Pulse Ox 95% ; cp4 01:00 BP 146 / 64; Pulse 62; Resp 18; Pulse Ox 95% ; cp4 02:00 BP 133 / 75; Pulse 67; Resp 18; Pulse Ox 96% ; cp4 03:00 BP 126 / 75; Pulse 65; Resp 18; Pulse Ox 99% ; cp4 10/06 20:59 Body Mass Index 22.32 (57.15 kg, 160.02 cm) al5 07/22 20:59 Pain Scale: Adult al5 [place] Coma Score: 02:47 Eye Response: spontaneous(4). Motor Response: obeys commands(6). Verbal Response: sp4 oriented(5). Total: 15. ED Course: 10/06 20:54 Patient arrived in ED. mr 20:57 Walter Peña MD is Attending Physician. sp4 21:00 Triage completed. al5 21:01 Arm band placed on right wrist. Patient placed in an exam room, on a stretcher. al5 22:07 Madison Terrell is Primary Nurse. cp4 22:13 Bed in low position. Call light in reach. Side rails up X 1. cp4 22:13 No provider procedures requiring assistance completed. cp4 22:31 CBC with Diff Sent. cp4 22:31 CMP Sent. cp4 22:31 Lipase Sent. cp4 22:31 Urinalysis w/ reflexes Sent. cp4 22:38 Initial lab(s) drawn, by vt, sent to lab. Inserted saline lock: 22 gauge in right cp4 antecubital area, using aseptic technique. Blood collected. Flushed with 10 mL NS. 10/07 01:54 CT Abd/Pelvis - Without Contrast In Process Unspecified. EDMS 03:09 Provided Education on: chronic pain. cp4 03:09 intact, bleeding controlled, No redness/swelling at site. Pressure dressing applied. cp4 Administered Medications: 10/06 22:37 Drug: HYDROmorphone IVP 1 mg IVP once Route: IVP; Site: right antecubital; cp4 10/07 02:53 Follow up: Response: No adverse reaction; Pain is decreased cp4 10/06 22:37 Drug: Ondansetron IVP 4 mg IVP once; over 2 minutes Route: IVP; Site: right antecubital;cp4 10/07 02:53 Follow up: Response: No adverse reaction cp4 02:53 Not Given (Physician Discretion): hydromorphone1 mg IVP once cp4 03:06 Drug: HYDROmorphone PO 2 mg PO once Route: PO; cp4 03:06 Follow up: Response: No adverse reaction cp4 Medication: 10/06 22:13 VIS not applicable for this client. cp4 Outcome: 10/07 02:53 Discharge ordered by . sp4 03:09 Discharged to home ambulatory, cp4 03:09 Condition: stable 03:09 Discharge instructions given to patient, Instructed on discharge instructions, follow up and referral plans. medication usage, Demonstrated understanding of instructions, follow-up care, medications, Prescriptions given X 1, 03:09 Patient left the ED. cp4 Signatures: Dispatcher [employer] EDNH CamposLyn venegas, Reg Reg mr Walter Peña MD MD sp4 Madison Terrell cp4 Kayla Steven RN RN al5 Corrections: (The following items were deleted from the chart) 10/06 22:15 22:13 General: Appears cp4 cp4
--- NOTE | 2023-10-08 02:53 | EDPHYS ---
Physician Documentation [facility] Name: Azalea Rdz Age: 78 yrs Sex: Female : 1945 Arrival Date: 10/07/2023 Time: 20:52 Bed 18 Private MD: ED Physician Walter Peña HPI: 10/06 20:57 This 78 yrs old Female presents to ER via Unassigned with complaints of Back sp4 Pain, Pelvic Pain. 10/07 02:46 78-year-old female with history of hypertensive disorder and neuropathy also history of sp4 extensive L2-L5 spinal hardware, history of severe hip arthritis right hip , presents with acute worsening of the spinal pain associated with pelvic pain. . 02:47 Patient was here for the same thing on 10/04/2023 and was discharged home with advised sp4 to see her pain management physician and also to obtain lumbar spine MRI for further evaluation. Patient is scheduled pain medicine appointment for Saturday next week. However she is here with severe pain secondary to acute worsening of chronic spinal pain and also associated right pelvic pain. . Historical: - Allergies: 10/06 21:00 No Known Allergies; al5 - PMHx: 21:00 Hypertensive disorder; kidney failure; neuropathy; al5 - PSHx: 21:00 None; al5 - Immunization history:: Adult Immunizations up to date. - Infectious Disease History:: Denies. - Social history:: Smoking status: Patient denies any tobacco usage or history of. - Family history:: not pertinent. ROS: 10/07 02:47 Constitutional: Negative for fever, chills, and weight loss, positive for worsening sp4 spinal and pelvic pain . All other systems are negative, Exam: 02:47 Constitutional: This is a well developed, well nourished patient who is awake, alert, sp4 and in in moderate to severe distress on arrival. Ambulatory on arrival Head/Face: Normocephalic, atraumatic. Eyes: Pupils equal round and reactive to light, extra-ocular motions intact. Lids and lashes normal. Conjunctiva and sclera are not injected. Cornea within normal limits. Periorbital areas with no swelling, redness, or edema. ENT: Nares patent. No nasal discharge, no septal abnormalities noted. Tympanic membranes are normal and external auditory canals are clear. Oropharynx with no redness, swelling, or masses, exudates, or evidence of obstruction, uvula midline. Mucous membranes moist. Neck: Trachea midline, no thyromegaly or masses palpated, and no cervical lymphadenopathy. Supple, full range of motion without nuchal rigidity, or vertebral point tenderness. Chest/axilla: Normal chest wall appearance and motion. Nontender with no deformity. No lesions are appreciated. Cardiovascular: Regular rate and rhythm with a normal S1 and S2. No gallops, murmurs, or rubs. Normal PMI, no JVD. No pulse deficits. Respiratory: Lungs have equal breath sounds bilaterally, clear to auscultation and percussion. No rales, rhonchi or wheezes noted. No increased work of breathing, no retractions or nasal flaring. Abdomen/GI: Soft, with normal bowel sounds. No distension or tympany. No guarding or rebound. No evidence of tenderness throughout. Back: No spinal tenderness. No costovertebral tenderness. Large healed post operative scar Skin: Warm, dry with normal turgor. Normal color with no rashes, no lesions, and no evidence of cellulitis. MS/ Extremity: Pulses equal, no cyanosis. Neurovascular intact. Full, normal range of motion. Neuro: Awake and alert, GCS 15, oriented to person, place, time, and situation. Cranial nerves II-XII grossly intact. Motor strength 5/5 in all extremities. Sensory grossly intact. Psych: Awake, alert, with orientation to person, place and time. Behavior, mood, and affect are within normal limits Vital Signs: 10/06 20:59 BP 134 / 82; Pulse 18; Resp 100; Temp 97.4; Pulse Ox 100% ; Weight 57.15 kg; Height 5 al5 ft. 3 in. ; Pain 10/10; 23:00 BP 149 / 69; Pulse 74; Resp 18; Pulse Ox 94% ; cp4 10/07 00:00 BP 140 / 68; Pulse 68; Resp 18; Pulse Ox 95% ; cp4 01:00 BP 146 / 64; Pulse 62; Resp 18; Pulse Ox 95% ; cp4 02:00 BP 133 / 75; Pulse 67; Resp 18; Pulse Ox 96% ; cp4 03:00 BP 126 / 75; Pulse 65; Resp 18; Pulse Ox 99% ; cp4 10/06 20:59 Body Mass Index 22.32 (57.15 kg, 160.02 cm) al5 10/06 20:59 Pain Scale: Adult al5 [place] Coma Score: 02:47 Eye Response: spontaneous(4). Motor Response: obeys commands(6). Verbal Response: sp4 oriented(5). Total: 15. MDM: 10/06 21:04 Patient medically screened. sp4 10/07 02:39 ED course: EXAM: CTAbdomen and Pelvis Without Intravenous Contrast CLINICAL HISTORY: sp4 The patient is 78 years old and is Female; pelvic pain TECHNIQUE: Axial computed tomography images of the abdomen and pelvis without intravenous contrast. Sagittal and coronal reformatted images were created and reviewed. This CT exam was performed using one or more of the following dose reduction techniques: automated exposure control, adjustment of the mA and/or kV according to patient size, and/or use of iterative reconstruction technique. COMPARISON: CT scan pelvis October 03, 2023 FINDINGS: LUNG BASES: Unremarkable. No mass. No consolidation. ABDOMEN: LIVER: Homogeneous without focal mass. GALLBLADDER AND BILE DUCTS: The gallbladder is moderately distended. No calcified gallstones or ductal dilatation. PANCREAS: Unremarkable. No ductal dilation. SPLEEN: Unremarkable. ADRENALS: Unremarkable. No mass. KIDNEYS AND URETERS: No obstructing stones. No hydronephrosis. No perinephric fluid. STOMACH AND BOWEL: The stomach is minimally filled with fluid and air. The small bowel is normal in caliber. Stool is present throughout the colon. Scattered colonic diverticula are noted without surrounding inflammation. There is no mucosal thickening or evidence of obstruction. PELVIS: APPENDIX: No findings to suggest acute appendicitis. BLADDER: The bladder is well distended. No stones. REPRODUCTIVE: The patient is status post hysterectomy. ABDOMEN and PELVIS: INTRAPERITONEAL SPACE: Unremarkable. No free air. No significant fluid collection. BONES/JOINTS: Extensive degenerative change of the right hip is noted. Postsurgical change of the lumbar spine with spinal rods and pedicle screws from L2 through L5 along with biliary obstruction is noted. The hardware is engaged. SOFT TISSUES: The soft tissues are normal. VASCULATURE: Atherosclerosis of the vasculature is present. The vessels are normal in caliber. No abdominal aortic aneurysm. LYMPH NODES: Unremarkable. No enlarged lymph nodes. IMPRESSION: 1. No acute findings on this noncontrasted CT of the abdomen and pelvis to explain the patient's symptoms. 2. Chronic findings as detailed above. Electronically signed by: Amarilys Dela Cruz MD 10/08/2023 02:26 AM. 02:50 Differential diagnosis: chronic back pain, Fatigue Fracture Myeloma Neoplasm sp4 Pyelonephritis Renal Infarction ruptured disc, Scoliosis. Data reviewed: vital signs, nurses notes, old medical records, lab test result(s), radiologic studies, CT scan. Consideration of Admission/Observation Escalation of care including admission/observation considered. ED course: CT has revealed - BONES/JOINTS: Extensive degenerative change of the right hip is noted. Postsurgical change of the lumbar spine with spinal rods and pedicle screws from L2 through L5 along with biliary obstruction is noted. The hardware is engaged. Patient is ambulatory on arrival pain has improved with 4 mg IV Dilaudid. Patient stable for discharge home with p.o. as needed Dilaudid 10 tablets total. Advised to see her pain management physician for pain medication adjustment. Also advised to see her neurosurgeon and obtain MRI of the L-spine for further evaluation. Suspect the pain comes from spinal hardware with perhaps compression onto one of the spinal radicles. . 10/06 21:04 Order name: CBC with Diff; Complete Time: 23:17 sp4 10/06 21:04 Order name: CMP; Complete Time: 23:17 sp4 10/06 21:04 Order name: Lipase; Complete Time: 23:17 sp4 10/06 21:04 Order name: Urinalysis w/ reflexes; Complete Time: 23:17 sp4 10/07 00:28 Order name: CT Abd/Pelvis - Without Contrast sp4 10/06 21:04 Order name: IV Saline Lock; Complete Time: 22:31 sp4 10/06 21:04 Order name: Labs collected and sent; Complete Time: 22:31 sp4 Administered Medications: 10/06 22:37 Drug: HYDROmorphone IVP 1 mg IVP once Route: IVP; Site: right antecubital; 4 10/07 02:53 Follow up: Response: No adverse reaction; Pain is decreased 4 10/06 22:37 Drug: Ondansetron IVP 4 mg IVP once; over 2 minutes Route: IVP; Site: right antecubital;4 10/07 02:53 Follow up: Response: No adverse reaction cp4 02:53 Not Given (Physician Discretion): hydromorphone1 mg IVP once cp4 03:06 Drug: HYDROmorphone PO 2 mg PO once Route: PO; cp4 03:06 Follow up: Response: No adverse reaction cp4 Disposition Summary: 10/08/23 02:53 Discharge Ordered Notes: Location: Home sp4 Problem: new sp4 Symptoms: have improved sp4 Condition: Stable sp4 Diagnosis - Acute exacerbation of chronic spinal pain, acute pelvic pain sp4 Followup: sp4 - With: Private Physician - When: 2 - 3 days - Reason: Recheck today's complaints Discharge Instructions: - Discharge Summary Sheet sp4 - Chronic Back Pain, [id number] sp4 Forms: - Patient Portal Instructions sp4 Signatures: Dispatcher [employer] Walter Holden MD MD sp4 Madison Terrell cp4 Kayla Steven RN RN al5
--- NOTE | 2023-10-08 14:28 | RAD REPORT ---
EXAM DESCRIPTION: CT - Abdomen Pelvis Wo Contrast - 10/08/2023 6:55 am CLINICAL HISTORY: The patient is 78 years old and is Female; pelvic pain TECHNIQUE: Axial computed tomography images of the abdomen and pelvis without intravenous contrast. Sagittal and coronal reformatted images were created and reviewed. This CT exam was performed usi ng one or more of the following dose reduction techniques: automated exposure control, adjustment o f the mA and/or kV according to patient size, and/or use of iterative reconstruction technique. COMPARISON: CT scan pelvis October 03, 2023 FINDINGS: LUNG BASES: Unremarkable. No mass. No consolidation. ABDOMEN: LIVER: Homogeneous without focal mass. GALLBLADDER AND BILE DUCTS: The gallbladder is moderately distended. No calcified gallstones or d uctal dilatation. PANCREAS: Unremarkable. No ductal dilation. SPLEEN: Unremarkable. ADRENALS: Unremarkable. No mass. KIDNEYS AND URETERS: No obstructing stones. No hydronephrosis. No perinephric fluid. STOMACH AND BOWEL: The stomach is minimally filled with fluid and air. The small bowel is normal in caliber. Stool is present throughout the colon. Scattered colonic diverticula are noted without kothari rrounding inflammation. There is no mucosal thickening or evidence of obstruction. PELVIS: APPENDIX: No findings to suggest acute appendicitis. BLADDER: The bladder is well distended. No stones. REPRODUCTIVE: The patient is status post hysterectomy. ABDOMEN and PELVIS: INTRAPERITONEAL SPACE: Unremarkable. No free air. No significant fluid collection. BONES/JOINTS: Extensive degenerative change of the right hip is noted. Postsurgical change of the lumbar spine with spinal rods and pedicle screws from L2 through L5 along with biliary obstruction i s noted. The hardware is engaged. SOFT TISSUES: The soft tissues are normal. VASCULATURE: Atherosclerosis of the vasculature is present. The vessels are normal in caliber. No abdominal aortic aneurysm. LYMPH NODES: Unremarkable. No enlarged lymph nodes. IMPRESSION: 1. No acute findings on this noncontrasted CT of the abdomen and pelvis to explain the patient's symptoms. 2. Chronic findings as detailed above. Electronically signed by: Amarilys Dela Cruz MD 10/08/2023 02:26 AM CDT Due to temporary technical issues with the PACS/Fluency reporting system, reports are being signed by the in house radiologists without review as a courtesy to insure prompt reporting. The interpreting radiologist is fully responsible for the content of the report.
[2023-10-10 16:17] VITALS: BP 126/75; TEMP 97.4; O2SAT 99
== END 2023-10-08 03:09 | disposition home or self-care (01) ==
LOC: ER 20:52
DX: M54.9 Dorsalgia, unspecified (principal); G89.29 Other chronic pain; R10.2 Pelvic and perineal pain; I10 Essential (primary) hypertension
CPT/HCPCS: 85025; 81001; 36415; 83690; 80053; 74176; 96375; 96374; 99284; J1170; J2405

== ENCOUNTER 2023-11-03 07:15 | Observation (INO) | payer OTHER ==
[2023-11-03 08:21] LABS: Absolute Lymphocytes (CBC) 1.2 K/uL (0.7-4.9); Absolute Monocytes 0.7 K/uL (0.1-1.3); Basophils % 0.2 % (0-1.3); Eosinophils % 0.1 % (0-4.4); Hemoglobin 14.2 g/dL (12.0-15.0); Lymphocytes % 8.3 % (15.3-44.8); MCH 31.3 pg (27.0-35.0); MCHC 33.9 g/dL (32.0-36.0); MCV 92.4 fL (80-100); MPV 7.6 fL (7.6-11.3); Monocytes % 4.8 % (3.3-12.3); Neutrophils % 86.6 % (41.7-73.7); PT Prothrombin Time 12.1 SECONDS (9.4-12.5); Platelets 226 thou/uL (152-406); Protime INR 1.08; RBC Red Blood Cell Count 4.55 M/uL (3.86-4.86); Red Cell Distribution Width 14.2 % (12.1-15.2)
[2023-11-03 08:39] LABS: Albumin 3.3 g/dL (3.4-5.0); Albumin/Globulin Ratio 1.1 (1.1-1.8); Anion Gap 11.5 mEq/L (5.0-15.0); Bilirubin Direct 0.2 mg/dL (0-0.2); Bilirubin Indirect, Calculated 0.3 mg/dL (0.2-0.8); Bilirubin Total 0.5 mg/dL (0.2-1.0); Globulin 3.1 g/dL (2.3-3.5); Magnesium 1.8 mg/dL (1.6-2.4); Potassium 3.5 mEq/L (3.5-5.1); Protein, Total 6.4 g/dL (6.4-8.2)
--- NOTE | 2023-11-03 08:40 | RAD REPORT ---
EXAM DESCRIPTION: RAD - Chest Single View - 11/03/2023 8:29 am CLINICAL HISTORY: DYSPNEA COMPARISON: Chest Single View dated 10/25/2022; Chest Single View dated 10/22/2022; Chest Single View d ated 10/22/2022; Chest Single View dated 09/17/2022 FINDINGS: Lines: Right IJ approach central line is been removed. Lungs: No evidence of edema or pneumonia. Pleural: No significant pleural effusions or pneumothorax. Cardiac: The heart size is within normal limits. Mediastinum: Within normal limits. Bones: No acute fractures. Other: None IMPRESSION: No acute cardiopulmonary disease.
[2023-11-03] MEDS ORDERED: BISACODYL 10 MG RECTAL SUPP ONE (08:57)
[2023-11-03] MEDS ORDERED: NA CHLORIDE 0.9% 500 ML ONE (08:57)
[2023-11-03] MEDS ORDERED: ASPIRIN 81 MG CHEWABLE TABLET ONE (08:57)
[2023-11-03] MEDS ORDERED: LACTULOSE 20 GM/30 ML UCUP ONE (08:58)
[2023-11-03 08:59] LABS: Specific Gravity > 1.030 (1.005-1.030); Sqamous Epithelial <5 /HPF (None Seen); Urine Bacteria 20-50 /HPF (<20); Urine Bilirubin NEGATIVE (Negative); Urine Blood Negative (Negative); Urine Clarity Extremely Turbid (Clear); Urine Color Yellow (Yellow); Urine Culture Reflex Order REFLEXED; Urine Glucose NEGATIVE (Negative); Urine Ketones 3+ (Negative); Urine Microscopic Reflex YN ORDER UMIC; Urine Mucus 4+ /HPF (None Seen); Urine Nitrite NEGATIVE (Negative); Urine Protein 1+ (Negative); Urine RBC 21-50 /HPF (None Seen); Urine Urobilinogen 1+ (Normal); Urine pH 5.5 (5.0-7.0)
[2023-11-03 09:15] LABS: Blood Morphology Comment NOT SEEN (NOT SEEN); Platelet Estimate ADEQ; White Blood Cell Scan OK (OK)
--- NOTE | 2023-11-03 10:37 | ER ---
Nurse's Notes [facility] Name: Azalea Rdz Age: 78 yrs Sex: Female : 1945 Arrival Date: 11/03/2023 Time: 07:15 Bed 19 Private MD: Diagnosis: Abdominal pain, unspecified;Chest pain, unspecified;UTI/ Urinary tract infection, site not specified;Constipation, unspecified;Nausea Presentation: 11/02 07:25 Chief complaint: Patient states: "I feel like I have a hook in my butt and I am having aa5 trouble breathing". EMS reports pt was recently seen by pain management and had pain medication changed from morphine to oxycodone and methadone. EMS reports pt was very anxious upon scene arrival. Coronavirus screen: nausea. Ebola Screen: Patient denies travel to an Ebola-affected area in the 21 days before illness onset. Initial Sepsis Screen: Does the patient meet any 2 criteria? No. Patient's initial sepsis screen is negative. Does the patient have a suspected source of infection? No. Patient's initial sepsis screen is negative. Risk Assessment: Do you want to hurt yourself or someone else? Patient reports no desire to harm self or others. Onset of symptoms was November 03, 2023. 07:25 Acuity: ROSIO 3 aa5 07:25 Method Of Arrival: [facility] aa5 07:25 Care prior to arrival: Medication(s) given: zofran 4 mg, IV initiated. 20 GA, in the aa5 left antecubital area. Historical: - Allergies: 07:27 No Known Allergies; aa5 - PMHx: 07:27 Hypertensive disorder; kidney failure; neuropathy; aa5 - Immunization history:: Adult Immunizations unknown. - Infectious Disease History:: Denies. - Social history:: Smoking status: Patient reports the use of cigarette tobacco products. - Family history:: not pertinent. Screenin:30 [facility] ED Fall Risk Assessment (Adult) History of falling in the last 3 months, aa5 including since admission No falls in past 3 months (0 pts) Confusion or Disorientation No (0 pts) Intoxicated or Sedated No (0 pts) Impaired Gait Yes (1 pt) Mobility Assist Device Used Yes (1 pt) Altered Elimination Yes (1 pt) Score/Fall Risk Level 3 or more points = High Risk Oriented to surroundings, Maintained a safe environment, Educated pt \\T\\ family on fall prevention, incl call for assistance when getting out of bed, Assessed \\T\\ reinforced patient's understanding of fall precautions, Hourly rounding (assess needs \\T\\ fall precautionary measures) done. Abuse screen: Denies threats or abuse. Nutritional screening: No deficits noted. Tuberculosis screening: No symptoms or risk factors identified. Assessment: 07:30 General: Appears uncomfortable, Behavior is anxious. Pain: Complains of pain in rectum aa5 Pain currently is 10 out of 10 on a pain scale. Quality of pain is described as tender, Pain began today Is continuous. Neuro: Level of Consciousness is awake, alert, obeys commands, Oriented to person, place, time, situation. Cardiovascular: Heart tones S1 S2 present Edema is absent. Rhythm is regular. Respiratory: Reports SOB that has improved, pt states "I have panic attacks" Airway is patent Respiratory effort is even, unlabored, Respiratory pattern is regular, symmetrical, Breath sounds are clear bilaterally. GI: Abdomen is non-distended, Bowel sounds present X 4 quads. Abd is soft X 4 quads Reports constipation, nausea, Patient currently denies diarrhea, vomiting. : No signs and/or symptoms were reported regarding the genitourinary system. EENT: No signs and/or symptoms were reported regarding the EENT system. Derm: Skin is pink, warm \\T\\ dry. Musculoskeletal: Range of motion: intact in all extremities. 08:15 Reassessment: Patient is alert, oriented x 3, equal unlabored respirations, skin aa5 warm/dry/pink. General: Appears uncomfortable. 08:15 Pain: Complains of pain in rectum. aa5 08:40 Reassessment: Pt assisted to restroom via wheelchair. aa5 09:20 Reassessment: Pt assisted back into bed, pt had small formed bowel movement, dark green aa5 in color, pt reports mild improvement of rectal pain now. Currently denies nausea. Pt was also assisted with urine collection earlier and specimen was sent to lab. . 09:20 Reassessment: Patient is alert, oriented x 3, equal unlabored respirations, skin aa5 warm/dry/pink. Patient states feeling better. General: Appears comfortable. 11:10 Reassessment: Patient is alert, oriented x 3, equal unlabored respirations, skin aa5 warm/dry/pink. Pt assisted to restroom via wheelchair, pt had small green bowel movement. States feeling better. . 11:27 Reassessment: Pt completed CT oral contrast, CT notified. . aa5 12:10 Reassessment: Pt had watery green stool, pt cleaned and clean brief applied. . aa5 12:30 Reassessment: Patient is alert, oriented x 3, equal unlabored respirations, skin aa5 warm/dry/pink. Pt back from CT scan, pt will be transported to admitting floor now. . 12:49 Reassessment: Pt cleaned of watery green stool, clean brief applied prior to being aa5 transferred to admitting floor. . Vital Signs: 07:25 BP 152 / 74; Pulse 92; Resp 18 S; Temp 98.4(O); Pulse Ox 98% on R/A; aa5 09:30 BP 145 / 71; Pulse 74; Resp 18 S; Pulse Ox 97% on R/A; aa5 11:30 BP 145 / 71; Pulse 77; Resp 16; Temp 98(O); Pulse Ox 97% on R/A; aa5 ED Course: 07:25 Patient arrived in ED. aa5 07:25 Arm band placed on Patient placed in an exam room, on a stretcher. aa5 07:25 Patient has correct armband on for positive identification. Bed in low position. Call aa5 light in reach. Side rails up X2. Client placed on continuous cardiac and pulse oximetry monitoring. NIBP monitoring applied. monitoring coordinator on. Pulse ox on. NIBP on. 07:27 Triage completed. aa5 07:27 Nitish Hoyt MD is Attending Physician. abraham 07:29 Kaycee Suárez, STEPHEN is Primary Nurse. aa5 08:10 Initial lab(s) drawn, by pr, sent to lab. aa5 08:10 Maintain EMS IV. Dressing intact. Good blood return noted. Site clean \\T\\ dry. Gauge \\T\\ aa 5 site: 20G to L AC . Flushed with 10 mL NS. 08:31 XRAY Chest (1 view) In Process Unspecified. EDMS 09:20 EKG done, by ED staff, reviewed by Nitish Hoyt MD. aa5 10:36 Carolyne Oviedo MD is Hospitalizing Provider. abraham 12:49 No provider procedures requiring assistance completed. Patient admitted, IV remains in aa5 place. Administered Medications: 09:00 Drug: NS 0.9% IV 500 ml IV at bolus once Route: IV; Rate: bolus; Site: left antecubital;aa5 09:40 Follow up: IV Status: Completed infusion; IV Intake: 500ml aa5 09:00 Drug: Aspirin PO Chewable Tablet 81 mg PO once Route: PO; aa5 11:35 Follow up: Response: No adverse reaction aa5 09:00 Drug: Lactulose PO 30 grams 45 ml PO once Volume: 45 ml; Route: PO; aa5 11:35 Follow up: Response: No adverse reaction aa5 09:00 Drug: Dulcolax WA Suppository 10 mg WA once Route: WA; aa5 11:35 Follow up: Response: No adverse reaction aa5 11:24 Drug: Ondansetron IVP 4 mg IVP once; over 2 minutes Route: IVP; Site: left antecubital; aa5 11:30 Follow up: Response: No adverse reaction aa5 11:26 Drug: Rocephin IV 1 grams IV at per protocol once; Given slow IV push per pharmacy aa5 instructions Route: IV; Rate: per protocol; Site: left antecubital; 11:35 Follow up: Response: No adverse reaction aa5 12:35 Not Given (Physician Discretion): ns 0.9% 1000 ml IV at 125 ml/hr continuous aa5 Medication: 09:33 VIS not applicable for this client. aa5 Intake: 09:40 IV: 500ml; Total: 500ml. aa5 Outcome: 10:37 Decision to Hospitalize by Provider. abraham 12:49 Admitted to Med/surg accompanied by tech, via wheelchair, with chart, aa5 12:49 Condition: stable 12:49 Instructed on the need for admit, Demonstrated understanding of instructions, 12:50 Patient left the ED. aa5 Signatures: Dispatcher [employer] EDNitish Christianson MD MD cha Calderon, Audri, RN RN aa5 Corrections: (The following items were deleted from the chart) 09:31 09:20 Reassessment: Pt assisted back into bed, pt had small formed bowel movement, dark aa5 green in color, pt reports mild improvement of rectal pain now. Currently denies nausea. . aa5
--- NOTE | 2023-11-03 10:37 | EDPHYS ---
Physician Documentation [facility] Name: Azalea Rdz Age: 78 yrs Sex: Female : 1945 Arrival Date: 11/03/2023 Time: 07:15 Bed 19 Private MD: ED Physician Nitish Hoyt HPI: 11/02 10:25 This 78 yrs old Female presents to ER via EMS with complaints of Rectal Pain, abraham Shortness Of Breath. 10:25 The patient presents to the emergency department with pain in the rectal area, that is abraham moderate. Onset: The symptoms/episode began/occurred 2 day(s) ago. 10:25 The patient or guardian reports chest pain that is located primarily in the anterior abraham chest wall, bilaterally. Onset: this morning, today. Modifying factors: The symptoms are alleviated by nothing, The symptoms are aggravated by nothing. The chest pain is described as a pressure, squeezing. Modifying factors: The symptoms are alleviated by nothing. no bm. The patient has experienced similar episodes in the past, several times. Historical: - Allergies: 07:27 No Known Allergies; aa5 - PMHx: 07:27 Hypertensive disorder; kidney failure; neuropathy; aa5 - Immunization history:: Adult Immunizations unknown. - Infectious Disease History:: Denies. - Social history:: Smoking status: Patient reports the use of cigarette tobacco products. - Family history:: not pertinent. ROS: 10:27 Constitutional: Negative for fever, chills, and weight loss, Eyes: Negative for injury, abraham pain, redness, and discharge, ENT: Negative for injury, pain, and discharge, Neck: Negative for injury, pain, and swelling, Respiratory: Negative for shortness of breath, cough, wheezing, and pleuritic chest pain, Back: Negative for injury and pain, : Negative for injury, bleeding, discharge, and swelling, MS/Extremity: Negative for injury and deformity, Skin: Negative for injury, rash, and discoloration, Neuro: Negative for headache, weakness, numbness, tingling, and seizure, Psych: Negative for depression, anxiety, suicide ideation, homicidal ideation, and hallucinations, Allergy/Immunology: Negative for hives, rash, and allergies, Endocrine: Negative for neck swelling, polydipsia, polyuria, polyphagia, and marked weight changes, Hematologic/Lymphatic: Negative for swollen nodes, abnormal bleeding, and unusual bruising, 10:27 Cardiovascular: Positive for chest pain, 10:27 Abdomen/GI: Positive for constipation, rectal pain, Exam: 10:27 Constitutional: This is a well developed, well nourished patient who is awake, alert, abraham and in no acute distress. Head/Face: Normocephalic, atraumatic. Eyes: Pupils equal round and reactive to light, extra-ocular motions intact. Lids and lashes normal. Conjunctiva and sclera are non-icteric and not injected. Cornea within normal limits. Periorbital areas with no swelling, redness, or edema. ENT: Nares patent. No nasal discharge, no septal abnormalities noted. Tympanic membranes are normal and external auditory canals are clear. Oropharynx with no redness, swelling, or masses, exudates, or evidence of obstruction, uvula midline. Mucous membranes moist. Neck: Trachea midline, no thyromegaly or masses palpated, and no cervical lymphadenopathy. Supple, full range of motion without nuchal rigidity, or vertebral point tenderness. No Meningismus. Chest/axilla: Normal chest wall appearance and motion. Nontender with no deformity. No lesions are appreciated. Cardiovascular: Regular rate and rhythm with a normal S1 and S2. No gallops, murmurs, or rubs. Normal PMI, no JVD. No pulse deficits. Respiratory: Lungs have equal breath sounds bilaterally, clear to auscultation and percussion. No rales, rhonchi or wheezes noted. No increased work of breathing, no retractions or nasal flaring. Back: No spinal tenderness. No costovertebral tenderness. Full range of motion. Female : Normal external genitalia. Skin: Warm, dry with normal turgor. Normal color with no rashes, no lesions, and no evidence of cellulitis. MS/ Extremity: Pulses equal, no cyanosis. Neurovascular intact. Full, normal range of motion. Neuro: Awake and alert, GCS 15, oriented to person, place, time, and situation. Cranial nerves II-XII grossly intact. Motor strength 5/5 in all extremities. Sensory grossly intact. Cerebellar exam normal. Normal gait. Psych: Awake, alert, with orientation to person, place and time. Behavior, mood, and affect are within normal limits. 10:27 ECG was reviewed by the Attending Physician. 10:27 Abdomen/GI: Inspection: abdomen appears normal, Bowel sounds: normal, active, Palpation: abdomen is soft and non-tender, Rectal exam: fecal impaction, that is moderate, Liver: no appreciated palpable abnormalities, Hernia: not appreciated, Vital Signs: 07:25 BP 152 / 74; Pulse 92; Resp 18 S; Temp 98.4(O); Pulse Ox 98% on R/A; aa5 09:30 BP 145 / 71; Pulse 74; Resp 18 S; Pulse Ox 97% on R/A; aa5 11:30 BP 145 / 71; Pulse 77; Resp 16; Temp 98(O); Pulse Ox 97% on R/A; aa5 MDM: 07:27 Patient medically screened. abraham 10:29 Differential diagnosis: abnormal EKG, acute pericarditis, anxiety, coronary artery abraham disease Cholelithiasis costochondritis, esophagitis, gastritis, gastroesophageal reflux disease (GERD), hiatal hernia, myocarditis, pancreatitis, peptic ulcer disease, pericarditis, pneumonia, stable angina, thoracic aortic disection, unstable angina. HEART Score: History: Moderately Suspicious (1), ECG: Non specific repolarization disturbance / LBTB / PM (1), Age: > or = 65 years (2), Risk Factors: > or = 3 Risk factors for atherosclerotic disease (2), [Hypercholesterolemia] [Hypertension] [+ Family HX] Troponin: < or = 1 x Normal Limit (0), Total Score = 6. The patient was given aspirin in the Emergency Department. MANUEL Risk Score: 1 - patient's age is greater or equal to 65 years, 1 - Three or more CAD risk factors, 1- Known CAD, 1 - Recent [<24hrs] Severe Angina, TOTAL SCORE = 4. Data reviewed: vital signs, nurses notes, EMS record, lab test result(s), EKG, radiologic studies, CT scan, plain films. Consideration of Admission/Observation Patient was admitted/placed on observation. Escalation of care including admission/observation considered. I considered the following discharge prescriptions or medication management in the emergency department Medications were administered in the Emergency Department. See MAR. Independent interpretation of the following test(s) in the Emergency Department EKG: See my EKG interpretation above. Test considered but Not performed: Ultrasound no 2 d echo. Historians other than the Patient: pt well informed. Care significantly affected by the following chronic conditions: Hypertension, Chronic Kidney Disease, chronic pain, neuropathy. 11/02 07:37 Order name: Basic Metabolic Panel; Complete Time: 10:19 [facility] 11/02 07:37 Order name: CBC with Diff; Complete Time: 10:19 [facility] 11/02 07:37 Order name: LFT's; Complete Time: 10:19 [facility] 11/02 07:37 Order name: Magnesium; Complete Time: 10:19 [facility] 11/02 07:37 Order name: NT PRO-BNP; Complete Time: 10:19 [facility] 11/02 07:37 Order name: PT-INR; Complete Time: 10:19 [facility] 11/02 07:37 Order name: Troponin HS; Complete Time: 10:19 [facility] 11/02 07:37 Order name: Lipase; Complete Time: 10: [facility] 11/02 07:37 Order name: Urinalysis w/ reflexes; Complete Time: 10:19 [facility] 11/02 09:02 Order name: Urine Culture EDMS 11/02 09:15 Order name: CBC Smear Scan; Complete Time: 10:19 EDMS 11/02 11:00 Order name: Troponin High Sensitivity EDMS 11/02 11:00 Order name: Troponin High Sensitivity EDMS 11/02 11:00 Order name: Troponin High Sensitivity EDMS 11/02 11:03 Order name: Basic Metabolic Panel EDMS 11/02 11:03 Order name: Basic Metabolic Panel EDMS 11/02 11:03 Order name: CBC with Automated Diff EDMS 11/02 11:03 Order name: CBC with Automated Diff EDMS 11/02 07:37 Order name: XRAY Chest (1 view); Complete Time: 10:19 [facility] 11/02 07:37 Order name: Cardiac monitoring; Complete Time: 08:11 [facility] 11/02 07:37 Order name: EKG - Nurse/Tech; Complete Time: 09:24 [facility] 11/02 07:37 Order name: IV Saline Lock; Complete Time: 08:11 [facility] 11/02 07:37 Order name: Labs collected and sent; Complete Time: 08:11 [facility] 11/02 07:37 Order name: O2 Per Protocol; Complete Time: 08:11 [facility] 11/02 07:37 Order name: O2 Sat Monitoring; Complete Time: 08:11 [facility] EC:27 Rate is 69 beats/min. Rhythm is regular. QRS [place] is Normal. ND interval is normal. QRS abraham interval is normal. QT interval is normal. No Q waves. T waves are Normal. No ST changes noted. Clinical impression: NSR w/ Non-specific ST/T Changes and No evidence of ischemia. Administered Medications: 09:00 Drug: NS 0.9% IV 500 ml IV at bolus once Route: IV; Rate: bolus; Site: left antecubital;aa5 09:40 Follow up: IV Status: Completed infusion; IV Intake: 500ml aa5 09:00 Drug: Aspirin PO Chewable Tablet 81 mg PO once Route: PO; aa5 11:35 Follow up: Response: No adverse reaction aa5 09:00 Drug: Lactulose PO 30 grams 45 ml PO once Volume: 45 ml; Route: PO; aa5 11:35 Follow up: Response: No adverse reaction aa5 09:00 Drug: Dulcolax ND Suppository 10 mg ND once Route: ND; aa5 11:35 Follow up: Response: No adverse reaction aa5 11:24 Drug: Ondansetron IVP 4 mg IVP once; over 2 minutes Route: IVP; Site: left antecubital; aa5 11:30 Follow up: Response: No adverse reaction aa5 11:26 Drug: Rocephin IV 1 grams IV at per protocol once; Given slow IV push per pharmacy aa5 instructions Route: IV; Rate: per protocol; Site: left antecubital; 11:35 Follow up: Response: No adverse reaction aa5 12:35 Not Given (Physician Discretion): ns 0.9% 1000 ml IV at 125 ml/hr continuous aa5 Disposition Summary: 11/03/23 10:37 Hospitalization Ordered Notes: Hospitalization Status: Observation abraham Provider: Carolyne Oviedo cha Location: Telemetry/MedSurg (observation) abraham Condition: Fair abraham Problem: new abraham Symptoms: have improved abraham Bed/Room Type: Standard abraham Room Assignment: 209(11/03/23 11:09) eb Diagnosis - Abdominal pain, unspecified abraham - Chest pain, unspecified abraham - UTI/ Urinary tract infection, site not specified abraham - Constipation, unspecified abraham - Nausea abraham Forms: - Medication Reconciliation Form abraham - SBAR form abraham - Leadership Thank You Letter abraham Signatures: Dispatcher [employer] Nitish Mayes MD MD cha Calderon, Audri RN RN aa5 Tonya Skinner Corrections: (The following items were deleted from the chart) 07:38 07:38 BASIC METABOLIC PANEL+C.LAB.BRZ ordered. EDMS EDMS 07:38 07:38 CBC+H.LAB.BRZ ordered. EDMS EDMS 07:38 07:38 HEPATIC FUNCTION+C.LAB.BRZ ordered. EDMS EDMS 07:38 07:38 MAGNESIUM+C.LAB.BRZ ordered. EDMS EDMS 07:38 07:38 PROBNP+C.LAB.BRZ ordered. EDMS EDMS 07:38 07:38 PROTIME (+INR)+COAG.LAB.BRZ ordered. EDMS EDMS 07:38 07:38 Troponin High Sensitivity+C.LAB.BRZ ordered. EDMS EDMS 07:38 07:38 LIPASE+C.LAB.BRZ ordered. EDMS EDMS 07:38 07:38 Urinalysis+U.LAB.BRZ ordered. EDMS EDMS 07:38 07:38 Chest Single View+RAD.RAD.BRZ ordered. EDMS EDMS 10:25 10:25 Abdomen Pelvis W Con+CT.RAD.BRZ ordered. EDMS EDMS 11:09 10:37 abraham eb
--- NOTE | 2023-11-03 10:45 | P.HP ---
Certification for Inpatient Patient admitted to: Observation With expected LOS: <2 Midnights Patient will require the following post-hospital care: None Practitioner: I am a practitioner with admitting privileges, knowledge of patient current condition, hospital course, and medical plan of care. Services: Services provided to patient in accordance with Admission requirements found in Title 42 Section 412.3 of the Code of Federal Regulations <Tonie Rogers - Last Filed: 11/03/23 11:20> Patient History Date of Service: 11/03/23 Reason for admission: Constipation/chest pain History of Present Illness: Ms. Rdz is a 78-year-old with a past medical history of hypertension, Chronic Kidney Disease, chronic pain, and neuropathy who presented to the emergency department today with a complaint of abdominal pain, rectal pain, and chest pain. She states this has happened in the past and she has not had a BM in a week. "I keep taking stuff and nothing helps." This is probably related to her home medications of morphine/Dilaudid (apparently pain mgmt just switch to T#3 and Methadone). She received lactulose and a Dulcolax suppository in the emergency department, resulting in two small BMs. She describes the chest pain as squeezing/pressure. EKG in the emergency department shows normal sinus rhythm at 69 bpm, nonspecific ST/T changes with no evidence of ischemia. Initial troponin 13. Labs in the emergency department show a white count of 13.9 with 86.6% neutrophils and a UTI with turbid, concentrated urine with positive leukocyte esterase, RBCs 21-50, WBCs 10-20, urine bacteria 20-50. This was reflexed to culture. We will admit her to observation for further assessment and care. - Past Medical/Surgical History Diabetic: No -: hypertension -: arthritis -: neuropathy -: HTN -: Tobacco abuse -: C. difficile -: Tonsillectomy -: Hysterectomy -: Pudendal nerve release -: Spinal fusion -: Bilateral Cataract Psychosocial/ Personal History: Patient currently lives at home, alone. - Family History Mother -: Heart disease - Social History Smoking Status: Current every day smoker Alcohol use: No CD- Drugs: Yes Caffeine use: Yes Place of Residence: Home <Tonie Rogerslen - Last Filed: 11/03/23 11:20> Date of Service: 11/03/23 <Carolyne Oviedo - Last Filed: 11/03/23 13:27> Allergies No Known Allergies Allergy (Verified 06/18/23 13:38) Home Medications: Atorvastatin Calcium [Lipitor*] 20 mg PO BEDTIME 09/16/22 Duloxetine HCl 30 mg PO DAILY 09/16/22 Enalapril Maleate [Vasotec] 20 mg PO DAILY 09/16/22 Gabapentin 2 cap PO SEECOM 09/16/22 Gabapentin 4 cap PO BEDTIME 09/16/22 Morphine *Extended Release* [MS Contin*] 60 mg PO BID 09/16/22 Nortriptyline HCl 3 cap PO BEDTIME 09/16/22 Cetirizine HCl [Zyrtec] 10 mg PO DAILY 06/18/23 Cholecalciferol (Vitamin D3) [Vitamin D3] 1,000 unit PO DAILY 06/18/23 Docosahexanoic AC/Epa [Fish Oil 1,000 MG CAP] 1,000 mg PO DAILY 06/18/23 Ferrous Sulfate [Iron] 325 mg PO DAILY 06/18/23 Nervive Nerve Health 1 tab PO DAILY 06/18/23 Omeprazole [Prilosec] 40 mg PO DAILY 06/18/23 Review of Systems 10-point ROS is otherwise unremarkable Cardiovascular: Chest Pain Gastrointestinal: Constipation, Other (Rectal pain) <Tonie Rogers - Last Filed: 11/03/23 11:20> Physical Examination - Physical Exam General: Alert, In no apparent distress, Oriented x3 HEENT: Atraumatic, PERRLA, Other (Dry mucous membranes) Neck: Supple, No LAD, Without JVD or thyroid abnormality Respiratory: Clear to auscultation bilaterally, Normal air movement Cardiovascular: Regular rate/rhythm, Normal S1 S2 Capillary refill: <2 Seconds Gastrointestinal: Normal bowel sounds, No tenderness, Other (Small BM x 2 in ER) Musculoskeletal: No tenderness Integumentary: No rashes Neurological: Normal speech, Normal tone, Normal affect Lymphatics: No axilla or inguinal lymphadenopathy External genitalia: Deferred Rectal: Tenderness - Studies Laboratory Data (last 24 hrs) 11/03/23 11/03/23 11/03/23 08:10 08:10 08:10 WBC 13.90 H Hgb 14.2 Hct 42.0 Plt Count 226 PT 12.1 INR 1.08 Sodium 139 Potassium 3.5 BUN 27 H Creatinine 0.59 Glucose 101 Magnesium 1.8 Total Bilirubin 0.5 AST 14 L ALT 20 Alkaline Phosphatase 83 Lipase 29 <Ling Rogersgauri Jimenez - Last Filed: 11/03/23 11:20> - Studies Laboratory Data (last 24 hrs) 11/03/23 11/03/23 11/03/23 08:10 08:10 08:10 WBC 13.90 H Hgb 14.2 Hct 42.0 Plt Count 226 PT 12.1 INR 1.08 Sodium 139 Potassium 3.5 BUN 27 H Creatinine 0.59 Glucose 101 Magnesium 1.8 Total Bilirubin 0.5 AST 14 L ALT 20 Alkaline Phosphatase 83 Lipase 29 <StephenlinwoodYefri camargoajaypantera Nicky - Last Filed: 11/03/23 13:27> Assessment and Plan - Plan Abdominal pain, unspecified Urinary tract infection Constipation, fecal impaction gentle IVF soap suds enema Augmentin 875 p.o. twice daily simethicone protonix hold narcotics and zofran Chest pain serial enzymes telemetry Atorvastatin 20 mg p.o. nightly Tobacco abuse smoking cessation Chronic pain Follow-up pain management Consider reducing narcotic use as it contributes to constipation Discharge Plan: Home Plan to discharge in: 24 Hours - Advance Directives Does patient have a Living Will: No Does patient have a Durable POA for Healthcare: No <RogersTonie Jimenez - Last Filed: 11/03/23 11:20> - Plan Pt seen and examined. I agree with the note by the ANTIQUER. Pt is a 78yo female with past medical history of hypertension, Chronic Kidney Disease, chronic pain, and neuropathy who presents with abdominal pain, rectal pain, and chest pain. On admission, pt reports lack of BM in a bout a week despite taking dulcolax at home. Of note, pt also took tylenol 3 and methadone. Pt had small BM prior to coming to the ER. The chest pain is substernal. intermittent and squeezing in nature with severity of 6/10. On admission, lab studies show wbc 13.9, Hgb 14.2, K 3.5, Cr 0.59 and glucose 101. At bedside, pt is in NAD. A/P: UTI: Will continue augmentin and f/u urine cx. Pt received rocephin in the ER. Abdominal pain: Due to constipation. Will enema and IVF. Chest pain: trend troponin q6h. troponin is 13.0. EKG shows nonspecific ST/T changes with no evidence of ischemia. Chronic pain: Will continue prn pain med. Will wean pain meds. DVT ppx: SCD Code: full <Carolyne Oviedo - Last Filed: 11/03/23 13:27>
[2023-11-03] MEDS ORDERED: SIMETHICONE 125 MG TAB PO PRN (10:54)
[2023-11-03] MEDS ORDERED: SODIUM CHLORIDE 0.9% 10ML INJ IV PRN (10:54)
[2023-11-03] MEDS ORDERED: ACETAMINOPHEN 500 MG TAB PO PRN (10:58)
[2023-11-03] MEDS: LIDOCAINE JELLY 2%- 5 ML TUBE TOP ONE (11:01)
[2023-11-03] MEDS ORDERED: CEFTRIAXONE 1000 MG/VIAL ONE (11:20)
[2023-11-03] MEDS ORDERED: ONDANSETRON 4 MG/2 ML VIAL ONE (11:20)
--- NOTE | 2023-11-03 13:33 | RAD REPORT ---
EXAM DESCRIPTION: CTAbdomen Pelvis W Contrast - 11/03/2023 12:23 pm CLINICAL HISTORY: Abd pain;Constipation COMPARISON: Abdomen Pelvis W Contrast dated 10/03/2023 TECHNIQUE: CT of the abdomen and pelvis was performed with IV contrast. All CT scans are performed using dose optimization technique as appropriate and may include automated exposure control or mA/KV adjustment according to patient size. FINDINGS: Lower chest: Circumferential thickening of the distal esophagus could reflect mild esophag itis. Liver: No acute abnormality or suspicious lesions. Biliary: No biliary ductal dilatation. Stomach: No significant focal abnormality. Duodenum: No significant focal abnormality. Pancreas: No significant abnormality. Spleen: No significant abnormality. Adrenal: No suspicious lesions. Kidney/ureter: No hydronephrosis. No renal calculi. Retroperitoneum: No retroperitoneal adenopathy. Vascular: No aneurysm. Bowel: Rectal wall thickening. No bowel obstruction.. Peritoneum: No ascites or free air. Bladder: Grossly unremarkable. Reproductive: No adnexal masses. Bones: Severe right hip degenerative changes. Fusion hardware in the lumbosacral spine with screws tr aversing the iliac bones. Similar inferior endplate deformity at L2. Other: n/a IMPRESSION: Rectal wall thickening could indicate proctitis. No other acute findings identified.
[2023-11-03] MEDS: NA CHLORIDE 0.9% 1,000 ML IV SCH (13:44)
[2023-11-03] MEDS: AMOX/K CLAV 875 MG TAB PO SCH (13:44)
[2023-11-03] MEDS: PANTOPRAZOLE 40 MG INJ IVP SCH (13:44)
[2023-11-03] MEDS: LIDOCAINE JELLY 2%- 5 ML TUBE TOP SCH (14:01)
[2023-11-03] MEDS: ONDANSETRON 4 MG/2 ML VIAL IV PRN (17:25)
[2023-11-03] MEDS: Oxycodone HCl/Acetaminophen 5/325 MG TAB PO SCH (19:26)
[2023-11-03] MEDS: GABAPENTIN 300 MG CAP PO SCH (19:27)
[2023-11-03] MEDS: ATORVASTATIN 20 MG TAB PO SCH (19:27)
[2023-11-03] MEDS: METHADONE HCL 10 MG TAB PO SCH (19:43)
[2023-11-03] MEDS: HYDROMORPHONE HCL 0.5 MG/0.5 ML INJ IV PRN (21:00)
[2023-11-03] MEDS ORDERED: OXYCODONE *CR* 10 MG TAB PO SCH (21:00)
[2023-11-03] MEDS ORDERED: ATORVASTATIN 20 MG TAB PO SCH (21:00)
[2023-11-03] MEDS ORDERED: ATORVASTATIN 40 MG TAB PO SCH (21:00)
[2023-11-03 23:12] VITALS: O2SAT 98
[2023-11-04 05:30] LABS: Absolute Lymphocytes (CBC) 1.3 K/uL (0.7-4.9); Absolute Monocytes 0.5 K/uL (0.1-1.3); Absolute Neutrophil 7.6 K/uL (1.8-8.0); Basophils % 0.3 % (0-1.3); Eosinophils % 0.1 % (0-4.4); Hematocrit 35.8 % (36.0-45.0); Hemoglobin 12.3 g/dL (12.0-15.0); Lymphocytes % 13.8 % (15.3-44.8); MCHC 34.5 g/dL (32.0-36.0); MCV 92.9 fL (80-100); MPV 7.8 fL (7.6-11.3); Monocytes % 5.3 % (3.3-12.3); Neutrophils % 80.5 % (41.7-73.7); Nucleated Red Blood Cells % 0.2 % (0-0); Platelets 163 thou/uL (152-406); RBC Red Blood Cell Count 3.85 M/uL (3.86-4.86); Red Cell Distribution Width 14.2 % (12.1-15.2)
[2023-11-04 05:52] LABS: Anion Gap 13.2 mEq/L (5.0-15.0); Potassium 3.2 mEq/L (3.5-5.1); Troponin High Sensitivity 17.7 pg/mL (<58.9)
[2023-11-04] MEDS: PANTOPRAZOLE 40MG TABLET PO SCH (06:11)
[2023-11-04] MEDS: DULOXETINE 30 MG CAP PO SCH (08:48)
[2023-11-04] MEDS: GABAPENTIN 300 MG CAP PO SCH (08:49)
[2023-11-04] MEDS: ENALAPRIL 10 MG TAB PO SCH (08:49)
[2023-11-04] MEDS: ASPIRIN EC 81 MG TAB PO SCH (08:49)
[2023-11-04] MEDS ORDERED: HOME MED 1 EA UNK (Omeprazole [Prilosec] 40 MG Capsule.Dr) PO SCH (09:00)
[2023-11-04] MEDS ORDERED: MINERAL OIL 30 ML UCUP PO PRN (09:04)
[2023-11-04] MEDS ORDERED: BISACODYL E.C. 5 MG TAB PO PRN (09:05)
--- NOTE | 2023-11-04 09:07 | P.PN ---
Date of Service: 11/04/23 subjective Afebrile over constipation, UTI, Review of Systems 10-point ROS is otherwise unremarkable Cardiovascular: Chest Pain Gastrointestinal: Constipation, Physical Examination - Physical Exam Vital signs Reviewed General: Alert, In no apparent distress, Oriented x3 HEENT: Atraumatic, PERRLA, Other (Dry mucous membranes) Neck: Supple, No LAD, Without JVD or thyroid abnormality Respiratory: Clear to auscultation bilaterally, Normal air movement Cardiovascular: Regular rate/rhythm, Normal S1 S2 Capillary refill: <2 Seconds Gastrointestinal: Normal bowel sounds, No tenderness, Other (Small BM x 2 in ER) Musculoskeletal: No tenderness Integumentary: No rashes Neurological: Normal speech, Normal tone, Normal affect Lymphatics: No axilla or inguinal lymphadenopathy External genitalia: Deferred Rectal: Tenderness Assessment and Plan - Plan Abdominal pain, unspecified Constipation, fecal impaction likely secondary to opioid use, chronic pain As needed stool softeners, Urinary tract infection Sepsis without shock secondary to UTI gentle IVF soap suds enema Augmentin 875 p.o. twice daily simethicone protonix hold narcotics and zofran UA 3+ gram-negative arron Hypokalemia Trend electrolytes replace as needed Chronic pain Chest pain serial enzymes telemetry Atorvastatin 20 mg p.o. nightly EKGEKG shows nonspecific ST/T changes with no evidence of ischemia. Chronic kidney disease Trend kidney function Tobacco abuse smoking cessation Chronic pain Follow-up pain management Consider reducing narcotic use as it contributes to constipation Discharge Plan: Home Plan to discharge in: 24 Hours - Advance Directives Does patient have a Living Will: No Does patient have a Durable POA for Healthcare: No <Tonie Rogers - Last Filed: 11/03/23 11:20> <Angelica Peralta - Last Filed: 11/04/23 08:59> Pt seen and examined. I agree with the note by the NEUROLOGY PHYSICIAN. Pt is feeling better. She had bowel movement. Will replace potassium. Will f/u urine cx sensitivity. Will dc soon. <Carolyne Oviedo - Last Filed: 11/04/23 10:43>
[2023-11-04] MEDS: POTASSIUM CL SA 10 MEQ TAB PO SCH (11:44)
[2023-11-04 12:14] VITALS: BP 145/55; TEMP 98.9
--- NOTE | 2023-11-04 12:48 | P.DS ---
Admission Date: 11/03/23 Discharge Date: 11/04/23 Disposition: DC HOME/HOME HEALTH CARE Discharge Condition: GOOD Reason for Admission: Constipation/chest pain Brief History of Present Illness: History of Present Illness: Ms. Rdz is a 78-year-old with a past medical history of hypertension, Chronic Kidney Disease, chronic pain, and neuropathy who presented to the emergency department today with a complaint of abdominal pain, rectal pain, and chest pain. She states this has happened in the past and she has not had a BM in a week. "I keep taking stuff and nothing helps." This is probably related to her home medications of morphine/Dilaudid (apparently pain mgmt just switch to T#3 and Methadone). She received lactulose and a Dulcolax suppository in the emergency department, resulting in two small BMs. She describes the chest pain as squeezing/pressure. EKG in the emergency department shows normal sinus rhythm at 69 bpm, nonspecific ST/T changes with no evidence of ischemia. Initial troponin 13. Labs in the emergency department show a white count of 13.9 with 86.6% neutrophils and a UTI with turbid, concentrated urine with positive leukocyte esterase, RBCs 21-50, WBCs 10-20, urine bacteria 20-50. This was reflexed to culture. We will admit her to observation for further assessment and care. - Physical Exam General: Alert, In no apparent distress, Oriented x3 HEENT: Atraumatic, PERRLA, Other (Dry mucous membranes) Neck: Supple, No LAD, Without JVD or thyroid abnormality Respiratory: Clear to auscultation bilaterally, Normal air movement Cardiovascular: Regular rate/rhythm, Normal S1 S2 Capillary refill: <2 Seconds Gastrointestinal: Normal bowel sounds, No tenderness, Other (Small BM x 2 in ER) Musculoskeletal: No tenderness Integumentary: No rashes Neurological: Normal speech, Normal tone, Normal affect Lymphatics: No axilla or inguinal lymphadenopathy Hospital Course: Ms. Rdz is a 78-year-old with a past medical history of hypertension, Chronic Kidney Disease, chronic pain, and neuropathy who presented to the emergency department today with a complaint of abdominal pain, rectal pain, and chest pain. She states this has happened in the past and she has not had a BM in a week. She was noted to have constipation, complains of generalized weakne ss, she is tolerating diet, plan to discharge home, follow-up with PCP in 1 week. She request home health for generalized weakness, Patient tolerating diet, stable for discharge to home with with home health. PT marisaal ordered. PROBLEM: UTI Augmentin twice daily for 5 days Constipation-daily stool softeners added, hold for loose stool Abdominal pain Resolved with as needed stool softener- Prescription for MiraLAX daily-hold for loose stool Prescription for Ducalox daily hold for loose stools Abdominal CT IMPRESSION: Rectal wall thickening could indicate proctitis. No other acute findings identified. Chest x-ray IMPRESSION: No acute cardiopulmonary disease. Continue home medicines as previously prescribed GOAL: Clear understanding of disease process INSTRUCTIONS: Physician Discharge Instructions: -Follow-up with PCP in 1 to 2 weeks -Please call [phone] if any questions regarding hospital stay -Please call nursing station at [phone] if any nursing or medication questions -Return to the emergency room if symptoms worsen Diet: ADA, low sodium Activity: Fall precautions Vital Signs/Physical Exam: Temp Pulse Resp BP Pulse Ox 98.9 F 75 16 145/55 H 96 11/04/23 12:00 11/04/23 12:00 11/04/23 12:00 11/04/23 12:00 11/04/23 12:00 Laboratory Data at Discharge: WBC 9.40 thou/uL (4.3-10.9) 11/04/23 05:04 Hgb 12.3 g/dL (12.0-15.0) D 11/04/23 05:04 Hct 35.8 % (36.0-45.0) L 11/04/23 05:04 Plt Count 163 thou/uL (152-406) D 11/04/23 05:04 PT 12.1 SECONDS (9.4-12.5) 11/03/23 08:10 INR 1.08 11/03/23 08:10 Sodium 144 mEq/L (136-145) D 11/04/23 05:04 Potassium 3.2 mEq/L (3.5-5.1) L 11/04/23 05:04 BUN 25 mg/dL (7-18) H 11/04/23 05:04 Creatinine 0.49 mg/dL (0.55-1.02) L 11/04/23 05:04 Glucose 75 mg/dL (74-106) 11/04/23 05:04 Magnesium 1.8 mg/dL (1.6-2.4) 11/03/23 08:10 Total Bilirubin 0.5 mg/dL (0.2-1.0) 11/03/23 08:10 AST 14 U/L (15-37) L 11/03/23 08:10 ALT 20 U/L (13-56) 11/03/23 08:10 Alkaline Phosphatase 83 U/L (45-117) 11/03/23 08:10 Lipase 29 U/L (13-75) 11/03/23 08:10 Home Medications: Atorvastatin Calcium [Lipitor*] 20 mg PO BEDTIME 09/16/22 Duloxetine HCl 30 mg PO DAILY 09/16/22 Enalapril Maleate [Vasotec] 20 mg PO DAILY 09/16/22 Gabapentin 2 cap PO SEECOM 09/16/22 Gabapentin 4 cap PO BEDTIME 09/16/22 Omeprazole [Prilosec] 40 mg PO DAILY 06/18/23 Methadone HCl 5 mg PO TID 11/03/23 Oxycodone HCl/Acetaminophen [Endocet 5-325 Tablet] 1 each PO TID 11/03/23 Amox/Clavulanate [Augmentin 875-125 Tab] 1 each PO BID 5 Days #10 tab 11/04/23 Ondansetron [Zofran*] 4 mg IV Q6H PRN vial 11/04/23 Oxycodone HCl/Acetaminophen [Percocet 5/325 Tab*] 1 tab PO TID tab 11/04/23 Pantoprazole [Protonix Tab*] 40 mg PO DAILYAC tab 11/04/23 Polyethylene Glycol 3350 [Miralax] 17 gm PO DAILY 30 Days #1 bottle 11/04/23 bisacodyL [Dulcolax*] 10 mg PO DAILY PRN 30 Days #30 tab 11/04/23 New Medications: Amox/Clavulanate [Augmentin 875-125 Tab] 1 each PO BID 5 Days #10 tab bisacodyL [Dulcolax*] 10 mg PO DAILY PRN 30 Days #30 tab PRN Reason: CONSTIPATION - 2ND LINE Polyethylene Glycol 3350 [Miralax] 17 gm PO DAILY 30 Days #1 bottle Diet: AHA Activity: Fall precautions Followup: NONE,NONE [Primary Care Provider] - Time spent managing pt's care (in minutes): 45
[2023-11-04 15:32] VITALS: BMI 20.1
--- NOTE | 2023-11-05 17:52 | EKG ---
Test Date: 2023-11-03 Test Time: 09:21:38 Lathe Mechanic: REGINA MEASUREMENT RESULTS: Intervals: Rate: 69 MI: 160 QRSD: 74 QT: 380 QTc: 407 [place]: P: 79 MI: 160 QRS: 68 T: 80 INTERPRETIVE STATEMENTS: Normal sinus rhythm with sinus arrhythmia Normal ECG Compared to ECG 06/18/2023 13:56:25 Myocardial infarct finding no longer present Electronically Signed On 11-05-23 17:47:55 CDT by Tone Day
== END 2023-11-04 16:15 | disposition home health service (06) ==
LOC: ER 07:15 → ERHOLD 10:58 → 2ND 11:20
PROVIDERS: ADMIT Hospitalist; ATTEND Hospitalist
DX: N39.0 Urinary tract infection, site not specified (principal); A41.9 Sepsis, unspecified organism; K56.41 Fecal impaction; R07.9 Chest pain, unspecified; I10 Essential (primary) hypertension; G89.29 Other chronic pain; R53.1 Weakness; K62.89 Other specified diseases of anus and rectum; F17.210 Nicotine dependence, cigarettes, uncomplicated; R10.9 Unspecified abdominal pain; R11.0 Nausea; E87.6 Hypokalemia; N18.9 Chronic kidney disease, unspecified; G62.9 Polyneuropathy, unspecified
CPT/HCPCS: 96361; 93005; 87088; 85025 ×2; 81001; 87086; 80048 ×2; 36415; 83735; 85610; 80076; 84484 ×4; 83690; 83880; 74177; 71045; 97116; 97161; 97530; 96375; 96374; 99285; Q9967; J2470; J1170; J2405 ×2; J7040; J7030 ×3; J0696; G0378

== ENCOUNTER 2023-11-07 04:32 | Emergency (ER) | payer OTHER ==
--- NOTE | 2023-11-07 05:22 | EDPHYS ---
Physician Documentation [facility] Name: Azalea Rdz Age: 78 yrs Sex: Female : 1945 Arrival Date: 11/07/2023 Time: 04:32 Bed 15 Private MD: ED Physician Nitish Hoyt HPI: 11/06 05:15 This 78 yrs old Female presents to ER via Wheelchair with complaints of Hip abraham Pain, Leg Pain. 05:15 The patient or guardian reports decreased range of motion, pain. that occurred at an [facility] unknown site, sustained from unknown reason. The complaints affect the pelvis. Modifying factors: The symptoms are alleviated by nothing, remaining still, the symptoms are aggravated by any movement. Severity of symptoms: At their worst the symptoms were moderate, in the emergency department the symptoms are unchanged. Historical: - Allergies: 05:06 No Known Allergies; vc1 - Home Meds: 05:06 oxycodone-acetaminophen 5-325 mg oral tablet 3 times per day [Active]; methadone 5 mg vc1 Oral tablet every 8 hours [Active]; duloxetine 30 mg oral capsule,delayed release (e.c.) daily [Active]; gabapentin 300 mg oral capsule 2 caps in am 4 caps in pm [Active]; enalapril maleate 20 mg Oral tablet daily [Active]; buspirone 5 mg Oral tablet am, pm, at bedtime [Active]; tizanidine 4 mg oral tablet 1 tab tid, 3 tabs at bedtime [Active]; nortriptyline 25 mg Oral capsule 3 caps every day at bedtime [Active]; atorvastatin 20 mg oral tablet every evening [Active]; - PMHx: 05:06 Hypertensive disorder; kidney failure; neuropathy; vc1 - PSHx: 05:06 None; vc1 - Immunization history:: Adult Immunizations up to date. - Infectious Disease History:: Denies. - Social history:: Smoking status: Patient reports the use of cigarette tobacco products, smokes one-half pack cigarettes per day. - Family history:: not pertinent. ROS: 05:15 Constitutional: Negative for fever, chills, and weight loss, Eyes: Negative for injury, abraham pain, redness, and discharge, ENT: Negative for injury, pain, and discharge, Neck: Negative for injury, pain, and swelling, Cardiovascular: Negative for chest pain, palpitations, and edema, Respiratory: Negative for shortness of breath, cough, wheezing, and pleuritic chest pain, Abdomen/GI: Negative for abdominal pain, nausea, vomiting, diarrhea, and constipation, Back: Negative for injury and pain, : Negative for injury, bleeding, discharge, and swelling, Skin: Negative for injury, rash, and discoloration, Neuro: Negative for headache, weakness, numbness, tingling, and seizure, Psych: Negative for depression, anxiety, suicide ideation, homicidal ideation, and hallucinations, Allergy/Immunology: Negative for hives, rash, and allergies, Endocrine: Negative for neck swelling, polydipsia, polyuria, polyphagia, and marked weight changes, Hematologic/Lymphatic: Negative for swollen nodes, abnormal bleeding, and unusual bruising, 05:15 MS/extremity: Positive for decreased range of motion, pain, of the pelvis, Exam: 05:15 Constitutional: This is a well developed, well nourished patient who is awake, alert, abraham and in no acute distress. Head/Face: Normocephalic, atraumatic. Eyes: Pupils equal round and reactive to light, extra-ocular motions intact. Lids and lashes normal. Conjunctiva and sclera are non-icteric and not injected. Cornea within normal limits. Periorbital areas with no swelling, redness, or edema. ENT: Nares patent. No nasal discharge, no septal abnormalities noted. Tympanic membranes are normal and external auditory canals are clear. Oropharynx with no redness, swelling, or masses, exudates, or evidence of obstruction, uvula midline. Mucous membranes moist. Neck: Trachea midline, no thyromegaly or masses palpated, and no cervical lymphadenopathy. Supple, full range of motion without nuchal rigidity, or vertebral point tenderness. No Meningismus. Chest/axilla: Normal chest wall appearance and motion. Nontender with no deformity. No lesions are appreciated. Cardiovascular: Regular rate and rhythm with a normal S1 and S2. No gallops, murmurs, or rubs. Normal PMI, no JVD. No pulse deficits. Respiratory: Lungs have equal breath sounds bilaterally, clear to auscultation and percussion. No rales, rhonchi or wheezes noted. No increased work of breathing, no retractions or nasal flaring. Abdomen/GI: Soft, non-tender, with normal bowel sounds. No distension or tympany. No guarding or rebound. No evidence of tenderness throughout. Back: No spinal tenderness. No costovertebral tenderness. Full range of motion. Female : Normal external genitalia. Skin: Warm, dry with normal turgor. Normal color with no rashes, no lesions, and no evidence of cellulitis. Neuro: Awake and alert, GCS 15, oriented to person, place, time, and situation. Cranial nerves II-XII grossly intact. Motor strength 5/5 in all extremities. Sensory grossly intact. Cerebellar exam normal. Normal gait. Psych: Awake, alert, with orientation to person, place and time. Behavior, mood, and affect are within normal limits. 05:15 Musculoskeletal/extremity: ROM: full active range of motion, full passive range of motion, limited active range of motion due to pain, limited passive range of motion due to pain, Circulation is intact in all extremities. Sensation intact. Compartment Syndrome exam of affected extremity: is normal. Weight bearing: able to fully bear weight, PAINFUL, DVT Exam: no swelling, no tenderness, negative Homans' sign noted on exam, no appreciated bluish discoloration, no erythema, no increased warmth, pain, that is moderate, of the pelvis, Vital Signs: 05:03 BP 143 / 62; Pulse 73; Resp 18; Temp 98.1; Pulse Ox 98% ; Weight 51.71 kg; Height 5 ft. vc1 3 in. ; Pain 10/10; 05:30 BP 148 / 73; Pulse 79; Resp 17; Temp 98; Pulse Ox 97% on R/A; Pain 9/10; rg5 06:50 BP 137 / 74; Pulse 77; Resp 17; Pulse Ox 99% on R/A; Pain 3/10; rg5 05:03 Body Mass Index 20.19 (51.71 kg, 160.02 cm) vc1 05:03 Pain Scale: Adult vc1 05:30 Pain Scale: Adult rg5 06:50 Pain Scale: Adult rg5 Imani Coma Score: 05:30 Eye Response: spontaneous(4). Motor Response: obeys commands(6). Verbal Response: rg5 oriented(5). Total: 15. MDM: 04:[address] [facility] 05:18 Differential diagnosis: bursitis, arthritis, strain. Data reviewed: vital signs, nurses abraham notes, lab test result(s), radiologic studies, plain films. Consideration of Admission/Observation Escalation of care including admission/observation considered. I considered the following discharge prescriptions or medication management in the emergency department Medications were administered in the Emergency Department. See MAR. Independent interpretation of the following test(s) in the Emergency Department X-Ray: My interpretation is PELVIS. Test considered but Not performed: Labs: NO LABS. Historians other than the Patient: Spouse/Significant Other: WELL INFORMED. Care significantly affected by the following chronic conditions: Hypertension, Chronic Kidney Disease, CHRONIC PAIN. 11/06 05:14 Order name: Pelvis XRAY abraham Administered Medications: 05:42 Drug: Dexamethasone IM 10 mg IM once Route: IM; Site: right gluteus; rg5 07:14 Follow up: Response: No adverse reaction; Pain is decreased rg5 05:42 Drug: Ketorolac IM 30 mg IM once Route: IM; Site: right gluteus; rg5 07:14 Follow up: Response: No adverse reaction; Pain is decreased rg5 05:43 Drug: Diazepam PO 10 mg PO once Route: PO; rg5 07:15 Follow up: Response: No adverse reaction; Pain is decreased rg5 Disposition Summary: 11/07/23 05:21 Discharge Ordered Notes: Location: Home [facility] Problem: new abraham Symptoms: have improved abraham Condition: Stable abraham Diagnosis - Pain in left hip abraham - Pain in right hip abraham Followup: abraham - With: Private Physician - When: 2 - 3 days - Reason: Recheck today's complaints, Continuance of care, Re-evaluation by your physician Followup: abraham - With: Tim Bojorquez MD - When: 2 - 3 days - Reason: Recheck today's complaints, Re-evaluation by your physician Discharge Instructions: - Discharge Summary Sheet abraham - Joint Pain abraham - Arthritis abraham - Musculoskeletal Pain abraham - Hip Pain abraham - Arthritis, [id number] abraham Forms: - Medication Reconciliation Form abraham - Antibiotic Education abraham - Prescription Opioid Use abraham - Patient Portal Instructions [facility] - Leadership Thank You Letter [facility] Prescriptions: - dexamethasone 4 mg Oral tablet - take 1 tablet ORAL route once daily; 5 tablet; Refills: 0, Product Selection abraham Permitted - Valium 2 mg Oral Tablet - take 1 tablet ORAL route every 8 hours As needed; 20 tablet; Refills: 0, [facility] Product Selection Permitted - Motrin IB 200 mg Oral tablet - take 1 tablet ORAL route every 6 hours As needed as needed with food; 20 [facility] tablet; Refills: 0, Product Selection Permitted Signatures: Dispatcher [employer] Nitish Mayes MD MD cha Calcote, Vanessa, RN RN vc1 Shai Stack RN RN rg5
--- NOTE | 2023-11-07 05:22 | ER ---
Nurse's Notes [facility] Name: Azalea Rdz Age: 78 yrs Sex: Female : 1945 Arrival Date: 11/07/2023 Time: 04:32 Bed 15 Private MD: Diagnosis: Pain in left hip;Pain in right hip Presentation: 11/06 05:03 Chief complaint: Patient states: I feel like my hips are locked up. I see a pain Dr. vc1 for this but my meds are not working. They usually give me morphine. Coronavirus screen: Client denies travel out of the [place] in the last 14 days. At this time, the client does not indicate any symptoms associated with coronavirus-19. Ebola Screen: Patient negative for fever greater than or equal to 101.5 degrees Fahrenheit, and additional compatible Ebola Virus Disease symptoms Patient denies exposure to infectious person. Patient denies travel to an Ebola-affected area in the 21 days before illness onset. No symptoms or risks identified at this time. Initial Sepsis Screen: Does the patient meet any 2 criteria? No. Patient's initial sepsis screen is negative. Does the patient have a suspected source of infection? No. Patient's initial sepsis screen is negative. Risk Assessment: Do you want to hurt yourself or someone else? Patient reports no desire to harm self or others. Onset of symptoms was November 07, 2023. 05:03 Method Of Arrival: Wheelchair vc1 05:03 Acuity: ROSIO 4 vc1 Triage Assessment: 05:15 General: Appears distressed, slender, Behavior is crying, inappropriate for age. Pain: vc1 Complains of pain in left hip and right hip Pain does not radiate. Pain currently is 10 out of 10 on a pain scale. Noted to be crying, moaning, resistant to movement, Current management is with pt on pain management, states "they usually give me morphine to help with this". Neuro: Level of Consciousness is awake, alert, obeys commands, Oriented to person, place, time, situation, Appropriate for age. Cardiovascular: Capillary refill < 3 seconds Patient's skin is warm and dry. Respiratory: Airway is patent Respiratory effort is even, unlabored, Respiratory pattern is regular, symmetrical. Derm: Skin is intact, is healthy with good turgor, Skin is dry, Skin is normal, Skin temperature is warm. Musculoskeletal: Range of motion: intact in all extremities, Reports pain in left hip and right hip. Historical: - Allergies: 05:06 No Known Allergies; vc1 - Home Meds: 05:06 oxycodone-acetaminophen 5-325 mg oral tablet 3 times per day [Active]; methadone 5 mg vc1 Oral tablet every 8 hours [Active]; duloxetine 30 mg oral capsule,delayed release (e.c.) daily [Active]; gabapentin 300 mg oral capsule 2 caps in am 4 caps in pm [Active]; enalapril maleate 20 mg Oral tablet daily [Active]; buspirone 5 mg Oral tablet am, pm, at bedtime [Active]; tizanidine 4 mg oral tablet 1 tab tid, 3 tabs at bedtime [Active]; nortriptyline 25 mg Oral capsule 3 caps every day at bedtime [Active]; atorvastatin 20 mg oral tablet every evening [Active]; - PMHx: 05:06 Hypertensive disorder; kidney failure; neuropathy; vc1 - PSHx: 05:06 None; vc1 - Immunization history:: Adult Immunizations up to date. - Infectious Disease History:: Denies. - Social history:: Smoking status: Patient reports the use of cigarette tobacco products, smokes one-half pack cigarettes per day. - Family history:: not pertinent. Screenin:14 Abuse screen: Denies threats or abuse. Nutritional screening: No deficits noted. vc1 Tuberculosis screening: No symptoms or risk factors identified. 05:14 [facility] ED Fall Risk Assessment (Adult) Altered Elimination. vc1 05:30 [facility] ED Fall Risk Assessment (Adult) History of falling in the last 3 months, rg5 including since admission No falls in past 3 months (0 pts) Confusion or Disorientation No (0 pts) Intoxicated or Sedated No (0 pts) Impaired Gait Yes (1 pt) Mobility Assist Device Used Yes (1 pt) Score/Fall Risk Level 0 - 2 = Low Risk Oriented to surroundings, Maintained a safe environment, Educated pt \\T\\ family on fall prevention, incl call for assistance when getting out of bed, Hourly rounding (assess needs \\T\\ fall precautionary measures) done. Abuse screen: Denies threats or abuse. Assessment: 05:30 General: Appears uncomfortable, Behavior is calm, cooperative, appropriate for age. rg5 Pain: Complains of pain in right hip \\T\\ leg Pain radiates to right leg Pain currently is 9 out of 10 on a pain scale. Quality of pain is described as aching, Pain began 1 day ago. Neuro: Level of Consciousness is awake, alert, obeys commands, Oriented to person, place, time, Gait is unsteady. Cardiovascular: Denies chest pain. 05:30 Respiratory: Airway is patent Trachea midline Respiratory effort is even, unlabored, rg5 Respiratory pattern is regular, symmetrical. GI: Abdomen is flat, non-distended, Reports constipation. : No signs and/or symptoms were reported regarding the genitourinary system. EENT: No deficits noted. Derm: Skin is fragile, Skin is dry, Skin is normal, Skin temperature is warm. Musculoskeletal: Range of motion: intact in all extremities. 06:50 Reassessment: Patient and/or family updated on plan of care and expected duration. Pain rg5 level reassessed. Patient states feeling better. Patient states symptoms have improved. Vital Signs: 05:03 BP 143 / 62; Pulse 73; Resp 18; Temp 98.1; Pulse Ox 98% ; Weight 51.71 kg; Height 5 ft. vc1 3 in. ; Pain 10/10; 05:30 BP 148 / 73; Pulse 79; Resp 17; Temp 98; Pulse Ox 97% on R/A; Pain 9/10; rg5 06:50 BP 137 / 74; Pulse 77; Resp 17; Pulse Ox 99% on R/A; Pain 3/10; rg5 05:03 Body Mass Index 20.19 (51.71 kg, 160.02 cm) vc1 05:03 Pain Scale: Adult vc1 05:30 Pain Scale: Adult rg5 06:50 Pain Scale: Adult rg5 Imani Coma Score: 05:30 Eye Response: spontaneous(4). Motor Response: obeys commands(6). Verbal Response: rg5 oriented(5). Total: 15. ED Course: 04:43 Patient arrived in ED. gm2 04:55 Nitish Hoyt MD is Attending Physician. abraham 04:59 Shai Stack RN is Primary Nurse. rg5 05:06 Triage completed. vc1 05:14 Arm band placed on right wrist. vc1 05:17 No provider procedures requiring assistance completed. Patient did not have IV access vc1 during this emergency room visit. 05:21 Tim Bojorquez MD is Referral Physician. [facility] 05:30 Resting quietly. Awaiting for x-ray. rg5 05:30 Patient has correct armband on for positive identification. Bed in low position. Call rg5 light in reach. Side rails up X2. Adult w/ patient. Provided Education on: fall \\T\\ safety precaution. Door closed. Noise minimized. Warm blanket given. 06:35 Pelvis XRAY In Process Unspecified. EDMS Administered Medications: 05:42 Drug: Dexamethasone IM 10 mg IM once Route: IM; Site: right gluteus; rg5 07:14 Follow up: Response: No adverse reaction; Pain is decreased rg5 05:42 Drug: Ketorolac IM 30 mg IM once Route: IM; Site: right gluteus; rg5 07:14 Follow up: Response: No adverse reaction; Pain is decreased rg5 05:43 Drug: Diazepam PO 10 mg PO once Route: PO; rg5 07:15 Follow up: Response: No adverse reaction; Pain is decreased rg5 Medication: 05:30 VIS not applicable for this client. rg5 Outcome: 05:21 Discharge ordered by . [facility] 05:54 Discharged to home via wheelchair, rg5 05:54 Condition: stable 05:54 Discharge instructions given to patient, family, Instructed on Demonstrated understanding of instructions, follow-up care, medications, Prescriptions given X 3, 07:16 Patient left the ED. rg5 Signatures: Dispatcher [employer] EDMS Nitish Hoyt MD MD cha Calcote, Vanessa, RN RN 1 Suma Freedman 2 Shai Stack, RN RN rg5
[2023-11-07] MEDS ORDERED: DIAZEPAM 5 MG TABLET ONE (05:32)
[2023-11-07] MEDS ORDERED: KETOROLAC 30 MG/ML INJ ONE (05:32)
[2023-11-07] MEDS ORDERED: dexAMETHasone 10 MG/ML VIAL ONE (05:32)
[2023-11-07 07:25] VITALS: TEMP 98
[2023-11-07 07:26] VITALS: BP 137/74; O2SAT 99
--- NOTE | 2023-11-07 09:41 | RAD REPORT ---
EXAM DESCRIPTION: RAD - Pelvis - 11/07/2023 6:33 am CLINICAL HISTORY: The patient is 78 years old and is Female; Pain. TECHNIQUE: Single frontal view of the pelvis. COMPARISON: CT Abdomen Pelvis 10/08/2023. 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 Left hip is unremarkable. No acute fracture. No dislocation. Soft tissues: Unremarkable. Tubes, lines and devices: Multilevel hardware in the lumbar spine with fixation devices in the sa martha and bilateral SI joints. 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 Electronically signed by: Jerri Temple MD 11/07/2023 07:05 AM CDT RP ND Due to temporary technical issues with the PACS/Fluency reporting system, reports are being signed by the in house radiologist without review as a courtesy to ensure prompt reporting. The interpreting r adiologist is fully responsible for the content of the report.
== END 2023-11-07 07:16 | disposition home or self-care (01) ==
LOC: ER 04:32
DX: M25.552 Pain in left hip (principal); M25.551 Pain in right hip; F17.210 Nicotine dependence, cigarettes, uncomplicated; I12.9 Hypertensive chronic kidney disease with stage 1 through stage 4 chronic kidney disease, or unspecified chronic kidney disease; N18.9 Chronic kidney disease, unspecified
CPT/HCPCS: 72170; 96372; 99284; J1100

== ENCOUNTER 2023-11-19 16:31 | Emergency (ER) | payer OTHER ==
--- NOTE | 2023-11-19 16:55 | ER ---
Nurse's Notes [facility] Name: zAalea Rdz Age: 78 yrs Sex: Female : 1945 Arrival Date: 11/19/2023 Time: 16:31 Bed 5 Private MD: Diagnosis: DVT of left lower extremity Presentation: 11/18 16:40 Chief complaint: Patient states: LEFT LEG SWELLING X 1 WEEK. DOPPLER TODAY SHOWED BLOOD db CLOT. PAIN X 4 DAYS. NOTED PITTING EDEMA. Coronavirus screen: Client denies travel out of the [place] in the last 14 days. At this time, the client does not indicate any symptoms associated with coronavirus-19. Ebola Screen: Patient negative for fever greater than or equal to 101.5 degrees Fahrenheit, and additional compatible Ebola Virus Disease symptoms Patient denies exposure to infectious person. Patient denies travel to an Ebola-affected area in the 21 days before illness onset. No symptoms or risks identified at this time. Initial Sepsis Screen: Does the patient meet any 2 criteria? No. Patient's initial sepsis screen is negative. Does the patient have a suspected source of infection? No. Patient's initial sepsis screen is negative. Risk Assessment: Do you want to hurt yourself or someone else? Patient reports no desire to harm self or others. Onset of symptoms was November 12, 2023. 16:40 Method Of Arrival: Ambulatory db 16:40 Acuity: ROSIO 3 db Triage Assessment: 16:51 General: Appears in no apparent distress. comfortable, Behavior is calm, cooperative. db Pain: Complains of pain in left leg. Neuro: Level of Consciousness is awake, alert, obeys commands, Oriented to person, place, time, situation. Respiratory: Airway is patent Respiratory effort is even, unlabored, Respiratory pattern is regular, symmetrical. Musculoskeletal: Reports pain in left leg. Historical: - Allergies: 16:51 No Known Allergies; db - PMHx: 16:51 Hypertensive disorder; kidney failure; neuropathy; db - Immunization history:: Adult Immunizations unknown. - Infectious Disease History:: Denies. - Social history:: Smoking status: Patient denies any tobacco usage or history of. - Family history:: not pertinent. Screenin:53 [facility] ED Fall Risk Assessment (Adult) History of falling in the last 3 months, mb9 including since admission No falls in past 3 months (0 pts) Confusion or Disorientation No (0 pts) Intoxicated or Sedated No (0 pts) Impaired Gait No (0 pts) Mobility Assist Device Used No (0 pt) Altered Elimination No (0 pt) Score/Fall Risk Level 0 - 2 = Low Risk Oriented to surroundings, Maintained a safe environment, Educated pt \T\ family on fall prevention, incl call for assistance when getting out of bed. Abuse screen: Denies threats or abuse. Nutritional screening: No deficits noted. Tuberculosis screening: No symptoms or risk factors identified. Assessment: 16:52 General: Appears in no apparent distress. Behavior is calm, cooperative. Pain: mb9 Complains of pain in left leg. Neuro: [place] Agitation-Sedation Scale (RASS): 0 - Alert and Calm Level of Consciousness is awake, alert, obeys commands, Oriented to person, place, time, situation, Appropriate for age. Cardiovascular: Patient's skin is warm and dry. Cardiovascular: Pulses are all present. Edema. Respiratory: Airway is patent Respiratory effort is even, unlabored, Respiratory pattern is regular, symmetrical, Denies cough, shortness of breath. GI: No signs and/or symptoms were reported involving the gastrointestinal system. : No signs and/or symptoms were reported regarding the genitourinary system. EENT: No signs and/or symptoms were reported regarding the EENT system. Derm: Skin is pink, warm \T\ dry. Musculoskeletal: Range of motion: intact in all extremities, Swelling present in left leg. Vital Signs: 16:40 BP 179 / 70; Pulse 65; Resp 16; Temp 98.4(O); Pulse Ox 100% on R/A; Weight 53.98 kg; db Height 5 ft. 3 in. ; Pain 5/10; 16:40 Body Mass Index 21.08 (53.98 kg, 160.02 cm) db 16:40 Pain Scale: Adult db ED Course: 16:35 Patient arrived in ED. im 16:36 Mitesh Oliver MD is Attending Physician. rt 16:48 Lyn Maldonado RN is Primary Nurse. mb9 16:48 Placed in gown. Bed in low position. Call light in reach. Side rails up X 1. Provided mb9 Education on: press call light if needing anything. Client placed on continuous cardiac and pulse oximetry monitoring. NIBP monitoring applied. 16:51 Triage completed. db 16:51 Arm band placed on Patient placed in an exam room. db 16:53 No provider procedures requiring assistance completed. mbXavier 16:54 Patient did not have IV access during this emergency room visit. nat Administered Medications: No medications were administered Medication: 16:48 VIS not applicable for this client. nat Outcome: 16:55 Discharge ordered by MD. rt 16:56 Discharged to home ambulatory, with family, nat 16:56 Condition: stable 16:56 Discharge instructions given to patient, Instructed on discharge instructions, follow up and referral plans. Demonstrated understanding of instructions, follow-up care, medications, Prescriptions given X 1, 17:02 Patient left the ED. nat Signatures: Johanne Reyna RN RN Lyn Wing RN RN Mitesh Garg MD MD rt Tracee Ortiz
--- NOTE | 2023-11-19 16:55 | EDPHYS ---
Physician Documentation [facility] Name: Azalea Rdz Age: 78 yrs Sex: Female : 1945 Arrival Date: 11/19/2023 Time: 16:31 Bed 5 Private MD: ED Physician Mitesh Oliver HPI: 11/18 17:00 This 78 yrs old Female presents to ER via Ambulatory with complaints of DVT on left leg.rt 17:00 Patient presents to the ED with pain, swelling to the left leg for about a week. rt Patient had an outpatient ultrasound that was done that showed a DVT. Patient denies discrete injury. Patient denies any cough, shortness of breath, chest pain. Denies other acute complaints at this time, symptoms are moderate in severity, no other aggravating or elevating factors. Historical: - Allergies: 16:51 No Known Allergies; db - PMHx: 16:51 Hypertensive disorder; kidney failure; neuropathy; db - Immunization history:: Adult Immunizations unknown. - Infectious Disease History:: Denies. - Social history:: Smoking status: Patient denies any tobacco usage or history of. - Family history:: not pertinent. ROS: 17:01 Constitutional: Negative for fever, chills, and weight loss, Cardiovascular: Negative rt for chest pain, palpitations, and edema, Respiratory: Negative for shortness of breath, cough, wheezing, and pleuritic chest pain, Abdomen/GI: Negative for abdominal pain, nausea, vomiting, diarrhea, and constipation, 17:01 MS/extremity: Positive for pain, swelling, Exam: 17:01 Constitutional: This is a well developed, well nourished patient who is awake, alert, rt and in no acute distress. Head/Face: Normocephalic, atraumatic. Skin: Warm, dry with normal turgor. Normal color with no rashes, no lesions, and no evidence of cellulitis. Neuro: Awake and alert, GCS 15, oriented to person, place, time, and situation. Cranial nerves II-XII grossly intact. Motor strength 5/5 in all extremities. Sensory grossly intact. Cerebellar exam normal. Normal gait. Psych: Awake, alert, with orientation to person, place and time. Behavior, mood, and affect are within normal limits. 17:01 Musculoskeletal/extremity: Swelling, tenderness to the left lower extremity, pulses, motor, sensation intact. Vital Signs: 16:40 BP 179 / 70; Pulse 65; Resp 16; Temp 98.4(O); Pulse Ox 100% on R/A; Weight 53.98 kg; db Height 5 ft. 3 in. ; Pain 5/10; 16:40 Body Mass Index 21.08 (53.98 kg, 160.02 cm) db 16:40 Pain Scale: Adult db MDM: 16:47 Patient medically screened. rt 17:01 Differential Diagnosis DVT. Data reviewed: vital signs, nurses notes, old medical rt records, Creatinine was unremarkable earlier this year. Test considered but Not performed: CT: Patient has no vital sign abnormalities, signs, symptoms that are consistent with pulmonary embolus, CT angiogram is not indicated. Care significantly affected by the following chronic conditions: Hypertension. Counseling: I had a detailed discussion with the patient and/or guardian regarding the historical points, exam findings, and any diagnostic results supporting the discharge/admit diagnosis, radiology results, the need for outpatient follow up, to return to the emergency department if symptoms worsen or persist or if there are any questions or concerns that arise at home, Discussed findings of concern for pulmonary embolus, patient return for any of the symptoms.. Administered Medications: No medications were administered Disposition Summary: 11/19/23 16:55 Discharge Ordered Notes: Location: Home rt Problem: new rt Symptoms: are unchanged rt Condition: Stable rt Diagnosis - DVT of left lower extremity rt Followup: rt - With: Private Physician - When: 5 - 6 days - Reason: Discharge Instructions: - Discharge Summary Sheet rt - Deep Vein Thrombosis rt Forms: - Medication Reconciliation Form rt - Antibiotic Education rt - Prescription Opioid Use rt - Patient Portal Instructions rt - Leadership Thank You Letter rt Prescriptions: - Eliquis DVT-PE Treat 30D Start 5 mg (74 tabs) Oral Tablet, Dose Pack - take 1 tablet ORAL route per package directions; 74 tablet; Refills: 0, Product rt Selection Permitted Signatures: Johanne Reyna RN RN db Mitesh Oliver MD MD rt
[2023-11-19 17:29] VITALS: BP 179/70; TEMP 98.4; O2SAT 100
== END 2023-11-19 17:02 | disposition home or self-care (01) ==
LOC: ER 16:31
DX: I82.402 Acute embolism and thrombosis of unspecified deep veins of left lower extremity (principal); I10 Essential (primary) hypertension
CPT/HCPCS: 99283

== ENCOUNTER 2024-02-10 13:45 | Emergency (ER) | payer OTHER ==
[2024-02-10] MEDS ORDERED: ONDANSETRON 4 MG/2 ML VIAL ONE (15:13)
[2024-02-10] MEDS ORDERED: MORPHINE 4 MG/ML SYR ONE (15:13)
[2024-02-10 15:43] LABS: Absolute Lymphocytes (CBC) 1.3 K/uL (0.7-4.9); Absolute Monocytes 0.6 K/uL (0.1-1.3); Absolute Neutrophil 11.6 K/uL (1.8-8.0); Basophils % 0.2 % (0-1.3); Hematocrit 39.8 % (36.0-45.0); Hemoglobin 13.6 g/dL (12.0-15.0); Lymphocytes % 9.5 % (15.3-44.8); MCH 33.5 pg (27.0-35.0); MCHC 34.2 g/dL (32.0-36.0); MCV 97.9 fL (80-100); MPV 8.2 fL (7.6-11.3); Monocytes % 4.6 % (3.3-12.3); Neutrophils % 85.7 % (41.7-73.7); Nucleated Red Blood Cells % 0.1 % (0-0); Platelets 164 thou/uL (152-406); RBC Red Blood Cell Count 4.07 M/uL (3.86-4.86); Red Cell Distribution Width 13.2 % (12.1-15.2)
[2024-02-10 16:00] LABS: Albumin 2.8 g/dL (3.4-5.0); Albumin/Globulin Ratio 0.7 (1.1-1.8); Anion Gap 7.8 mEq/L (5.0-15.0); Bilirubin Total 0.4 mg/dL (0.2-1.0); Globulin 3.9 g/dL (2.3-3.5); Potassium 2.8 mEq/L (3.5-5.1); Protein, Total 6.7 g/dL (6.4-8.2)
[2024-02-10 16:28] LABS: Blood Morphology Comment NOT SEEN (NOT SEEN); Platelet Estimate ADEQ; White Blood Cell Scan OK (OK)
[2024-02-10 16:41] LABS: Specific Gravity 1.028 (1.005-1.030); Sqamous Epithelial None Seen /HPF (None Seen); Urine Bacteria None Seen /HPF (<20); Urine Bilirubin NEGATIVE (Negative); Urine Blood Trace (Negative); Urine Clarity Clear (Clear); Urine Color Yellow (Yellow); Urine Culture Reflex Order NOT NEEDED; Urine Glucose NEGATIVE (Negative); Urine Ketones TRACE (Negative); Urine Microscopic Reflex YN ORDER UMIC; Urine Mucus Slight /HPF (None Seen); Urine Nitrite NEGATIVE (Negative); Urine Protein 1+ (Negative); Urine RBC 21-50 /HPF (None Seen); Urine Urobilinogen Normal (Normal); Urine WBC <5 /HPF (<5); Urine pH 7.5 (5.0-7.0)
[2024-02-10] MEDS ORDERED: HYDROMORPHONE HCL 1 MG/ML INJ ONE (17:17)
[2024-02-10] MEDS ORDERED: KCL 20 MEQ/100 mL IVPB 100 ML IV ONE (17:18)
[2024-02-10] MEDS ORDERED: NA CHLORIDE 0.9% 250 ML ONE (17:18)
[2024-02-10 17:22] LABS: PT Prothrombin Time 15.9 SECONDS (9.4-12.5); PTT, Activated Partial Thromb 50.9 SECONDS (24.3-36.9); Protime INR 1.43
[2024-02-10] MEDS ORDERED: PIPERACIL/TAZO 3.375 GM VIAL IV ONE (19:41)
[2024-02-10] MEDS ORDERED: NA CHLORIDE 0.9% 100 ML ONE (19:41)
--- NOTE | 2024-02-10 19:50 | RAD REPORT ---
EXAMINATION: CT Abdomen Pelvis W Contrast CLINICAL INDICATION: Female, 78 years old. back pain TECHNIQUE: CT abdomen and pelvis was performed, after the administration of IV contrast, as per [facility] protocol. Axial, sagittal and coronal reconstructions were obtained. One or more of the following dose reduction techniques were used: Automated exposure control, adjustment of the mA and k V according to patient size, and iterative reconstruction. Unless otherwise specified, incidental findings do not require dedicated imaging follow-up. COMPARISON: 11/03/2023 FINDINGS: LOWER CHEST: The visualized lung bases are clear. LIVER: Normal in size and contour. No focal lesion. BILIARY SYSTEM: No suspicious abnormalities. SPLEEN: Normal size. No focal lesion. PANCREAS: No mass, ductal dilation, or niko-pancreatic fluid. ADRENALS: Normal; no mass. KIDNEYS: Normal size and contour. No hydronephrosis. URINARY BLADDER: Unremarkable. GASTROINTESTINAL TRACT: No evidence of free air, bowel obstruction or abscess. Mild free pelvic asc ites. Mild distal colonic diverticulosis APPENDIX: Appendix not visualized, but no inflammatory changes in region of appendix. LYMPH NODES: No lymphadenopathy. MUSCULOSKELETAL: No acute or suspicious osseous abnormality. Sequelae of right femoral neck fracture malunion, with stable configuration. Sequelae of lumbar surgical decompression and hardware fusion spanning L2-L5, with trans sacroiliac screws, stable. ADDITIONAL FINDINGS: None. IMPRESSION: Mild free pelvic ascites, nonspecific. No other acute or concerning abnormalities seen in the abdomen or pelvis. Other stable incidental findings as above.
--- NOTE | 2024-02-10 20:19 | EDPHYS ---
Physician Documentation [facility] Name: Azalea Rdz Age: 78 yrs Sex: Female : 1945 Arrival Date: 02/10/2024 Time: 13:45 Bed 4 Private MD: ED Physician Iglesia Hoang HPI: 02/09 14:50 This 78 yrs old Female presents to ER via Wheelchair with complaints of Low Back Pain, cp Leg Pain - BL. 14:50 The patient presents with pain that is chronic. cp 14:50 The symptoms are located in the low back. The pain radiates to the right leg and left cp leg. 14:50 Patient reports having spinal nerve stimulator placed on 02/05/2024 by physician in [facility]. Patient reports increasing pain to lower back that radiates down legs over past several days. Fever today. Historical: - Allergies: 14:41 No Known Allergies; tm6 - PMHx: 14:41 Hypertensive disorder; kidney failure; neuropathy; Chronic pain; tm6 - PSHx: 14:41 trial nerve stimulator 02/05/24; tm6 - Immunization history:: Client reports receiving the 2nd dose of the Covid vaccine. - Infectious Disease History:: Denies. - Social history:: Smoking status: Patient reports the use of cigarette tobacco products, smokes one-half pack cigarettes per day, Patient/guardian denies using alcohol. ROS: 14:55 Constitutional: Negative for chills, fever, poor PO intake, cp 14:55 Cardiovascular: Negative for chest pain, cp 14:55 Back: Positive for pain at rest, pain with movement, 14:55 Skin: Positive for erythema, 14:55 Eyes: Negative for injury, pain, redness, and discharge, cp 14:55 ENT: Negative for drainage from ear(s), ear pain, sore throat, difficulty swallowing, difficulty handling secretions, 14:55 Respiratory: Negative for cough, shortness of breath, wheezing, 14:55 Abdomen/GI: Negative for abdominal pain, nausea, vomiting, and diarrhea, 14:55 Neuro: Negative for altered mental status, headache, 14:55 All other systems are negative, cp Exam: 15:00 Constitutional: The patient appears in no acute distress, alert, awake, cp non-diaphoretic, non-toxic, well developed, well nourished, frail, uncomfortable, 15:00 Head/Face: Normocephalic, atraumatic. cp 15:00 Eyes: Periorbital structures: appear normal, Conjunctiva: normal, no exudate, no injection, Sclera: no appreciated abnormality, Lids and lashes: appear normal, bilaterally, 15:00 ENT: External ear(s): are unremarkable, Nose: is normal, Mouth: Lips: moist, Oral mucosa: moist, 15:00 Chest/axilla: Inspection: normal, Palpation: is normal, no crepitus, no tenderness, 15:00 Cardiovascular: Rate: normal, Rhythm: irregular, Edema: is not appreciated, JVD: is not appreciated, 15:00 Respiratory: the patient does not display signs of respiratory distress, Respirations: normal, no use of accessory muscles, no retractions, labored breathing, is not present, 15:00 Abdomen/GI: Inspection: abdomen appears normal, Palpation: abdomen is soft and cp non-tender, in all quadrants, 15:00 Back: pain, that is severe, ROM is painful, with all movement, spinal stimulator in cp place with leads observing protruding from lower back, mild surrounding erythema and purulent drainage from surgical site, 15:00 Neuro: Orientation: to person, place \T\ time. Mentation: is normal, Motor: moves all fours, strength is normal, Sensation: no obvious gross deficits, 17:33 ECG was reviewed by the Attending Physician. cp Vital Signs: 14:37 Temp 98.9(O); tm6 14:42 BP 149 / 77; Pulse 78; Resp 19; Pulse Ox 100% on R/A; MAP 98 mmHg; Weight 48.99 kg; tm6 Height 5 ft. 3 in. ; Pain 10/10; 17:12 BP 171 / 80; Pulse 76; Resp 16; Pulse Ox 98% ; db 18:30 BP 135 / 58; Pulse 69; Resp 16; Pulse Ox 94% on R/A; db 19:37 BP 149 / 74; Pulse 81; Resp 18; Pulse Ox 96% ; cp4 20:30 BP 144 / 56; Pulse 79; Resp 18; Pulse Ox 96% ; cp4 20:30 BP 162 / 67; Pulse 83; Resp 18; Pulse Ox 96% ; cp4 14:42 Body Mass Index 19.13 (48.99 kg, 160.02 cm) tm6 14:42 Pain Scale: Adult tm6 MDM: 20:17 Data reviewed: vital signs, nurses notes, lab test result(s), EKG, radiologic studies, cp CT scan, and as a result, I will discharge patient. 20:17 Differential diagnosis: fracture, UTI, abscess, cellulitis, sepsis. I considered the cp following discharge prescriptions or medication management in the emergency department Medications were administered in the Emergency Department. See MAR. Independent interpretation of the following test(s) in the Emergency Department EKG: See my EKG interpretation above. Care significantly affected by the following chronic conditions: Hypertension, Chronic Kidney Disease, pain. Counseling: I had a detailed discussion with the patient and/or guardian regarding the historical points, exam findings, and any diagnostic results supporting the discharge/admit diagnosis, lab results, radiology results, the need for outpatient follow up, pain management physician. Response to treatment: the patient's symptoms have markedly improved after treatment, and as a result, I will discharge patient. 20:18 Medical Screening Exam initiated 02/09 14:47 Order name: Urinalysis w/ reflexes; Complete Time: 17:13 02/09 14:47 Order name: CBC with Diff; Complete Time: 17:13 02/09 15:51 Interpretation: Normal except: WBC 13.60; FAY% 85.7; LYM% 9.5; NEUT A 11.6. 02/09 14:47 Order name: CMP; Complete Time: 17:13 02/09 17:13 Interpretation: Normal except: NA 135; K 2.8; CL 97; CO2 33; ALB 2.8; GLOB 3.9; A/G 0.7. 02/09 14:47 Order name: Lipase; Complete Time: 17:13 02/09 15:52 Order name: Blood Culture Adult (2) 02/09 15:52 Order name: Lactate w/ 2H reflex if indic.; Complete Time: 17:40 02/09 17:40 Interpretation: Reviewed. 02/09 15:52 Order name: Protime (+inr); Complete Time: 17:40 02/09 15:52 Order name: Ptt, Activated; Complete Time: 17:40 02/09 15:59 Order name: Wound Culture 02/09 16:28 Order name: CBC Smear Scan; Complete Time: 17:13 EDMS 02/09 17:40 Order name: CT Abd/Pelvis - IV Contrast Only; Complete Time: 19:51 cp 02/09 15:52 Order name: EKG; Complete Time: 15:52 cp 02/09 14:47 Order name: IV Saline Lock; Complete Time: 15:40 cp 02/09 14:47 Order name: Labs collected and sent; Complete Time: 15:40 cp 02/09 15:52 Order name: Cardiac monitoring; Complete Time: 17:38 cp 02/09 15:52 Order name: EKG - Nurse/Tech; Complete Time: 17:38 cp 02/09 15:52 Order name: IV Saline Lock - Large Bore; Complete Time: 17:37 cp 02/09 15:52 Order name: O2 Per Protocol; Complete Time: 17:38 cp 02/09 15:52 Order name: O2 Sat Monitoring; Complete Time: 17:37 cp 02/09 15:52 Order name: Vital Signs; Complete Time: 17:37 cp EC:33 Rate is 89 beats/min. Rhythm is irregular. QRS interval is prolonged at 108 msec. QT cp interval is normal. Interpreted by me. Reviewed by me. Administered Medications: 15:50 Drug: Ondansetron IVP 4 mg IVP once; over 2 minutes Route: IVP; Site: left antecubital; db 15:50 Drug: morphine IVP or IV 4 mg IVP once over 4 mins Route: IVP; Infused Over: 4 mins; db Site: left antecubital; 17:18 Drug: HYDROmorphone IVP 1 mg IVP once Route: IVP; Site: left antecubital; db 19:45 Follow up: Response: No adverse reaction; Pain is decreased cp4 17:20 Drug: Potassium Chloride IV 20 mEq IV at calculated rate once; administer over 1-2 db hours Route: IV; Rate: calculated rate; Site: left antecubital; 19:48 Follow up: Response: No adverse reaction; IV Status: Completed infusion cp4 20:14 Drug: Piperacillin-Tazobactam IVPB 3.375 grams IVPB once over 60 mins; (mix in NS 100 cp4 mL) Route: IVPB; Infused Over: 60 mins; Site: left antecubital; 20:45 Follow up: Response: No adverse reaction; IV Status: Completed infusion cp4 20:45 Drug: HYDROmorphone IVP 0.5 mg IVP once Route: IVP; Site: left antecubital; cp4 21:15 Follow up: Response: No adverse reaction; Pain is decreased cp4 Disposition Summary: 02/10/24 20:18 Discharge Ordered Notes: Location: Home cp Problem: new cp Symptoms: have improved cp Condition: Stable cp Diagnosis - Cellulitis of back [any part except buttock] cp - Low back pain cp Followup: cp - With: Private Physician - When: 2 - 3 days - Reason: Wound Recheck Discharge Instructions: - Discharge Summary Sheet cp - Chronic Back Pain cp Forms: - Medication Reconciliation Form cp - Antibiotic Education cp - Prescription Opioid Use cp - Patient Portal Instructions cp - Leadership Thank You Letter cp Prescriptions: - Augmentin 875-125 mg Oral Tablet - take 1 tablet ORAL route every 12 hours for 10 days; 20 tablet; Refills: 0, cp Product Selection Permitted Addendum: 02/26/2024 10:09 I was immediately available for consultation during this patient's visit. I did not e c2 personally see the patient or discuss the patient with the [facility]CE[facility]. . Signatures: Dispatcher [employer] EDMS Nitish Simmons PA PA cp Johanne Reyna RN RN db Mitesh Oliver MD MD rt Iglesia Hoang MD MD 2 Madison Terrell cp4 Sammi Block RN RN tm6 Corrections: (The following items were deleted from the chart) 02/09 15:59 15:59 Wound Culture+[id number].LAB.BRZ ordered. EDMS EDMS 17:38 15:52 Accucheck ordered. cp db
--- NOTE | 2024-02-10 20:19 | ER ---
Nurse's Notes [facility] Name: Azalea Rdz Age: 78 yrs Sex: Female : 1945 Arrival Date: 02/10/2024 Time: 13:45 Bed 4 Private MD: Diagnosis: Cellulitis of back [any part except buttock];Low back pain Presentation: 02/09 14:37 Chief complaint: Patient states: I have been working with a pain management doctor and tm6 they have put in a nerve stimulator -- placed 02/05/24. The doctor wanted me to come in today emergently, as they think the leads they put in are bleeding or have moved. I am feeling shocks in my legs and having intense pain in my lower back. Having incontinence since Saturday. Coronavirus screen: Client denies travel out of the [place] in the last 14 days. Ebola Screen: Patient negative for fever greater than or equal to 101.5 degrees Fahrenheit, and additional compatible Ebola Virus Disease symptoms Patient denies exposure to infectious person. Patient denies travel to an Ebola-affected area in the 21 days before illness onset. No symptoms or risks identified at this time. Initial Sepsis Screen: Does the patient meet any 2 criteria? No. Patient's initial sepsis screen is negative. Does the patient have a suspected source of infection? No. Patient's initial sepsis screen is negative. Risk Assessment: Do you want to hurt yourself or someone else? Patient reports no desire to harm self or others. Onset of symptoms was February 05, 2024. 14:37 Method Of Arrival: Wheelchair tm6 14:37 Acuity: ROSIO 3 tm6 Triage Assessment: 14:39 General: Appears uncomfortable, Behavior is cooperative. Pain: Complains of pain in tm6 lumbar area, left low back, right low back, right leg and left leg Pain currently is 10 out of 10 on a pain scale. EENT: No signs and/or symptoms were reported regarding the EENT system. Neuro: Level of Consciousness is awake, alert, obeys commands, Oriented to person, place, time, situation. Cardiovascular: Patient's skin is warm and dry. Respiratory: Airway is patent Respiratory effort is even, unlabored, Respiratory pattern is regular, symmetrical. GI: No signs and/or symptoms were reported involving the gastrointestinal system. Abdomen is flat, non-distended. : Reports incontinence, since Saturday. Derm: No signs and/or symptoms reported regarding the dermatologic system. Musculoskeletal: Reports pain in back, right leg and left leg Pain is 10 out of 10 on a pain scale. Historical: - Allergies: 14:41 No Known Allergies; tm6 - PMHx: 14:41 Hypertensive disorder; kidney failure; neuropathy; Chronic pain; tm6 - PSHx: 14:41 trial nerve stimulator 02/05/24; tm6 - Immunization history:: Client reports receiving the 2nd dose of the Covid vaccine. - Infectious Disease History:: Denies. - Social history:: Smoking status: Patient reports the use of cigarette tobacco products, smokes one-half pack cigarettes per day, Patient/guardian denies using alcohol. Screenin:49 [facility] ED Fall Risk Assessment (Adult) History of falling in the last 3 months, db including since admission No falls in past 3 months (0 pts) Confusion or Disorientation No (0 pts) Intoxicated or Sedated No (0 pts) Impaired Gait No (0 pts) Mobility Assist Device Used No (0 pt) Altered Elimination No (0 pt) Score/Fall Risk Level 0 - 2 = Low Risk Oriented to surroundings, Maintained a safe environment. Abuse screen: Denies threats or abuse. Denies injuries from another. Nutritional screening: No deficits noted. Tuberculosis screening: No symptoms or risk factors identified. Assessment: 15:41 Reassessment: Patient appears in no apparent distress at this time. Patient and/or db family updated on plan of care and expected duration. Pain level reassessed. Patient is alert, oriented x 3, equal unlabored respirations, skin warm/dry/pink. General: Appears in no apparent distress. comfortable, Behavior is calm, cooperative. Neuro: Level of Consciousness is awake, alert, obeys commands, Oriented to person, place, time, situation. Respiratory: Airway is patent Respiratory effort is even, unlabored, Respiratory pattern is regular, symmetrical. 17:30 Reassessment: Patient appears in no apparent distress at this time. Patient and/or db family updated on plan of care and expected duration. Pain level reassessed. Patient is alert, oriented x 3, equal unlabored respirations, skin warm/dry/pink. 17:48 Reassessment: CALL PATIENT SISTER FOR CHANGES OR PRIOR TO TRANSFER OR ADMISSION. SISTER db NAME HÉCTOR KRAFT [phone]. 18:40 Reassessment: Patient appears in no apparent distress at this time. Patient and/or db family updated on plan of care and expected duration. Pain level reassessed. Patient is alert, oriented x 3, equal unlabored respirations, skin warm/dry/pink. Patient states feeling better. Patient states symptoms have improved. Respiratory: Airway is patent Respiratory effort is even, unlabored, Respiratory pattern is regular, symmetrical. 19:20 Reassessment: No changes from previously documented assessment. Patient and/or family cp4 updated on plan of care and expected duration. Pain level reassessed. Patient is alert, oriented x 3, equal unlabored respirations, skin warm/dry/pink. 19:20 Reassessment: Disposition pending. Patient finishing IV antibiotics. cp4 Vital Signs: 14:37 Temp 98.9(O); tm6 14:42 BP 149 / 77; Pulse 78; Resp 19; Pulse Ox 100% on R/A; MAP 98 mmHg; Weight 48.99 kg; tm6 Height 5 ft. 3 in. ; Pain 10/10; 17:12 BP 171 / 80; Pulse 76; Resp 16; Pulse Ox 98% ; db 18:30 BP 135 / 58; Pulse 69; Resp 16; Pulse Ox 94% on R/A; db 19:37 BP 149 / 74; Pulse 81; Resp 18; Pulse Ox 96% ; cp4 20:30 BP 144 / 56; Pulse 79; Resp 18; Pulse Ox 96% ; cp4 20:30 BP 162 / 67; Pulse 83; Resp 18; Pulse Ox 96% ; cp4 14:42 Body Mass Index 19.13 (48.99 kg, 160.02 cm) tm6 14:42 Pain Scale: Adult tm6 ED Course: 13:51 Patient arrived in ED. ra3 13:53 Nitish Simmons PA is PHCP. cp 13:53 Iglesia Hoang MD is Attending Physician. cp 14:39 Triage completed. tm6 14:39 Arm band placed on right wrist. tm6 15:26 Johanne Reyna, STEPHEN is Primary Nurse. db 15:30 Initial lab(s) drawn, by me, sent to lab. Inserted saline lock: 22 gauge in left db forearm, using aseptic technique. Blood collected. Flushed with 10 mL NS. 17:39 Wound culture swab sent to lab. db 17:49 Patient has correct armband on for positive identification. Placed in gown. Bed in low db position. Call light in reach. Side rails up X2. Client placed on continuous cardiac and pulse oximetry monitoring. NIBP monitoring applied. classroom monitor on. Pulse ox on. NIBP on. Warm blanket given. Pillow given. 19:11 Libby Iglesias [phone]. ty 19:25 CT Abd/Pelvis - IV Contrast Only In Process Unspecified. EDMS 20:31 Madison Terrell is Primary Nurse. cp4 21:32 Provided Education on: infection from medical records tech. cp4 21:32 No provider procedures requiring assistance completed. intact, bleeding controlled, No cp4 redness/swelling at site. Pressure dressing applied. Administered Medications: 15:50 Drug: Ondansetron IVP 4 mg IVP once; over 2 minutes Route: IVP; Site: left antecubital; db 15:50 Drug: morphine IVP or IV 4 mg IVP once over 4 mins Route: IVP; Infused Over: 4 mins; db Site: left antecubital; 17:18 Drug: HYDROmorphone IVP 1 mg IVP once Route: IVP; Site: left antecubital; db 19:45 Follow up: Response: No adverse reaction; Pain is decreased cp4 17:20 Drug: Potassium Chloride IV 20 mEq IV at calculated rate once; administer over 1-2 db hours Route: IV; Rate: calculated rate; Site: left antecubital; 19:48 Follow up: Response: No adverse reaction; IV Status: Completed infusion cp4 20:14 Drug: Piperacillin-Tazobactam IVPB 3.375 grams IVPB once over 60 mins; (mix in NS 100 cp4 mL) Route: IVPB; Infused Over: 60 mins; Site: left antecubital; 20:45 Follow up: Response: No adverse reaction; IV Status: Completed infusion cp4 20:45 Drug: HYDROmorphone IVP 0.5 mg IVP once Route: IVP; Site: left antecubital; cp4 21:15 Follow up: Response: No adverse reaction; Pain is decreased cp4 Medication: 21:32 VIS not applicable for this client. cp4 Outcome: 20:18 Discharge ordered by . cp 21:32 Discharged to home via wheelchair, cp4 21:32 Condition: stable 21:32 Discharge instructions given to patient, family, Instructed on discharge instructions, follow up and referral plans. medication usage, Demonstrated understanding of instructions, follow-up care, medications, Prescriptions given X 1, 21:34 Patient left the ED. cp4 Addendum: 02/14/2024 19:19 Addendum: Culture Results: Positive blood culture. Positive wound culture. Phone call s s Attempt #1 attempted to call patient for follow/ potential returning to ER for further evaluation. No answer. Unable to leave VM as it has not been set up. Signatures: Dispatcher [employer] EDMS Arlene Zuniga RN RN ss Nitish Simmons PA PA cp Benton, Danielle, RN RN Madison Manriquez cp4 Sammi Block RN RN 6 Priya Vega ra3 Héctor Sauceda Corrections: (The following items were deleted from the chart) 02/09 14:40 14:37 Chief complaint: Patient states: I have been working with a pain management 6 doctor and they have put in a nerve stimulator -- placed 02/05/24. The doctor wanted me to come in today emergently, as they think the leads they put in are bleeding or have moved. I am feeling shocks in my legs and having intense pain in my lower back 6
[2024-02-10] MEDS ORDERED: HYDROMORPHONE HCL 0.5 MG/0.5 ML INJ ONE (20:43)
[2024-02-11 04:22] VITALS: TEMP 98.9
[2024-02-11 04:36] VITALS: O2SAT 96
[2024-02-11 04:37] VITALS: BP 162/67
--- NOTE | 2024-02-12 11:37 | EKG ---
Test Date: 2024-02-10 Test Time: 17:27:33 Shoe Laster: DESIRE MEASUREMENT RESULTS: Intervals: Rate: 89 MN: QRSD: 108 QT: 408 QTc: 496 Cornelius: P: MN: QRS: -43 T: 91 INTERPRETIVE STATEMENTS: Poor quality with artifacts, hard to interpret rhythm Left axis deviation Lateral infarct, age undetermined Abnormal ECG Compared to ECG 11/03/2023 09:21:38 Left-axis deviation now present Myocardial infarct finding now present Sinus rhythm no longer present Sinus arrhythmia no longer present Electronically Signed On 02-12-24 11:34:06 DATA CONTROL CLERK by Tone Day
== END 2024-02-10 21:34 | disposition home or self-care (01) ==
LOC: ER 13:45
DX: L03.312 Cellulitis of back [any part except buttock and flank] (principal); M54.50 Low back pain, unspecified; F17.210 Nicotine dependence, cigarettes, uncomplicated
CPT/HCPCS: 96365; 96367; 93005; 87040 ×2; 87070; 85025; 81001; 36415; 87205 ×4; 85610; 83605; 85730; 87077 ×3; 87186 ×3; 83690; 80053; 74177; 96375; 99285; 96366; Q9967; J3480; J2543; J1171 ×2; J2405; J7050

== ENCOUNTER 2024-02-22 14:27 | Emergency (ER) | payer OTHER ==
[2024-02-22] MEDS ORDERED: NA CHLORIDE 0.9% 1,000 ML ONE (15:11)
[2024-02-22 15:26] LABS: Absolute Lymphocytes (CBC) 1.8 K/uL (0.7-4.9); Absolute Monocytes 0.7 K/uL (0.1-1.3); Absolute Neutrophil 11.7 K/uL (1.8-8.0); Basophils % 0.3 % (0-1.3); Eosinophils % 0.3 % (0-4.4); Hematocrit 23.5 % (36.0-45.0); Hemoglobin 7.7 g/dL (12.0-15.0); Lymphocytes % 12.3 % (15.3-44.8); MPV 7.9 fL (7.6-11.3); Monocytes % 4.6 % (3.3-12.3); Neutrophils % 82.5 % (41.7-73.7); Platelets 465 thou/uL (152-406); RBC Red Blood Cell Count 2.42 M/uL (3.86-4.86); Red Cell Distribution Width 13.1 % (12.1-15.2)
[2024-02-22 15:32] LABS: PT Prothrombin Time 20.8 SECONDS (9.4-12.5); PTT, Activated Partial Thromb 47.7 SECONDS (24.3-36.9); Protime INR 1.89
[2024-02-22 15:49] LABS: Albumin 1.8 g/dL (3.4-5.0); Albumin/Globulin Ratio 0.6 (1.1-1.8); Alkaline Phosphatase 64 U/L (45-117); Anion Gap 8.6 mEq/L (5.0-15.0); BUN Blood Urea Nitrogen 10 mg/dL (7-18); Bicarbonate 33 mEq/L (21-32); Bilirubin Total 0.3 mg/dL (0.2-1.0); Glomerular Filtration Rate 90 ml/min (=/>90); Glucose Level 141 mg/dL (74-106); Lipase 13 U/L (13-75); Protein, Total 4.8 g/dL (6.4-8.2); Sodium Level 137 mEq/L (136-145)
[2024-02-22 15:50] LABS: ALT/SGPT < 14 U/L (13-56); AST/SGOT < 10 U/L (15-37)
[2024-02-22 15:51] LABS: Potassium 2.6 mEq/L (3.5-5.1)
--- NOTE | 2024-02-22 16:33 | RAD REPORT ---
EXAMINATION: CT ABDOMEN AND PELVIS WITH CONTRAST CLINICAL INDICATION: Female, 78 years old.rectal bleeding, abd pain TECHNIQUE: CT abdomen and pelvis was performed, after the administration of IV contrast, as per [facility] protocol. Axial, sagittal and coronal reconstructions were obtained. One or more of the following dose reduction techniques were used: Automated exposure control, adjustment of the mA and/o r kV according to patient size, and/or iterative reconstruction. Unless otherwise specified, incidental findings do not require dedicated imaging follow-up. [id number]. COMPARISON: 02/10/24 FINDINGS: LOWER CHEST: The visualized lung bases are clear. LIVER: Normal in size and contour. No focal lesion. GALLBLADDER/BILE DUCT: No biliary ductal dilatation.? PANCREAS: No significant abnormality. SPLEEN: Normal size. No focal lesion. ADRENALS: Normal; no mass. KIDNEYS AND URETERS: Normal size and contour. No hydronephrosis. GASTROINTESTINAL TRACT: Wall thickening and hyperenhancement of the colon extending from the transver se colon to the rectum. No bowel obstruction. PERITONEUM: Small volume of pelvic free fluid. LYMPH NODES: No lymphadenopathy. ABDOMINAL AORTA AND OTHER VESSELS: Normal caliber aorta and IVC. Atherosclerosis which is advanced. T he common iliac vessels are likely at least moderately stenotic. URINARY BLADDER: Normal contour. REPRODUCTIVE ORGANS: No pathologic process MUSCULOSKELETAL: Advanced right hip degeneratives and subluxation. Fusion hardware in the spine. Retr olisthesis of L2 on L3. ADDITIONAL FINDINGS: None. IMPRESSION: Wall thickening and hyperenhancement of the colon and rectum extending from the splenic flexure likel y reflects either infectious, inflammatory, or ischemic colitis.
--- NOTE | 2024-02-22 16:41 | ER ---
Nurse's Notes [facility] Name: Azalea Rdz Age: 78 yrs Sex: Female : 1945 Arrival Date: 02/22/2024 Time: 14:27 Bed 3 Private MD: Diagnosis: Left sided colitis with rectal bleeding;Anemia, unspecified;GI Bleed/ Gastrointestinal hemorrhage, unspecified Presentation: 02/21 14:33 Chief complaint: EMS states: Pt toned out EMS for bright red stool x2 this morning and rs5 generalized weakness. Reports no history of GI bleed, anemia. Pt is on Eliquis. Coronavirus screen: At this time, the client does not indicate any symptoms associated with coronavirus-19. Ebola Screen: No symptoms or risks identified at this time. Initial Sepsis Screen: Does the patient meet any 2 criteria? HR > 90 bpm. Yes Does the patient have a suspected source of infection? No. Patient's initial sepsis screen is negative. Risk Assessment: Do you want to hurt yourself or someone else? Patient reports no desire to harm self or others. Onset of symptoms was February 22, 2024. 14:33 Method Of Arrival: EMS: [facility] rs5 14:33 Acuity: ROSIO 3 rs5 15:14 Acuity: ROSIO 2 iw Historical: - Allergies: 14:36 No Known Allergies; rs5 - PMHx: 14:36 Chronic pain; Hypertensive disorder; kidney failure; neuropathy; rs5 - PSHx: 14:36 trial nerve stimulator 02/05/24; rs5 - Immunization history:: Adult Immunizations up to date. - Infectious Disease History:: Denies. - Social history:: Smoking status: Patient denies any tobacco usage or history of. - Family history:: not pertinent. - Hospitalizations: : No recent hospitalization is reported. Screenin:35 [facility] ED Fall Risk Assessment (Adult) History of falling in the last 3 months, rs5 including since admission Yes- single mechanical fall (1 pt) Confusion or Disorientation No (0 pts) Intoxicated or Sedated No (0 pts) Impaired Gait Yes (1 pt) Mobility Assist Device Used Yes (1 pt) Altered Elimination Yes (1 pt) Score/Fall Risk Level 3 or more points = High Risk Oriented to surroundings, Maintained a safe environment, Assessed \T\ reinforced patient's understanding of fall precautions, Provided non-skid footwear, Hourly rounding (assess needs \T\ fall precautionary measures) done. Abuse screen: Denies threats or abuse. Nutritional screening: No deficits noted. Tuberculosis screening: No symptoms or risk factors identified. Assessment: 14:35 General: Appears in no apparent distress. uncomfortable, Behavior is calm, cooperative. rs5 Pain: Complains of pain in abdomen Pain currently is 3 out of 10 on a pain scale. Quality of pain is described as aching, Is continuous. Neuro: Level of Consciousness is awake, alert, obeys commands, Oriented to person, place, time, situation. Cardiovascular: Patient's skin is warm and dry. Respiratory: Airway is patent Respiratory effort is even, unlabored, Respiratory pattern is regular, symmetrical. GI: Abdomen is round non-distended, Abd is soft and non tender X 4 quads. Reports nausea, BLOODY STOOLS X 2. : No signs and/or symptoms were reported regarding the genitourinary system. EENT: No signs and/or symptoms were reported regarding the EENT system. Derm: Skin is intact, Skin is pink, warm \T\ dry. Musculoskeletal: Range of motion: intact in all extremities. 14:48 Reassessment: to bedside with tech, pt's brief changed, bright red blood noted in rs5 brief, diaper sized, pt cleaned, new brief applied, warm blankets, provider notified pt had bloody bM. 15:05 Reassessment: provider notified of low BP readings . rs5 16:12 Reassessment: Patient and/or family updated on plan of care and expected duration. Pain rs5 level reassessed. Patient is alert, oriented x 3, equal unlabored respirations, skin warm/dry/pink. 17:35 Reassessment: pt had large bloody bm, provider notified. to bedside with tech, pt rs5 cleansed, new brief applied, warm blankets provided . 17:45 Reassessment: Patient and/or family updated on plan of care and expected duration. Pain rs5 level reassessed. Patient is alert, oriented x 3, equal unlabored respirations, skin warm/dry/pink. to bedside for blood transfusion, rate started at 50 ml/hr, no adverse reaction noted, rate increased to 150 ml/hr. See paper charting for more information. 18:01 Reassessment: provider notified of low BP readings . rs5 18:03 Reassessment: to bedside, blood component place on pressure bag per MD orders for low rs5 BP readings, provider aware of latest vitals . 18:04 Reassessment: at home independent call center agent pharmacist called, spoke to Jamal for [employer], will come and aa5 deliver to ER KHADAR. . 18:20 Reassessment: blood transfusion complete, no adverse reaction noted, provider aware of rs5 latest vitals . 18:35 Reassessment: to bedside for second unit blood transfusion, rate started at 50 ml/hr rs5 for first 15 min, no adverse reaction noted, rate increased to 200 ml/hr, see paper charting for more information. 18:55 Reassessment: Patient and/or family updated on plan of care and expected duration. Pain rs5 level reassessed. Patient is alert, oriented x 3, equal unlabored respirations, skin warm/dry/pink. 19:18 Reassessment:. rs5 19:31 Reassessment: report given to [facility]. blood infusion transfer of care form al5 signed by powder monkey. patient brief checked before transfer, brief was clean. General: Appears in no apparent distress. uncomfortable, Behavior is calm, cooperative. Pain: Complains of pain in abdomen. Neuro: Level of Consciousness is awake, alert, obeys commands, Oriented to person, place, time, situation. Cardiovascular: Capillary refill < 3 seconds Patient's skin is warm and dry. Respiratory: Airway is patent Respiratory effort is even, unlabored, Respiratory pattern is regular, symmetrical. GI: Abdomen is round non-distended, Reports bloody stool, nausea. : No signs and/or symptoms were reported regarding the genitourinary system. EENT: No signs and/or symptoms were reported regarding the EENT system. Derm: Skin is intact, Skin is pink, warm \T\ dry. Musculoskeletal: No signs and/or symptoms reported regarding the musculoskeletal system. Vital Signs: 14:33 BP 101 / 63; Pulse 96; Resp 17; Temp 98.3(O); Pulse Ox 97% on R/A; rs5 14:45 BP 101 / 64; Pulse 77; Resp 17; Pulse Ox 98% on R/A; rs5 15:00 BP 76 / 45; Pulse 84; Resp 17; Pulse Ox 97% on R/A; rs5 15:15 BP 96 / 50; Pulse 79; Resp 16; Pulse Ox 98% on R/A; rs5 15:39 BP 106 / 60; Pulse 81; Resp 17; Pulse Ox 98% on R/A; rs5 16:10 BP 99 / 61; Pulse 84; Resp 16; Pulse Ox 98% on R/A; rs5 16:49 BP 101 / 67; Pulse 80; Resp 17; Pulse Ox 99% on R/A; rs5 17:15 Weight 49.9 kg; Height 5 ft. 3 in. ; sp 18:00 BP 88 / 56; Pulse 84; Resp 17; Pulse Ox 99% on R/A; rs5 18:14 BP 127 / 69; Pulse 73; rn 18:19 BP 115 / 64; Pulse 73; Resp 17; Temp 98.2(O); Pulse Ox 100% on R/A; rs5 18:25 BP 121 / 58; Pulse 77; Resp 16; Temp 98.4(O); Pulse Ox 99% on R/A; rs5 18:30 BP 128 / 60; Pulse 77; Resp 17; Temp 98.4(O); Pulse Ox 99% on R/A; rs5 18:45 BP 121 / 58; Pulse 72; Resp 16; Temp 98.3(O); Pulse Ox 99% ; rs5 19:00 BP 138 / 68; Pulse 78; Resp 16; Temp 98.3; Pulse Ox 99% on R/A; al5 19:30 BP 128 / 74; Pulse 74; Resp 16; Temp 98.2; Pulse Ox 98% on R/A; al5 17:15 Body Mass Index 19.49 (49.90 kg, 160.02 cm) sp ED Course: 14:33 Patient arrived in ED. rs5 14:35 No provider procedures requiring assistance completed. rs5 14:35 Patient has correct armband on for positive identification. Placed in gown. Bed in low rs5 position. Call light in reach. Side rails up X2. 14:36 Triage completed. rs5 14:41 Clark Mabry, STEPHEN is Primary Nurse. rs5 14:41 Sandeep Castro MD is Attending Physician. rn 15:24 Inserted saline lock: 18 gauge in left wrist, using aseptic technique. Flushed with 10 em1 mL NS. 16:16 CT Abd/Pelvis - IV Contrast Only In Process Unspecified. EDMS 17:57 1702 called [facility] for transfer talked to Staci. 1740 Staci called no ICU beds in the [facility]. 1743 called [facility] for transfer talked to Jenise. 18:31 1820 CALLED AND ACCEPTED PT PENDING GI. sp 18:36 1831 jenise Santoyo admin approval to [facility] ICU report [phone] 1831 DrJulia Leslie accept pt. 18:45 LAB Add On Sent. rs5 18:53 [facility] will transport pt to [place]. sp 19:36 Provided Education on: need for transfer. al5 19:37 Patient transferred, IV remains in place. al5 Administered Medications: 15:11 Drug: NS 0.9% IV 1000 ml IV at 1000 ml once; to be given as a bolus over 60 minutes rs5 Route: IV; Rate: 1000 ml; Site: right antecubital; 16:00 Follow up: Response: No adverse reaction; IV Status: Completed infusion; IV Intake: rs5 1000ml 16:40 Drug: Piperacillin-Tazobactam IVPB 3.375 grams IVPB once over 60 mins; (mix in NS 100 rs5 mL) Route: IVPB; Infused Over: 60 mins; Site: left wrist; 17:00 Follow up: Response: No adverse reaction; IV Status: Completed infusion; IV Intake: rs5 100ml 16:45 Drug: Potassium Chloride IV 10 mEq IV at calculated rate once; administer over 1-2 rs5 hours Route: IV; Rate: calculated rate; Site: right antecubital; 17:00 Follow up: Response: No adverse reaction rs5 19:30 Follow up: Response: No adverse reaction; IV Status: Infusion continued upon transfer al5 19:08 Drug: Kcentra IV 1,000 unit 1,000 unit 1250 units IV at calculated rate once Route: IV; al5 Rate: calculated rate; Site: left forearm; 19:29 Follow up: Response: No adverse reaction; IV Status: Completed infusion; IV Intake: [id number] Medication: 18:02 VIS not applicable for this client. rs5 Intake: 16:00 IV: 1000ml; Total: 1000ml. rs5 17:00 IV: 100ml; Total: 1100ml. rs5 19:29 IV: 60ml; Total: 1160ml. al5 Outcome: 16:41 ER care complete, transfer ordered by . rn 19:37 Transferred by ground EMS [facility]. to [facility], al5 19:37 Condition: stable 19:37 Instructed on the need for transfer, 19:38 Patient left the ED. al5 Signatures: Dispatcher [employer] EDMS Tangela De La Vega Irene, RN RN iw Nieto, Roman, MD MD rn Martinez, Eric em1 Kaycee Suárez RN RN aa5 Clark Mabry RN RN rs5 Kayla Steven RN RN al5 Corrections: (The following items were deleted from the chart) 14:42 14:33 Chief complaint: EMS states: Pt toned out EMS for bright red stool x2 this rs5 morning and generalized weakness. Reports no history of GI bleed, anemia, or recent abdominal procedures rs5 18:00 14:48 Reassessment: to bedside with tech, pt's brief changed, bright red blood noted in rs5 brief, diaper sized, pt cleaned, new brief applied, warm blankets . rs5 19:22 17:45 Reassessment: Patient and/or family updated on plan of care and expected rs5 duration. Pain level reassessed. Patient is alert, oriented x 3, equal unlabored respirations, skin warm/dry/pink. to bedside for blood transfusion, rate started at 50 ml/hr, no adverse reaction noted, rate increased to 150 ml/hr. rs5 19:22 18:35 Reassessment: to bedside for second unit blood transfusion, rate started at 50 rs5 ml/hr for first 15 min, no adverse reaction noted, rate increased to 200 ml/hr . rs5
--- NOTE | 2024-02-22 16:41 | EDPHYS ---
Physician Documentation [facility] Name: Azalea Rdz Age: 78 yrs Sex: Female : 1945 Arrival Date: 02/22/2024 Time: 14:27 Bed 3 Private MD: ED Physician Sandeep Castro HPI: 02/21 15:02 This 78 yrs old Female presents to ER via EMS with complaints of Bloody Stools. rn 15:02 The patient presents to the emergency department with rectal bleeding, a moderate rn amount, bright red blood with bowel movement, 16:37 Onset: The symptoms/episode began/occurred today. Abdominal pain: located in the left rn upper quadrant and left lower quadrant. Modifying factors: The symptoms are alleviated by nothing, the symptoms are aggravated by nothing. Associated signs and symptoms: Pertinent negatives: chest pain, constipation, fever, shortness of breath. Severity of symptoms: At their worst the symptoms were moderate in the emergency department the symptoms are unchanged. The patient has not experienced similar symptoms in the past. The patient has not recently seen a physician. Patient reports 2 bloody bowel movements at home. Associated with mid and left-sided abdominal pain. Feels generalized weakness and malaise. Patient takes Eliquis for DVT.. Historical: - Allergies: 14:36 No Known Allergies; rs5 - PMHx: 14:36 Chronic pain; Hypertensive disorder; kidney failure; neuropathy; rs5 - PSHx: 14:36 trial nerve stimulator 02/05/24; rs5 - Immunization history:: Adult Immunizations up to date. - Infectious Disease History:: Denies. - Social history:: Smoking status: Patient denies any tobacco usage or history of. - Family history:: not pertinent. - Hospitalizations: : No recent hospitalization is reported. ROS: 16:37 Constitutional: Negative for fever, chills, and weight loss, Cardiovascular: Negative rn for chest pain, palpitations, and edema, Respiratory: Negative for shortness of breath, cough, wheezing, and pleuritic chest pain, Abdomen/GI: Negative for nausea, vomiting, diarrhea, and constipation, MS/Extremity: Negative for injury and deformity, Skin: Negative for injury, rash, and discoloration, Neuro: Negative for headache, weakness, numbness, tingling, and seizure, Exam: 16:37 Constitutional: This is a well developed, well nourished patient who is awake, alert, rn and in no acute distress. Eyes: Pale conjunctiva Cardiovascular: Regular rate and rhythm. No pulse deficits. Respiratory: No increased work of breathing, no retractions or nasal flaring. Abdomen/GI: Soft, mild left abdominal tenderness MS/ Extremity: Pulses equal, no cyanosis. Neuro: Awake and alert, GCS 15 Vital Signs: 14:33 BP 101 / 63; Pulse 96; Resp 17; Temp 98.3(O); Pulse Ox 97% on R/A; rs5 14:45 BP 101 / 64; Pulse 77; Resp 17; Pulse Ox 98% on R/A; rs5 15:00 BP 76 / 45; Pulse 84; Resp 17; Pulse Ox 97% on R/A; rs5 15:15 BP 96 / 50; Pulse 79; Resp 16; Pulse Ox 98% on R/A; rs5 15:39 BP 106 / 60; Pulse 81; Resp 17; Pulse Ox 98% on R/A; rs5 16:10 BP 99 / 61; Pulse 84; Resp 16; Pulse Ox 98% on R/A; rs5 16:49 BP 101 / 67; Pulse 80; Resp 17; Pulse Ox 99% on R/A; rs5 17:15 Weight 49.9 kg; Height 5 ft. 3 in. ; sp 18:00 BP 88 / 56; Pulse 84; Resp 17; Pulse Ox 99% on R/A; rs5 18:14 BP 127 / 69; Pulse 73; rn 18:19 BP 115 / 64; Pulse 73; Resp 17; Temp 98.2(O); Pulse Ox 100% on R/A; rs5 18:25 BP 121 / 58; Pulse 77; Resp 16; Temp 98.4(O); Pulse Ox 99% on R/A; rs5 18:30 BP 128 / 60; Pulse 77; Resp 17; Temp 98.4(O); Pulse Ox 99% on R/A; rs5 18:45 BP 121 / 58; Pulse 72; Resp 16; Temp 98.3(O); Pulse Ox 99% ; rs5 19:00 BP 138 / 68; Pulse 78; Resp 16; Temp 98.3; Pulse Ox 99% on R/A; al5 19:30 BP 128 / 74; Pulse 74; Resp 16; Temp 98.2; Pulse Ox 98% on R/A; al5 17:15 Body Mass Index 19.49 (49.90 kg, 160.02 cm) sp MDM: 14:41 Medical Screening Exam initiated rn 16:37 Differential diagnosis: gastritis, Colitis, lower GI bleed, ischemic colitis. Data rn reviewed: vital signs, nurses notes, lab test result(s), radiologic studies, CT scan, and as a result, I will admit patient. Consideration of Admission/Observation Patient was admitted/placed on observation. Escalation of care including admission/observation considered. Counseling: I had a detailed discussion with the patient and/or guardian regarding the historical points, exam findings, and any diagnostic results supporting the discharge/admit diagnosis, lab results, radiology results, the need for further work-up and treatment in the hospital, the need to transfer to another facility, [facility] does not immediately have the required specialist. ED course: I personally spent 35 minutes engaged in work directly related to the individual patient's care. This does not include any time spent performing procedures. The patient has been deemed critically ill because of acute GI bleed with active bleeding requiring blood transfusion, fluid resuscitation and organization of transfer for GI care.. 17:34 ED course: Patient had another bloody bowel movement here in the emergency room, rn moderate amount. Still waiting on [facility] to call back for transfer. Blood is to be started now, lab notified us that it is ready.. 17:45 ED course: [facility] called back, states at capacity and cannot accept transfer. rn cvicu initiated to [facility]. Another unit of blood ordered from blood bank.. 18:24 ED course: Spoke with tree warden at [facility], accepts patient as long rn as his GI doc is willing to consult. Waiting to hear back for final approval.. 19:30 ED course: Patient well-appearing and stable at point of transfer. 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 Blood pressure is 128/77 with heart rate of 75. Second unit of blood almost done and Kcentra given. Has not had another bloody bowel movement in the emergency room.. 02/21 14:47 Order name: CBC with Diff; Complete Time: 15:55 rn 02/21 14:47 Order name: CMP; Complete Time: 15:55 rn 02/21 14:47 Order name: Lipase; Complete Time: 15:55 rn 02/21 14:47 Order name: Protime (+inr); Complete Time: 15:55 rn 02/21 14:47 Order name: Ptt, Activated; Complete Time: 15:55 rn 02/21 14:47 Order name: Lactate w/ 2H reflex if indic.; Complete Time: 15:55 rn 02/21 14:47 Order name: Type And Screen 02/21 15:52 Order name: Ghost Lactate-NO COLLECT Timer; Complete Time: 17:54 EDMA 02/21 16:58 Order name: Packed RBC Leukored EDMA 02/21 17:00 Order name: ABO/RH no charge; Complete Time: 17:11 EDMA 02/21 17:40 Order name: LAB Add On 02/21 17:50 Order name: Packed RBCs (Additional Unit) EDMA 02/21 14:47 Order name: CT Abd/Pelvis - IV Contrast Only; Complete Time: 16:35 rn 02/21 14:47 Order name: IV Saline Lock; Complete Time: 15:24 rn 02/21 14:47 Order name: Labs collected and sent; Complete Time: 15:43 rn 02/21 16:03 Order name: Misc. Order: LAV TOP ; Complete Time: 16:42 hb Administered Medications: 15:11 Drug: NS 0.9% IV 1000 ml IV at 1000 ml once; to be given as a bolus over 60 minutes rs5 Route: IV; Rate: 1000 ml; Site: right antecubital; 16:00 Follow up: Response: No adverse reaction; IV Status: Completed infusion; IV Intake: rs5 1000ml 16:40 Drug: Piperacillin-Tazobactam IVPB 3.375 grams IVPB once over 60 mins; (mix in NS 100 rs5 mL) Route: IVPB; Infused Over: 60 mins; Site: left wrist; 17:00 Follow up: Response: No adverse reaction; IV Status: Completed infusion; IV Intake: rs5 100ml 16:45 Drug: Potassium Chloride IV 10 mEq IV at calculated rate once; administer over 1-2 rs5 hours Route: IV; Rate: calculated rate; Site: right antecubital; 17:00 Follow up: Response: No adverse reaction rs5 19:30 Follow up: Response: No adverse reaction; IV Status: Infusion continued upon transfer al5 19:08 Drug: Kcentra IV 1,000 unit 1,000 unit 1250 units IV at calculated rate once Route: IV; al5 Rate: calculated rate; Site: left forearm; 19:29 Follow up: Response: No adverse reaction; IV Status: Completed infusion; IV Intake: [id number] Disposition Summary: 02/22/24 16:41 Transfer Ordered Notes: Transfer Location: [facility] rn Reason: Higher level of care rn Condition: Stable rn Problem: new rn Symptoms: have improved rn Accepting Physician: (02/22/24 19:38) al5 Diagnosis - Left sided colitis with rectal bleeding rn - Anemia, unspecified rn - GI Bleed/ Gastrointestinal hemorrhage, unspecified rn Forms: - Medication Reconciliation Form rn - SBAR form technical internship time excluding procedures: 16:37 Critical care time: Bedside Care: 35 minutes. Total time: 35 minutes rn Signatures: Dispatcher [employer] Sandeep Boyce MD MD rn Baxter, Heather RN Clark Das RN RN rs5 Kayla Steven RN RN al5 Corrections: (The following items were deleted from the chart) 16:03 16:03 LAB ADD ON+C.LAB.BRZ ordered. BAN RODRIGUEZMA 16:41 16:41 rn rn 19:38 16:41 Dr. rojas al5
[2024-02-22] MEDS ORDERED: NA CHLORIDE 0.9% 100 ML ONE (16:43)
[2024-02-22] MEDS ORDERED: KCL 20 MEQ/100 mL IVPB 100 ML IV ONE (16:43)
[2024-02-22] MEDS ORDERED: PIPERACIL/TAZO 3.375 GM VIAL IV ONE (16:44)
[2024-02-22] MEDS ORDERED: NA CHLORIDE 0.9% 500 ML ONE (17:05)
[2024-02-22] MEDS ORDERED: NA CHLORIDE 0.9% 250 ML ONE ×2 (17:05→18:05)
[2024-02-22] MEDS ORDERED: WATER FOR INJ STERILE IV ONE ×2 (19:00→20:00)
[2024-02-22] MEDS ORDERED: HUM PROTHROMBIN CPLX IV ONE ×2 (19:00→20:00)
[2024-02-22] MEDS ORDERED: [UNRECOGNIZED DRUG - OTHER] IV ONE ×2 (19:00→20:00)
[2024-02-22] MEDS ORDERED: HYDRALAZINE HCL 20 MG/ML VIAL ONE (19:05)
[2024-02-22 23:22] VITALS: BP 128/74; TEMP 98.2; O2SAT 98
== END 2024-02-22 19:38 | disposition short-term general hospital (02) ==
LOC: ER 14:27
PROC: 30233N1 Transfusion of Nonautologous Red Blood Cells into Peripheral Vein, Percutaneous Approach (ICD-10-PCS; principal; 2024-02-22)
DX: K51.511 Left sided colitis with rectal bleeding (principal); D64.9 Anemia, unspecified; I12.9 Hypertensive chronic kidney disease with stage 1 through stage 4 chronic kidney disease, or unspecified chronic kidney disease; N18.9 Chronic kidney disease, unspecified
CPT/HCPCS: 85025; 36415; 86900; 86850; 85610; 86901; 83605; 85730; 86920 ×2; 83690; 80053; 74177; 99285; 36430; Q9967; J3480; J7168; J2543; P9016 ×2; J7050 ×2; J7040; J7030; J0360